=== PATIENT | female | born 1955 | race Caucasian/White ===

== ENCOUNTER 2020-07-31 10:54 | Outpatient (CLI) | payer OTHER, SELFPAY ==
--- NOTE | ~2020-07-31 | XR_ITS ---
EXAMINATION: XR knee LT 3V DATE: 07/31/2020 11:17 INDICATION: Left knee pain. TECHNIQUE: 3 views of left knee were obtained. COMPARISON: Left knee radiograph 09/28/2013 FINDINGS: Bone alignment is normal. No fracture. There is mild osteoarthritis of lateral and patellof emoral compartments characterized by tiny marginal osteophytes. No knee joint effusion. IMPRESSION: 1. Mild left knee osteoarthritis. Reviewed, dictated and finalized at location A.
== END 2020-07-31 10:55 | disposition home or self-care (01) ==
LOC: ANHIMG 11:02
PROVIDERS: PCP Internal Medicine; Visit Provider Internal Medicine
DX: M17.12 Unilateral primary osteoarthritis, left knee (principal)
CPT/HCPCS: 73562

== ENCOUNTER 2020-08-08 08:00 | Outpatient (CLI) | payer OTHER, SELFPAY | END 2020-08-08 08:01 | disposition home or self-care (01) | LOC: ANHCOVIDVC 08:00 | PROVIDERS: PCP Internal Medicine | DX: Z23 Encounter for immunization (principal) | CPT/HCPCS: 0001A; 91300 ==

== ENCOUNTER 2020-08-29 08:02 | Outpatient (CLI) | payer OTHER, SELFPAY | END 2020-08-29 08:03 | LOC: ANHCOVIDVC 08:02 | PROVIDERS: PCP Internal Medicine | DX: Z23 Encounter for immunization (principal) | CPT/HCPCS: 0002A; 91300 ==

== ENCOUNTER 2024-02-01 15:39 | Inpatient (IN) | payer MEDICARE, SELFPAY ==
[2024-02-01] VITALS (17 sets, daily range): BP systolic 134–221; BP diastolic 70–103; PULSE 68–83; RESP 12–26; TEMP 36.3; O2SAT 93–100; BMI 29.9
--- NOTE | ~2024-02-01 | CT_ITS ---
CLINICAL INDICATION: Gallstone pancreatitis. COMPARISON: 02/01/2024. TECHNIQUE: An enhanced CT of the abdomen and pelvis was performed utilizing multislice spiral McPhy ue reconstructed at 2.5 mm slice thickness. Coronal and sagittal reconstructions were performed. Th is CT examination was performed utilizing dose reduction techniques. This CT examination was performe d using one or more of the following dose reduction techniques: Automated exposure control, adjustmen t of the mA and/or kV according to patient's size, and the use of iterative reconstruction technique. FINDINGS/OBSERVATIONS: Visualized lower thorax:Interval development of small bilateral pleural effusions with adjacent compr essive atelectasis, right greater than left. The heart is enlarged, without pericardial effusion. Elevation of the right hemidiaphragm is redemonstrated. Liver: The liver is enlarged measuring 20 cm in longitudinal dimension. Gallbladder and biliary system: The gallbladder is distended with both fluid and two large stones. Pancreas: The pancreas is enlarged, and edematous, with loss of the normal fat planes as one would expect with acute pancreatitis. However, in contrast to the previous examination performed 2 days earlier, the entirety of the pancre as does not enhance with intravenous contrast. A short segment of the proximal body of the pancreas demonstrates decreased attenuation without enhancement, worrisome for necrotizing pancreatitis. This abnormality is visualized caudal and right lateral to the SMV/portal vein confluence. This is best se en on axial imaging, slices 77 through 88. Peripancreatic fluid is redemonstrated, increased from prior with free fluid extending into the pelvi s. Spleen: The spleen enhances homogeneously, and is otherwise unremarkable without splenic enlargement. Kidneys: Scattered subcentimeter foci within the bilateral kidneys for which cysts are suspected. Rem ainder of the bilateral kidneys enhance symmetrically. Adrenal glands: Unremarkable. Gastrointestinal tract: Multiple loops of inflamed small bowel within the proximal jejunum are presen t with borderline dilatation and hyperemia. Fecal stasis within the aerated colon. Appendix:The air-filled appendix is of normal caliber (axial series, image 157). Vasculature: The IVC is flattened and slit-like consistent with severe hypovolemia. Trace calcification within the abdominal aorta. Lymph nodes: Scattered nonpathologically enlarged lymph nodes within the retroperitoneum and the mese ntery. Pelvic structures:The uterus is anteverted and anteflexed. The bladder is decompressed without Sanchez catheter drainage. Further evaluation of the deep pelvis is limited secondary to streak artifact from the patient's righ t hip prosthetic. Body wall and musculoskeletal: Small fat-containing umbilical hernia. No significant degenerative disease within the lower thoracic or lumbosacral spines. No lytic or blastic lesions. IMPRESSION: Findings consistent with acute pancreatitis, with additional findings worrisome for necrotizing pancr eatitis, as detailed above. Severe hypovolemia by imaging criteria for which aggressive resuscitation is suggested. Cholelithiasis. Hepatomegaly. Interval development of bilateral pleural effusions with adjacent compressive atelectasis. These findings will be called to the ordering clinician. Once contact was made, an addendum will be p erformed. Reviewed, dictated and finalized at location A. IMPRESSION: Findings consistent with acute pancreatitis, with additional findings worrisome for necrotizing pancreatitis, as detailed above. Severe hypovolemia by imaging criteria for which aggressive resuscitation is lee ggested. Cholelithiasis. Hepatomegaly. Interval development of bilateral pleural effusions with adjacent compressive a telectasis. These findings will be called to the ordering clinician. Once contact was made, an addendum will be performed.
--- NOTE | ~2024-02-01 | XR_ITS ---
Exam: Abdomen 2V HISTORY: replaced ng tube after pt removed COMPARISON: 02/03/2024 TECHNIQUE: Supine images of the lower chest and upper abdomen FINDINGS: Nasogastric tube extends just into the stomach, for which advancement of approximately 5 to 6 cm may be performed for optimal radiographic placement. Interval worsening of the bilateral pleural effusions, when compared with earlier imaging. IMPRESSION: Interval replacement of the nasogastric tube with its tip projecting over the proximal stomach for wh ich advancement of approximately 5 to 6 cm may be performed for optimal radiographic placement. Worsening bilateral pleural effusions, as detailed above. Reviewed, dictated and finalized at location A. IMPRESSION: Interval replacement of the nasogastric tube with its tip projecting over the p roximal stomach for which advancement of approximately 5 to 6 cm may be perform ed for optimal radiographic placement. Worsening bilateral pleural effusions, as detailed above.
--- NOTE | ~2024-02-01 | CT_ITS ---
EXAMINATION: CT abdomen pelvis wo con DATE: 02/08/2024 10:22 INDICATION: Pancreatitis. TECHNIQUE: Computed tomography (CT) of the abdomen and pelvis was performed without intravenous contr ast. Automated exposure control and iterative reconstruction technique were employed. The dose-length product was 863.10 mGy-cm. COMPARISON: CT abdomen and pelvis 02/03/2024 FINDINGS: The visualized portions of the lung bases demonstrate atelectasis. There are small pleural effusions. The heart size is normal. There are coronary artery calcifications. There are calcificatio ns aortic valve. No pericardial effusion. There is diffuse hepatic steatosis. The spleen is normal. T here are gallstones in the gallbladder, which is distended. There are punctate calcifications in the pancreas, consistent with chronic pancreatitis. There is extensive fat stranding around the pancreas. The pancreas demonstrates heterogeneous attenuation. The adrenal glands and right kidney are normal. There is a parenchymal calcification in left kidney. There is calcified atherosclerosis of the aorta and many of the other arteries. There is a Sanchez catheter in expected position. The endometrial comp graham is thickened to 13 mm. There are dilated loops of small bowel. The appendix is normal. There is a small volume of ascites. There are no pathologically enlarged lymph nodes. There is a total right hi p arthroplasty. There is mild thoracic spondylosis and moderate lumbar spondylosis. IMPRESSION: 1. Stable acute necrotic pancreatitis. 2. Improved small volume of ascites. 3. Worsened small pleural effusions. 4. Cholelithiasis. Gallbladder distention may be secondary to fasting or acute cholecystitis. 5. Dilated small bowel, likely adynamic ileus. 6. Thickened endometrial complex. The differential diagnosis includes endometrial hyperplasia, polyp, and carcinoma. Consider pelvis ultrasound or biopsy. Reviewed, dictated and finalized at location A. IMPRESSION: 1. Stable acute necrotic pancreatitis. 2. Improved small volume of ascites. 3. Worsened small pleural effusions. 4. Cholelithiasis. Gallbladder distention may be secondary to fasting or acute cholecystitis. 5. Dilated small bowel, likely adynamic ileus. 6. Thickened endometrial complex. The differential diagnosis includes endometri al hyperplasia, polyp, and carcinoma. Consider pelvis ultrasound or biopsy.
--- NOTE | ~2024-02-01 | XR_ITS ---
XR chest 1V portable 02/05/2024 08:27 Indication: Hypoxia Procedure: AP portable chest Comparison: 02/04/2024 Findings: Cardiomegaly. PICC catheter tip in the SVC. Pulmonary vascular congestion. Small right pleu ral effusion. No pneumothorax. Retrocardiac opacification, most likely atelectasis. Impression: 1: Cardiomegaly with pulmonary vascular congestion. 2: Left basilar consolidation, most likely atelectasis. 3: Small right pleural effusion. Reviewed, dictated and finalized at location B. Impression: 1: Cardiomegaly with pulmonary vascular congestion. 2: Left basilar consolidation, most likely atelectasis. 3: Small right pleural effusion.
--- NOTE | ~2024-02-01 | XR_ITS ---
CHEST RADIOGRAPH CLINICAL HISTORY: Increased work of breathing . COMPARISON: 02/01/2024 TECHNIQUE: Single portable view of the chest. FINDINGS Nasogastric tube extends below the left hemidiaphragm, presumably within the stomach. Small bore catheter originates in the left upper extremity with its tip projecting over the superior vena cava, representing a PICC line. Indeterminate lucency suggesting air opacified bowel is identified projecting over the cardiomediasti nal silhouette, to the left of midline. On the previous day's CT examination there was no bowel interposition appreciated in this location, a nd as such this lucency is indeterminate. The remainder of the cardiomediastinal silhouette is otherwise unremarkable. Platelike atelectasis is now present within the left mid to lower lung field. Blunting of the bilateral costophrenic sulci are demonstrated suggesting small bilateral pleural effu sions, likely reactive from patient's intra-abdominal process. No evidence of pulmonary vascular congestion is appreciated. IMPRESSION: Small bilateral pleural effusions (likely reactive from patient's intra-abdominal process) with indet erminate lucency projecting over the left mid to lower lung field, as detailed above. These findings may be secondary to patient positioning (semierect). Platelike atelectasis within the left mid to lower lung field, an interval change. Interval placement of a left upper extremity PICC line, in good position and ready for immediate use. No focal infiltrate or evidence of pulmonary vascular congestion. Reviewed, dictated and finalized at location A. IMPRESSION: Small bilateral pleural effusions (likely reactive from patient's intra-abdomin al process) with indeterminate lucency projecting over the left mid to lower tata ng field, as detailed above. These findings may be secondary to patient positio brian (semierect). Platelike atelectasis within the left mid to lower lung field, an interval elizabeth ge. Interval placement of a left upper extremity PICC line, in good position and re agnes for immediate use. No focal infiltrate or evidence of pulmonary vascular congestion.
--- NOTE | ~2024-02-01 | XR_ITS ---
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 RESULT: Lines, tubes, and devices: None. Lungs and pleura: Subsegmental left lower lobe airspace opacities. Cardiomediastinal silhouette: Stable. Other: No acute osseous or upper abdominal finding. IMPRESSION: Subsegmental left lower lobe atelectasis/consolidation. Reviewed, dictated and finalized at location K.
--- NOTE | ~2024-02-01 | XR_ITS ---
Exam: Abdomen 2V HISTORY: NG placement COMPARISON: Reference is made to CT examination of the abdomen and pelvis performed 24 hours earlier. TECHNIQUE: Supine images of the lower chest and upper abdomen FINDINGS: Nasogastric tube identified projecting below the left hemidiaphragm, presumably within the stomach. Multiple loops of dilated small bowel within the upper abdomen, likely reactive from patient's known pancreatitis. IMPRESSION: NG tube in good position and ready for immediate use for decompression purposes Reviewed, dictated and finalized at location A.
--- NOTE | ~2024-02-01 | CT_ITS ---
CT of the Abdomen and Pelvis: Indication: Hematuria Technique: 2.5 mm axial scans were obtained through the abdomen and pelvis prior to and following in travenous administration of 130 cc of Omnipaque 350. Dose reduction technique was used on this scan b y utilizing automated exposure control and iterative reconstruction technique. The dose-length produc t (DLP) was 1088.40 mGy-cm. COMPARISON: 02/08/2024 Findings: Scans through the lung bases demonstrate small to moderate right pleural effusion and smal l left pleural effusion, with bibasilar atelectatic change. The liver, spleen, adrenals and kidneys are within normal limits. Calcified gallstones are present. T here is necrotic change of the pancreas, compatible with necrotizing pancreatitis, with extensive irr egular developing peripancreatic fluid collections, compatible with developing pseudocysts or walled off necrosis. There are atherosclerotic calcifications of the aorta. No lymphadenopathy. No bowel obstruction or bowel wall thickening. There is no evidence to suggest acute appendicitis. Images through the pelvis were performed. Urinary bladder unremarkable. Small amount of pelvic ascite s present. No adnexal mass evident. Impression: No definite etiology for hematuria identified. Present pancreatitis with developing extensive irregular peripancreatic fluid collections, compatible with developing pseudocysts or walled off necrosis. Small amount of pelvic ascites. Bilateral pleural effusions, as detailed above, with bibasilar atelectasis. Cholelithiasis. Reviewed, dictated and finalized at [facility]. Impression: No definite etiology for hematuria identified. Present pancreatitis with developing extensive irregular peripancreatic fluid c ollections, compatible with developing pseudocysts or walled off necrosis. Small amount of pelvic ascites. Bilateral pleural effusions, as detailed above, with bibasilar atelectasis. Cholelithiasis.
--- NOTE | ~2024-02-01 | XR_ITS ---
EXAMINATION: XR chest 1V portable DATE: 02/08/2024 10:25 INDICATION: Pneumonia. TECHNIQUE: A single frontal view of the chest was obtained. COMPARISON: Chest single view 02/06/2024 FINDINGS: The lung volumes are small. There are airspace opacities at the lung bases, likely atelecta sis. There is a small right pleural effusion. No pneumothorax. The heart size is normal. A left upper extremity peripherally inserted central venous catheter (PICC) is seen with tip in the superior vena cava. There is dilated small bowel. IMPRESSION: 1. Small lung volumes with airspace opacities at the lung bases, likely atelectasis. 2. Small right pleural effusion. 3. Dilated small bowel, likely adynamic ileus. Reviewed, dictated and finalized at location A. IMPRESSION: 1. Small lung volumes with airspace opacities at the lung bases, likely atelect asis. 2. Small right pleural effusion. 3. Dilated small bowel, likely adynamic ileus.
--- NOTE | ~2024-02-01 | US_ITS ---
Renal-Bladder ultrasound Clinical History: Hematuria Technique: Real-time sonographic imaging of the kidneys and urinary bladder was performed. Findings: The right kidney measures 12.1 cm in length and the left kidney measures 13.0 cm. There is no hydronephrosis or renal calculus identified. Renal cortical echogenicity is within normal limits. No renal mass lesion is identified. The urinary bladder is moderately distended at the time of this exam. No intraluminal echoes are iden tified. No abnormal wall thickening is seen. Impression: Unremarkable ultrasound of the kidneys and urinary bladder. Reviewed, dictated and finalized at location M. Impression: Unremarkable ultrasound of the kidneys and urinary bladder.
--- NOTE | ~2024-02-01 | CT_ITS ---
EXAMINATION: CTA chest abdomen pelvis DATE: 02/01/2024 17:48 INDICATION: chest pain, abd pain . TECHNIQUE: Computed tomography angiography of the chest, abdomen, and pelvis was performed with 100 m L Omnipaque-350 intravenous contrast in the arterial phase. Automated exposure control and iterative reconstruction technique were employed. The dose-length product was 1062.54 mGy-cm. COMPARISON: None FINDINGS: CHEST: Thoracic aorta: Borderline ectasia. Mild arch calcification. No dissection. Lung parenchyma and airways: Patchy areas of groundglass opacities and mild septal thickening. Low vo lumes. Patent airways. Thoracic inlet, axillae and chest wall: No thyroid or soft tissue mass. No axillary lymphadenopathy. Mediastinum: No mass or lymphadenopathy. Heart and pericardium: Normal heart size. No pericardial effusion. Coronary artery calcifications: Moderate. Pleura: No effusion or mass. Thoracic bones: No acute osseous finding in the chest. ABDOMEN/PELVIS: Liver: Enlarged. Filling defects in the main portal vein right left portal veins and superior mesente margarita vein, with surrounding fluid. Biliary/Gallbladder: Cholelithiasis. No bile duct dilation. Pancreas: Peripancreatic stranding and fluid Spleen: Normal. Adrenals:No mass. Kidneys: No suspicious mass, obstructing stone, or hydronephrosis. Bilateral renal cortical thinning. GI tract: No small or large bowel dilation. Normal appendix. Diverticulosis without diverticulitis. Mesentery/Peritoneum: Peripancreatic fluid extends along the mesenteric root and the bilateral latera l conal fascia and paracolic gutters. Retroperitoneum: No mass Atherosclerotic abdominal aortic and/or arterial calcifications. Pelvis: Obscured by streak artifact. Grossly normal urinary bladder and uterus. Normal bilateral ovar ies. Soft Tissues: Soft tissues and body wall unremarkable. Abdominopelvic bones: No acute osseous finding in the abdomen/pelvis. Partially visualized uncomplic ated appearing right hip arthroplasty hardware IMPRESSION: No aortic dissection or aneurysm. Moderate interstitial pulmonary edema. Hepatomegaly. Acute interstitial pancreatitis. Possible portal vein and superior mesenteric vein thrombosis, versus artifact from unopacified blood in this arterial phase study. Consider right upper quadrant with a focus on obtaining portal venous c olor Doppler flow and waveforms. Reviewed, dictated and finalized at location K. IMPRESSION: No aortic dissection or aneurysm. Moderate interstitial pulmonary edema. Hepatomegaly. Acute interstitial pancreatitis. Possible portal vein and superior mesenteric vein thrombosis, versus artifact f rom unopacified blood in this arterial phase study. Consider right upper quadra nt with a focus on obtaining portal venous color Doppler flow and waveforms.
--- NOTE | ~2024-02-01 | XR_ITS ---
EXAMINATION: XR chest 1V portable DATE: 02/06/2024 08:45 INDICATION: Hypoxia. TECHNIQUE: A single frontal view of the chest was obtained. COMPARISON: Chest single view 02/05/2024, CT abdomen and pelvis 02/03/2024 FINDINGS: The lung volumes are small. There are airspace opacities in the mid and lower lung zones. T here are small pleural effusions. No pneumothorax. Cardiomegaly is noted. A left upper extremity nikki pherally inserted central venous catheter (PICC) is seen with tip in the superior vena cava. There is dilated small bowel in the abdomen. IMPRESSION: 1. Stable small pleural effusions. 2. Stable airspace opacities in the mid and lower lung zones, consistent with atelectasis or less lik kerrie pneumonia. 3. Dilated small bowel, likely adynamic ileus. Reviewed, dictated and finalized at location A. IMPRESSION: 1. Stable small pleural effusions. 2. Stable airspace opacities in the mid and lower lung zones, consistent with a telectasis or less likely pneumonia. 3. Dilated small bowel, likely adynamic ileus.
--- NOTE | ~2024-02-01 | US_ITS ---
EXAMINATION: US abdomen limited DATE: 02/02/2024 09:46 INDICATION: Acute pancreatitis. TECHNIQUE: Multiple grayscale and Doppler ultrasound images of the abdomen were obtained. COMPARISON: CT abdomen and pelvis 02/01/2024 FINDINGS: The pancreas demonstrates heterogeneous echogenicity, consistent with pancreatitis. There i s diffuse hepatic steatosis. There is normal flow in main portal vein. The gallbladder is normal in s ize contains gallstones. Gallbladder wall thickening is seen. There is no sonographic Encarnacion's sign. The common duct is normal and measures 5 mm. There is trace perihepatic ascites. IMPRESSION: 1. Pancreatitis. 2. Cholelithiasis. Gallbladder wall thickening may be secondary to interstitial edema or acute cholec ystitis. 3. Diffuse hepatic steatosis. Reviewed, dictated and finalized at location A. IMPRESSION: 1. Pancreatitis. 2. Cholelithiasis. Gallbladder wall thickening may be secondary to interstitial edema or acute cholecystitis. 3. Diffuse hepatic steatosis.
--- NOTE | ~2024-02-01 | US_ITS ---
Pelvic ultrasound. Clinical History: Hematuria Technique: Realtime transabdominal and transvaginal scanning of the pelvis was performed. Color flow Doppler and Doppler spectral analysis were performed. Findings: The uterus is anteverted. The endometrial stripe has a thickness of 7 mm. No focal mass is identified. Neither ovary visualized. No adnexal mass seen. There is moderate free fluid in the cul de sac. Impression: Moderate free fluid, of uncertain etiology. Borderline thickening of endometrial stripe. Consider additional workup for endometrial hyperplasia v ersus endometrial neoplasm, as indicated. Reviewed, dictated and finalized at location M. Impression: Moderate free fluid, of uncertain etiology. Borderline thickening of endometrial stripe. Consider additional workup for end ometrial hyperplasia versus endometrial neoplasm, as indicated.
--- NOTE | ~2024-02-01 | US_ITS ---
EXAMINATION: US abdomen duplex [employer] DATE: 02/01/2024 19:23 INDICATION: right upper quadrant, possible portal vein thrombo . TECHNIQUE: Grayscale and Doppler ultrasound images of the right upper quadrant were obtained. COMPARISON: CT abdomen and pelvis, same date. FINDINGS: The left portal vein and left hepatic vein are patent but somewhat difficult to visualize s onographically, requiring color Doppler evaluation demonstrated patency. The right portal vein is pat ent with flow of 32 cm/s. The right hepatic vein is patent with normal waveform. The main portal vein is patent with flow of 16.7 cm/s and normal waveform. The middle hepatic vein is patent with normal waveform. The superior mesenteric vein is patent. IMPRESSION: Patent portal veins and superior mesenteric vein. Prior CT findings likely related to artifact from a rterial phase imaging. Reviewed, dictated and finalized at location K. IMPRESSION: Patent portal veins and superior mesenteric vein. Prior CT findings likely rela neida to artifact from arterial phase imaging.
--- NOTE | ~2024-02-01 | NM_ITS ---
EXAMINATION: NM hepatobiliary wo pharm DATE: 02/11/2024 15:27 INDICATION: Gallstone pancreatitis COMPARISON: None. TECHNIQUE: 4.6 mCi Tc-99m mebrofenin (Choletec) was administered intravenously. Scintigraphic images of the abdomen were obtained for one hour. Additional 3 hour delayed scintigrams were obtained in th e anterior and right lateral projections. FINDINGS: There is normal clearance of radiotracer from the blood pool. There is homogeneous tracer u ptake by the liver. Activity progresses to the common bile duct by 10 minutes with activity seen in the small bowel by 20 minutes. There is no evident gallbladder activity on the initial 1 hour of imag ing but with prominent activity filling the distended gallbladder on the 3 hour-weighted images yann curiel excluding acute cholecystitis. IMPRESSION: 1. No evident biliary obstruction with patent cystic duct essentially excluding acute cholecystitis. Reviewed, dictated and finalized at location A. IMPRESSION: 1. No evident biliary obstruction with patent cystic duct essentially excludin g acute cholecystitis.
--- NOTE | 2024-02-01 15:46 | ECG_ITS ---
Test Date: 2024-02-01 15:50:16 Measurements Intervals [place] Rate: 71 P: 57 CA: 164 QRS: 1 QRSD: 88 T: 59 QT: 444 QTc: 484 Interpretive Statements SINUS RHYTHM MODERATE VOLTAGE CRITERIA FOR LVH, CONSIDER NORMAL VARIANT [MEETS CRITERIA IN ONE OF: R(aVL), S(V1), R(V5), R(V5/V6)+S(V1)] INFERIOR MYOCARDIAL INFARCTION , PROBABLY OLD [40+ ms Q WAVE AND/OR ST/T ABNORMALITY IN II/aVF] No previous ECG available for comparison Electronically Signed On 02-01-2024 16:03:40 CDT by Jess Oseguera M.D.
--- NOTE | 2024-02-01 17:01 | ED.ABDPAIN ---
HPI - Abdominal Pain General Chief Complaint: Abdominal Pain Stated Complaint: abd pain Time Seen by Provider: 02/01/24 18:09 Focused HPI: 68-year-old female with history of hypertension presents with her at bedside for chest pain and abdominal pain that Started 2 hours prior to arrival. patient had fried fish in [place] fries from a fast food restaurant and 1 hour later began having pain. She points to her entire abdomen when describing the pain. She also states she is now having some pain that radiates up into her chest. She is diaphoretic and cold. She denies numbness, tingling or weakness to her legs, flank pain. She is reporting shortness of breath. Denies known fever. Reports a prior history of C-sections. She still has her gallbladder. GENERAL: Ill-appearing, diaphoretic, appears to be in pain HEAD: Normocephalic, atraumatic. CHEST: Clear to auscultation. ?No respiratory distress. ABD: diffuse tenderness to the abdomen on palpation, more notably in the right upper quadrant. No CVA tenderness. HEART: Regular rate and rhythm.? NEURO: ?Alert and oriented x3. Patient screened in triage and initial orders placed.? ?Additional care and disposition to be based upon?diagnostic testing and treatment. Related Data Home Medications Medication Instructions Recorded Confirmed cholecalciferol (vitamin D3) 50 50 mcg PO DAILY 04/16/22 02/01/24 mcg (2,000 unit) capsule carvedilol 12.5 mg tablet 12.5 mg PO BID 02/01/24 02/01/24 losartan 100 1 tablet PO DAILY 02/01/24 02/01/24 mg-hydrochlorothiazide 25 mg tablet Allergies Allergy/AdvReac Type Severity Reaction Status Date / Time No Known Allergies Allergy Verified 02/01/24 18:21 [facility] Past Medical History Medical History Abnormal finding of blood chemistry, unspecified Acute bilateral thoracic back pain Back pain Benign essential hypertension BMI 29.0-29.9,adult BMI 30.0-30.9,adult BMI 31.0-31.9,adult BPPV (benign paroxysmal positional vertigo) Bronchitis Carotid bruit Chest heaviness Dysphagia Encounter for Medicare annual wellness exam Encounter for preventive health examination Encounter for routine adult health examination without abnormal findings Encounter for screening mammogram for malignant neoplasm of breast History of strep sore throat Hx of colonic polyps Left knee pain Nonintractable headache On alf drug therapy Pre-diabetes Sinus infection Vitamin D deficiency Surgical History Surgical History 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 Family History Family History Father Hypertension Family history of diabetes mellitus in first degree relative Acute myocardial infarction Mother Hypertension Family history of heart disease in male family member before age 55 Sibling Family history of diabetes mellitus in first degree relative Other Diabetes mellitus Social History Social History Smoking status: Never smoker Second hand tobacco smoke exposure: No Alcohol intake: never Do You Feel Safe in your Home?: Yes Lack of Transportation: No Lack of Food: Never True Current Housing: I Have Housing Concerned About Future Housing: No Difficulty Paying Gas/Electric Bills: No Difficulty Paying for Meds: No Currently Unemployed: No Education: Associate Degree Difficulty w/ Childcare or Family Care: No Living arrangements: with family Gender identity (if verbalized by the patient): Female Spiritual care concerns: No Course Vital Signs Vital signs: Vital Signs Pulse Rate 72 02/01/24 15:40 Respiratory Rate 16 02/01/24 15:40 Blood Pressure 134/76 02/01/24 15:40 Pulse Oximetry 99 02/01/24 15:40 Temperature 97.4 F L 02/01/24 22:00 Pulse Rate 79 02/02/24 00:40 Respiratory Rate 18 02/01/24 22:00 Blood Pressure 174/70 H 02/01/24 22:00 Pulse Oximetry 93 02/01/24 22:00 Oxygen Delivery Room Air 02/01/24 22:12 MDM - Abdominal Pain Lab Data 02/01/24 17:08 02/01/24 17:08 Labs: Lab Results 02/01/24 02/01/24 02/01/24 Range/Units 17:07 17:08 19:21 WBC 27.1 H (4.5-10.0) K/mm3 RBC 5.76 H (4.2-5.4) M/mm3 Hgb 15.8 H (12.0-15.0) g/dL Hct 48.5 H (37.0-47.0) % MCV 84.2 (80-100) fl MCH 27.4 (26-34) pg MCHC 32.6 (32-36) g/dl RDW 12.5 (11.5-14.5) % Plt Count 317 (150-375) k/mm3 MPV 10.4 (7.4-10.4) fl Immature Gran % (Auto) 0.5 (0-0.5) % Neut % (Auto) 84.3 H (45.5-73.1) % Lymph % (Auto) 10.6 L (18.3-44.2) % [place] % (Auto) 3.8 (2.6-8.5) % Eos % (Auto) 0.5 (0-4.4) % Baso % (Auto) 0.3 (0.2-1.2) % Lymph # (Auto) 2.88 (0.9-3.2) K/mm3 [place] # (Auto) 1.0 H (0.1-0.6) K/mm3 Eos # (Auto) 0.1 (0-0.3) K/mm3 Baso # (Auto) 0.1 (0.0-0.1) K/mm3 Abs Immat Gran (auto) 0.14 H (0.00-0.031) K/mm3 Absolute Neuts (auto) 22.8 H (1.3-6.7) K/mm3 Absolute Nucleated RBC 0.000 (0.0-0.012) K/mm3 Nucleated RBC % 0.0 (0.0-0.2) % PT 14.0 (11.1-14.7) Seconds INR 1.1 APTT 23.6 (22.3-36.8) Seconds Sodium 141 (137-145) mmol/L Potassium 3.5 (3.4-5.0) mmol/L Chloride 97 L (98-107) mmol/L Carbon Dioxide 32 H (22-30) mmol/L Anion Gap 12 (4-12) mmol/L BUN 19 H (7-17) mg/dL Creatinine 0.90 (0.7-1.0) mg/dL Estim Creat Clear Calc 53 ml/min Estimated GFR > 60 (59 - ) Glucose 206 H (65-110) mg/dL Lactic Acid 3.3 H (0.7-2.0) mmol/L Calcium 9.3 (8.4-10.2) mg/dL Total Bilirubin 0.7 (0.2-1.3) mg/dL AST 68 H (14-36) U/L ALT 43 H (6-35) U/L Alkaline Phosphatase 101 (38-126) U/L Troponin I < 0.012 < 0.012 (0.000-0.034) ng/mL Total Protein 9.0 H (6.3-8.2) g/dL Albumin 4.8 (3.5-5.1) g/dL Triglycerides 368 H (<150) mg/dL Cholesterol 214 H (0-200) mg/dL LDL Cholesterol Direct 104 mg/dL HDL Direct 44 mg/dL Lipase > 20042 H (23-300) U/L Imaging Data Radiologist's impression: ITS Impressions Chest X-Ray 02/01/24 16:16 IMPRESSION: Subsegmental left lower lobe atelectasis/consolidation. Chest/Abdomen/Pelvis CTA 02/01/24 18:35 IMPRESSION: No aortic dissection or aneurysm. Moderate interstitial pulmonary edema. Hepatomegaly. Acute interstitial pancreatitis. Possible portal vein and superior mesenteric vein thrombosis, versus artifact from unopacified blood in this arterial phase study. Consider right upper quadrant with a focus on obtaining portal venous color Doppler flow and waveforms. Vascular Ultrasound 02/01/24 19:23 IMPRESSION: Patent portal veins and superior mesenteric vein. Prior CT findings likely related to artifact from arterial phase imaging. Discharge Plan Discharge Clinical Impression: Pancreatitis Patient Disposition: Still a Patient Condition: Stable
[2024-02-01 17:17] LABS: Basophils Absolute Auto 0.1 K/mm3 (0.0-0.1); Basophils Percent Auto 0.3 % (0.2-1.2); Eosinophils Absolute Auto 0.1 K/mm3 (0-0.3); Eosinophils Percent Auto 0.5 % (0-4.4); Hematocrit 48.5 % (37.0-47.0); Hemoglobin 15.8 g/dL (12.0-15.0); Immature Granulocyte Absolute 0.14 K/mm3 (0.00-0.031); Immature Granulocyte Percent A 0.5 % (0-0.5); Lymphocytes Absolute Auto 2.88 K/mm3 (0.9-3.2); Lymphocytes Percent Auto 10.6 % (18.3-44.2); Mean Corpuscular HGB Conc 32.6 g/dl (32-36); Mean Corpuscular Hemoglobin 27.4 pg (26-34); Mean Corpuscular Volume 84.2 fl (80-100); Mean Platelet Volume 10.4 fl (7.4-10.4); Monocytes Percent Auto 3.8 % (2.6-8.5); Neutrophils Absolute Auto 22.8 K/mm3 (1.3-6.7); Neutrophils Percent Auto 84.3 % (45.5-73.1); Platelet Count Result 317 k/mm3 (150-375); Red Blood Count 5.76 M/mm3 (4.2-5.4); Red Cell Distribution Width 12.5 % (11.5-14.5); White Blood Count 27.1 K/mm3 (4.5-10.0)
[2024-02-01 17:27] LABS: Lactic Acid Reflex 3.3 mmol/L (0.7-2.0)
[2024-02-01 17:28] LABS: Alanine Aminotransferase 43 U/L (6-35); Albumin Level 4.8 g/dL (3.5-5.1); Alkaline Phosphatase 101 U/L (38-126); Anion Gap 12 mmol/L (4-12); Aspartate Amino Transferase 68 U/L (14-36); Bilirubin,Total 0.7 mg/dL (0.2-1.3); Blood Urea Nitrogen 19 mg/dL (7-17); Calcium 9.3 mg/dL (8.4-10.2); Carbon Dioxide 32 mmol/L (22-30); Chloride 97 mmol/L (98-107); Estimated CRCL calculation 53 ml/min; Estimated Glomerular Filt Rate > 60; Glucose 206 mg/dL (65-110); Potassium 3.5 mmol/L (3.4-5.0); Sodium 141 mmol/L (137-145)
[2024-02-01 17:39] LABS: Troponin I < 0.012 ng/mL (0.000-0.034)
[2024-02-01 17:44] LABS: INR 1.1
[2024-02-01 17:45] LABS: Partial Thromboplastin Time 23.6 Seconds (22.3-36.8)
[2024-02-01 18:10] LABS: Lipase > 40000 U/L (23-300)
[2024-02-01] MEDS: ONDANSETRON INJ 4 MG/2 ML VIAL IV PUSH (18:28)
[2024-02-01] MEDS: SODIUM CHLORIDE 0.9% IV 1,000 ML 999 ML IV CONT ×2 (18:29→18:32)
[2024-02-01] MEDS: HYDROmorphone HCL INJ (*CRX) 1 MG/ML SYR 0.5 MG IV PUSH (18:30)
[2024-02-01] MEDS: cefTRIAXone 2 GM/NS 100 ML 2 GM/100 ML BAG IVPB (18:33)
[2024-02-01 18:36] LABS: Cholesterol 214 mg/dL (0-200); HDL Direct 44 mg/dL; Triglycerides 368 mg/dL (<150)
[2024-02-01 18:47] LABS: LDL Cholesterol Direct 104 mg/dL
--- NOTE | 2024-02-01 19:10 | PC.NURSE ---
Report received from SHANON Stephens. Assumed care of patient at this time.
--- NOTE | 2024-02-01 19:13 | ECG_ITS ---
Test Date: 2024-02-01 19:19:04 Measurements Intervals [place] Rate: 68 P: 52 IA: 168 QRS: -8 QRSD: 89 T: 65 QT: 453 QTc: 482 Interpretive Statements SINUS RHYTHM VOLTAGE CRITERIA FOR LVH [MEETS CRITERIA IN ONE OF: R(aVL), S(V1), R(V5), R(V5/V6)+S(V1)] NONSPECIFIC T-WAVE ABNORMALITY OLD INFERIOR [place] Compared to ECG 02/01/2024 15:50:16 T-wave abnormality now present Electronically Signed On 02-01-2024 21:13:36 CDT by Jess Oseguera M.D.
--- NOTE | 2024-02-01 19:46 | P.HP_ITS ---
H&P: HPI History of Present Illness Date/Time: 02/01/24 19:46 Chief Complaint: abdominal pain Narrative: This is a 68-year-old female with past medical history significant for hypertension, dyslipidemia, DJD. Patient presents to the emergency room due to abdominal pain nausea vomiting according to patient she was on a trip of through the weekend and had not been eating dry it was feeling off today in the morning she had onset of abdominal pain localized to the epigastric area. Has not been able to eat or keep anything down presents to the emergency room preliminary workup was significant for a lipase of 40,000. Patient has been admitted for further evaluation management and treatment. 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 RESULT: Lines, tubes, and devices: None. Lungs and pleura: Subsegmental left lower lobe airspace opacities. Cardiomediastinal silhouette: Stable. Other: No acute osseous or upper abdominal finding. IMPRESSION: Subsegmental left lower lobe atelectasis/consolidation. EXAMINATION: CTA chest abdomen pelvis DATE: 02/01/2024 17:48 INDICATION: chest pain, abd pain . TECHNIQUE: Computed tomography angiography of the chest, abdomen, and pelvis was performed with 100 mL Omnipaque-350 intravenous contrast in the arterial phase. Automated exposure control and iterative reconstruction technique were employed. The dose-length product was 1062.54 mGy-cm. COMPARISON: None FINDINGS: CHEST: Thoracic aorta: Borderline ectasia. Mild arch calcification. No dissection. Lung parenchyma and airways: Patchy areas of groundglass opacities and mild septal thickening. Low volumes. Patent airways. Thoracic inlet, axillae and chest wall: No thyroid or soft tissue mass. No axillary lymphadenopathy. Mediastinum: No mass or lymphadenopathy. Heart and pericardium: Normal heart size. No pericardial effusion. Coronary artery calcifications: Moderate. Pleura: No effusion or mass. Thoracic bones: No acute osseous finding in the chest. ABDOMEN/PELVIS: Liver: Enlarged. Filling defects in the main portal vein right left portal veins and superior mesenteric vein, with surrounding fluid. Biliary/Gallbladder: Cholelithiasis. No bile duct dilation. Pancreas: Peripancreatic stranding and fluid Spleen: Normal. Adrenals:No mass. Kidneys: No suspicious mass, obstructing stone, or hydronephrosis. Bilateral renal cortical thinning. GI tract: No small or large bowel dilation. Normal appendix. Diverticulosis without diverticulitis. Mesentery/Peritoneum: Peripancreatic fluid extends along the mesenteric root and the bilateral lateral conal fascia and paracolic gutters. Retroperitoneum: No mass Atherosclerotic abdominal aortic and/or arterial ca lcifications. Pelvis: Obscured by streak artifact. Grossly normal urinary bladder and uterus. Normal bilateral ovaries. Soft Tissues: Soft tissues and body wall unremarkable. Abdominopelvic bones: No acute osseous finding in the abdomen/pelvis. Partially visualized uncomplicated appearing right hip arthroplasty hardware IMPRESSION: No aortic dissection or aneurysm. Moderate interstitial pulmonary edema. Hepatomegaly. Acute interstitial pancreatitis. Possible portal vein and superior mesenteric vein thrombosis, versus artifact from unopacified blood in this arterial phase study. Consider right upper quadrant with a focus on obtaining portal venous color Doppler flow and waveforms. Review of Systems Review of Systems: abdominal pain localized to the epigastric area, nausea, vomiting PMFSH Past Medical History Medical History Abnormal finding of blood chemistry, unspecified Acute bilateral thoracic back pain Back pain Benign essential hypertension BMI 29.0-29.9,adult BMI 30.0-30.9,adult BMI 31.0-31.9,adult BPPV (benign paroxysmal positional vertigo) Bronchitis Carotid bruit Chest heaviness Dysphagia Encounter for Medicare annual wellness exam Encounter for preventive health examination Encounter for routine adult health examination without abnormal findings Encounter for screening mammogram for malignant neoplasm of breast History of strep sore throat Hx of colonic polyps Left knee pain Nonintractable headache 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 Pre-diabetes Sinus infection Vitamin D deficiency Surgical History Surgical History 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 Family History Family History Father Hypertension Family history of diabetes mellitus in first degree relative Acute myocardial infarction Mother Hypertension Family history of heart disease in male family member before age 55 Sibling Family history of diabetes mellitus in first degree relative Other Diabetes mellitus Social History Social History Smoking status: Never smoker Second hand tobacco smoke exposure: No Alcohol intake: never Do You Feel Safe in your Home?: Yes Lack of Transportation: No Lack of Food: Never True Current Housing: I Have Housing Concerned About Future Housing: No Difficulty Paying Gas/Electric Bills: No Difficulty Paying for Meds: No Currently Unemployed: No Education: Associate Degree Difficulty w/ Childcare or Family Care: No Living arrangements: with family Gender identity (if verbalized by the patient): Female Spiritual care concerns: No Meds Home Medications and Allergies Home Medications Medication Instructions Recorded Confirmed Type naproxen 500 mg tablet (Naprosyn) 500 mg PO BID PRN pain #60 tabs 07/12/20 02/01/24 Rx cholecalciferol (vitamin D3) 50 50 mcg PO DAILY 04/16/22 02/01/24 History mcg (2,000 unit) capsule rosuvastatin 40 mg tablet 40 mg PO DAILY #90 tabs 10/07/22 02/01/24 Rx cyclobenzaprine 10 mg tablet 10 mg PO TID PRN muscle spasm #30 02/03/23 02/01/24 Rx tabs fluticasone propionate 50 2 spray intranasal DAILY PRN 02/03/23 02/01/24 Rx mcg/actuation nasal allergy symptoms #16 grams spray,suspension carvedilol 12.5 mg tablet 12.5 mg PO BID 02/01/24 02/01/24 History losartan 100 1 tablet PO DAILY 02/01/24 02/01/24 History mg-hydrochlorothiazide 25 mg tablet Allergies Allergy/AdvReac Type Severity Reaction Status Date / Time No Known Allergies Allergy Verified 02/01/24 18:21 Vital Signs Vital Signs - 24 hr 02/01/24 15:40 02/01/24 18:07 Temperature 97.4 F L Pulse Rate 72 79 Respiratory Rate 16 16 Blood Pressure 134/76 154/103 H Pulse Oximetry 99 100 Exam Narrative: patient is laying in bed Const: General: comfortable, no acute distress, well developed, alert, awake and average body habitus Nutritional Appearance: average body habitus Orientation/consciousness: patient oriented x3 Other: well-appearing HENMT: Head: normal to inspection, normocephalic and atraumatic Ears: hearing grossly normal bilaterally Face/Nose/Sinus: normal facial exam Face and sinus: normal facial exam Eyes: General: appearance normal, both eyes and all related structures Pupils: Equal, round and reactive pupils present EOM: EOMs intact bilaterally Neck: Neck: full ROM, no lymphadenopathy and no JVD Thyroid: thyroid normal Lymphatic: no lymphadenopathy noted Resp: Effort & Inspection: normal respiratory effort and able to speak in complete sentences Auscultation: clear to auscultation bilaterally Cardio: Jugular venous distension: no JVD Rate: regular rate Rhythm: regular rhythm Heart sounds: S1 normal heart sound present and S2 normal heart sound present GI: Inspection: normal to inspection GI Palp: Yes Soft to palpation, No Guarding due to palpation present (GI), No Rigid due to palpation, Yes No hepatosplenomegaly present and No Rebound tenderness present : General: Yes deferred Skin: Rashes: no rashes Wounds: no wounds Neuro: General: patient oriented x3 and CN's II-XI intact bilaterally Cranial nerves: Yes CN's II-XII intact bilaterally and Yes Equal, round and reactive pupils present Cognition (Neuro): normal cognition Speech: normal speech Gait exam (Neuro): Normal gait present Motor exam (neuro): 5/5 motor strength present throughout Extrem: General: normal to inspection, full ROM, no joint enlargement and no pedal edema H&P: Results Labs Labs: Short CBC 02/01/24 Range/Units 17:08 WBC 27.1 H (4.5-10.0) K/mm3 Hgb 15.8 H (12.0-15.0) g/dL Hct 48.5 H (37.0-47.0) % Plt Count 317 (150-375) k/mm3 BMP 02/01/24 17:08 Sodium 141 Potassium 3.5 Chloride 97 L Carbon Dioxide 32 H BUN 19 H Creatinine 0.90 Glucose 206 H Calcium 9.3 Cardiac Enzymes 02/01/24 Range/Units 17:08 Troponin I < 0.012 (0.000-0.034) ng/mL Liver Function 02/01/24 Range/Units 17:08 Total Bilirubin 0.7 (0.2-1.3) mg/dL AST 68 H (14-36) U/L ALT 43 H (6-35) U/L Alkaline Phosphatase 101 (38-126) U/L Albumin 4.8 (3.5-5.1) g/dL Assessment and Plan Assessment and plan (1) Acute pancreatitis: Code(s): K85.90 - Acute pancreatitis without necrosis or infection, unspecified Status: Acute Assessment and Plan: admit to regular medical floor NPO except for ice chips D5 LR at 100 cc an hour right upper quadrant ultrasound in a.m. CT a of chest abdomen and pelvis reviewed supportive care (2) Benign essential hypertension: Code(s): I10 - Essential (primary) hypertension Status: Acute Assessment and Plan: holding hydrochlorothiazide resume losartan (3) Mixed hyperlipidemia: Code(s): E78.2 - Mixed hyperlipidemia Status: Acute Assessment and Plan: continue statin Hospitalist [facility] Advance Care Plan I have confirmed that the patient's Advanced Care Plan is present, code status is documented, or surrogate decision maker is listed in patient medical record.: Yes Medication Reconciliation I have utilized all available resources to obtain, update and review the patients current medications (includes all prescriptions, OTC, herbals, cannabis, and nutritional supplements).: Yes
[2024-02-01 19:47] LABS: Troponin I < 0.012 ng/mL (0.000-0.034)
[2024-02-01] MEDS: HYDROmorphone HCL INJ (*CRX) 1 MG/ML SYR IV PUSH (20:14)
[2024-02-01 20:15] LABS: Reflex Lactic Acid Yes or No Add Lactic
[2024-02-01 22:00] LABS: Lactic Acid 2.2 mmol/L (0.7-2.0)
[2024-02-01 22:12] LABS: Troponin I < 0.012 ng/mL (0.000-0.034)
--- NOTE | 2024-02-01 22:25 | ADMGEN ---
This patient, Viridiana Vega, was admitted to 2 Medical Room 250-01 @ 2049. Patient/family oriented to hospital policies and general routines including ID bracelet, bed and alarms, visiting hours, pain management, procedures, bathroom and other care routines, personal items, smoking policy, room service/diet, and visiting hours. Information on how to activate the Rapid Response Team has been discussed. Patient/Family are encouraged to report perceived risks to care and to ask questions if they do not understand what they are told or what they should do.
[2024-02-01] MEDS: SODIUM CHLORIDE 0.9% IV 1,000 ML 125 ML IV CONT (23:41)
[2024-02-02] VITALS (10 sets, daily range): BP systolic 94–170; BP diastolic 54–71; PULSE 68–88; RESP 14–18; TEMP 36.3–36.8; O2SAT 91–99
[2024-02-02] MEDS: HYDROmorphone HCL INJ (*CRX) 1 MG/ML SYR 0.5 MG IV PUSH ×2 (00:29→10:01)
[2024-02-02] MEDS: ONDANSETRON INJ 4 MG/2 ML VIAL IV PUSH ×3 (00:38→13:58)
[2024-02-02] MEDS: carvediloL 12.5 MG TABLET PO ×3 (00:40→21:25)
[2024-02-02] MEDS: DEXTROSE 5%/LACTATED RINGERS 1,000 ML 100 ML IV CONT ×2 (00:46→14:57)
[2024-02-02 05:59] LABS: Basophils Percent Auto 0.1 % (0.2-1.2); Hematocrit 48.5 % (37.0-47.0); Hemoglobin 15.5 g/dL (12.0-15.0); Immature Granulocyte Absolute 0.12 K/mm3 (0.00-0.031); Immature Granulocyte Percent A 0.6 % (0-0.5); Lymphocytes Absolute Auto 1.09 K/mm3 (0.9-3.2); Lymphocytes Percent Auto 5.4 % (18.3-44.2); Mean Corpuscular Hemoglobin 27.1 pg (26-34); Mean Corpuscular Volume 84.8 fl (80-100); Mean Platelet Volume 10.7 fl (7.4-10.4); Monocytes Absolute Auto 0.9 K/mm3 (0.1-0.6); Monocytes Percent Auto 4.3 % (2.6-8.5); Neutrophils Absolute Auto 18.1 K/mm3 (1.3-6.7); Neutrophils Percent Auto 89.6 % (45.5-73.1); Platelet Count Result 255 k/mm3 (150-375); Red Blood Count 5.72 M/mm3 (4.2-5.4); Red Cell Distribution Width 12.7 % (11.5-14.5); White Blood Count 20.2 K/mm3 (4.5-10.0)
[2024-02-02 06:14] LABS: Alanine Aminotransferase 33 U/L (6-35); Alkaline Phosphatase 76 U/L (38-126); Anion Gap 9 mmol/L (4-12); Aspartate Amino Transferase 47 U/L (14-36); Bilirubin,Total 0.6 mg/dL (0.2-1.3); Blood Urea Nitrogen 21 mg/dL (7-17); Calcium 8.3 mg/dL (8.4-10.2); Carbon Dioxide 31 mmol/L (22-30); Chloride 102 mmol/L (98-107); Estimated CRCL calculation 60 ml/min; Estimated Glomerular Filt Rate > 60; Glucose 238 mg/dL (65-110); Potassium 4.9 mmol/L (3.4-5.0); Sodium 142 mmol/L (137-145)
[2024-02-02 06:56] LABS: Lipase 6037 U/L (23-300)
[2024-02-02] MEDS: ROSUVASTATIN 20 MG TABLET 40 MG PO (08:15)
[2024-02-02] MEDS: LOSARTAN POTASSIUM 100 MG TABLET PO (08:15)
--- NOTE | 2024-02-02 11:41 | P.PNIM_ITS ---
Progress Note: A&P Assessment and Plan (1) Acute pancreatitis: Code(s): K85.90 - Acute pancreatitis without necrosis or infection, unspecified Status: Acute Plan 68-year-old female with history of hypertension presents with her at bedside for chest pain and abdominal pain. CT abdomen showed acute interstitial pancreatitis, possible portal vein and superior mesenteric vein thrombosis versus artifact from unopacified blood in the arterial phase study. Underwent right upper quadrant ultrasound which showed pancreatitis, cholelithiasis, gallbladder wall thickening questionable secondary to interstitial edema or ac [place] cholecystitis, diffuse hepatic steatosis. 1. Acute pancreatitis: Concern for cholecystitis related as gallbladder is taken along with cholelithiasis Continue with IV fluids NPO Pain control Obtain blood culture Add ceftriaxone, Flagyl Obtain General surgery and GI consult Monitor leukocytosis 2. Hyperglycemia: History of hemoglobin A1c being 6.1 Obtain hemoglobin A1c with next set of labs Will add sliding scale insulin q.4 hours Patient is also getting D5, will monitor blood glucose closely 3. History of hypertension: Blood pressure can be elevated secondary to poor peak pain control Continue with losartan for now Will add another agent if blood pressure remains uncontrolled 4. Due to prophylaxis: Heparin subQ 5. Code status: Full 5. Disposition: Pending improvement Time Spent With Patient Time with patient: 15 - 25 minutes Subjective Date/time seen: 02/02/24 11:41 Interval history: Continues to have abdominal pain Review of Systems Review of Systems: All systems reviewed & are unremarkable except as noted in HPI and below Exam Const: General: comfortable HENMT: Mouth: Yes moist mucous membranes Eyes: Sclera: sclerae normal Neck: Neck: supple Resp: Auscultation: clear to auscultation bilaterally Cardio: Rate: regular rate Rhythm: regular rhythm GI: GI Palp: Yes Soft to palpation and Yes Tenderness to palpation present (GI) Auscultation: normal bowel sounds Skin: General skin exam: normal color Neuro: Speech: normal speech Extrem: General: normal to inspection Psych: Mental Status: mental status grossly normal Objective Data Vital Signs Vital Signs: Vital Signs - 24 hr 02/01/24 15:40 02/01/24 18:07 02/01/24 18:17 Temperature 97.4 F L Pulse Rate 72 79 83 Respiratory Rate 16 16 17 Blood Pressure 134/76 154/103 H Pulse Oximetry 99 100 99 Oxygen Delivery 02/01/24 18:32 02/01/24 18:45 02/01/24 18:46 Temperature Pulse Rate 80 72 74 Respiratory Rate 26 H 20 20 Blood Pressure 149/78 H Pulse Oximetry 97 93 95 Oxygen Delivery 02/01/24 19:13 02/01/24 19:28 02/01/24 19:30 Temperature Pulse Rate 68 74 72 Respiratory Rate 18 13 18 Blood Pressure Pulse Oximetry 96 98 95 Oxygen Delivery 02/01/24 19:31 02/01/24 19:40 02/01/24 19:45 Temperature Pulse Rate 71 68 73 Respiratory Rate 14 21 H 16 Blood Pressure 197/82 H 207/88 H Pulse Oximetry 98 97 98 Oxygen Delivery 02/01/24 19:47 02/01/24 20:15 02/01/24 20:16 Temperature Pulse Rate 70 70 71 Respiratory Rate 15 21 H 12 Blood Pressure 221/83 H 209/75 H Pulse Oximetry 97 98 97 Oxygen Delivery 02/01/24 20:32 02/01/24 22:00 02/01/24 22:12 Temperature 97.4 F L Pulse Rate 78 75 Respiratory Rate 20 18 Blood Pressure 139/78 174/70 H Pulse Oximetry 93 Oxygen Delivery Room Air 02/02/24 00:40 02/02/24 06:00 02/02/24 08:13 Temperature 97.7 F 97.4 F L Pulse Rate 79 68 73 Respiratory Rate 18 16 Blood Pressure 170/66 H 152/71 H Pulse Oximetry 99 95 Oxygen Delivery 02/02/24 08:15 02/02/24 08:15 Temperature Pulse Rate 73 Respiratory Rate Blood Pressure Pulse Oximetry Oxygen Delivery Room Air Intake/Output Intake/Output: Intake & Output 01/30/24 01/31/24 02/01/24 02/02/24 23:59 23:59 23:59 23:59 Intake Total 1100 Balance 1100 Meds/Results Medications: Active Medications Generic Name Dose Route Start Last Admin Trade Name Freq PRN Reason Stop Dose Admin Carvedilol 12.5 mg 02/02/24 00:30 02/02/24 08:15 Carvedilol 12.5 Mg Tablet PO 12.5 mg Q12HR CARLITOS Administration Cyclobenzaprine HCl 10 mg 02/02/24 00:09 Cyclobenzaprine Hcl 10 Mg Tablet PO TID PRN muscle spasm Dextrose 12.5 gm 02/02/24 10:59 Dextrose 50% 25 Gm/50 Ml Syringe IV PUSH PRN PRN Hypoglycemia Protocol Fluticasone Propionate 2 spray 02/02/24 00:09 Fluticasone Propionate 0.05% Na Spr 16 Gm Btl (*Bkc) NASAL DAILY PRN allergy symptoms Glucagon 1 mg 02/02/24 10:59 Glucagon For Inj 1 Mg Vial IM PRN PRN Hypoglycemia Protocol Glucose 15 gm 02/02/24 10:59 Glucose Oral Gel 15 Gm Of Glucse In 37.5 Gm Tube PO PRN PRN Hypoglycemia Protocol Hydromorphone HCl 0.5 mg 02/01/24 19:52 02/02/24 10:01 Hydromorphone Hcl Inj (*Crx) 1 Mg/Ml Syr IV PUSH 0.5 mg Q4H PRN Administration Pain Rated 7-10 Dextrose/Lactated Ringer's 1,000 mls @ 100 mls/hr 02/02/24 00:30 02/02/24 00:46 Dextrose 5%/Lactated Ringers IV CONT 100 mls/hr .Q10H CARLITOS Administration Dextrose 1,000 mls @ 100 mls/hr 02/02/24 10:59 Dextrose 5% 1,000 Ml IVPB PRN PRN Hypoglycemia Protocol Insulin Aspart 2 - 5 units 02/02/24 12:00 Insulin Aspart (*Bkc) 100 Units/Ml SUB-Q 6XD CARLITOS Protocol Losartan Potassium 100 mg 02/02/24 09:00 02/02/24 08:15 Losartan Potassium 100 Mg Tablet PO 100 mg DAILY CARLITOS Administration Ondansetron HCl 4 mg 02/01/24 19:52 02/02/24 08:24 Ondansetron Inj 4 Mg/2 Ml Vial IV PUSH 4 mg Q4H PRN Administration Nausea Rosuvastatin Calcium 40 mg 02/02/24 09:00 02/02/24 08:15 Rosuvastatin 20 Mg Tablet PO 40 mg DAILY CARLITOS Administration Radiology Results: ITS Impressions Chest X-Ray 02/01/24 16:16 IMPRESSION: Subsegmental left lower lobe atelectasis/consolidation. Chest/Abdomen/Pelvis CTA 02/01/24 18:35 IMPRESSION: No aortic dissection or aneurysm. Moderate interstitial pulmonary edema. Hepatomegaly. Acute interstitial pancreatitis. Possible portal vein and superior mesenteric vein thrombosis, versus artifact from unopacified blood in this arterial phase study. Consider right upper quadrant with a focus on obtaining portal venous color Doppler flow and waveforms. Vascular Ultrasound 02/01/24 19:23 IMPRESSION: Patent portal veins and superior mesenteric vein. Prior CT findings likely related to artifact from arterial phase imaging. Abdomen Ultrasound 02/02/24 09:49 IMPRESSION: 1. Pancreatitis. 2. Cholelithiasis. Gallbladder wall thickening may be secondary to interstitial edema or acute cholecystitis. 3. Diffuse hepatic steatosis. Labs Labs: Laboratory Results - last 24 hr 02/01/24 02/01/24 02/01/24 17:07 17:08 19:21 WBC 27.1 H RBC 5.76 H Hgb 15.8 H Hct 48.5 H MCV 84.2 MCH 27.4 MCHC 32.6 RDW 12.5 Plt Count 317 MPV 10.4 Immature Gran % (Auto) 0.5 Neut % (Auto) 84.3 H Lymph % (Auto) 10.6 L [place] % (Auto) 3.8 Eos % (Auto) 0.5 Baso % (Auto) 0.3 Lymph # (Auto) 2.88 [place] # (Auto) 1.0 H Eos # (Auto) 0.1 Baso # (Auto) 0.1 Abs Immat Gran (auto) 0.14 H Absolute Neuts (auto) 22.8 H Absolute Nucleated RBC 0.000 Nucleated RBC % 0.0 PT 14.0 INR 1.1 APTT 23.6 Sodium 141 Potassium 3.5 Chloride 97 L Carbon Dioxide 32 H Anion Gap 12 BUN 19 H Creatinine 0.90 Estim Creat Clear Calc 53 Estimated GFR > 60 Glucose 206 H Lactic Acid 3.3 H Calcium 9.3 Total Bilirubin 0.7 AST 68 H ALT 43 H Alkaline Phosphatase 101 Troponin I < 0.012 < 0.012 Total Protein 9.0 H Albumin 4.8 Triglycerides 368 H Cholesterol 214 H LDL Cholesterol Direct 104 HDL Direct 44 Lipase > 51660 H 02/01/24 02/02/24 21:45 05:44 WBC 20.2 H RBC 5.72 H Hgb 15.5 H Hct 48.5 H MCV 84.8 MCH 27.1 MCHC 32.0 RDW 12.7 Plt Count 255 MPV 10.7 H Immature Gran % (Auto) 0.6 H Neut % (Auto) 89.6 H Lymph % (Auto) 5.4 L [place] % (Auto) 4.3 Eos % (Auto) 0.0 Baso % (Auto) 0.1 L Lymph # (Auto) 1.09 [place] # (Auto) 0.9 H Eos # (Auto) 0.0 Baso # (Auto) 0.0 Abs Immat Gran (auto) 0.12 H Absolute Neuts (auto) 18.1 H Absolute Nucleated RBC 0.000 Nucleated RBC % 0.0 PT INR APTT Sodium 142 Potassium 4.9 Chloride 102 Carbon Dioxide 31 H Anion Gap 9 BUN 21 H Creatinine 0.80 Estim Creat Clear Calc 60 Estimated GFR > 60 Glucose 238 H Lactic Acid 2.2 H Calcium 8.3 L Total Bilirubin 0.6 AST 47 H ALT 33 Alkaline Phosphatase 76 Troponin I < 0.012 Total Protein 8.0 Albumin 4.0 Triglycerides Cholesterol LDL Cholesterol Direct HDL Direct Lipase 6037 H Quality VTE Prophylaxis VTE prophylaxis: pharmacologic ordered
[2024-02-02 11:49] LABS: Glucose Point of Care 167 mg/dl (65-105)
[2024-02-02 11:51] LABS: Add Urine Microscopic? YES; Appearance Urine Turbid (Clear); Bacteria Urine None Seen /hpf; Bilirubin Urine Negative (Negative); Blood Urine Negative (Negative); Color Urine Dark Yellow (Yellow); Glucose Urine UA Negative (Negative); Ketones Urine Trace mg/dL (Negative); Leukocyte Esterase Ur Trace LEU/UL (Negative); Need Manual Microscopic Reviewed; Nitrate Urine Negative (Negative); Protein Urine 1+ mg/dL (Negative); RBC Urine 0-2 /hpf (0-2); Specific Grav Ur > 1.045 (1.001-1.035); Squamous Epithelial Cell Urine Few /hpf (Few); Urobilinogen Urine 0.2 mg/dL (<2.0); WBC Urine 51-100 /hpf (0-3); pH Urine 5.5 (5.0-9.0)
[2024-02-02] MEDS: CYCLOBENZAPRINE HCL 10 MG TABLET PO (12:34)
[2024-02-02] MEDS: metroNIDAZOLE 500 MG/ISO 100ML 500 MG/100 ML BAG 100 MG IVPB ×2 (13:40→21:25)
[2024-02-02] MEDS: HEPARIN SODIUM 5,000 UNITS/ML VIAL 5000 UNITS SUB-Q ×2 (13:43→21:25)
[2024-02-02 14:49] LABS: Estimated CRCL calculation 45 ml/min; Estimated Glomerular Filt Rate 50
--- NOTE | 2024-02-02 14:59 | WPDGICN ---
Assessment and Plan Assessment and plan (1) Gallstone pancreatitis: Code(s): K85.10 - Biliary acute pancreatitis without necrosis or infection Status: Acute Assessment and Plan: most likely related to cholelithiasis noted hemoconcentration and leukocytosis on presentation, continue with iv fluids to prevent more pancreatic inflammation npo status and pain control surgery to evaluate patient normal bile duct size and bilirubin (2) Elevated liver enzymes: Code(s): R74.8 - Abnormal levels of other serum enzymes Status: Acute Assessment and Plan: monitor from pancreatitis (3) Nausea and vomiting in adult: Code(s): R11.2 - Nausea with vomiting, unspecified Status: Acute (4) Leukocytosis: Code(s): D72.829 - Elevated white blood cell count, unspecified Status: Acute Assessment and Plan: probably reactive from pancreatitis started empirically on abx (5) Cholelithiasis: Code(s): K80.20 - Calculus of gallbladder without cholecystitis without obstruction Status: Acute GI Consult Note Consult date/time: 02/02/24 14:59 Reason for consult: pancreatitis HPI: Viridiana Vega is a 68 year old female with past medical history significant for hypertension, dyslipidemia here for new onset of epigastric pain. She came here after severe upper abdominal pain with nausea and vomiting, this started after having scottish fries (denies similar episode). Finally decided to come here because needed pain medications, bloow work showed lipase of 40,000, hgb 15.8 (baseline 13), wbc 20k, ast 68, normal bili, lactic 2.2, creat 1.1. CT scan Moderate interstitial pulmonary edema. Hepatomegaly. Acute interstitial pancreatitis. Doppler ultrasound rule out thrombosis. She denies history of alcohol use. TG [id number] Review of Systems Constitutional: Constitutional: Denies chills Eyes: Eyes: Denies blurry vision ENT: Reports Normal hearing present Cardiovascular: Cardiovascular: Denies chest pain Respiratory: Respiratory: Denies cough Gastrointestinal: Gastrointestinal: Reports abdominal pain, Reports nausea and Reports vomiting Musculoskeletal: Musculoskeletal: Denies neck pain Integumentary/Breasts: Skin/Breast: Denies rash Neurologic: Denies confusion Psychiatric: Psychiatric: Denies behavioral changes [facility] Past Medical History Medical History (Updated 02/02/24 @ 15:03 by Alberto Degroot MD) Abnormal finding of blood chemistry, unspecified Acute bilateral thoracic back pain Back pain Benign essential hypertension BMI 29.0-29.9,adult BMI 30.0-30.9,adult BMI 31.0-31.9,adult BPPV (benign paroxysmal positional vertigo) Bronchitis Carotid bruit Chest heaviness Cholelithiasis Dysphagia Elevated liver enzymes Encounter for Medicare annual wellness exam Encounter for preventive health examination Encounter for routine adult health examination without abnormal findings Encounter for screening mammogram for malignant neoplasm of breast Gallstone pancreatitis History of strep sore throat Hx of colonic polyps Left knee pain Leukocytosis Nausea and vomiting in adult Nonintractable headache On oil heaterman drug therapy Pre-diabetes Sinus infection Vitamin D deficiency Surgical History Surgical History 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 Family History Family History Father Hypertension Family history of diabetes mellitus in first degree relative Acute myocardial infarction Mother Hypertension Family history of heart disease in male family member before age 55 Sibling Family history of diabetes mellitus in first degree relative Other Diabetes mellitus Social History Social History Smoking status: Never smoker Second hand tobacco smoke exposure: No Alcohol intake: never Do You Feel Safe in your Home?: Yes Lack of Transportation: No Lack of Food: Never True Current Housing: I Have Housing Concerned About Future Housing: No Difficulty Paying Gas/Electric Bills: No Difficulty Paying for Meds: No Currently Unemployed: No Education: Associate Degree Difficulty w/ Childcare or Family Care: No Living arrangements: with family Gender identity (if verbalized by the patient): Female Spiritual care concerns: No Meds Home Medications and Allergies Home Medications Medication Instructions Recorded Confirmed Type naproxen 500 mg tablet (Naprosyn) 500 mg PO BID PRN pain #60 tabs 07/12/20 02/01/24 Rx cholecalciferol (vitamin D3) 50 50 mcg PO DAILY 04/16/22 02/01/24 History mcg (2,000 unit) capsule rosuvastatin 40 mg tablet 40 mg PO DAILY #90 tabs 10/07/22 02/01/24 Rx cyclobenzaprine 10 mg tablet 10 mg PO TID PRN muscle spasm #30 02/03/23 02/01/24 Rx tabs fluticasone propionate 50 2 spray intranasal DAILY PRN 02/03/23 02/01/24 Rx mcg/actuation nasal allergy symptoms #16 grams spray,suspension carvedilol 12.5 mg tablet 12.5 mg PO BID 02/01/24 02/01/24 History losartan 100 1 tablet PO DAILY 02/01/24 02/01/24 History mg-hydrochlorothiazide 25 mg tablet Allergies Allergy/AdvReac Type Severity Reaction Status Date / Time No Known Allergies Allergy Verified 02/01/24 18:21 Vital Signs Vital Signs - 24 hr 02/01/24 15:40 02/01/24 18:07 02/01/24 18:17 Temperature 97.4 F L Pulse Rate 72 79 83 Respiratory Rate 16 16 17 Blood Pressure 134/76 154/103 H Pulse Oximetry 99 100 99 Oxygen Delivery 02/01/24 18:32 02/01/24 18:45 02/01/24 18:46 Temperature Pulse Rate 80 72 74 Respiratory Rate 26 H 20 20 Blood Pressure 149/78 H Pulse Oximetry 97 93 95 Oxygen Delivery 02/01/24 19:13 02/01/24 19:28 02/01/24 19:30 Temperature Pulse Rate 68 74 72 Respiratory Rate 18 13 18 Blood Pressure Pulse Oximetry 96 98 95 Oxygen Delivery 02/01/24 19:31 02/01/24 19:40 02/01/24 19:45 Temperature Pulse Rate 71 68 73 Respiratory Rate 14 21 H 16 Blood Pressure 197/82 H 207/88 H Pulse Oximetry 98 97 98 Oxygen Delivery 02/01/24 19:47 02/01/24 20:15 02/01/24 20:16 Temperature Pulse Rate 70 70 71 Respiratory Rate 15 21 H 12 Blood Pressure 221/83 H 209/75 H Pulse Oximetry 97 98 97 Oxygen Delivery 02/01/24 20:32 02/01/24 22:00 02/01/24 22:12 Temperature 97.4 F L Pulse Rate 78 75 Respiratory Rate 20 18 Blood Pressure 139/78 174/70 H Pulse Oximetry 93 Oxygen Delivery Room Air 02/02/24 00:40 02/02/24 06:00 02/02/24 08:13 Temperature 97.7 F 97.4 F L Pulse Rate 79 68 73 Respiratory Rate 18 16 Blood Pressure 170/66 H 152/71 H Pulse Oximetry 99 95 Oxygen Delivery 02/02/24 08:15 02/02/24 08:15 Temperature Pulse Rate 73 Respiratory Rate Blood Pressure Pulse Oximetry Oxygen Delivery Room Air Exam Const: Other: slightly uncomfortable because of pain HENMT: Face/Nose/Sinus: Normal nares present Eyes: Sclera: sclerae normal Neck: Neck: supple Resp: Effort & Inspection: normal respiratory effort Cardio: Rhythm: regular rhythm GI: GI Palp: Yes Soft to palpation and Yes Tenderness to palpation present (GI) (ttp in epigastric, no rebound) Skin: General skin exam: normal color Neuro: Speech: normal speech Motor exam (neuro): 5/5 motor strength present throughout Extrem: General: normal to inspection Psych: Mental Status: mental status grossly normal Results Labs 02/02/24 05:44 02/02/24 05:44 Labs: Short CBC 02/01/24 02/02/24 Range/Units 17:08 05:44 WBC 27.1 H 20.2 H (4.5-10.0) K/mm3 Hgb 15.8 H 15.5 H (12.0-15.0) g/dL Hct 48.5 H 48.5 H (37.0-47.0) % Plt Count 317 255 (150-375) k/mm3 BMP 02/01/24 02/01/24 02/02/24 17:08 17:39 05:44 Sodium 141 142 Potassium 3.5 4.9 Chloride 97 L 102 Carbon Dioxide 32 H 31 H BUN 19 H 21 H Creatinine 0.90 1.10 0.80 Glucose 206 H 238 H Calcium 9.3 8.3 L Cardiac Enzymes 02/01/24 02/01/24 02/01/24 Range/Units 17:08 19:21 21:45 Troponin I < 0.012 < 0.012 < 0.012 (0.000-0.034) ng/mL Liver Function 02/01/24 02/02/24 Range/Units 17:08 05:44 Total Bilirubin 0.7 0.6 (0.2-1.3) mg/dL AST 68 H 47 H (14-36) U/L ALT 43 H 33 (6-35) U/L Alkaline Phosphatase 101 76 (38-126) U/L Albumin 4.8 4.0 (3.5-5.1) g/dL Urine 10/06/24 Range/Units 11:26 Urine Color Dark yellow (Yellow) Urine Appearance Turbid H (Clear) Urine pH 5.5 (5.0-9.0) Ur Specific [place] > 1.045 H (1.001-1.035) Urine Protein 1+ H (Negative) mg/dL Urine Glucose (UA) Negative (Negative) mg/dL
[2024-02-02] MEDS: LACTATED RINGERS 1,000 ML 999 ML IV CONT (16:49)
[2024-02-02 17:18] LABS: Glucose Point of Care 136 mg/dl (65-105)
[2024-02-02 23:42] LABS: Glucose Point of Care 132 mg/dl (65-105)
[2024-02-03] VITALS (9 sets, daily range): BP systolic 114–162; BP diastolic 59–76; PULSE 80–90; RESP 16–24; TEMP 36.1–36.7; O2SAT 90–94
[2024-02-03] MEDS: DEXTROSE 5%/LACTATED RINGERS 1,000 ML 100 ML IV CONT (03:39)
[2024-02-03 04:01] LABS: Glucose Point of Care 129 mg/dl (65-105)
[2024-02-03] MEDS: HEPARIN SODIUM 5,000 UNITS/ML VIAL 5000 UNITS SUB-Q ×3 (05:04→22:32)
[2024-02-03] MEDS: metroNIDAZOLE 500 MG/ISO 100ML 500 MG/100 ML BAG 100 MG IVPB (05:04)
[2024-02-03 05:21] LABS: Glucose Point of Care 131 mg/dl (65-105)
[2024-02-03 05:56] LABS: Basophils Absolute Auto 0.1 K/mm3 (0.0-0.1); Basophils Percent Auto 0.2 % (0.2-1.2); Hematocrit 42.4 % (37.0-47.0); Hemoglobin 13.7 g/dL (12.0-15.0); Immature Granulocyte Absolute 0.22 K/mm3 (0.00-0.031); Immature Granulocyte Percent A 0.8 % (0-0.5); Lymphocytes Absolute Auto 1.57 K/mm3 (0.9-3.2); Lymphocytes Percent Auto 5.6 % (18.3-44.2); Mean Corpuscular HGB Conc 32.3 g/dl (32-36); Mean Corpuscular Hemoglobin 27.4 pg (26-34); Mean Corpuscular Volume 84.8 fl (80-100); Mean Platelet Volume 10.8 fl (7.4-10.4); Monocytes Absolute Auto 1.6 K/mm3 (0.1-0.6); Monocytes Percent Auto 5.8 % (2.6-8.5); Neutrophils Absolute Auto 24.4 K/mm3 (1.3-6.7); Neutrophils Percent Auto 87.6 % (45.5-73.1); Platelet Count Result 190 k/mm3 (150-375); Red Cell Distribution Width 12.9 % (11.5-14.5); White Blood Count 27.9 K/mm3 (4.5-10.0)
[2024-02-03 06:04] LABS: Alanine Aminotransferase 23 U/L (6-35); Albumin Level 3.3 g/dL (3.5-5.1); Alkaline Phosphatase 67 U/L (38-126); Anion Gap 5 mmol/L (4-12); Aspartate Amino Transferase 36 U/L (14-36); Bilirubin,Total 1.1 mg/dL (0.2-1.3); Blood Urea Nitrogen 28 mg/dL (7-17); Calcium 7.4 mg/dL (8.4-10.2); Carbon Dioxide 31 mmol/L (22-30); Chloride 103 mmol/L (98-107); Estimated CRCL calculation 49 ml/min; Estimated Glomerular Filt Rate 55; Glucose 128 mg/dL (65-110); Magnesium 1.7 mg/dL (1.6-2.3); Potassium 4.2 mmol/L (3.4-5.0); Sodium 139 mmol/L (137-145)
[2024-02-03 08:11] LABS: Glucose Point of Care 114 mg/dl (65-105)
[2024-02-03] MEDS: carvediloL 12.5 MG TABLET PO (08:21)
[2024-02-03] MEDS: ROSUVASTATIN 20 MG TABLET 40 MG PO (08:21)
[2024-02-03] MEDS: LOSARTAN POTASSIUM 100 MG TABLET PO (08:21)
[2024-02-03 09:14] LABS: Lipase 3615 U/L (23-300)
[2024-02-03 09:46] LABS: Lactic Acid Reflex 1.5 mmol/L (0.7-2.0)
--- NOTE | 2024-02-03 10:48 | PM.IMPN ---
Progress Note: A&P Assessment and Plan (1) Acute hypoxemic respiratory failure: Code(s): J96.01 - Acute respiratory failure with hypoxia Status: Acute Assessment and Plan: Patient with labored respirations and hypoxia with bilateral pleural effusions and worsened respiratory status after IV fluid resuscitation for pancreatitis and imaging findings of severe volume depletion indicated by collapsed inferior vena cava ABG compensated with minor alterations in both PCO2 (33.8) and HCO3 (20.8) ABG with hypoxemia on room air Initiate oxygen by nasal cannula and transfer to ICU for close respiratory monitoring (2) Acute necrotizing pancreatitis: Code(s): K85.91 - Acute pancreatitis with uninfected necrosis, unspecified Status: Acute Assessment and Plan: Escalation of antibiotic therapy to high dose IV Zosyn, DC Rocephin and Flagyl General surgery evaluated patient and states we will treat with IV antibiotics and supportive care, do not need emergent transfer to another facility. (3) Sepsis: Code(s): A41.9 - Sepsis, unspecified organism Status: Acute Assessment and Plan: Highly elevated white blood cell count, heart rate of 90, respiratory rate elevated with subsequent hypoxia and mental status changes Intra-abdominal source necrotizing pancreatitis, IV Zosyn high-dose (4) Cholelithiasis: Code(s): K80.20 - Calculus of gallbladder without cholecystitis without obstruction Status: Acute Assessment and Plan: 2 large gallstones dependent in the gallbladder, no bile duct dilation Gastroenterology saw patient requested general surgery consultation General surgery saw patient unable to perform cholecystectomy at this time due to severe pancreatitis Consideration was made for gallbladder drain placement but IR not available at this time, surgery following (5) Ileus: Code(s): K56.7 - Ileus, unspecified Status: Acute Assessment and Plan: Small-bowel loops dilated and inflamed likely reactive to severe pancreatitis No flatus or bowel movements since admission, nausea noted no current vomiting Patient evaluated by General surgery who ordered NG-tube to low intermittent suction (6) Pleural effusion associated with pancreatitis: Code(s): K85.90 - Acute pancreatitis without necrosis or infection, unspecified; J91.8 - Pleural effusion in other conditions classified elsewhere Status: Acute Assessment and Plan: CT imaging showed bilateral pleural effusions with compressive atelectasis likely sequela of IV hydration for severe pancreatitis. Respiratory status worsened after additional IV fluids given in response to collapsed vena cava on imaging (7) Pre-diabetes: Code(s): R73.03 - Prediabetes Status: Acute Assessment and Plan: Hemoglobin A1c 6.0 Patient not currently on medication for diabetes at home ACHS fingerstick glucose with supplemental insulin q.6 hours while NPO Plan Transfer to ICU for closer respiratory monitoring NG tube to low wall suction Stat labs drawn, lipase is improving. Lactic acid is improving. Home medications placed on hold upon transfer to ICU including rosuvastatin carvedilol losartan and cyclobenzaprine Time Spent With Patient Time with patient: Greater than 35 minutes (Total time 120 minutes inclusive of 60 minutes critical care time) Subjective Date/time seen: 02/03/24 10:48 Interval history: This morning on chart review noted white blood cell count had gone back up to 27.9 and lipase noted to be decreasing. Reviewed prior imaging but only took notice right upper quadrant ultrasound did realize that CT scan had already been captured so I ordered CT abdomen pelvis with IV contrast. I evaluated patient at bedside found her to have epigastric tenderness with guarding as well as bilateral lower quadrant abdominal tenderness to palpation. Patient noted to be drowsy and falling asleep between answering questions. No prior history pancreatitis, does not smoke does not drink alcohol. Patient takes medication for the hypertension and hyperlipidemia but otherwise notes that she is baseline fairly healthy. Patient reports not passing gas or stool. Reports intermittent nausea. Denies fever or chills. After patient underwent CT scan abdomen and pelvis I received a call from Radiology with critical results showing concern for necrotizing pancreatitis as well as worsened fluid distension gallbladder and radiologist reports that patient appears to be severely intravascularly dry with a flattened inferior vena cava. For this reason IV fluids 2 L bolus was ordered. Additional IV site placed by this provider. PICC line ordered. Surgery had not yet evaluated patient so I attempted to reach by telephone. Surgery was in the OR so the office contacted the nurse practitioner with the surgery service who came to evaluate patient. By this time it was after 11:00 a.m. which was past time that Interventional Radiology was present today. Initial plan was to attempt transfer to another facility for Gallbladder drain placement. Patient was declined by [facility] but by this time Dr. Barajas was able to evaluate and stated that patient did not need transfer for now but did want NG tube placed as CT also shows concern for small bowel ileus/reactive to pancreatic edema. Dr. Barajas also noted that patient's respiratory status had worsened and she had labored breathing. At the same time patient was getting routine vitals taken and she was noted to be hypoxic. CT had indicated small bilateral pleural effusions so it is likely that she is third spacing IV fluids we have given for pancreatitis. ABG obtained showing normal pH, mild respiratory alkalosis which is likely compensatory for mild metabolic acidosis. Patient placed on supplemental oxygen and NG to suction. Discussed case with Surface Water Technician to consider transfer to IMU for closer monitoring of respiratory status but since patient had been worsening throughout the day Surface Water Technician recommended talking to Credit Clerk about brining to ICU for monitoring overnight in case of worsened respiratory status requiring further intervention. Dr. Lopez agreed to ICU transfer. Report given to ICU Charge Nurse regarding this cascade of patient care escalation today. Due to a high probability of clinically significant, life threatening deterioration, the patient required my highest level of preparedness to intervene emergently and I personally spent this critical care time directly and personally managing the patient. This critical care time included obtaining a history; examining the patient; pulse oximetry; ordering and review of studies; arranging urgent treatment with development of a management plan; evaluation of patient's response to treatment; frequent reassessment; and discussions with other providers. It was exclusive of separately billable procedures and treating other patients and teaching time. Please see Assessment and Plan section and the rest of the note for further information on patient assessment and treatment. Critical Care time: 60 minutes Review of Systems Review of Systems: abdominal pain localized to the epigastric area, nausea, vomiting All systems reviewed & are unremarkable except as noted in HPI and below Exam Narrative: GENERAL: Moderately ill-appearing, drowsy and falling asleep between questions HEAD: Normocephalic, atraumatic. ENT:? Mucous membranes moist. CHEST: Clear to auscultation.? No respiratory distress. (later progressed to moderate respiratory distress/labored breathing and diminished lungs) HEART: Regular rate and rhythm. ? Normal peripheral pulses. ABDOMEN: Epigastric significant tenderness with mild guarding, bilateral lower quadrant minor tenderness to palpation EXTREMITIES: Normal range of motion. No peripheral edema. SKIN: Warm dry normal color NEURO: Alert and oriented x3 but drowsy and falling asleep in between questions, moves all extremities well, no focal neural deficit, suspect encephalopathy due to intra-abdominal infection PSYCH: Normal mood and affect Objective Data Vital Signs Vital Signs: Vital Signs - 24 hr 10/07/24 14:00 02/02/24 16:40 02/02/24 16:40 Temperature 36.3 C L Pulse Rate 76 74 85 Respiratory Rate 14 Blood Pressure 115/57 L 113/54 L 94/59 L Pulse Oximetry 96 91 93 Oxygen Delivery Fraction of Inspired Oxygen 02/02/24 18:02 02/02/24 21:17 02/02/24 21:25 Temperature 36.8 C Pulse Rate 80 84 88 Respiratory Rate 16 18 Blood Pressure 149/62 H 139/67 Pulse Oximetry 92 92 Oxygen Delivery Fraction of Inspired Oxygen 02/02/24 20:00 02/03/24 05:08 02/03/24 08:04 Temperature 36.7 C Pulse Rate 84 Respiratory Rate 20 Blood Pressure 162/74 H Pulse Oximetry 92 90 92 Oxygen Delivery Room Air Room Air Fraction of Inspired Oxygen 21 02/03/24 08:20 02/03/24 08:21 02/03/24 08:21 Temperature 36.1 C L Pulse Rate 90 90 Respiratory Rate 16 Blood Pressure 155/74 H Pulse Oximetry 92 Oxygen Delivery Room Air Fraction of Inspired Oxygen Intake/Output Intake/Output: Intake & Output 01/31/24 02/01/24 02/02/24 02/03/24 23:59 23:59 23:59 23:59 Intake Total 1100 1200 1100 Output Total 200 250 Balance 1100 1000 850 Meds/Results Medications: Active Medications Generic Name Dose Route Start Last Admin Trade Name Freq PRN Reason Stop Dose Admin Carvedilol 12.5 mg 02/02/24 00:30 02/03/24 08:21 Carvedilol 12.5 Mg Tablet PO 12.5 mg Q12HR CARLITOS Administration Cyclobenzaprine HCl 10 mg 02/02/24 00:09 02/02/24 12:34 Cyclobenzaprine Hcl 10 Mg Tablet PO 10 mg TID PRN Administration muscle spasm Dextrose 12.5 gm 02/02/24 10:59 Dextrose 50% 25 Gm/50 Ml Syringe IV PUSH PRN PRN Hypoglycemia Protocol Fluticasone Propionate 2 spray 02/02/24 00:09 Fluticasone Propionate 0.05% Na Spr 16 Gm Btl (*Bkc) NASAL DAILY PRN allergy symptoms Glucagon 1 mg 02/02/24 10:59 Glucagon For Inj 1 Mg Vial IM PRN PRN Hypoglycemia Protocol Glucose 15 gm 02/02/24 10:59 Glucose Oral Gel 15 Gm Of Glucse In 37.5 Gm Tube PO PRN PRN Hypoglycemia Protocol Heparin Sodium (Porcine) 5,000 units 02/02/24 14:00 02/03/24 05:04 Heparin Sodium 5,000 Units/Ml Vial SUB-Q 5,000 units Q8HR CARLITOS Administration Hydralazine HCl 10 mg 02/02/24 11:51 Hydralazine Hcl 20 Mg/Ml Vial IV PUSH Q8H PRN Blood Pressure - High Hydromorphone HCl 0.5 mg 02/02/24 11:56 Hydromorphone Hcl Inj (*Crx) 1 Mg/Ml Syr IV PUSH Q3H PRN Pain Rated 7-10 Dextrose/Lactated Ringer's 1,000 mls @ 100 mls/hr 02/02/24 00:30 02/03/24 03:39 Dextrose 5%/Lactated Ringers IV CONT 100 mls/hr .Q10H CARLITOS Administration Dextrose 1,000 mls @ 100 mls/hr 02/02/24 10:59 Dextrose 5% 1,000 Ml IVPB PRN PRN Hypoglycemia Protocol Lactated Ringer's 1,000 mls @ 999 mls/hr 02/03/24 10:35 Lr - Lactated Ringers Iv IV CONT 02/03/24 11:35 .Q1H1M STA Sodium Chloride 1,000 mls @ 999 mls/hr 02/03/24 10:35 Normal Saline Iv IV CONT 02/03/24 11:35 .Q1H1M ONE Piperacillin Sod/Tazobactam Sod 4.5 gm in 100 mls @ 200 mls/hr 02/03/24 11:00 Zosyn 4.5 Gm/Ns 100 Ml IVPB Q6H CARLITOS Insulin Aspart 2 - 5 units 02/03/24 00:00 02/03/24 05:10 Insulin Aspart (*Bkc) 100 Units/Ml SUB-Q Not Given Q6HR [facility] Protocol Losartan Potassium 100 mg 02/02/24 09:00 02/03/24 08:21 Losartan Potassium 100 Mg Tablet PO 100 mg DAILY CARLITOS Administration Ondansetron HCl 4 mg 02/01/24 19:52 02/02/24 13:58 Ondansetron Inj 4 Mg/2 Ml Vial IV PUSH 4 mg Q4H PRN Administration Nausea Rosuvastatin Calcium 40 mg 02/02/24 09:00 02/03/24 08:21 Rosuvastatin 20 Mg Tablet PO 40 mg DAILY CARLITOS Administration Radiology Results: ITS Impressions Chest X-Ray 02/01/24 16:16 IMPRESSION: Subsegmental left lower lobe atelectasis/consolidation. Chest/Abdomen/Pelvis CTA 02/01/24 18:35 IMPRESSION: No aortic dissection or aneurysm. Moderate interstitial pulmonary edema. Hepatomegaly. Acute interstitial pancreatitis. Possible portal vein and superior mesenteric vein thrombosis, versus artifact from unopacified blood in this arterial phase study. Consider right upper quadrant with a focus on obtaining portal venous color Doppler flow and waveforms. Vascular Ultrasound 02/01/24 19:23 IMPRESSION: Patent portal veins and superior mesenteric vein. Prior CT findings likely related to artifact from arterial phase imaging. Abdomen Ultrasound 02/02/24 09:49 IMPRESSION: 1. Pancreatitis. 2. Cholelithiasis. Gallbladder wall thickening may be secondary to interstitial edema or acute cholecystitis. 3. Diffuse hepatic steatosis. Abdomen/Pelvis CT 02/03/24 09:35 IMPRESSION: Findings consistent with acute pancreatitis, with additional findings worrisome for necrotizing pancreatitis, as detailed above. Severe hypovolemia by imaging criteria for which aggressive resuscitation is suggested. Cholelithiasis. Hepatomegaly. Interval development of bilateral pleural effusions with adjacent compressive atelectasis. These findings will be called to the ordering clinician. Once contact was made, an addendum will be performed. ADDENDUM: 02/03/24 1017 These findings were discussed with Rios Jones NP at 10:15 AM on 02/03/2024 Labs Labs: Laboratory Results - last 24 hr 02/01/24 02/01/24 02/02/24 11:26 17:39 11:40 WBC RBC Hgb Hct MCV MCH MCHC RDW Plt Count MPV Immature Gran % (Auto) Neut % (Auto) Lymph % (Auto) [place] % (Auto) Eos % (Auto) Baso % (Auto) Lymph # (Auto) [place] # (Auto) Eos # (Auto) Baso # (Auto) Abs Immat Gran (auto) Absolute Neuts (auto) Absolute Nucleated RBC Nucleated RBC % Sodium Potassium Chloride Carbon Dioxide Anion Gap BUN Creatinine 1.10 Estim Creat Clear Calc 45 Estimated GFR 50 L Glucose POC Capillary Glucose 167 H Hemoglobin A1c Lactic Acid Calcium Magnesium Total Bilirubin AST ALT Alkaline Phosphatase Total Protein Albumin Lipase Urine Color Dark yellow Urine Appearance Turbid H Urine pH 5.5 Ur Specific [place] > 1.045 H Urine Protein 1+ H Urine Glucose (UA) Negative Urine Ketones Trace H Ur Blood (Man) Negative Urine Nitrate Negative Urine Bilirubin Negative Urine Urobilinogen 0.2 Add Ur Microanalysis Reviewed Leukocyte Esterase Rfl Trace H Urine RBC 0-2 Urine WBC 51-100 H Ur Squamous Epith Cells Few Urine Bacteria None seen Urine Casts 3-5 02/02/24 02/02/24 02/02/24 17:15 21:15 23:39 WBC RBC Hgb Hct MCV MCH MCHC RDW Plt Count MPV Immature Gran % (Auto) Neut % (Auto) Lymph % (Auto) [place] % (Auto) Eos % (Auto) Baso % (Auto) Lymph # (Auto) [place] # (Auto) Eos # (Auto) Baso # (Auto) Abs Immat Gran (auto) Absolute Neuts (auto) Absolute Nucleated RBC Nucleated RBC % Sodium Potassium Chloride Carbon Dioxide Anion Gap BUN Creatinine Estim Creat Clear Calc Estimated GFR Glucose POC Capillary Glucose 136 H 129 H 132 H Hemoglobin A1c Lactic Acid Calcium Magnesium Total Bilirubin AST ALT Alkaline Phosphatase Total Protein Albumin Lipase Urine Color Urine Appearance Urine pH Ur Specific [place] Urine Protein Urine Glucose (UA) Urine Ketones Ur Blood (Man) Urine Nitrate Urine Bilirubin Urine Urobilinogen Add Ur Microanalysis Leukocyte Esterase Rfl Urine RBC Urine WBC Ur Squamous Epith Cells Urine Bacteria Urine Casts 02/03/24 02/03/24 02/03/24 05:05 05:37 05:40 WBC 27.9 H RBC 5.00 Hgb 13.7 Hct 42.4 MCV 84.8 MCH 27.4 MCHC 32.3 RDW 12.9 Plt Count 190 MPV 10.8 H Immature Gran % (Auto) 0.8 H Neut % (Auto) 87.6 H Lymph % (Auto) 5.6 L [place] % (Auto) 5.8 Eos % (Auto) 0.0 Baso % (Auto) 0.2 Lymph # (Auto) 1.57 [place] # (Auto) 1.6 H Eos # (Auto) 0.0 Baso # (Auto) 0.1 Abs Immat Gran (auto) 0.22 H Absolute Neuts (auto) 24.4 H Absolute Nucleated RBC 0.000 Nucleated RBC % 0.0 Sodium 139 Potassium 4.2 Chloride 103 Carbon Dioxide 31 H Anion Gap 5 BUN 28 H Creatinine 1.00 Estim Creat Clear Calc 49 Estimated GFR 55 L Glucose 128 H POC Capillary Glucose 131 H Hemoglobin A1c 6.0 H Lactic Acid Calcium 7.4 L Magnesium 1.7 Total Bilirubin 1.1 AST 36 ALT 23 Alkaline Phosphatase 67 Total Protein 6.0 L Albumin 3.3 L Lipase 3615 H Urine Color Urine Appearance Urine pH Ur Specific [place] Urine Protein Urine Glucose (UA) Urine Ketones Ur Blood (Man) Urine Nitrate Urine Bilirubin Urine Urobilinogen Add Ur Microanalysis Leukocyte Esterase Rfl Urine RBC Urine WBC Ur Squamous Epith Cells Urine Bacteria Urine Casts 02/03/24 02/03/24 07:49 09:32 WBC RBC Hgb Hct MCV MCH MCHC RDW Plt Count MPV Immature Gran % (Auto) Neut % (Auto) Lymph % (Auto) [place] % (Auto) Eos % (Auto) Baso % (Auto) Lymph # (Auto) [place] # (Auto) Eos # (Auto) Baso # (Auto) Abs Immat Gran (auto) Absolute Neuts (auto) Absolute Nucleated RBC Nucleated RBC % Sodium Potassium Chloride Carbon Dioxide Anion Gap BUN Creatinine Estim Creat Clear Calc Estimated GFR Glucose POC Capillary Glucose 114 H Hemoglobin A1c Lactic Acid 1.5 Calcium Magnesium Total Bilirubin AST ALT Alkaline Phosphatase Total Protein Albumin Lipase Urine Color Urine Appearance Urine pH Ur Specific [place] Urine Protein Urine Glucose (UA) Urine Ketones Ur Blood (Man) Urine Nitrate Urine Bilirubin Urine Urobilinogen Add Ur Microanalysis Leukocyte Esterase Rfl Urine RBC Urine WBC Ur Squamous Epith Cells Urine Bacteria Urine Casts Imaging Radiologist's impression: ADDENDUMThese findings were discussed with Rios Jones NP at 10:15 AM on 02/03/2024 Addendum Dictated By: Britni Hays M.D. Addendum Signed By: <Electronically signed by Britni Hays M.D. in [place]> 02/03/24 1016 Addendum Cosigned By: DD/ /19/1014 TD/TT: / CLINICAL INDICATION: Gallstone pancreatitis. COMPARISON: 02/01/2024. TECHNIQUE: An enhanced CT of the abdomen and pelvis was performed utilizing multislice spiral technique reconstructed at 2.5 mm slice thickness. Coronal and sagittal reconstructions were performed. This CT examination was performed utilizing dose reduction techniques. This CT examination was performed using one or more of the following dose reduction techniques: Automated exposure control, adjustment of the mA and/or kV according to patient's size, and the use of iterative reconstruction technique. FINDINGS/OBSERVATIONS: Visualized lower thorax:Interval development of small bilateral pleural effusions with adjacent compressive atelectasis, right greater than left. The heart is enlarged, without pericardial effusion. Elevation of the right hemidiaphragm is redemonstrated. Liver: The liver is enlarged measuring 20 cm in longitudinal dimension. Gallbladder and biliary system: The gallbladder is distended with both fluid and two large stones. Pancreas: The pancreas is enlarged, and edematous, with loss of the normal fat planes as one would expect with acute pancreatitis. However, in contrast to the previous examination performed 2 days earlier, the entirety of the pancreas does not enhance with intravenous contrast. A short segment of the proximal body of the pancreas demonstrates decreased attenuation without enhancement, worrisome for necrotizing pancreatitis. This abnormality is visualized caudal and right lateral to the SMV/portal vein confluence. This is best seen on axial imaging, slices 77 through 88. Peripancreatic fluid is redemonstrated, increased from prior with free fluid extending into the pelvis. Spleen: The spleen enhances homogeneously, and is otherwise unremarkable without splenic enlargement. Kidneys: Scattered subcentimeter foci within the bilateral kidneys for which cysts are suspected. Remainder of the bilateral kidneys enhance symmetrically. Adrenal glands: Unremarkable. Gastrointestinal tract: Multiple loops of inflamed small bowel within the proximal jejunum are present with borderline dilatation and hyperemia. Fecal stasis within the aerated colon. Appendix:The air-filled appendix is of normal caliber (axial series, image 157). Vasculature: The IVC is flattened and slit-like consistent with severe hypovolemia. Trace calcification within the abdominal aorta. Lymph nodes: Scattered nonpathologically enlarged lymph nodes within the retroperitoneum and the mesentery. Pelvic structures:The uterus is anteverted and anteflexed. The bladder is decompressed without Sanchez catheter drainage. Further evaluation of the deep pelvis is limited secondary to streak artifact from the patient's right hip prosthetic. Body wall and musculoskeletal: Small fat-containing umbilical hernia. No significant degenerative disease within the lower thoracic or lumbosacral spines. No lytic or blastic lesions. IMPRESSION: Findings consistent with acute pancreatitis, with additional findings worrisome for necrotizing pancreatitis, as detailed above. Severe hypovolemia by imaging criteria for which aggressive resuscitation is suggested. Cholelithiasis. Hepatomegaly. Interval development of bilateral pleural effusions with adjacent compressive atelectasis. These findings will be called to the ordering clinician. Once contact was made, an addendum will be performed. Reviewed, dictated and finalized at location A. Exam: Abdomen 2V HISTORY: NG placement COMPARISON: Reference is made to CT examination of the abdomen and pelvis performed 24 hours earlier. TECHNIQUE: Supine images of the lower chest and upper abdomen FINDINGS: Nasogastric tube identified projecting below the left hemidiaphragm, presumably within the stomach. Multiple loops of dilated small bowel within the upper abdomen, likely reactive from patient's known pancreatitis. IMPRESSION: NG tube in good position and ready for immediate use for decompression purposes Reviewed, dictated and finalized at location A. ABG ABG results: PH 7.407, pCO2 33.8, PO2 49.8, HC03 20.8, ABG O2 saturation 85.9%, base excess -3.1 on room air Interpretation: Compensated metabolic acidosis and/or respiratory alkalosis Pulse Oximetry SpO2 results: 85% on room air Attestation: I personally reviewed and interpreted this pulse oximetry as follows: Interpretation: Patient now requires supplemental oxygen Quality VTE Prophylaxis VTE prophylaxis: pharmacologic ordered Hospitalist MIPS Advance Care Plan I have confirmed that the patient's Advanced Care Plan is present, code status is documented, or surrogate decision maker is listed in patient medical record.: Yes Medication Reconciliation I have utilized all available resources to obtain, update and review the patients current medications (includes all prescriptions, OTC, herbals, cannabis, and nutritional supplements).: Yes
[2024-02-03] MEDS: LACTATED RINGERS 1,000 ML 999 ML IV CONT (11:04)
[2024-02-03] MEDS: SODIUM CHLORIDE 0.9% IV 1,000 ML 999 ML IV CONT (11:05)
[2024-02-03] MEDS: LIDOCAINE HCL 1% PF INJ 5 ML VIAL INFILTRATE (11:30)
[2024-02-03] MEDS: PIPERACILLIN/TAZ 4.5G/NS 100ML 4.5 GM/100 ML BAG IVPB ×3 (11:54→22:33)
[2024-02-03] MEDS: SODIUM CHLORIDE 0.9% IV 1,000 ML 150 ML IV CONT (12:25)
[2024-02-03] MEDS: HYDROmorphone HCL INJ (*CRX) 1 MG/ML SYR 0.5 MG IV PUSH (12:39)
[2024-02-03 12:47] LABS: Glucose Point of Care 111 mg/dl (65-105)
--- NOTE | 2024-02-03 13:26 | PM.CNGS ---
Assessment and Plan Assessment and plan (1) Acute pancreatitis: Qualifiers: Pancreatitis type: biliary Code(s): K85.90 - Acute pancreatitis without necrosis or infection, unspecified Status: Acute Assessment and Plan: Patient presented two days ago with acute pancreatitis, likely biliary. Denies any alcohol use. Lipids only mildly elevated. Cholelithiasis noted on imaging. WBC count back up to 27,000 today and she had a repeat CT scan of the abdomen and pelvis that showed worsening acute pancreatitis, possible necrotizing pancreatitis. Lipase has come down significantly over the past two days. Her abdominal pain is improving. She does appear volume depleted and is receiving IV fluid resuscitation today. We would agree to continue medical management for the pancreatitis with bowel rest, IV fluids, and close monitoring. There are no signs of infected necrosis or any organized fluid collection that is concerning for abscess. No indication for any surgical intervention at this time. We will continue to follow along as she will eventually need an interval cholecystectomy once her pancreatitis resolves. (2) Cholelithiasis: Code(s): K80.20 - Calculus of gallbladder without cholecystitis without obstruction Status: Acute Assessment and Plan: The patient was started on IV Zosyn today with concerns of possible acute cholecystitis. RUQ US on admission showed cholelithiasis with gallbladder wall thickening. Repeat CT scan today showed two large gallstones in the dependent aspect of the gallbladder with gallbladder distention but no other findings to suggest acute cholecystitis. Overall her abdominal pain is improving and she is not complaining of RUQ abdominal pain. It seems like most of her abdominal pain is related to her acute pancreatitis and less likely acute cholecystitis. She will eventually need an interval laparoscopic cholecystectomy, but this would be reserved for when her pancreatitis resolves. We will continue to follow along for any changes. If she develops right upper quadrant pain or signs of sepsis, we could consider percutaneous cholecystostomy tube placement while she is being treated for the pancreatitis if necessary. No indication for urgent surgical intervention at this time. (3) Elevated liver enzymes: Code(s): R74.8 - Abnormal levels of other serum enzymes Status: Acute Assessment and Plan: AST and ALT mildly elevated on admission. LFTs normal today. Plan I have discussed the patient's case and plan of care with Dr. Barajas. Thank you for allowing us to see the patient in consultation and we will continue to follow along with you. History of Present Illness Consult details Consult date: 02/03/24 Reason for consult: other (Perirectal abscess) Requesting physician: Riya Simeon MD Narrative: This is a 68-year-old woman who we have been asked to see in surgical consultation for possible cholecystitis. She presented to the ED two days ago with upper abdominal pain, nausea, and vomiting x 12 hours. She cannot recall what she was doing prior to the onset of her pain, but she was working outside earlier that day. She developed upper abdominal pain that was constant. She developed nausea and vomiting. She was riding in a car to head back home and felt like her pain was getting worse and she felt short of breath. Her then decided to bring her into the ED. Labs showed white blood cell count 67319, lipase > 40,000, BUN 19, creatinine 0.9, total bilirubin and alk-phos normal, AST 68, ALT 43, troponin negative x3, and lactic acid 3.3. CTA chest abdomen and pelvis showed no aortic dissection or aneurysm, moderate interstitial pulmonary edema, hepatomegaly, acute interstitial pancreatitis, and possible portal vein and superior mesenteric vein thrombosis versus artifact from unopacified blood in the arterial phase. She was admitted and GI was consulted. She had an abdominal duplex ultrasound that showed patent portal veins and superior mesenteric vein with no thrombosis. Right upper quadrant abdominal ultrasound showed pancreatitis, cholelithiasis with gallbladder wall thickening that may be secondary to interstitial edema or cholecystitis, and diffuse hepatic steatosis. Our service was consulted for possible acute cholecystitis. Her lipase has been trending down to 3000 today. White blood cell count went down yesterday and back up today to 27,000. She had a repeat CT scan of the abdomen and pelvis today that showed acute pancreatitis with additional findings worrisome for necrotizing pancreatitis, cholelithiasis with a distended gallbladder, hepatomegaly, interval development of small bilateral pleural effusions with adjacent compressive atelectasis, and severe hypovolemia by imaging criteria for which aggressive resuscitation is suggested. She is now seen on the medical floor. LFTs today are normal. She reports her abdominal pain has spread across her entire abdomen now, but overall has improved. She continues to have nausea. No vomiting since yesterday. Denies flatus and her last BM was 3 days ago. Denies previous episodes of pancreatitis. Denies any alcohol use. Triglycerides mildly elevated at 368. Review of Systems Review of Systems: All systems reviewed & are unremarkable except as noted in HPI and below PMFSH Past Medical History Medical History (Updated 02/03/24 @ 14:14 by ITALO Pedroza) Abnormal finding of blood chemistry, unspecified Acute bilateral thoracic back pain Back pain Benign essential hypertension BMI 29.0-29.9,adult BMI 30.0-30.9,adult BMI 31.0-31.9,adult BPPV (benign paroxysmal positional vertigo) Bronchitis Carotid bruit Chest heaviness Cholelithiasis Dysphagia Elevated liver enzymes Encounter for Medicare annual wellness exam Encounter for preventive health examination Encounter for routine adult health examination without abnormal findings Encounter for screening mammogram for malignant neoplasm of breast Gallstone pancreatitis History of strep sore throat Hx of colonic polyps Left knee pain Leukocytosis Nausea and vomiting in adult Nonintractable headache 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 Pre-diabetes Sinus infection Vitamin D deficiency Surgical History Surgical History History of section History of total right hip replacement History of tubal ligation Hx of parathyroidectomy Family History Family History Father Hypertension Family history of diabetes mellitus in first degree relative Acute myocardial infarction Mother Hypertension Family history of heart disease in male family member before age 55 Sibling Family history of diabetes mellitus in first degree relative Other Diabetes mellitus Social History Social History Smoking status: Never smoker Second hand tobacco smoke exposure: No Alcohol intake: never Do You Feel Safe in your Home?: Yes Lack of Transportation: No Lack of Food: Never True Current Housing: I Have Housing Concerned About Future Housing: No Difficulty Paying Gas/Electric Bills: No Difficulty Paying for Meds: No Currently Unemployed: No Education: Associate Degree Difficulty w/ Childcare or Family Care: No Living arrangements: with family Gender identity (if verbalized by the patient): Female Spiritual care concerns: No Meds Home Medications and Allergies Home Medications Medication Instructions Recorded Confirmed Type naproxen 500 mg tablet (Naprosyn) 500 mg PO BID PRN pain #60 tabs 07/12/20 02/01/24 Rx cholecalciferol (vitamin D3) 50 50 mcg PO DAILY 04/16/22 02/01/24 History mcg (2,000 unit) capsule rosuvastatin 40 mg tablet 40 mg PO DAILY #90 tabs 10/07/22 02/01/24 Rx cyclobenzaprine 10 mg tablet 10 mg PO TID PRN muscle spasm #30 02/03/23 02/01/24 Rx tabs fluticasone propionate 50 2 spray intranasal DAILY PRN 02/03/23 02/01/24 Rx mcg/actuation nasal allergy symptoms #16 grams spray,suspension carvedilol 12.5 mg tablet 12.5 mg PO BID 02/01/24 02/01/24 History losartan 100 1 tablet PO DAILY 02/01/24 02/01/24 History mg-hydrochlorothiazide 25 mg tablet Allergies Allergy/AdvReac Type Severity Reaction Status Date / Time No Known Allergies Allergy Verified 02/01/24 18:21 Vital Signs Vital Signs - 24 hr 02/02/24 14:00 02/02/24 16:40 02/02/24 16:40 Temperature 97.3 F L Pulse Rate 76 74 85 Respiratory Rate 14 Blood Pressure 115/57 L 113/54 L 94/59 L Pulse Oximetry 96 91 93 Oxygen Delivery Fraction of Inspired Oxygen 02/02/24 18:02 02/02/24 21:17 02/02/24 21:25 Temperature 98.2 F Pulse Rate 80 84 88 Respiratory Rate 16 18 Blood Pressure 149/62 H 139/67 Pulse Oximetry 92 92 Oxygen Delivery Fraction of Inspired Oxygen 02/02/24 20:00 02/03/24 05:08 02/03/24 08:04 Temperature 98.1 F Pulse Rate 84 Respiratory Rate 20 Blood Pressure 162/74 H Pulse Oximetry 92 90 92 Oxygen Delivery Room Air Room Air Fraction of Inspired Oxygen 21 02/03/24 08:20 02/03/24 08:21 02/03/24 08:21 Temperature 96.9 F L Pulse Rate 90 90 Respiratory Rate 16 Blood Pressure 155/74 H Pulse Oximetry 92 Oxygen Delivery Room Air Fraction of Inspired Oxygen Exam Const: General: comfortable and ill appearing Nutritional Appearance: average body habitus Orientation/consciousness: patient oriented x3 HENMT: Head: normocephalic and atraumatic Ears: hearing grossly normal bilaterally Mouth: Yes moist mucous membranes Eyes: General: appearance normal, both eyes and all related structures Pupils: Equal, round and reactive pupils present Neck: Neck: normal visual inspection and full ROM Resp: Effort & Inspection: no respiratory distress Auscultation: clear to auscultation bilaterally Cardio: Rate: regular rate Rhythm: regular rhythm Heart sounds: S1 normal heart sound present and S2 normal heart sound present Peripheral pulses: Peripheral pulses 2+ throughout GI: Inspection: distended and no visible herniation GI Palp: Yes Soft to palpation (other than some firmness/inflammation in the epigastric area), Yes Tenderness to palpation present (GI) (diffusely tender), No Guarding due to palpation present (GI) and No Rebound tenderness present Auscultation: Hypoactive bowel sounds present Skin: General skin exam: normal color Neuro: General: moves all extremities and no focal motor deficits Speech: normal speech Motor exam (neuro): 5/5 motor strength present throughout Extrem: General: normal to inspection and no edema Psych: Mental Status: mental status grossly normal Attitude: cooperative Insight: Good insight present (Psych) Judgement: Good judgement present (Psych) Results Labs 02/03/24 05:40 02/03/24 05:40 Labs: Abnormal lab results 02/01/24 02/02/24 02/02/24 Range/Units 17:39 17:15 21:15 WBC (4.5-10.0) K/mm3 MPV (7.4-10.4) fl Immature Gran % (Auto) (0-0.5) % Neut % (Auto) (45.5-73.1) % Lymph % (Auto) (18.3-44.2) % [place] # (Auto) (0.1-0.6) K/mm3 Abs Immat Gran (auto) (0.00-0.031) K/mm3 Absolute Neuts (auto) (1.3-6.7) K/mm3 Carbon Dioxide (22-30) mmol/L BUN (7-17) mg/dL Estimated GFR 50 L (59 - ) Glucose (65-110) mg/dL POC Capillary Glucose 136 H 129 H (65-105) mg/dl Hemoglobin A1c (<5.7) % Calcium (8.4-10.2) mg/dL Total Protein (6.3-8.2) g/dL Albumin (3.5-5.1) g/dL Lipase (23-300) U/L 02/02/24 02/03/24 02/03/24 Range/Units 23:39 05:05 05:37 WBC (4.5-10.0) K/mm3 MPV (7.4-10.4) fl Immature Gran % (Auto) (0-0.5) % Neut % (Auto) (45.5-73.1) % Lymph % (Auto) (18.3-44.2) % [place] # (Auto) (0.1-0.6) K/mm3 Abs Immat Gran (auto) (0.00-0.031) K/mm3 Absolute Neuts (auto) (1.3-6.7) K/mm3 Carbon Dioxide (22-30) mmol/L BUN (7-17) mg/dL Estimated GFR (59 - ) Glucose (65-110) mg/dL POC Capillary Glucose 132 H 131 H (65-105) mg/dl Hemoglobin A1c (<5.7) % Calcium (8.4-10.2) mg/dL Total Protein (6.3-8.2) g/dL Albumin (3.5-5.1) g/dL Lipase 3615 H (23-300) U/L 02/03/24 02/03/24 02/03/24 Range/Units 05:40 07:49 12:44 WBC 27.9 H (4.5-10.0) K/mm3 MPV 10.8 H (7.4-10.4) fl Immature Gran % (Auto) 0.8 H (0-0.5) % Neut % (Auto) 87.6 H (45.5-73.1) % Lymph % (Auto) 5.6 L (18.3-44.2) % [place] # (Auto) 1.6 H (0.1-0.6) K/mm3 Abs Immat Gran (auto) 0.22 H (0.00-0.031) K/mm3 Absolute Neuts (auto) 24.4 H (1.3-6.7) K/mm3 Carbon Dioxide 31 H (22-30) mmol/L BUN 28 H (7-17) mg/dL Estimated GFR 55 L (59 - ) Glucose 128 H (65-110) mg/dL POC Capillary Glucose 114 H 111 H (65-105) mg/dl Hemoglobin A1c 6.0 H (<5.7) % Calcium 7.4 L (8.4-10.2) mg/dL Total Protein 6.0 L (6.3-8.2) g/dL Albumin 3.3 L (3.5-5.1) g/dL Lipase (23-300) U/L Diabetes panel 02/01/24 02/03/24 Range/Units 17:39 05:40 Sodium 139 (137-145) mmol/L Potassium 4.2 (3.4-5.0) mmol/L Chloride 103 (98-107) mmol/L Carbon Dioxide 31 H (22-30) mmol/L BUN 28 H (7-17) mg/dL Creatinine 1.10 1.00 (0.7-1.2) mg/dL Glucose 128 H (65-110) mg/dL Hemoglobin A1c 6.0 H (<5.7) % Calcium 7.4 L (8.4-10.2) mg/dL AST 36 (14-36) U/L ALT 23 (6-35) U/L Alkaline Phosphatase 67 (38-126) U/L Total Protein 6.0 L (6.3-8.2) g/dL Albumin 3.3 L (3.5-5.1) g/dL Calcium panel 02/03/24 Range/Units 05:40 Calcium 7.4 L (8.4-10.2) mg/dL Albumin 3.3 L (3.5-5.1) g/dL Pituitary panel 02/01/24 02/03/24 Range/Units 17:39 05:40 Sodium 139 (137-145) mmol/L Potassium 4.2 (3.4-5.0) mmol/L Chloride 103 (98-107) mmol/L Carbon Dioxide 31 H (22-30) mmol/L BUN 28 H (7-17) mg/dL Creatinine 1.10 1.00 (0.7-1.2) mg/dL Glucose 128 H (65-110) mg/dL Calcium 7.4 L (8.4-10.2) mg/dL Adrenal panel 02/01/24 02/03/24 Range/Units 17:39 05:40 Sodium 139 (137-145) mmol/L Potassium 4.2 (3.4-5.0) mmol/L Chloride 103 (98-107) mmol/L Carbon Dioxide 31 H (22-30) mmol/L BUN 28 H (7-17) mg/dL Creatinine 1.10 1.00 (0.7-1.2) mg/dL Glucose 128 H (65-110) mg/dL Calcium 7.4 L (8.4-10.2) mg/dL Total Bilirubin 1.1 (0.2-1.3) mg/dL AST 36 (14-36) U/L ALT 23 (6-35) U/L Alkaline Phosphatase 67 (38-126) U/L Total Protein 6.0 L (6.3-8.2) g/dL Albumin 3.3 L (3.5-5.1) g/dL All other labs normal. Imaging Additional studies: ITS Impressions Chest X-Ray 02/01/24 16:16 IMPRESSION: Subsegmental left lower lobe atelectasis/consolidation. Chest/Abdomen/Pelvis CTA 02/01/24 18:35 IMPRESSION: No aortic dissection or aneurysm. Moderate interstitial pulmonary edema. Hepatomegaly. Acute interstitial pancreatitis. Possible portal vein and superior mesenteric vein thrombosis, versus artifact from unopacified blood in this arterial phase study. Consider right upper quadrant with a focus on obtaining portal venous color Doppler flow and waveforms. Vascular Ultrasound 02/01/24 19:23 IMPRESSION: Patent portal veins and superior mesenteric vein. Prior CT findings likely related to artifact from arterial phase imaging. Abdomen Ultrasound 02/02/24 09:49 IMPRESSION: 1. Pancreatitis. 2. Cholelithiasis. Gallbladder wall thickening may be secondary to interstitial edema or acute cholecystitis. 3. Diffuse hepatic steatosis. Abdomen/Pelvis CT 02/03/24 09:35 IMPRESSION: Findings consistent with acute pancreatitis, with additional findings worrisome for necrotizing pancreatitis, as detailed above. Severe hypovolemia by imaging criteria for which aggressive resuscitation is suggested. Cholelithiasis. Hepatomegaly. Interval development of bilateral pleural effusions with adjacent compressive atelectasis. These findings will be called to the ordering clinician. Once contact was made, an addendum will be performed. ADDENDUM: 02/03/24 1017 These findings were discussed with Rios Jones NP at 10:15 AM on 02/03/2024
[2024-02-03] MEDS: CENTRAL LINE FLUSH 10 ML IV PUSH ×2 (14:02→22:32)
--- NOTE | 2024-02-03 14:54 | WPDGIPROGNO ---
Progress Note: A&P Assessment and Plan (1) Gallstone pancreatitis: Code(s): K85.10 - Biliary acute pancreatitis without necrosis or infection Status: Acute Assessment and Plan: repeat CT scan showed signs of necrotizing pancreatitis on admission with hemoconcentration, leukocytosis- continue with fluid resuscitation, pain management pain has improved, still npo normal bile duct size and bilirubin, no need of ercp (2) Nausea and vomiting in adult: Code(s): R11.2 - Nausea with vomiting, unspecified Status: Acute Assessment and Plan: antiemetics (3) Leukocytosis: Code(s): D72.829 - Elevated white blood cell count, unspecified Status: Acute Assessment and Plan: probably reactive from severe pancreatitis monitor (4) Elevated liver enzymes: Code(s): R74.8 - Abnormal levels of other serum enzymes Status: Acute (5) SIRS (systemic inflammatory response syndrome): Code(s): R65.10 - Systemic inflammatory response syndrome (SIRS) of non-infectious origin without acute organ dysfunction Status: Acute Assessment and Plan: related to pancreatitis (6) Cholelithiasis: Code(s): K80.20 - Calculus of gallbladder without cholecystitis without obstruction Status: Acute Assessment and Plan: surgery on board interval cholecystectomy once pancreatitis resolves Subjective Date/time seen: 02/03/24 14:54 Interval history: still with pain but more comfortable today, still npo Review of Systems Review of Systems: All systems reviewed & are unremarkable except as noted in HPI and below Exam Const: General: comfortable and ill appearing Nutritional Appearance: average body habitus Orientation/consciousness: patient oriented x3 HENMT: Head: normocephalic and atraumatic Ears: hearing grossly normal bilaterally Eyes: General: appearance normal, both eyes and all related structures Neck: Neck: normal visual inspection Resp: Effort & Inspection: no respiratory distress Auscultation: clear to auscultation bilaterally Cardio: Rate: regular rate Rhythm: regular rhythm GI: Inspection: distended and no visible herniation GI Palp: Yes Soft to palpation (other than some firmness/inflammation in the epigastric area), Yes Tenderness to palpation present (GI) (diffusely tender) and No Guarding due to palpation present (GI) Auscultation: Hypoactive bowel sounds present Skin: General skin exam: normal color Neuro: General: moves all extremities and no focal motor deficits Speech: normal speech Motor exam (neuro): 5/5 motor strength present throughout Extrem: General: normal to inspection and no edema Psych: Mental Status: mental status grossly normal Attitude: cooperative Judgement: Good judgement present (Psych) Objective Data Vital Signs Vital Signs: Vital Signs - 24 hr 02/02/24 16:40 02/02/24 16:40 02/02/24 18:02 Temperature Pulse Rate 74 85 80 Respiratory Rate 16 Blood Pressure 113/54 L 94/59 L 149/62 H Pulse Oximetry 91 93 92 Oxygen Delivery Fraction of Inspired Oxygen 02/02/24 21:17 02/02/24 21:25 02/02/24 20:00 Temperature 98.2 F Pulse Rate 84 88 Respiratory Rate 18 Blood Pressure 139/67 Pulse Oximetry 92 92 Oxygen Delivery Room Air Fraction of Inspired Oxygen 02/03/24 05:08 02/03/24 08:04 02/03/24 08:20 Temperature 98.1 F 96.9 F L Pulse Rate 84 90 Respiratory Rate 20 16 Blood Pressure 162/74 H 155/74 H Pulse Oximetry 90 92 92 Oxygen Delivery Room Air Fraction of Inspired Oxygen 21 02/03/24 08:21 02/03/24 08:21 02/03/24 14:00 Temperature 98.0 F Pulse Rate 90 81 Respiratory Rate 18 Blood Pressure 114/62 Pulse Oximetry 92 Oxygen Delivery Room Air Fraction of Inspired Oxygen Intake/Output Intake/Output: Intake & Output 01/31/24 02/01/24 02/02/24 02/03/24 23:59 23:59 23:59 23:59 Intake Total 1100 1200 4200 Output Total 200 350 Balance 1100 1000 3850 Meds/Results Medications: Active Medications Generic Name Dose Route Start Last Admin Trade Name Freq PRN Reason Stop Dose Admin Carvedilol 12.5 mg 02/02/24 00:30 02/03/24 08:21 Carvedilol 12.5 Mg Tablet PO 12.5 mg Q12HR CARLITOS Administration Cyclobenzaprine HCl 10 mg 02/02/24 00:09 02/02/24 12:34 Cyclobenzaprine Hcl 10 Mg Tablet PO 10 mg TID PRN Administration muscle spasm Dextrose 12.5 gm 02/02/24 10:59 Dextrose 50% 25 Gm/50 Ml Syringe IV PUSH PRN PRN Hypoglycemia Protocol Fluticasone Propionate 2 spray 02/02/24 00:09 Fluticasone Propionate 0.05% Na Spr 16 Gm Btl (*Bkc) NASAL DAILY PRN allergy symptoms Glucagon 1 mg 02/02/24 10:59 Glucagon For Inj 1 Mg Vial IM PRN PRN Hypoglycemia Protocol Glucose 15 gm 02/02/24 10:59 Glucose Oral Gel 15 Gm Of Glucse In 37.5 Gm Tube PO PRN PRN Hypoglycemia Protocol Heparin Sodium (Porcine) 5,000 units 02/02/24 14:00 02/03/24 14:00 Heparin Sodium 5,000 Units/Ml Vial SUB-Q 5,000 units Q8HR CARLITOS Administration Hydralazine HCl 10 mg 02/02/24 11:51 Hydralazine Hcl 20 Mg/Ml Vial IV PUSH Q8H PRN Blood Pressure - High Hydromorphone HCl 0.5 mg 02/03/24 13:53 Hydromorphone Hcl Inj (*Crx) 1 Mg/Ml Syr IV PUSH Q2H PRN Pain Rated 7-10 Piperacillin Sod/Tazobactam Sod 4.5 gm in 100 mls @ 200 mls/hr 02/03/24 11:00 02/03/24 12:24 Zosyn 4.5 Gm/Ns 100 Ml IVPB Infused Q6H CARLITOS Infusion Sodium Chloride 1,000 mls @ 150 mls/hr 02/03/24 12:20 02/03/24 12:25 Normal Saline Iv IV CONT 150 mls/hr .Q6H40M CARLITOS Administration Ibuprofen 800 mg in 200 mls @ 400 mls/hr 02/03/24 13:53 Caldolor 800 Mg/200 Ml IVPB Q6H PRN Pain Rated 4-6 Insulin Aspart 2 - 5 units 02/03/24 00:00 02/03/24 12:54 Insulin Aspart (*Bkc) 100 Units/Ml SUB-Q Not Given Q6HR CARLITOS Protocol Losartan Potassium 100 mg 02/02/24 09:00 02/03/24 08:21 Losartan Potassium 100 Mg Tablet PO 100 mg DAILY CARLITOS Administration Ondansetron HCl 4 mg 02/01/24 19:52 02/02/24 13:58 Ondansetron Inj 4 Mg/2 Ml Vial IV PUSH 4 mg Q4H PRN Administration Nausea Rosuvastatin Calcium 40 mg 02/02/24 09:00 02/03/24 08:21 Rosuvastatin 20 Mg Tablet PO 40 mg DAILY CARLITOS Administration Sodium Chloride 10 ml 02/03/24 14:00 02/03/24 14:02 Central Line Flush IV PUSH 10 ml Q8HR CARLITOS Administration Sodium Chloride 10 ml 02/03/24 12:07 Central Line Flush IV PUSH PRN PRN with TPN bag changes Sodium Chloride 20 ml 02/03/24 12:07 Central Line Flush IV PUSH PRN PRN after blood draws Radiology Results: ITS Impressions Chest X-Ray 02/01/24 16:16 IMPRESSION: Subsegmental left lower lobe atelectasis/consolidation. Chest/Abdomen/Pelvis CTA 02/01/24 18:35 IMPRESSION: No aortic dissection or aneurysm. Moderate interstitial pulmonary edema. Hepatomegaly. Acute interstitial pancreatitis. Possible portal vein and superior mesenteric vein thrombosis, versus artifact from unopacified blood in this arterial phase study. Consider right upper quadrant with a focus on obtaining portal venous color Doppler flow and waveforms. Vascular Ultrasound 02/01/24 19:23 IMPRESSION: Patent portal veins and superior mesenteric vein. Prior CT findings likely related to artifact from arterial phase imaging. Abdomen Ultrasound 02/02/24 09:49 IMPRESSION: 1. Pancreatitis. 2. Cholelithiasis. Gallbladder wall thickening may be secondary to interstitial edema or acute cholecystitis. 3. Diffuse hepatic steatosis. Abdomen/Pelvis CT 02/03/24 09:35 IMPRESSION: Findings consistent with acute pancreatitis, with additional findings worrisome for necrotizing pancreatitis, as detailed above. Severe hypovolemia by imaging criteria for which aggressive resuscitation is suggested. Cholelithiasis. Hepatomegaly. Interval development of bilateral pleural effusions with adjacent compressive atelectasis. These findings will be called to the ordering clinician. Once contact was made, an addendum will be performed. ADDENDUM: 02/03/24 1017 These findings were discussed with Rios Jones NP at 10:15 AM on 02/03/2024 Labs Labs: Laboratory Results - last 24 hr 02/02/24 02/02/24 02/02/24 17:15 21:15 23:39 WBC RBC Hgb Hct MCV MCH MCHC RDW Plt Count MPV Immature Gran % (Auto) Neut % (Auto) Lymph % (Auto) [place] % (Auto) Eos % (Auto) Baso % (Auto) Lymph # (Auto) [place] # (Auto) Eos # (Auto) Baso # (Auto) Abs Immat Gran (auto) Absolute Neuts (auto) Absolute Nucleated RBC Nucleated RBC % Sodium Potassium Chloride Carbon Dioxide Anion Gap BUN Creatinine Estim Creat Clear Calc Estimated GFR Glucose POC Capillary Glucose 136 H 129 H 132 H Hemoglobin A1c Lactic Acid Calcium Magnesium Total Bilirubin AST ALT Alkaline Phosphatase Total Protein Albumin Lipase 02/03/24 02/03/24 02/03/24 05:05 05:37 05:40 WBC 27.9 H RBC 5.00 Hgb 13.7 Hct 42.4 MCV 84.8 MCH 27.4 MCHC 32.3 RDW 12.9 Plt Count 190 MPV 10.8 H Immature Gran % (Auto) 0.8 H Neut % (Auto) 87.6 H Lymph % (Auto) 5.6 L [place] % (Auto) 5.8 Eos % (Auto) 0.0 Baso % (Auto) 0.2 Lymph # (Auto) 1.57 [place] # (Auto) 1.6 H Eos # (Auto) 0.0 Baso # (Auto) 0.1 Abs Immat Gran (auto) 0.22 H Absolute Neuts (auto) 24.4 H Absolute Nucleated RBC 0.000 Nucleated RBC % 0.0 Sodium 139 Potassium 4.2 Chloride 103 Carbon Dioxide 31 H Anion Gap 5 BUN 28 H Creatinine 1.00 Estim Creat Clear Calc 49 Estimated GFR 55 L Glucose 128 H POC Capillary Glucose 131 H Hemoglobin A1c 6.0 H Lactic Acid Calcium 7.4 L Magnesium 1.7 Total Bilirubin 1.1 AST 36 ALT 23 Alkaline Phosphatase 67 Total Protein 6.0 L Albumin 3.3 L Lipase 3615 H 02/03/24 02/03/24 02/03/24 07:49 09:32 12:44 WBC RBC Hgb Hct MCV MCH MCHC RDW Plt Count MPV Immature Gran % (Auto) Neut % (Auto) Lymph % (Auto) [place] % (Auto) Eos % (Auto) Baso % (Auto) Lymph # (Auto) [place] # (Auto) Eos # (Auto) Baso # (Auto) Abs Immat Gran (auto) Absolute Neuts (auto) Absolute Nucleated RBC Nucleated RBC % Sodium Potassium Chloride Carbon Dioxide Anion Gap BUN Creatinine Estim Creat Clear Calc Estimated GFR Glucose POC Capillary Glucose 114 H 111 H Hemoglobin A1c Lactic Acid 1.5 Calcium Magnesium Total Bilirubin AST ALT Alkaline Phosphatase Total Protein Albumin Lipase
[2024-02-03 16:55] LABS: Glucose Point of Care 100 mg/dl (65-105)
[2024-02-03 17:13] LABS: Alveolar/Arterial O2 Gradient 59.5 mmHg; Base Excess ABG -3.1 mEq/l (+/-2.0); Fractional Inspired Oxygen 21 %; HCO3 ABG 20.8 mEq/l (22.0-26.0); Oxygen Content ABG 15.3 %vol (16.0-22.0); PCO2 ABG 33.8 mmHg (35.0-45.0); PO2 FiO2 Ratio Arterial Blood 2.37 %; pH ABG 7.407 (7.350-7.450)
--- NOTE | 2024-02-03 17:13 | PC.NURSE ---
Patient found at 88% oxygen saturation on room air. Provider notified and came to bedside. Orders placed.
[2024-02-03 17:14] LABS: Oxygen Saturation ABG 85.9 % (95.0-100.0); PO2 ABG 49.8 mmHg (80.0-100.0)
[2024-02-03 17:15] LABS: Device ROOM AIR; Modified Allen's Test Pass; Oxyhemoglobin 83.9 % THb (90.0-100.0); Site Drawn RIGHT RADIAL
[2024-02-03 18:17] LABS: Glucose Point of Care 107 mg/dl (65-105)
[2024-02-03] MEDS: LACTATED RINGERS 1,000 ML 100 ML IV CONT (18:29)
[2024-02-03 18:49] LABS: Basophils Percent Auto 0.2 % (0.2-1.2); Hematocrit 37.8 % (37.0-47.0); Hemoglobin 12.1 g/dL (12.0-15.0); Immature Granulocyte Absolute 0.26 K/mm3 (0.00-0.031); Lymphocytes Absolute Auto 1.24 K/mm3 (0.9-3.2); Lymphocytes Percent Auto 4.7 % (18.3-44.2); Mean Corpuscular Volume 84.4 fl (80-100); Mean Platelet Volume 10.7 fl (7.4-10.4); Monocytes Absolute Auto 1.5 K/mm3 (0.1-0.6); Monocytes Percent Auto 5.5 % (2.6-8.5); Neutrophils Absolute Auto 23.5 K/mm3 (1.3-6.7); Neutrophils Percent Auto 88.6 % (45.5-73.1); Platelet Count Result 175 k/mm3 (150-375); Red Blood Count 4.48 M/mm3 (4.2-5.4); Red Cell Distribution Width 13.1 % (11.5-14.5); White Blood Count 26.5 K/mm3 (4.5-10.0)
--- NOTE | 2024-02-03 18:52 | PC.NURSE ---
This patient, Viridiana Vega, was received from [address] [place] [address] on 02/03/24 at 1800. Patient/family oriented to unit policies and routines
[2024-02-03 19:00] LABS: Ammonia < 9 umol/L (9-30); Lactic Acid Reflex 1.3 mmol/L (0.7-2.0)
[2024-02-03 19:02] LABS: Alanine Aminotransferase 21 U/L (6-35); Alkaline Phosphatase 65 U/L (38-126); Anion Gap 6 mmol/L (4-12); Aspartate Amino Transferase 36 U/L (14-36); Bilirubin,Total 1.4 mg/dL (0.2-1.3); Blood Urea Nitrogen 25 mg/dL (7-17); Calcium 6.4 mg/dL (8.4-10.2); Carbon Dioxide 28 mmol/L (22-30); Chloride 105 mmol/L (98-107); Estimated CRCL calculation 54 ml/min; Estimated Glomerular Filt Rate > 60; Glucose 125 mg/dL (65-110); Lipase 1792 U/L (23-300); Potassium 3.5 mmol/L (3.4-5.0); Sodium 139 mmol/L (137-145)
[2024-02-03 20:01] LABS: MRSA (PCR) NOT DETECTED (NOT DETECTE)
[2024-02-04] VITALS (16 sets, daily range): BP systolic 134–183; BP diastolic 74–130; PULSE 77–102; RESP 23–32; TEMP 36.3–36.9; O2SAT 88–98
[2024-02-04 00:01] LABS: Glucose Point of Care 124 mg/dl (65-105)
[2024-02-04] MEDS: LACTATED RINGERS 1,000 ML 100 ML IV CONT (02:51)
[2024-02-04 04:53] LABS: Basophils Absolute Auto 0.1 K/mm3 (0.0-0.1); Basophils Percent Auto 0.2 % (0.2-1.2); Hematocrit 36.1 % (37.0-47.0); Hemoglobin 11.9 g/dL (12.0-15.0); Immature Granulocyte Absolute 0.21 K/mm3 (0.00-0.031); Immature Granulocyte Percent A 0.9 % (0-0.5); Lymphocytes Absolute Auto 1.19 K/mm3 (0.9-3.2); Lymphocytes Percent Auto 5.2 % (18.3-44.2); Mean Corpuscular Hemoglobin 27.7 pg (26-34); Mean Platelet Volume 10.9 fl (7.4-10.4); Monocytes Absolute Auto 1.2 K/mm3 (0.1-0.6); Monocytes Percent Auto 5.3 % (2.6-8.5); Neutrophils Absolute Auto 20.3 K/mm3 (1.3-6.7); Neutrophils Percent Auto 88.4 % (45.5-73.1); Platelet Count Result 164 k/mm3 (150-375); Red Cell Distribution Width 13.1 % (11.5-14.5)
[2024-02-04 05:18] LABS: Alanine Aminotransferase 20 U/L (6-35); Albumin Level 3.1 g/dL (3.5-5.1); Alkaline Phosphatase 70 U/L (38-126); Anion Gap 8 mmol/L (4-12); Aspartate Amino Transferase 39 U/L (14-36); Bilirubin,Total 1.2 mg/dL (0.2-1.3); Blood Urea Nitrogen 25 mg/dL (7-17); Calcium 6.4 mg/dL (8.4-10.2); Carbon Dioxide 23 mmol/L (22-30); Chloride 108 mmol/L (98-107); Estimated CRCL calculation 56 ml/min; Estimated Glomerular Filt Rate > 60; Glucose 126 mg/dL (65-110); Lipase 1206 U/L (23-300); Potassium 3.3 mmol/L (3.4-5.0); Sodium 139 mmol/L (137-145)
[2024-02-04] MEDS: CENTRAL LINE FLUSH 10 ML IV PUSH ×3 (05:23→20:40)
[2024-02-04] MEDS: PIPERACILLIN/TAZ 4.5G/NS 100ML 4.5 GM/100 ML BAG IVPB ×3 (05:23→16:34)
[2024-02-04] MEDS: HEPARIN SODIUM 5,000 UNITS/ML VIAL 5000 UNITS SUB-Q ×3 (05:23→23:35)
[2024-02-04 05:24] LABS: Alveolar/Arterial O2 Gradient 148.5 mmHg; Base Excess ABG 4.1 mEq/l (+/-2.0); Fractional Inspired Oxygen 36 %; HCO3 ABG 27.9 mEq/l (22.0-26.0); Oxygen Content ABG 16.5 %vol (16.0-22.0); Oxygen Saturation ABG 93.5 % (95.0-100.0); Oxyhemoglobin 92.5 % THb (90.0-100.0); PCO2 ABG 38.9 mmHg (35.0-45.0); PO2 ABG 63.1 mmHg (80.0-100.0); PO2 FiO2 Ratio Arterial Blood 1.75 %; Total Hemoglobin 12.7 g/dL (12.0-18.0); pH ABG 7.474 (7.350-7.450)
[2024-02-04 06:21] LABS: Glucose Point of Care 135 mg/dl (65-105)
[2024-02-04 06:26] LABS: Modified Allen's Test Pass; Site Drawn RIGHT RADIAL
[2024-02-04 06:27] LABS: Device NASAL CANNULA
[2024-02-04] MEDS: IBUPROFEN IV 800 MG/200 ML 800 MG/200 ML BAG 400 MG IVPB (06:42)
--- NOTE | 2024-02-04 08:43 | P.CONIN_ITS ---
Assessment and Plan Assessment and plan (1) Acute necrotizing pancreatitis: Code(s): K85.91 - Acute pancreatitis with uninfected necrosis, unspecified Status: Acute Assessment and Plan: Acute necrotizing pancreatitis likely secondary to gallstones No currently obstructing gallstone as per imaging.. LFTs unremarkable. Lipase is improving NPO, NG tube in place GI and general surgery following Imaging as above Pain control (2) Sepsis: Code(s): A41.9 - Sepsis, unspecified organism Status: Acute Assessment and Plan: Patient met criteria for sepsis. Blood cultures have been sent and are pending. Patient is on Zosyn which will be continued (3) Ileus: Code(s): K56.7 - Ileus, unspecified Status: Acute Assessment and Plan: Patient probable ileus likely severe pancreatitis poor NG tube was placed. Symptomatically patient is feeling better. Continue ice chips for now Further management per General surgery. (4) Pleural effusion associated with pancreatitis: Code(s): K85.90 - Acute pancreatitis without necrosis or infection, unspecified; J91.8 - Pleural effusion in other conditions classified elsewhere Status: Acute Assessment and Plan: Likely secondary third-spacing. Continue IV fluids (5) Hypoxia: Code(s): R09.02 - Hypoxemia Status: Acute Assessment and Plan: Secondary to atelectasis pleural effusions Incentive spirometry Up in chair Continue oxygen (6) Cholelithiasis: Code(s): K80.20 - Calculus of gallbladder without cholecystitis without obstruction Status: Acute Assessment and Plan: See above (7) Dehydration: Code(s): E86.0 - Dehydration Status: Acute Assessment and Plan: Secondary to sepsis and third-spacing Continue IV fluids (8) Electrolyte abnormality: Code(s): E87.8 - Other disorders of electrolyte and fluid balance, not elsewhere classified Status: Acute Assessment and Plan: Replace low potassium and calcium Plan DVT prophylaxis -heparin Stress ulcer prophylaxis -Protonix Nutrition - npo Code Status - Full Code Incentive spirometry, up in chair Total Critical Care Time - 32 minutes Due to a high probability of clinically significant, life threatening det erioration, the patient required my highest level of preparedness to intervene emergently and I personally spent this critical care time directly and personally managing the patient. This critical care time included obtaining a history; examining the patient; pulse oximetry; ordering and review of studies; arranging urgent treatment with development of a management plan; evaluation of patient's response to treatment; frequent reassessment; and discussions with other providers. It was exclusive of separately billable procedures and treating other patients and teaching time. 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 She was found to be having elevated lipase and was diagnosed with pancreatitis. Patient was admitted in the step-down unit and started on IV fluids and made NPO. GI and General surgery consulted. Patient was transferred to ICU yesterday with concern for deterioration. Workup of the hospitalization showed following. CT abdomen pelvis IMPRESSION: Findings consistent with acute pancreatitis, with additional findings worrisome for necrotizing pancreatitis, as detailed above. Severe hypovolemia by imaging criteria for which aggressive resuscitation is suggested. Cholelithiasis. Hepatomegaly. Interval development of bilateral pleural effusions with adjacent compressive atelectasis. Right upper quadrant ultrasound IMPRESSION: 1. Pancreatitis. 2. Cholelithiasis. Gallbladder wall thickening may be secondary to interstitial edema or acute cholecystitis. 3. Diffuse hepatic steatosis. Right upper quadrant duplex IMPRESSION: Patent portal veins and superior mesenteric vein. Prior CT findings likely related to artifact from arterial phase imaging. Patient at this time states she feels better than yesterday. She denies any nausea or vomiting. She has NG tube in place to suction. She denies any abdominal pain. But she feels bloated. She states she did pass some gas this morning. No bowel movements. She denies any fever chest pain. She complains of dry mouth but does not feel short of breath. She is tired of laying in bed. She complains of chronic back pain which is worse when laying in bed. All other systems were reviewed and were negative. Review of Systems Review of Systems: All systems reviewed & are unremarkable except as noted in HPI and below (HPI) [facility] Past Medical History Medical History Abnormal finding of blood chemistry, unspecified Acute bilateral thoracic back pain Back pain Benign essential hypertension BMI 29.0-29.9,adult BMI 30.0-30.9,adult BMI 31.0-31.9,adult BPPV (benign paroxysmal positional vertigo) Bronchitis Carotid bruit Chest heaviness Cholelithiasis Dysphagia Elevated liver enzymes Encounter for Medicare annual wellness exam Encounter for preventive health examination Encounter for routine adult health examination without abnormal findings Encounter for screening mammogram for malignant neoplasm of breast Gallstone pancreatitis History of strep sore throat Hx of colonic polyps Left knee pain Leukocytosis Nausea and vomiting in adult Nonintractable headache 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 Pre-diabetes Sinus infection SIRS (systemic inflammatory response syndrome) Vitamin D deficiency Surgical History Surgical History History of section History of total right hip replacement History of tubal ligation Hx of parathyroidectomy Family History Family History Father Hypertension Family history of diabetes mellitus in first degree relative Acute myocardial infarction Mother Hypertension Family history of heart disease in male family member before age 55 Sibling Family history of diabetes mellitus in first degree relative Other Diabetes mellitus Social History Social History Smoking status: Never smoker Second hand tobacco smoke exposure: No Alcohol intake: never Do You Feel Safe in your Home?: Yes Lack of Transportation: No Lack of Food: Never True Current Housing: I Have Housing Concerned About Future Housing: No Difficulty Paying Gas/Electric Bills: No Difficulty Paying for Meds: No Currently Unemployed: No Education: Associate Degree Difficulty w/ Childcare or Family Care: No Living arrangements: with family Gender identity (if verbalized by the patient): Female Spiritual care concerns: No Meds Home Medications and Allergies Home Medications Medication Instructions Recorded Confirmed Type naproxen 500 mg tablet (Naprosyn) 500 mg PO BID PRN pain #60 tabs 07/12/20 02/01/24 Rx cholecalciferol (vitamin D3) 50 50 mcg PO DAILY 04/16/22 02/01/24 History mcg (2,000 unit) capsule rosuvastatin 40 mg tablet 40 mg PO DAILY #90 tabs 10/07/22 02/01/24 Rx cyclobenzaprine 10 mg tablet 10 mg PO TID PRN muscle spasm #30 02/03/23 02/01/24 Rx tabs fluticasone propionate 50 2 spray intranasal DAILY PRN 02/03/23 02/01/24 Rx mcg/actuation nasal allergy symptoms #16 grams spray,suspension carvedilol 12.5 mg tablet 12.5 mg PO BID 02/01/24 02/01/24 History losartan 100 1 tablet PO DAILY 02/01/24 02/01/24 History mg-hydrochlorothiazide 25 mg tablet Allergies Allergy/AdvReac Type Severity Reaction Status Date / Time No Known Allergies Allergy Verified 02/01/24 18:21 Vital Signs Vital Signs - 24 hr 02/03/24 14:00 02/03/24 16:42 02/03/24 17:00 Temperature 36.7 C 36.6 C Pulse Rate 81 84 86 Respiratory Rate 18 17 Blood Pressure 114/62 114/59 L Pulse Oximetry 92 91 Oxygen Delivery Oxygen Flow Rate 02/03/24 20:00 02/03/24 20:00 02/03/24 20:00 Temperature 36.6 C Pulse Rate 84 84 84 Respiratory Rate 23 H 23 H Blood Pressure 136/76 Pulse Oximetry 94 94 Oxygen Delivery Nasal Cannula Oxygen Flow Rate 4 02/03/24 22:00 02/03/24 22:00 02/04/24 00:00 Temperature 36.9 C Pulse Rate 80 80 84 Respiratory Rate 24 H 30 H Blood Pressure 137/68 134/74 Pulse Oximetry 91 88 L Oxygen Delivery Oxygen Flow Rate 02/04/24 00:00 02/04/24 00:00 02/04/24 02:00 Temperature Pulse Rate 84 84 89 Respiratory Rate 30 H Blood Pressure Pulse Oximetry 92 Oxygen Delivery Nasal Cannula Oxygen Flow Rate 4 02/04/24 02:00 02/04/24 03:26 02/04/24 04:00 Temperature 36.3 C L Pulse Rate 89 89 Respiratory Rate 25 H Blood Pressure 147/78 H Pulse Oximetry 92 Oxygen Delivery Oxygen Flow Rate 02/04/24 04:00 02/04/24 06:00 02/04/24 06:00 Temperature Pulse Rate 89 89 89 Respiratory Rate 26 H 31 H Blood Pressure 178/85 H Pulse Oximetry 92 91 Oxygen Delivery Nasal Cannula Oxygen Flow Rate 4 Exam Narrative: General: Pt is alert awake and in NAD Lungs/Chest: Trachea central Clear BS B/L, No crackles or wheezing. Breath so unds are decreased at bases. Mild tachypnea. But no respiratory distress or use of accessory muscles. Cardiac: RRR. Normal S1 S2. No murmurs Circulation: Pedal pulses are intact and symmetrical. Abdomen: Decreased but present bowel sounds.. Soft. Mildly distended. Tender to palpation epigastric area. Extremities: No clubbing, cyanosis or edema. Warm : Sanchez in place Neurologic: Follows commands. Moves all 4 extremities PERRL AO x3 Skin: No Rash Results Labs 02/04/24 04:40 02/04/24 04:40 Labs: Impressions Abdomen/Pelvis CT 02/03/24 09:35 IMPRESSION: Findings consistent with acute pancreatitis, with additional findings worrisome for necrotizing pancreatitis, as detailed above. Severe hypovolemia by imaging criteria for which aggressive resuscitation is suggested. Cholelithiasis. Hepatomegaly. Interval development of bilateral pleural effusions with adjacent compressive atelectasis. These findings will be called to the ordering clinician. Once contact was made, an addendum will be performed. ADDENDUM: 02/03/24 1017 These findings were discussed with Rios Jones NP at 10:15 AM on 02/03/2024 Abdomen X-Ray 02/03/24 17:24 IMPRESSION: NG tube in good position and ready for immediate use for decompression purposes Short CBC 02/03/24 02/04/24 Range/Units 18:30 04:40 WBC 26.5 H 23.0 H (4.5-10.0) K/mm3 Hgb 12.1 11.9 L (12.0-15.0) g/dL Hct 37.8 36.1 L (37.0-47.0) % Plt Count 175 164 (150-375) k/mm3 BMP 02/03/24 02/04/24 18:30 04:40 Sodium 139 139 Potassium 3.5 3.3 L Chloride 105 108 H Carbon Dioxide 28 23 BUN 25 H 25 H Creatinine 0.90 0.90 Glucose 125 H 126 H Calcium 6.4 L 6.4 L Liver Function 02/03/24 02/04/24 Range/Units 18:30 04:40 Total Bilirubin 1.4 H 1.2 (0.2-1.3) mg/dL AST 36 39 H (14-36) U/L ALT 21 20 (6-35) U/L Alkaline Phosphatase 65 70 (38-126) U/L Albumin 3.0 L 3.1 L (3.5-5.1) g/dL Quality VTE Prophylaxis VTE prophylaxis: mechanical ordered and pharmacologic ordered Hospitalist MIPS Advance Care Plan I have confirmed that the patient's Advanced Care Plan is present, code status is documented, or surrogate decision maker is listed in patient medical record.: Yes Medication Reconciliation I have utilized all available resources to obtain, update and review the patients current medications (includes all prescriptions, OTC, herbals, cannabis, and nutritional supplements).: Yes
[2024-02-04] MEDS: POTASSIUM CHLORIDE INJ 40 MEQ in SODIUM CHLORIDE 0.9% IV 500 ML 130 MEQ IVPB (08:49)
[2024-02-04] MEDS: CALCIUM GLUC 2,000 MG/NS 100ML 2,000 MG/100 ML BAG 100 MG IVPB (08:49)
[2024-02-04] MEDS: KCL 20 MEQ/0.45% NS 1,000 ML 100 ML IV CONT (08:49)
[2024-02-04] MEDS: PANTOPRAZOLE SODIUM IV 40 MG VIAL IV PUSH (10:54)
[2024-02-04] MEDS: LABETALOL HCL INJ 100 MG/20 ML VIAL 20 MG IV PUSH (10:54)
[2024-02-04] MEDS: BISACODYL 10 MG SUPPOSITORY RECTAL (10:55)
--- NOTE | 2024-02-04 11:35 | P.PNGS_ITS ---
Progress Note: A&P Assessment and Plan (1) Acute pancreatitis: Qualifiers: Pancreatitis type: biliary Code(s): K85.90 - Acute pancreatitis without necrosis or infection, unspecified Status: Acute Assessment and Plan: * Pancreatitis seems to be improving. Abdominal pain and exam improved. Lipase trending down to 1200 today. * Continue IV fluids and medical management (2) Ileus: Code(s): K56.7 - Ileus, unspecified Status: Acute Assessment and Plan: * Developed an ileus likely secondary to the acute pancreatitis * Continue NG tube decompression, bowel rest, and IV fluids * Will give a Dulcolax suppository today * Encouraged her to get up to the chair and increase activity today (3) Cholelithiasis: Code(s): K80.20 - Calculus of gallbladder without cholecystitis without obstruction Status: Acute Assessment and Plan: * No RUQ pain or tenderness on exam today. WBC trending down. Will eventually need an interval cholecystectomy once her pancreatitis resolves, which we have discussed. (4) Elevated liver enzymes: Code(s): R74.8 - Abnormal levels of other serum enzymes Status: Acute Assessment and Plan: * Normalized (5) Sepsis: Code(s): A41.9 - Sepsis, unspecified organism Status: Acute Assessment and Plan: * Secondary to necrotizing gallstone pancreatitis. Blood cultures pending. White blood cell count trending down. Clinically appears to be improving. (6) Pleural effusion associated with pancreatitis: Code(s): K85.90 - Acute pancreatitis without necrosis or infection, unspecified; J91.8 - Pleural effusion in other conditions classified elsewhere Status: Acute Assessment and Plan: * Patient became tachypneic and hypoxic yesterday afternoon. CT scan yesterday showed bilateral small pleural effusions likely related to the pancreatitis. IS ordered and encouraged her to increase activity and get up to the chair. Plan I have discussed the patient's case and plan of care with Dr. Barajas. Subjective Subjective Date/Time Seen: 02/04/24 11:35 Patient reports: no new complaints, feels better, pain is less, voiding w/o difficulty, flatus (last night after NG placed), no bowel movement and afebrile Interval history: Patient moved to ICU yesterday evening due to her respiratory status. She has been tachypneic and is now on 4 liters of O2 via nasal cannula. She had an NG tube placed, which had over a liter of output since placement last night. She is feeling better and reporst some flatus last night. Still no BM. She denies any abdominal pain at this time and reports her bloating has improved. Exam Const: General: no acute distress and ill appearing Orientation/consciousness: patient oriented x3 Resp: Effort & Inspection: labored (slightly labored compared to my exam yesterday), no respiratory distress and tachypneic Auscultation: diminished lung sounds bilateral in the lower lung paiz Cardio: Rate: regular rate Rhythm: regular rhythm GI: Inspection: distended GI Palp: Yes Soft to palpation, Yes Tenderness to palpation present (GI) (mild tenderness across the lower abd, much less tender in the upper abd now), No Guarding due to palpation present (GI) and No Rebound tenderness present Auscultation: normal bowel sounds Extrem: General: no calf tenderness and no edema Objective Data Vital Signs Vital Signs: Vital Signs - 24 hr 02/03/24 14:00 02/03/24 16:42 02/03/24 17:00 Temperature 98.0 F 97.8 F Pulse Rate 81 84 86 Respiratory Rate 18 17 Blood Pressure 114/62 114/59 L Pulse Oximetry 92 91 Oxygen Delivery Oxygen Flow Rate Fraction of Inspired Oxygen 02/03/24 20:00 02/03/24 20:00 02/03/24 20:00 Temperature 97.9 F Pulse Rate 84 84 84 Respiratory Rate 23 H 23 H Blood Pressure 136/76 Pulse Oximetry 94 94 Oxygen Delivery Nasal Cannula Oxygen Flow Rate 4 Fraction of Inspired Oxygen 02/03/24 22:00 02/03/24 22:00 02/04/24 00:00 Temperature 98.5 F Pulse Rate 80 80 84 Respiratory Rate 24 H 30 H Blood Pressure 137/68 134/74 Pulse Oximetry 91 88 L Oxygen Delivery Oxygen Flow Rate Fraction of Inspired Oxygen 02/04/24 00:00 02/04/24 00:00 02/04/24 02:00 Temperature Pulse Rate 84 84 89 Respiratory Rate 30 H Blood Pressure Pulse Oximetry 92 Oxygen Delivery Nasal Cannula Oxygen Flow Rate 4 Fraction of Inspired Oxygen 02/04/24 02:00 02/04/24 03:26 02/04/24 04:00 Temperature 97.4 F L Pulse Rate 89 89 Respiratory Rate 25 H Blood Pressure 147/78 H Pulse Oximetry 92 Oxygen Delivery Oxygen Flow Rate Fraction of Inspired Oxygen 02/04/24 04:00 02/04/24 06:00 02/04/24 06:00 Temperature Pulse Rate 89 89 89 Respiratory Rate 26 H 31 H Blood Pressure 178/85 H Pulse Oximetry 92 91 Oxygen Delivery Nasal Cannula Oxygen Flow Rate 4 Fraction of Inspired Oxygen 02/04/24 08:00 02/04/24 08:00 02/04/24 08:00 Temperature 97.7 F Pulse Rate 80 83 Respiratory Rate 29 H Blood Pressure 177/75 H Pulse Oximetry 94 95 Oxygen Delivery Nasal Cannula Oxygen Flow Rate 4 Fraction of Inspired Oxygen 36 02/04/24 10:00 02/04/24 10:54 Temperature Pulse Rate 81 84 Respiratory Rate 28 H Blood Pressure 183/77 H Pulse Oximetry 96 Oxygen Delivery Oxygen Flow Rate Fraction of Inspired Oxygen Intake/Output Intake/Output: Intake & Output 02/01/24 02/02/24 02/03/24 02/04/24 23:59 23:59 23:59 23:59 Intake Total 1100 2250 6400 1136.7 Output Total 491 159 6103 Balance 1100 2050 5450 -363.3 Meds/Results Medications: Active Medications Generic Name Dose Route Start Last Admin Trade Name Freq PRN Reason Stop Dose Admin Dextrose 12.5 gm 02/02/24 10:59 Dextrose 50% 25 Gm/50 Ml Syringe IV PUSH PRN PRN Hypoglycemia Protocol Fluticasone Propionate 2 spray 02/02/24 00:09 Fluticasone Propionate 0.05% Na Spr 16 Gm Btl (*Bkc) NASAL DAILY PRN allergy symptoms Glucagon 1 mg 02/02/24 10:59 Glucagon For Inj 1 Mg Vial IM PRN PRN Hypoglycemia Protocol Glucose 15 gm 02/02/24 10:59 Glucose Oral Gel 15 Gm Of Glucse In 37.5 Gm Tube PO PRN PRN Hypoglycemia Protocol Heparin Sodium (Porcine) 5,000 units 02/02/24 14:00 02/04/24 05:23 Heparin Sodium 5,000 Units/Ml Vial SUB-Q 5,000 units Q8HR CARLITOS Administration Hydralazine HCl 20 mg 02/04/24 09:30 Hydralazine Hcl 20 Mg/Ml Vial IV PUSH Q4H PRN SBP more than 160 - 2nd choice Hydromorphone HCl 0.5 mg 02/03/24 13:53 Hydromorphone Hcl Inj (*Crx) 1 Mg/Ml Syr IV PUSH Q2H PRN Pain Rated 7-10 Piperacillin Sod/Tazobactam Sod 4.5 gm in 100 mls @ 200 mls/hr 02/03/24 11:00 02/04/24 10:55 Zosyn 4.5 Gm/Ns 100 Ml IVPB 200 mls/hr Q6H CARLITOS Administration Potassium Chloride 40 meq/ 520 mls @ 130 mls/hr 02/04/24 08:02 02/04/24 08:49 Sodium Chloride IVPB 02/04/24 12:01 130 mls/hr ONCE ONE Administration Potassium Chloride/Sodium Chloride 1,000 mls @ 100 mls/hr 02/04/24 08:20 02/04/24 08:49 Kcl 20 Meq/0.45% Ns IV CONT 100 mls/hr .Q10H CARLITOS Administration Insulin Aspart 2 - 5 units 02/03/24 00:00 02/04/24 06:27 Insulin Aspart (*Bkc) 100 Units/Ml SUB-Q Not Given Q6HR [facility] Protocol Labetalol HCl 20 mg 02/04/24 09:30 02/04/24 10:54 Labetalol Hcl Inj 100 Mg/20 Ml Vial IV PUSH 20 mg Q4H PRN Administration SBP > 160 and HR> 60 -1st choice Ondansetron HCl 4 mg 02/01/24 19:52 02/02/24 13:58 Ondansetron Inj 4 Mg/2 Ml Vial IV PUSH 4 mg Q4H PRN Administration Nausea Pantoprazole Sodium 40 mg 02/04/24 09:00 02/04/24 10:54 Pantoprazole Sodium Iv 40 Mg Vial IV PUSH 40 mg QAM CARLITOS Administration Sodium Chloride 10 ml 02/03/24 14:00 02/04/24 05:23 Central Line Flush IV PUSH 10 ml Q8HR CARLITOS Administration Sodium Chloride 10 ml 02/03/24 12:07 Central Line Flush IV PUSH PRN PRN with TPN bag changes Sodium Chloride 20 ml 02/03/24 12:07 Central Line Flush IV PUSH PRN PRN after blood draws Radiology Results: ITS Impressions Chest X-Ray 02/01/24 16:16 IMPRESSION: Subsegmental left lower lobe atelectasis/consolidation. Chest/Abdomen/Pelvis CTA 02/01/24 18:35 IMPRESSION: No aortic dissection or aneurysm. Moderate interstitial pulmonary edema. Hepatomegaly. Acute interstitial pancreatitis. Possible portal vein and superior mesenteric vein thrombosis, versus artifact fr om unopacified blood in this arterial phase study. Consider right upper quadrant with a focus on obtaining portal venous color Doppler flow and waveforms. Vascular Ultrasound 02/01/24 19:23 IMPRESSION: Patent portal veins and superior mesenteric vein. Prior CT findings likely related to artifact from arterial phase imaging. Abdomen Ultrasound 02/02/24 09:49 IMPRESSION: 1. Pancreatitis. 2. Cholelithiasis. Gallbladder wall thickening may be secondary to interstitial edema or acute cholecystitis. 3. Diffuse hepatic steatosis. Abdomen/Pelvis CT 02/03/24 09:35 IMPRESSION: Findings consistent with acute pancreatitis, with additional findings worrisome for necrotizing pancreatitis, as detailed above. Severe hypovolemia by imaging criteria for which aggressive resuscitation is suggested. Cholelithiasis. Hepatomegaly. Interval development of bilateral pleural effusions with adjacent compressive atelectasis. These findings will be called to the ordering clinician. Once contact was made, an addendum will be performed. ADDENDUM: 02/03/24 1017 These findings were discussed with Rios Jones NP at 10:15 AM on 02/03/2024 Abdomen X-Ray 02/03/24 17:24 IMPRESSION: NG tube in good position and ready for immediate use for decompression purposes Labs Labs: Laboratory Results - last 24 hr 02/03/24 02/03/24 02/03/24 12:44 16:49 17:09 WBC RBC Hgb Hct MCV MCH MCHC RDW Plt Count MPV Immature Gran % (Auto) Neut % (Auto) Lymph % (Auto) [place] % (Auto) Eos % (Auto) Baso % (Auto) Lymph # (Auto) [place] # (Auto) Eos # (Auto) Baso # (Auto) Abs Immat Gran (auto) Absolute Neuts (auto) Absolute Nucleated RBC Nucleated RBC % Puncture Site Right radial ABG pH 7.407 ABG pCO2 33.8 L ABG pO2 49.8 L* ABG PO2/FiO2 Ratio 2.37 ABG HCO3 20.8 L ABG O2 Saturation 85.9 L* ABG O2 Content 15.3 L ABG Base Excess -3.1 A-a Gradient 59.5 Oxyhemoglobin 83.9 L* Total Hemoglobin 13.0 O2 Delivery Device Room air O2 Liters/Min Not Reportable FiO2 21 Sodium Potassium Chloride Carbon Dioxide Anion Gap BUN Creatinine Estim Creat Clear Calc Estimated GFR Glucose POC Capillary Glucose 111 H 100 Lactic Acid Calcium Total Bilirubin AST ALT Alkaline Phosphatase Ammonia Total Protein Albumin Lipase Nasal MRSA (PCR) 02/03/24 02/03/24 02/03/24 18:15 18:30 18:39 WBC 26.5 H RBC 4.48 Hgb 12.1 Hct 37.8 MCV 84.4 MCH 27.0 MCHC 32.0 RDW 13.1 Plt Count 175 MPV 10.7 H Immature Gran % (Auto) 1.0 H Neut % (Auto) 88.6 H Lymph % (Auto) 4.7 L [place] % (Auto) 5.5 Eos % (Auto) 0.0 Baso % (Auto) 0.2 Lymph # (Auto) 1.24 [place] # (Auto) 1.5 H Eos # (Auto) 0.0 Baso # (Auto) 0.0 Abs Immat Gran (auto) 0.26 H Absolute Neuts (auto) 23.5 H Absolute Nucleated RBC 0.000 Nucleated RBC % 0.0 Puncture Site ABG pH ABG pCO2 ABG pO2 ABG PO2/FiO2 Ratio ABG HCO3 ABG O2 Saturation ABG O2 Content ABG Base Excess A-a Gradient Oxyhemoglobin Total Hemoglobin O2 Delivery Device O2 Liters/Min FiO2 Sodium 139 Potassium 3.5 Chloride 105 Carbon Dioxide 28 Anion Gap 6 BUN 25 H Creatinine 0.90 Estim Creat Clear Calc 54 Estimated GFR > 60 Glucose 125 H POC Capillary Glucose 107 H Lactic Acid 1.3 Calcium 6.4 L Total Bilirubin 1.4 H AST 36 ALT 21 Alkaline Phosphatase 65 Ammonia < 9 L Total Protein 6.0 L Albumin 3.0 L Lipase 1792 H Nasal MRSA (PCR) Not detected 02/03/24 02/04/24 02/04/24 23:43 04:40 05:12 WBC 23.0 H RBC 4.30 Hgb 11.9 L Hct 36.1 L MCV 84.0 MCH 27.7 MCHC 33.0 RDW 13.1 Plt Count 164 MPV 10.9 H Immature Gran % (Auto) 0.9 H Neut % (Auto) 88.4 H Lymph % (Auto) 5.2 L [place] % (Auto) 5.3 Eos % (Auto) 0.0 Baso % (Auto) 0.2 Lymph # (Auto) 1.19 [place] # (Auto) 1.2 H Eos # (Auto) 0.0 Baso # (Auto) 0.1 Abs Immat Gran (auto) 0.21 H Absolute Neuts (auto) 20.3 H Absolute Nucleated RBC 0.000 Nucleated RBC % 0.0 Puncture Site Right radial ABG pH 7.474 H ABG pCO2 38.9 ABG pO2 63.1 L ABG PO2/FiO2 Ratio 1.75 ABG HCO3 27.9 H ABG O2 Saturation 93.5 L ABG O2 Content 16.5 ABG Base Excess 4.1 A-a Gradient 148.5 Oxyhemoglobin 92.5 Total Hemoglobin 12.7 O2 Delivery Device Nasal cannula O2 Liters/Min 4.0 FiO2 36 Sodium 139 Potassium 3.3 L Chloride 108 H Carbon Dioxide 23 Anion Gap 8 BUN 25 H Creatinine 0.90 Estim Creat Clear Calc 56 Estimated GFR > 60 Glucose 126 H POC Capillary Glucose 124 H Lactic Acid Calcium 6.4 L Total Bilirubin 1.2 AST 39 H ALT 20 Alkaline Phosphatase 70 Ammonia Total Protein 6.0 L Albumin 3.1 L Lipase 1206 H Nasal MRSA (PCR) 02/04/24 06:11 WBC RBC Hgb Hct MCV MCH MCHC RDW Plt Count MPV Immature Gran % (Auto) Neut % (Auto) Lymph % (Auto) [place] % (Auto) Eos % (Auto) Baso % (Auto) Lymph # (Auto) [place] # (Auto) Eos # (Auto) Baso # (Auto) Abs Immat Gran (auto) Absolute Neuts (auto) Absolute Nucleated RBC Nucleated RBC % Puncture Site ABG pH ABG pCO2 ABG pO2 ABG PO2/FiO2 Ratio ABG HCO3 ABG O2 Saturation ABG O2 Content ABG Base Excess A-a Gradient Oxyhemoglobin Total Hemoglobin O2 Delivery Device O2 Liters/Min FiO2 Sodium Potassium Chloride Carbon Dioxide Anion Gap BUN Creatinine Estim Creat Clear Calc Estimated GFR Glucose POC Capillary Glucose 135 H Lactic Acid Calcium Total Bilirubin AST ALT Alkaline Phosphatase Ammonia Total Protein Albumin Lipase Nasal MRSA (PCR)
[2024-02-04 11:49] LABS: Glucose Point of Care 105 mg/dl (65-105)
--- NOTE | 2024-02-04 16:04 | P.PNGI_ITS ---
Progress Note: A&P Assessment and Plan (1) Gallstone pancreatitis: Code(s): K85.10 - Biliary acute pancreatitis without necrosis or infection Status: Acute Assessment and Plan: repeat CT scan showed signs of necrotizing pancreatitis on admission with hemoconcentration, leukocytosis- continue with fluid resuscitation, pain management she is in icu, also developed ileus and better after NGT, she had BM today after suppository normal bile duct size and bilirubin, no need of ercp (2) Nausea and vomiting in adult: Code(s): R11.2 - Nausea with vomiting, unspecified Status: Acute Assessment and Plan: antiemetics, ngt in place, npo (3) Leukocytosis: Code(s): D72.829 - Elevated white blood cell count, unspecified Status: Acute Assessment and Plan: probably reactive from severe pancreatitis monitor (4) Elevated liver enzymes: Code(s): R74.8 - Abnormal levels of other serum enzymes Status: Acute (5) Cholelithiasis: Code(s): K80.20 - Calculus of gallbladder without cholecystitis without obstruction Status: Acute Assessment and Plan: surgery on board interval cholecystectomy once pancreatitis resolves (6) Ileus: Code(s): K56.7 - Ileus, unspecified Status: Acute (7) Acute hypoxemic respiratory failure: Code(s): J96.01 - Acute respiratory failure with hypoxia Status: Acute (8) Acute necrotizing pancreatitis: Code(s): K85.91 - Acute pancreatitis with uninfected necrosis, unspecified Status: Acute (9) Sepsis: Code(s): A41.9 - Sepsis, unspecified organism Status: Acute Assessment and Plan: from severe pancreatitis on abx Subjective Date/time seen: 02/04/24 16:04 Interval history: she moved to icu last night because more tachypneic, also nausea- ngt in place. Today had BM and feeling better. Review of Systems Review of Systems: All systems reviewed & are unremarkable except as noted in HPI and below Exam Const: General: no acute distress and ill appearing Orientation/consciousness: patient oriented x3 HENMT: Other: ngt in place Eyes: General: appearance normal, both eyes and all related structures Neck: Neck: supple Resp: Effort & Inspection: no respiratory distress and tachypneic Auscultation: diminished lung sounds bilateral in the lower lung paiz Cardio: Rate: regular rate Rhythm: regular rhythm GI: Inspection: distended GI Palp: Yes Soft to palpation, Yes Tenderness to palpation present (GI) (mild tenderness across the lower abd, much less tender in the upper abd now), No Guarding due to palpation present (GI) and No Rebound tenderness present Auscultation: normal bowel sounds Skin: General skin exam: normal color Neuro: Speech: normal speech Motor exam (neuro): 5/5 motor strength present throughout Extrem: General: no calf tenderness and no edema Psych: Mental Status: mental status grossly normal Objective Data Vital Signs Vital Signs: Vital Signs - 24 hr 02/03/24 16:42 02/03/24 17:00 02/03/24 20:00 Temperature 97.8 F Pulse Rate 84 86 84 Respiratory Rate 17 Blood Pressure 114/59 L Pulse Oximetry 91 Oxygen Delivery Oxygen Flow Rate Fraction of Inspired Oxygen 02/03/24 20:00 02/03/24 20:00 02/03/24 22:00 Temperature 97.9 F Pulse Rate 84 84 80 Respiratory Rate 23 H 23 H Blood Pressure 136/76 Pulse Oximetry 94 94 Oxygen Delivery Nasal Cannula Oxygen Flow Rate 4 Fraction of Inspired Oxygen 02/03/24 22:00 02/04/24 00:00 02/04/24 00:00 Temperature 98.5 F Pulse Rate 80 84 84 Respiratory Rate 24 H 30 H Blood Pressure 137/68 134/74 Pulse Oximetry 91 88 L Oxygen Delivery Oxygen Flow Rate Fraction of Inspired Oxygen 02/04/24 00:00 02/04/24 02:00 02/04/24 02:00 Temperature Pulse Rate 84 89 89 Respiratory Rate 30 H 25 H Blood Pressure 147/78 H Pulse Oximetry 92 92 Oxygen Delivery Nasal Cannula Oxygen Flow Rate 4 Fraction of Inspired Oxygen 02/04/24 03:26 02/04/24 04:00 02/04/24 04:00 Temperature 97.4 F L Pulse Rate 89 89 Respiratory Rate 26 H Blood Pressure Pulse Oximetry 92 Oxygen Delivery Nasal Cannula Oxygen Flow Rate 4 Fraction of Inspired Oxygen 02/04/24 06:00 02/04/24 06:00 02/04/24 08:00 Temperature 97.7 F Pulse Rate 89 89 80 Respiratory Rate 31 H 29 H Blood Pressure 178/85 H 177/75 H Pulse Oximetry 91 94 Oxygen Delivery Oxygen Flow Rate Fraction of Inspired Oxygen 02/04/24 08:00 02/04/24 08:00 02/04/24 10:00 Temperature Pulse Rate 83 81 Respiratory Rate 28 H Blood Pressure 183/77 H Pulse Oximetry 95 96 Oxygen Delivery Nasal Cannula Oxygen Flow Rate 4 Fraction of Inspired Oxygen 36 02/04/24 10:54 02/04/24 12:00 02/04/24 14:00 Temperature 97.6 F Pulse Rate 84 80 97 Respiratory Rate 23 H 28 H Blood Pressure 179/81 H 180/84 H Pulse Oximetry 97 98 Oxygen Delivery Oxygen Flow Rate Fraction of Inspired Oxygen Intake/Output Intake/Output: Intake & Output 02/01/24 02/02/24 02/03/24 02/04/24 23:59 23:59 23:59 23:59 Intake Total 1100 2250 6400 1236.7 Output Total 835 912 6933 Balance 1100 2050 5450 -263.3 Meds/Results Medications: Active Medications Generic Name Dose Route Start Last Admin Trade Name Freq PRN Reason Stop Dose Admin Dextrose 12.5 gm 02/02/24 10:59 Dextrose 50% 25 Gm/50 Ml Syringe IV PUSH PRN PRN Hypoglycemia Protocol Fluticasone Propionate 2 spray 02/02/24 00:09 Fluticasone Propionate 0.05% Na Spr 16 Gm Btl (*Bkc) NASAL DAILY PRN allergy symptoms Glucagon 1 mg 02/02/24 10:59 Glucagon For Inj 1 Mg Vial IM PRN PRN Hypoglycemia Protocol Glucose 15 gm 02/02/24 10:59 Glucose Oral Gel 15 Gm Of Glucse In 37.5 Gm Tube PO PRN PRN Hypoglycemia Protocol Heparin Sodium (Porcine) 5,000 units 02/02/24 14:00 02/04/24 14:04 Heparin Sodium 5,000 Units/Ml Vial SUB-Q 5,000 units Q8HR CARLITOS Administration Hydralazine HCl 20 mg 02/04/24 09:30 Hydralazine Hcl 20 Mg/Ml Vial IV PUSH Q4H PRN SBP more than 160 - 2nd choice Hydromorphone HCl 0.5 mg 02/03/24 13:53 Hydromorphone Hcl Inj (*Crx) 1 Mg/Ml Syr IV PUSH Q2H PRN Pain Rated 7-10 Piperacillin Sod/Tazobactam Sod 4.5 gm in 100 mls @ 200 mls/hr 02/03/24 11:00 02/04/24 11:25 Zosyn 4.5 Gm/Ns 100 Ml IVPB Infused Q6H CARLITOS Infusion Potassium Chloride/Sodium Chloride 1,000 mls @ 100 mls/hr 02/04/24 08:20 02/04/24 08:49 Kcl 20 Meq/0.45% Ns IV CONT 100 mls/hr .Q10H CARLITOS Administration Insulin Aspart 2 - 5 units 02/03/24 00:00 02/04/24 11:47 Insulin Aspart (*Bkc) 100 Units/Ml SUB-Q Not Given Q6HR [facility] Protocol Labetalol HCl 20 mg 02/04/24 09:30 02/04/24 10:54 Labetalol Hcl Inj 100 Mg/20 Ml Vial IV PUSH 20 mg Q4H PRN Administration SBP > 160 and HR> 60 -1st choice Ondansetron HCl 4 mg 02/01/24 19:52 02/02/24 13:58 Ondansetron Inj 4 Mg/2 Ml Vial IV PUSH 4 mg Q4H PRN Administration Nausea Pantoprazole Sodium 40 mg 02/04/24 09:00 02/04/24 10:54 Pantoprazole Sodium Iv 40 Mg Vial IV PUSH 40 mg QAM CARLITOS Administration Sodium Chloride 10 ml 02/03/24 14:00 02/04/24 14:05 Central Line Flush IV PUSH 10 ml Q8HR CARLITOS Administration Sodium Chloride 10 ml 02/03/24 12:07 Central Line Flush IV PUSH PRN PRN with TPN bag changes Sodium Chloride 20 ml 02/03/24 12:07 Central Line Flush IV PUSH PRN PRN after blood draws Radiology Results: ITS Impressions Chest X-Ray 02/01/24 16:16 IMPRESSION: Subsegmental left lower lobe atelectasis/consolidation. Chest/Abdomen/Pelvis CTA 02/01/24 18:35 IMPRESSION: No aortic dissection or aneurysm. Moderate interstitial pulmonary edema. Hepatomegaly. Acute interstitial pancreatitis. Possible portal vein and superior mesenteric vein thrombosis, versus artifact from unopacified blood in this arterial phase study. Consider right upper quadrant with a focus on obtaining portal venous color Doppler flow and wav eforms. Vascular Ultrasound 02/01/24 19:23 IMPRESSION: Patent portal veins and superior mesenteric vein. Prior CT findings likely rel ated to artifact from arterial phase imaging. Abdomen Ultrasound 02/02/24 09:49 IMPRESSION: 1. Pancreatitis. 2. Cholelithiasis. Gallbladder wall thickening may be secondary to interstitial edema or acute cholecystitis. 3. Diffuse hepatic steatosis. Abdomen/Pelvis CT 02/03/24 09:35 IMPRESSION: Findings consistent with acute pancreatitis, with additional findings worrisome for necrotizing pancreatitis, as detailed above. Severe hypovolemia by imaging criteria for which aggressive resuscitation is suggested. Cholelithiasis. Hepatomegaly. Interval development of bilateral pleural effusions with adjacent compressive atelectasis. These findings will be called to the ordering clinician. Once contact was made, an addendum will be performed. ADDENDUM: 02/03/24 1017 These findings were discussed with Rios Jones NP at 10:15 AM on 02/03/2024 Abdomen X-Ray 02/03/24 17:24 IMPRESSION: NG tube in good position and ready for immediate use for decompression purposes Labs Labs: Laboratory Results - last 24 hr 02/03/24 02/03/24 02/03/24 16:49 17:09 18:15 WBC RBC Hgb Hct MCV MCH MCHC RDW Plt Count MPV Immature Gran % (Auto) Neut % (Auto) Lymph % (Auto) [place] % (Auto) Eos % (Auto) Baso % (Auto) Lymph # (Auto) [place] # (Auto) Eos # (Auto) Baso # (Auto) Abs Immat Gran (auto) Absolute Neuts (auto) Absolute Nucleated RBC Nucleated RBC % Puncture Site Right radial ABG pH 7.407 ABG pCO2 33.8 L ABG pO2 49.8 L* ABG PO2/FiO2 Ratio 2.37 ABG HCO3 20.8 L ABG O2 Saturation 85.9 L* ABG O2 Content 15.3 L ABG Base Excess -3.1 A-a Gradient 59.5 Oxyhemoglobin 83.9 L* Total Hemoglobin 13.0 O2 Delivery Device Room air O2 Liters/Min Not Reportable FiO2 21 Sodium Potassium Chloride Carbon Dioxide Anion Gap BUN Creatinine Estim Creat Clear Calc Estimated GFR Glucose POC Capillary Glucose 100 107 H Lactic Acid Calcium Total Bilirubin AST ALT Alkaline Phosphatase Ammonia Total Protein Albumin Lipase Nasal MRSA (PCR) 02/03/24 02/03/24 02/03/24 18:30 18:39 23:43 WBC 26.5 H RBC 4.48 Hgb 12.1 Hct 37.8 MCV 84.4 MCH 27.0 MCHC 32.0 RDW 13.1 Plt Count 175 MPV 10.7 H Immature Gran % (Auto) 1.0 H Neut % (Auto) 88.6 H Lymph % (Auto) 4.7 L [place] % (Auto) 5.5 Eos % (Auto) 0.0 Baso % (Auto) 0.2 Lymph # (Auto) 1.24 [place] # (Auto) 1.5 H Eos # (Auto) 0.0 Baso # (Auto) 0.0 Abs Immat Gran (auto) 0.26 H Absolute Neuts (auto) 23.5 H Absolute Nucleated RBC 0.000 Nucleated RBC % 0.0 Puncture Site ABG pH ABG pCO2 ABG pO2 ABG PO2/FiO2 Ratio ABG HCO3 ABG O2 Saturation ABG O2 Content ABG Base Excess A-a Gradient Oxyhemoglobin Total Hemoglobin O2 Delivery Device O2 Liters/Min FiO2 Sodium 139 Potassium 3.5 Chloride 105 Carbon Dioxide 28 Anion Gap 6 BUN 25 H Creatinine 0.90 Estim Creat Clear Calc 54 Estimated GFR > 60 Glucose 125 H POC Capillary Glucose 124 H Lactic Acid 1.3 Calcium 6.4 L Total Bilirubin 1.4 H AST 36 ALT 21 Alkaline Phosphatase 65 Ammonia < 9 L Total Protein 6.0 L Albumin 3.0 L Lipase 1792 H Nasal MRSA (PCR) Not detected 02/04/24 02/04/24 02/04/24 04:40 05:12 06:11 WBC 23.0 H RBC 4.30 Hgb 11.9 L Hct 36.1 L MCV 84.0 MCH 27.7 MCHC 33.0 RDW 13.1 Plt Count 164 MPV 10.9 H Immature Gran % (Auto) 0.9 H Neut % (Auto) 88.4 H Lymph % (Auto) 5.2 L [place] % (Auto) 5.3 Eos % (Auto) 0.0 Baso % (Auto) 0.2 Lymph # (Auto) 1.19 [place] # (Auto) 1.2 H Eos # (Auto) 0.0 Baso # (Auto) 0.1 Abs Immat Gran (auto) 0.21 H Absolute Neuts (auto) 20.3 H Absolute Nucleated RBC 0.000 Nucleated RBC % 0.0 Puncture Site Right radial ABG pH 7.474 H ABG pCO2 38.9 ABG pO2 63.1 L ABG PO2/FiO2 Ratio 1.75 ABG HCO3 27.9 H ABG O2 Saturation 93.5 L ABG O2 Content 16.5 ABG Base Excess 4.1 A-a Gradient 148.5 Oxyhemoglobin 92.5 Total Hemoglobin 12.7 O2 Delivery Device Nasal cannula O2 Liters/Min 4.0 FiO2 36 Sodium 139 Potassium 3.3 L Chloride 108 H Carbon Dioxide 23 Anion Gap 8 BUN 25 H Creatinine 0.90 Estim Creat Clear Calc 56 Estimated GFR > 60 Glucose 126 H POC Capillary Glucose 135 H Lactic Acid Calcium 6.4 L Total Bilirubin 1.2 AST 39 H ALT 20 Alkaline Phosphatase 70 Ammonia Total Protein 6.0 L Albumin 3.1 L Lipase 1206 H Nasal MRSA (PCR) 02/04/24 11:46 WBC RBC Hgb Hct MCV MCH MCHC RDW Plt Count MPV Immature Gran % (Auto) Neut % (Auto) Lymph % (Auto) [place] % (Auto) Eos % (Auto) Baso % (Auto) Lymph # (Auto) [place] # (Auto) Eos # (Auto) Baso # (Auto) Abs Immat Gran (auto) Absolute Neuts (auto) Absolute Nucleated RBC Nucleated RBC % Puncture Site ABG pH ABG pCO2 ABG pO2 ABG PO2/FiO2 Ratio ABG HCO3 ABG O2 Saturation ABG O2 Content ABG Base Excess A-a Gradient Oxyhemoglobin Total Hemoglobin O2 Delivery Device O2 Liters/Min FiO2 Sodium Potassium Chloride Carbon Dioxide Anion Gap BUN Creatinine Estim Creat Clear Calc Estimated GFR Glucose POC Capillary Glucose 105 Lactic Acid Calcium Total Bilirubin AST ALT Alkaline Phosphatase Ammonia Total Protein Albumin Lipase Nasal MRSA (PCR)
[2024-02-04] MEDS: hydrALAZINE HCL 20 MG/ML VIAL IV PUSH (16:34)
[2024-02-04 18:36] LABS: Glucose Point of Care 88 mg/dl (65-105)
[2024-02-04] MEDS: LORazepam INJ (*CRX) 2 MG/ML VIAL 1 MG IV PUSH (20:52)
[2024-02-04] MEDS: diphenhydrAMINE HCl INJ 50 MG/ML VIAL IV PUSH (22:50)
[2024-02-05] VITALS (34 sets, daily range): BP systolic 117–181; BP diastolic 65–90; PULSE 67–107; RESP 20–37; TEMP 36.4–38.3; O2SAT 90–100
[2024-02-05] MEDS: dexmedeTOMIDine 400 MCG/100 ML 400 MCG/100 ML BAG IV CONT ×2 (00:55→11:11)
[2024-02-05] MEDS: PIPERACILLIN/TAZ 4.5G/NS 100ML 4.5 GM/100 ML BAG IVPB ×5 (01:09→22:58)
[2024-02-05] MEDS: ONDANSETRON INJ 4 MG/2 ML VIAL IV PUSH (01:15)
[2024-02-05] MEDS: HALOPERIDOL LACTATE 5 MG/ML VIAL IM (02:17)
[2024-02-05] MEDS: HEPARIN SODIUM 5,000 UNITS/ML VIAL 5000 UNITS SUB-Q ×3 (06:20→22:58)
[2024-02-05] MEDS: CENTRAL LINE FLUSH 10 ML IV PUSH ×3 (06:21→20:18)
[2024-02-05 06:31] LABS: Hematocrit 31.7 % (37.0-47.0); Hemoglobin 10.6 g/dL (12.0-15.0); Mean Corpuscular HGB Conc 33.4 g/dl (32-36); Mean Corpuscular Volume 83.6 fl (80-100); Mean Platelet Volume 11.1 fl (7.4-10.4); Platelet Count Result 159 k/mm3 (150-375); Red Blood Count 3.79 M/mm3 (4.2-5.4); Red Cell Distribution Width 13.2 % (11.5-14.5); White Blood Count 15.9 K/mm3 (4.5-10.0)
[2024-02-05 06:42] LABS: Anion Gap 2 mmol/L (4-12); Blood Urea Nitrogen 22 mg/dL (7-17); Calcium 6.6 mg/dL (8.4-10.2); Carbon Dioxide 31 mmol/L (22-30); Chloride 109 mmol/L (98-107); Estimated CRCL calculation 70 ml/min; Estimated Glomerular Filt Rate > 60; Glucose 105 mg/dL (65-110); Phosphorus 2.1 mg/dL (2.5-4.5); Potassium 3.2 mmol/L (3.4-5.0); Sodium 142 mmol/L (137-145)
[2024-02-05 06:54] LABS: Glucose Point of Care 103 mg/dl (65-105)
[2024-02-05 09:03] LABS: Lipase 317 U/L (23-300)
[2024-02-05] MEDS: CALCIUM GLUC 2,000 MG/NS 100ML 2,000 MG/100 ML BAG 100 MG IVPB (09:23)
[2024-02-05] MEDS: POTASSIUM PHOS,M-BASIC-D-BASIC 20 MMOL in SODIUM CHLORIDE 0.9% IV 250 ML 64.17 MMOL IVPB (09:24)
[2024-02-05] MEDS: PANTOPRAZOLE SODIUM IV 40 MG VIAL IV PUSH (09:24)
--- NOTE | 2024-02-05 09:26 | WPDINTPN ---
Progress Note: A&P Assessment and Plan (1) Acute necrotizing pancreatitis: Code(s): K85.91 - Acute pancreatitis with uninfected necrosis, unspecified Status: Acute Assessment and Plan: Acute necrotizing pancreatitis likely secondary to gallstones No currently obstructing gallstone as per imaging.. LFTs unremarkable. Lipase is improving Patient pulled out NG tube. Will start clear liquid diet today GI and general surgery following Imaging as above Pain control (2) Sepsis: Code(s): A41.9 - Sepsis, unspecified organism Status: Acute Assessment and Plan: Patient met criteria for sepsis. Blood cultures have been sent and are pending. Patient is on Zosyn which will be continued (3) Ileus: Code(s): K56.7 - Ileus, unspecified Status: Acute Assessment and Plan: Patient probable ileus likely severe pancreatitis poor NG tube was placed. Symptomatically patient is feeling better. Patient put upper NG tube last night try clear liquid diet today (4) Pleural effusion associated with pancreatitis: Code(s): K85.90 - Acute pancreatitis without necrosis or infection, unspecified; J91.8 - Pleural effusion in other conditions classified elsewhere Status: Acute Assessment and Plan: Likely secondary third-spacing. Lasix ordered (5) Hypoxia: Code(s): R09.02 - Hypoxemia Status: Acute Assessment and Plan: Secondary to atelectasis and pleural effusions. Possible pleural effusion Off IV fluids. Will give dose of Lasix today Continue Incentive spirometry Will try to get patient Up in chair Continue oxygen. May need an nippv (6) Cholelithiasis: Code(s): K80.20 - Calculus of gallbladder without cholecystitis without obstruction Status: Acute Assessment and Plan: See above (7) Dehydration: Code(s): E86.0 - Dehydration Status: Acute Assessment and Plan: Secondary to sepsis and third-spacing Improved with IV fluids. Now off (8) Electrolyte abnormality: Code(s): E87.8 - Other disorders of electrolyte and fluid balance, not elsewhere classified Status: Acute Assessment and Plan: Replace low potassium, phosphate and calcium (9) Delirium: Code(s): R41.0 - Disorientation, unspecified Status: Acute Assessment and Plan: Continue Precedex infusion, avoid benzodiazepine and will order some Seroquel at night Supportive treatment Plan DVT prophylaxis -heparin Stress ulcer prophylaxis -Protonix Nutrition -start clear liquid diet Code Status - Full Code Incentive spirometry, up in chair Total Critical Care Time - 30 minutes Due to a high probability of clinically significant, life threatening deterioration, the patient required my highest level of preparedness to intervene emergently and I personally spent this critical care time directly and personally managing the patient. This critical care time included obtaining a history; examining the patient; pulse oximetry; ordering and review of studies; arranging urgent treatment with development of a management plan; evaluation of patient's response to treatment; frequent reassessment; and discussions with other providers. It was exclusive of separately billable procedures and treating other patients and teaching time. Please see Assessment and Plan section and the rest of the note for further information on patient assessment and treatment Subjective Date/time seen: 02/05/24 Overnight events reviewed. Afebrile Overnight patient was confused and agitated. She received a dose of Ativan yesterday evening which led to worsening and patient pulled out her NG multiple times. She was physically restrained which made her agitation worse. She was started on Precedex infusion. IV fluids were discontinued due to concern of volume overload. Patient had bowel movements. This morning during my evaluation patient appears calm although confused. She is on Precedex at 0.3. She states she is mouth is dry and she would like to eat food as she is hungry. She denies any pain but does feel slightly short breath. No nausea vomiting or abdominal pain. No fever or cough. All other systems were reviewed and were negative Other Vitals acceptable Review of Systems Review of Systems: All systems reviewed & are unremarkable except as noted in HPI and below (HPI) Exam Narrative: General: Pt is alert awake and in NAD Lungs/Chest: Trachea central Clear BS B/L, No crackles or wheezing. Breath sounds are decreased at bases. Mild tachypnea. But no respiratory distress or use of accessory muscles. Cardiac: RRR. Normal S1 S2. No murmurs Circulation: Pedal pulses are intact and symmetrical. Abdomen: Present bowel sounds.. Soft. Mildly distended. Tender to palpation epigastric area. Extremities: No clubbing, cyanosis or edema. Warm : Sanchez in place Neurologic: Follows commands. Moves all 4 extremities PERRL confused AO x2 only Skin: No Rash Objective Data Vital Signs Vital Signs: Vital Signs - 24 hr 02/04/24 10:00 02/04/24 10:54 02/04/24 12:00 Temperature 36.4 C Pulse Rate 81 84 80 Respiratory Rate 28 H 23 H Blood Pressure 183/77 H 179/81 H Pulse Oximetry 96 97 Oxygen Delivery Oxygen Flow Rate Fraction of Inspired Oxygen 02/04/24 14:00 02/04/24 17:27 02/04/24 16:00 Temperature 36.5 C 36.4 C Pulse Rate 97 98 86 Respiratory Rate 28 H 27 H 24 H Blood Pressure 180/84 H 156/93 H 177/130 H Pulse Oximetry 98 92 94 Oxygen Delivery Nasal Cannula Oxygen Flow Rate 5 Fraction of Inspired Oxygen 02/04/24 18:00 02/04/24 12:00 02/04/24 16:00 Temperature 36.5 C Pulse Rate 102 H Respiratory Rate 32 H Blood Pressure 162/118 H Pulse Oximetry 92 94 91 Oxygen Delivery Nasal Cannula Nasal Cannula Oxygen Flow Rate 3 5 Fraction of Inspired Oxygen 02/04/24 10:00 02/04/24 12:00 02/04/24 14:00 Temperature Pulse Rate 81 81 77 Respiratory Rate Blood Pressure Pulse Oximetry Oxygen Delivery Oxygen Flow Rate Fraction of Inspired Oxygen 02/04/24 16:00 02/04/24 18:00 02/04/24 20:00 Temperature Pulse Rate 86 102 H 102 H Respiratory Rate 32 H Blood Pressure Pulse Oximetry 92 Oxygen Delivery Nasal Cannula Oxygen Flow Rate 4 Fraction of Inspired Oxygen 36 02/04/24 20:00 02/04/24 20:00 02/05/24 00:55 Temperature 36.4 C Pulse Rate 93 107 H Respiratory Rate 26 H 33 H Blood Pressure 157/88 H Pulse Oximetry 95 92 Oxygen Delivery Nasal Cannula Oxygen Flow Rate 4 Fraction of Inspired Oxygen 36 02/04/24 22:00 02/05/24 00:00 02/05/24 02:00 Temperature 36.6 C Pulse Rate 86 104 H 94 Respiratory Rate 26 H 30 H 29 H Blood Pressure 173/92 H 181/78 H 140/79 Pulse Oximetry 89 L 90 92 Oxygen Delivery Oxygen Flow Rate Fraction of Inspired Oxygen 02/05/24 00:00 02/05/24 04:00 02/05/24 04:00 Temperature 36.6 C Pulse Rate 76 76 84 Respiratory Rate 25 H 25 H 20 Blood Pressure 119/66 Pulse Oximetry 90 90 92 Oxygen Delivery Nasal Cannula Nasal Cannula Oxygen Flow Rate 3 4 Fraction of Inspired Oxygen 36 36 02/05/24 01:48 02/05/24 02:45 02/05/24 04:27 Temperature Pulse Rate 82 77 78 Respiratory Rate 25 H 22 H 22 H Blood Pressure Pulse Oximetry Oxygen Delivery Oxygen Flow Rate Fraction of Inspired Oxygen 02/05/24 03:48 02/05/24 03:15 02/05/24 05:32 Temperature Pulse Rate 75 76 76 Respiratory Rate 22 H 25 H 25 H Blood Pressure 122/65 Pulse Oximetry 90 Oxygen Delivery Oxygen Flow Rate Fraction of Inspired Oxygen 02/05/24 06:39 02/04/24 20:00 02/04/24 22:00 Temperature Pulse Rate 84 93 100 Respiratory Rate 26 H Blood Pressure Pulse Oximetry Oxygen Delivery Oxygen Flow Rate Fraction of Inspired Oxygen 02/05/24 00:00 02/05/24 02:00 02/05/24 04:00 Temperature Pulse Rate 104 H 78 73 Respiratory Rate Blood Pressure Pulse Oximetry Oxygen Delivery Oxygen Flow Rate Fraction of Inspired Oxygen 02/05/24 06:00 02/05/24 06:00 Temperature 36.4 C Pulse Rate 78 78 Respiratory Rate 23 H Blood Pressure 133/82 Pulse Oximetry 93 Oxygen Delivery Oxygen Flow Rate Fraction of Inspired Oxygen Intake/Output Intake/Output: Intake & Output 02/02/24 02/03/24 02/04/24 02/05/24 23:59 23:59 23:59 23:59 Intake Total 2250 6400 2686.7 144.5 Output Total 757 449 1553 700 Balance 2050 5450 386.7 -555.5 Meds/Results Medications: Active Medications Generic Name Dose Route Start Last Admin Trade Name Freq PRN Reason Stop Dose Admin Dextrose 12.5 gm 02/02/24 10:59 Dextrose 50% 25 Gm/50 Ml Syringe IV PUSH PRN PRN Hypoglycemia Protocol Diphenhydramine HCl 50 mg 02/04/24 20:16 02/04/24 22:50 Diphenhydramine Hcl Inj 50 Mg/Ml Vial IV PUSH 50 mg ONCE PRN Administration Insomnia Fluticasone Propionate 2 spray 02/02/24 00:09 Fluticasone Propionate 0.05% Na Spr 16 Gm Btl (*Bkc) NASAL DAILY PRN allergy symptoms Furosemide 40 mg 02/05/24 12:00 Furosemide Inj 40 Mg/4 Ml Vial IV PUSH 02/05/24 12:01 ONCE ONE Glucagon 1 mg 02/02/24 10:59 Glucagon For Inj 1 Mg Vial IM PRN PRN Hypoglycemia Protocol Glucose 15 gm 02/02/24 10:59 Glucose Oral Gel 15 Gm Of Glucse In 37.5 Gm Tube PO PRN PRN Hypoglycemia Protocol Heparin Sodium (Porcine) 5,000 units 02/02/24 14:00 02/05/24 06:20 Heparin Sodium 5,000 Units/Ml Vial SUB-Q 5,000 units Q8HR CARLITOS Administration Hydralazine HCl 20 mg 02/04/24 09:30 02/04/24 16:34 Hydralazine Hcl 20 Mg/Ml Vial IV PUSH 20 mg Q4H PRN Administration SBP more than 160 - 2nd choice Hydromorphone HCl 0.5 mg 02/03/24 13:53 Hydromorphone Hcl Inj (*Crx) 1 Mg/Ml Syr IV PUSH Q2H PRN Pain Rated 7-10 Piperacillin Sod/Tazobactam Sod 4.5 gm in 100 mls @ 200 mls/hr 02/03/24 11:00 02/05/24 06:21 Zosyn 4.5 Gm/Ns 100 Ml IVPB 200 mls/hr Q6H CARLITOS Administration Dexmedetomidine HCl 400 mcg in 100 mls @ 6.278 mls/hr 02/05/24 00:45 02/05/24 06:39 Precedex 400 Mcg/100 Ml IV CONT 0.3 mcg/kg/hr .[id number] CARLITOS 6.28 mls/hr Titration Protocol 0.3 MCG/KG/HR Calcium Gluconate 2,000 mg in 100 mls @ 100 mls/hr 02/05/24 09:00 Calcium Gluc 2,000 Mg/Ns 100ml IVPB 02/05/24 09:59 ONCE ONE Potassium Phosphate 20 mmol/ 256.6667 mls @ 64.167 mls/hr 02/05/24 08:20 Sodium Chloride IVPB 02/05/24 12:19 ONCE ONE Potassium Chloride 100 mls @ 25 mls/hr 02/05/24 13:00 Kcl 40 Meq/Water 100 Ml IVPB 02/05/24 16:59 ONCE ONE Insulin Aspart 2 - 5 units 02/03/24 00:00 02/05/24 06:21 Insulin Aspart (*Bkc) 100 Units/Ml SUB-Q Not Given Q6HR CAR[facility]ITOS Protocol Labetalol HCl 20 mg 02/04/24 09:30 02/04/24 10:54 Labetalol Hcl Inj 100 Mg/20 Ml Vial IV PUSH 20 mg Q4H PRN Administration SBP > 160 and HR> 60 -1st choice Lorazepam 1 mg 02/04/24 20:16 02/04/24 20:52 Lorazepam Inj (*Crx) 2 Mg/Ml Vial IV PUSH 1 mg ONCE PRN Administration Insomnia Multi-Ingred Cream/Lotion/Oil/Oint 1 applic 02/05/24 09:00 Mineral Oil/White Petrolatum Ointment EACH EYE Q12HR CAR[facility] Ondansetron HCl 4 mg 02/01/24 19:52 02/05/24 01:15 Ondansetron Inj 4 Mg/2 Ml Vial IV PUSH 4 mg Q4H PRN Administration Nausea Pantoprazole Sodium 40 mg 02/04/24 09:00 02/04/24 10:54 Pantoprazole Sodium Iv 40 Mg Vial IV PUSH 40 mg QAM CARLITOS Administration Sodium Chloride 10 ml 02/03/24 14:00 02/05/24 06:21 Central Line Flush IV PUSH 10 ml Q8HR CARLITOS Administration Sodium Chloride 10 ml 02/03/24 12:07 Central Line Flush IV PUSH PRN PRN with TPN bag changes Sodium Chloride 20 ml 02/03/24 12:07 Central Line Flush IV PUSH PRN PRN after blood draws Radiology Results: ITS Impressions Chest/Abdomen/Pelvis CTA 02/01/24 18:35 IMPRESSION: No aortic dissection or aneurysm. Moderate interstitial pulmonary edema. Hepatomegaly. Acute interstitial pancreatitis. Possible portal vein and superior mesenteric vein thrombosis, versus artifact from unopacified blood in this arterial phase study. Consider right upper quadrant with a focus on obtaining portal venous color Doppler flow and waveforms. Vascular Ultrasound 02/01/24 19:23 IMPRESSION: Patent portal veins and superior mesenteric vein. Prior CT findings likely related to artifact from arterial phase imaging. Abdomen Ultrasound 02/02/24 09:49 IMPRESSION: 1. Pancreatitis. 2. Cholelithiasis. Gallbladder wall thickening may be secondary to interstitial edema or acute cholecystitis. 3. Diffuse hepatic steatosis. Abdomen/Pelvis CT 02/03/24 09:35 IMPRESSION: Findings consistent with acute pancreatitis, with additional findings worrisome for necrotizing pancreatitis, as detailed above. Severe hypovolemia by imaging criteria for which aggressive resuscitation is suggested. Cholelithiasis. Hepatomegaly. Interval development of bilateral pleural effusions with adjacent compressive atelectasis. These findings will be called to the ordering clinician. Once contact was made, an addendum will be performed. ADDENDUM: 02/03/24 1017 These findings were discussed with Rios Jones NP at 10:15 AM on 02/03/2024 Abdomen X-Ray 02/04/24 21:25 IMPRESSION: Interval replacement of the nasogastric tube with its tip projecting over the proximal stomach for which advancement of approximately 5 to 6 cm may be performed for optimal radiographic placement. Worsening bilateral pleural effusions, as detailed above. Chest X-Ray 02/05/24 09:02 Impression: 1: Cardiomegaly with pulmonary vascular congestion. 2: Left basilar consolidation, most likely atelectasis. 3: Small right pleural effusion. Labs Labs: Laboratory Results - last 24 hr 02/04/24 02/04/24 02/05/24 11:46 18:34 06:11 WBC RBC Hgb Hct MCV MCH MCHC RDW Plt Count MPV Sodium Potassium Chloride Carbon Dioxide Anion Gap BUN Creatinine Estim Creat Clear Calc Estimated GFR Glucose POC Capillary Glucose 105 88 103 Calcium Phosphorus Magnesium Lipase 02/05/24 06:23 WBC 15.9 H RBC 3.79 L Hgb 10.6 L Hct 31.7 L MCV 83.6 MCH 28.0 MCHC 33.4 RDW 13.2 Plt Count 159 MPV 11.1 H Sodium 142 Potassium 3.2 L Chloride 109 H Carbon Dioxide 31 H Anion Gap 2 L BUN 22 H Creatinine 0.70 Estim Creat Clear Calc 70 Estimated GFR > 60 Glucose 105 POC Capillary Glucose Calcium 6.6 L Phosphorus 2.1 L Magnesium 2.0 Lipase 317 H Quality VTE Prophylaxis VTE prophylaxis: mechanical ordered and pharmacologic ordered
[2024-02-05] MEDS: FUROSEMIDE INJ 40 MG/4 ML VIAL IV PUSH (11:07)
[2024-02-05 11:11] LABS: Glucose Point of Care 72 mg/dl (65-105)
--- NOTE | 2024-02-05 12:14 | P.PNGS_ITS ---
Progress Note: A&P Assessment and Plan (1) Acute necrotizing pancreatitis: Code(s): K85.91 - Acute pancreatitis with uninfected necrosis, unspecified Status: Acute Assessment and Plan: * Pain resolving. Start clear liquids today. Continue supportive care. (2) Gallstone pancreatitis: Code(s): K85.10 - Biliary acute pancreatitis without necrosis or infection Status: Acute (3) Acute hypoxemic respiratory failure: Code(s): J96.01 - Acute respiratory failure with hypoxia Status: Acute (4) Delirium: Code(s): R41.0 - Disorientation, unspecified Status: Acute Subjective Subjective Date/Time Seen: 02/05/24 12:14 Interval history: Patient had some delirium last night. Pulled out NG tube. Bowels moving. Pain improved. Still having labored breathing. Exam GI: Inspection: non-distended GI Palp: Yes Soft to palpation, No Tenderness to palpation present (GI) and No Guarding due to palpation present (GI) Auscultation: normal bowel sounds Objective Data Vital Signs Vital Signs: Vital Signs - 24 hr 02/04/24 14:00 02/04/24 17:27 02/04/24 16:00 Temperature 97.7 F 97.6 F Pulse Rate 97 98 86 Respiratory Rate 28 H 27 H 24 H Blood Pressure 180/84 H 156/93 H 177/130 H Pulse Oximetry 98 92 94 Oxygen Delivery Nasal Cannula Oxygen Flow Rate 5 Fraction of Inspired Oxygen 02/04/24 18:00 02/04/24 16:00 02/04/24 14:00 Temperature 97.7 F Pulse Rate 102 H 77 Respiratory Rate 32 H Blood Pressure 162/118 H Pulse Oximetry 92 91 Oxygen Delivery Nasal Cannula Oxygen Flow Rate 5 Fraction of Inspired Oxygen 02/04/24 16:00 02/04/24 18:00 02/04/24 20:00 Temperature Pulse Rate 86 102 H 102 H Respiratory Rate 32 H Blood Pressure Pulse Oximetry 92 Oxygen Delivery Nasal Cannula Oxygen Flow Rate 4 Fraction of Inspired Oxygen 36 02/04/24 20:00 02/04/24 20:00 02/05/24 00:55 Temperature 97.6 F Pulse Rate 93 107 H Respiratory Rate 26 H 33 H Blood Pressure 157/88 H Pulse Oximetry 95 92 Oxygen Delivery Nasal Cannula Oxygen Flow Rate 4 Fraction of Inspired Oxygen 36 02/04/24 22:00 02/05/24 00:00 02/05/24 02:00 Temperature 97.8 F Pulse Rate 86 104 H 94 Respiratory Rate 26 H 30 H 29 H Blood Pressure 173/92 H 181/78 H 140/79 Pulse Oximetry 89 L 90 92 Oxygen Delivery Oxygen Flow Rate Fraction of Inspired Oxygen 02/05/24 00:00 02/05/24 04:00 02/05/24 04:00 Temperature 98 F Pulse Rate 76 76 84 Respiratory Rate 25 H 25 H 20 Blood Pressure 119/66 Pulse Oximetry 90 90 92 Oxygen Delivery Nasal Cannula Nasal Cannula Oxygen Flow Rate 3 4 Fraction of Inspired Oxygen 36 36 02/05/24 01:48 02/05/24 02:45 02/05/24 04:27 Temperature Pulse Rate 82 77 78 Respiratory Rate 25 H 22 H 22 H Blood Pressure Pulse Oximetry Oxygen Delivery Oxygen Flow Rate Fraction of Inspired Oxygen 02/05/24 03:48 02/05/24 03:15 02/05/24 05:32 Temperature Pulse Rate 75 76 76 Respiratory Rate 22 H 25 H 25 H Blood Pressure 122/65 Pulse Oximetry 90 Oxygen Delivery Oxygen Flow Rate Fraction of Inspired Oxygen 02/05/24 06:39 02/04/24 20:00 02/04/24 22:00 Temperature Pulse Rate 84 93 100 Respiratory Rate 26 H Blood Pressure Pulse Oximetry Oxygen Delivery Oxygen Flow Rate Fraction of Inspired Oxygen 02/05/24 00:00 02/05/24 02:00 02/05/24 04:00 Temperature Pulse Rate 104 H 78 73 Respiratory Rate Blood Pressure Pulse Oximetry Oxygen Delivery Oxygen Flow Rate Fraction of Inspired Oxygen 02/05/24 06:00 02/05/24 06:00 02/05/24 08:00 Temperature 97.6 F Pulse Rate 78 78 81 Respiratory Rate 23 H 25 H Blood Pressure 133/82 Pulse Oximetry 93 Oxygen Delivery Oxygen Flow Rate Fraction of Inspired Oxygen 02/05/24 10:00 02/05/24 10:22 02/05/24 11:11 Temperature Pulse Rate 67 78 84 Respiratory Rate 23 H 21 H 21 H Blood Pressure Pulse Oximetry Oxygen Delivery Oxygen Flow Rate Fraction of Inspired Oxygen 02/05/24 11:11 Temperature Pulse Rate 84 Respiratory Rate 21 H Blood Pressure Pulse Oximetry Oxygen Delivery Oxygen Flow Rate Fraction of Inspired Oxygen Intake/Output Intake/Output: Intake & Output 02/02/24 02/03/24 02/04/24 02/05/24 23:59 23:59 23:59 23:59 Intake Total 2250 6400 2686.7 371.3 Output Total 862 947 9446 700 Balance 2050 5450 386.7 -328.7 Meds/Results Medications: Active Medications Generic Name Dose Route Start Last Admin Trade Name Freq PRN Reason Stop Dose Admin Dextrose 12.5 gm 02/02/24 10:59 Dextrose 50% 25 Gm/50 Ml Syringe IV PUSH PRN PRN Hypoglycemia Protocol Fluticasone Propionate 2 spray 02/02/24 00:09 Fluticasone Propionate 0.05% Na Spr 16 Gm Btl (*Bkc) NASAL DAILY PRN allergy symptoms Glucagon 1 mg 02/02/24 10:59 Glucagon For Inj 1 Mg Vial IM PRN PRN Hypoglycemia Protocol Glucose 15 gm 02/02/24 10:59 Glucose Oral Gel 15 Gm Of Glucse In 37.5 Gm Tube PO PRN PRN Hypoglycemia Protocol Heparin Sodium (Porcine) 5,000 units 02/02/24 14:00 02/05/24 06:20 Heparin Sodium 5,000 Units/Ml Vial SUB-Q 5,000 units Q8HR CARLITOS Administration Hydralazine HCl 20 mg 02/04/24 09:30 02/04/24 16:34 Hydralazine Hcl 20 Mg/Ml Vial IV PUSH 20 mg Q4H PRN Administration SBP more than 160 - 2nd choice Hydromorphone HCl 0.5 mg 02/03/24 13:53 Hydromorphone Hcl Inj (*Crx) 1 Mg/Ml Syr IV PUSH Q2H PRN Pain Rated 7-10 Piperacillin Sod/Tazobactam Sod 4.5 gm in 100 mls @ 200 mls/hr 02/03/24 11:00 02/05/24 11:07 Zosyn 4.5 Gm/Ns 100 Ml IVPB Infused Q6H CARLITOS Infusion Dexmedetomidine HCl 400 mcg in 100 mls @ 4.185 mls/hr 02/05/24 00:45 02/05/24 11:11 Precedex 400 Mcg/100 Ml IV CONT 0.2 mcg/kg/hr .[id number] CARLITOS 4.19 mls/hr Administration Protocol 0.2 MCG/KG/HR Potassium Phosphate 20 mmol/ 256.6667 mls @ 64.167 mls/hr 02/05/24 08:20 10/10/24 09:24 Sodium Chloride IVPB 02/05/24 12:19 64.17 mls/hr ONCE ONE Administration Potassium Chloride 100 mls @ 25 mls/hr 02/05/24 13:00 Kcl 40 Meq/Water 100 Ml IVPB 02/05/24 16:59 ONCE ONE Insulin Aspart 2 - 5 units 02/03/24 00:00 02/05/24 11:44 Insulin Aspart (*Bkc) 100 Units/Ml SUB-Q Not Given Q6HR [facility] Protocol Labetalol HCl 20 mg 02/04/24 09:30 02/04/24 10:54 Labetalol Hcl Inj 100 Mg/20 Ml Vial IV PUSH 20 mg Q4H PRN Administration SBP > 160 and HR> 60 -1st choice Multi-Ingred Cream/Lotion/Oil/Oint 1 applic 02/05/24 09:00 02/05/24 09:24 Mineral Oil/White Petrolatum Ointment EACH EYE Not Given Q12HR [facility] Ondansetron HCl 4 mg 02/01/24 19:52 02/05/24 01:15 Ondansetron Inj 4 Mg/2 Ml Vial IV PUSH 4 mg Q4H PRN Administration Nausea Pantoprazole Sodium 40 mg 02/04/24 09:00 02/05/24 09:24 Pantoprazole Sodium Iv 40 Mg Vial IV PUSH 40 mg QAM CARLITOS Administration Quetiapine Fumarate 25 mg 02/05/24 21:00 Quetiapine Fumarate 25 Mg Tablet PO HS CARLITOS Sodium Chloride 10 ml 02/03/24 14:00 02/05/24 06:21 Central Line Flush IV PUSH 10 ml Q8HR CARLITOS Administration Sodium Chloride 10 ml 02/03/24 12:07 Central Line Flush IV PUSH PRN PRN with TPN bag changes Sodium Chloride 20 ml 02/03/24 12:07 Central Line Flush IV PUSH PRN PRN after blood draws Radiology Results: ITS Impressions Chest/Abdomen/Pelvis CTA 02/01/24 18:35 IMPRESSION: No aortic dissection or aneurysm. Moderate interstitial pulmonary edema. Hepatomegaly. Acute interstitial pancreatitis. Possible portal vein and superior mesenteric vein thrombosis, versus artifact from unopacified blood in this arterial phase study. Consider right upper quadrant with a focus on obtaining portal venous color Doppler flow and waveforms. Vascular Ultrasound 02/01/24 19:23 IMPRESSION: Patent portal veins and superior mesenteric vein. Prior CT findings likely related to artifact from arterial phase imaging. Abdomen Ultrasound 02/02/24 09:49 IMPRESSION: 1. Pancreatitis. 2. Cholelithiasis. Gallbladder wall thickening may be secondary to interstitial edema or acute cholecystitis. 3. Diffuse hepatic steatosis. Abdomen/Pelvis CT 02/03/24 09:35 IMPRESSION: Findings consistent with acute pancreatitis, with additional findings worrisome for necrotizing pancreatitis, as detailed above. Severe hypovolemia by imaging criteria for which aggressive resuscitation is suggested. Cholelithiasis. Hepatomegaly. Interval development of bilateral pleural effusions with adjacent compressive atelectasis. These findings will be called to the ordering clinician. Once contact was made, an addendum will be performed. ADDENDUM: 02/03/24 1017 These findings were discussed with Rios Jones NP at 10:15 AM on 02/03/2024 Abdomen X-Ray 02/04/24 21:25 IMPRESSION: Interval replacement of the nasogastric tube with its tip projecting over the proximal stomach for which advancement of approximately 5 to 6 cm may be performed for optimal radiographic placement. Worsening bilateral pleural effusions, as detailed above. Chest X-Ray 02/05/24 09:02 Impression: 1: Cardiomegaly with pulmonary vascular congestion. 2: Left basilar consolidation, most likely atelectasis. 3: Small right pleural effusion. Labs Labs: Laboratory Results - last 24 hr 02/04/24 02/05/24 02/05/24 18:34 06:11 06:23 WBC 15.9 H RBC 3.79 L Hgb 10.6 L Hct 31.7 L MCV 83.6 MCH 28.0 MCHC 33.4 RDW 13.2 Plt Count 159 MPV 11.1 H Sodium 142 Potassium 3.2 L Chloride 109 H Carbon Dioxide 31 H Anion Gap 2 L BUN 22 H Creatinine 0.70 Estim Creat Clear Calc 70 Estimated GFR > 60 Glucose 105 POC Capillary Glucose 88 103 Calcium 6.6 L Phosphorus 2.1 L Magnesium 2.0 Lipase 317 H 02/05/24 11:08 WBC RBC Hgb Hct MCV MCH MCHC RDW Plt Count MPV Sodium Potassium Chloride Carbon Dioxide Anion Gap BUN Creatinine Estim Creat Clear Calc Estimated GFR Glucose POC Capillary Glucose 72 Calcium Phosphorus Magnesium Lipase
[2024-02-05] MEDS: POTASSIUM CHLORIDE 20 MEQ PACKET (FOR LIQUID) 40 MEQ PO (14:09)
--- NOTE | 2024-02-05 14:55 | WPDGIPROGNO ---
Progress Note: A&P Assessment and Plan (1) Gallstone pancreatitis: Code(s): K85.10 - Biliary acute pancreatitis without necrosis or infection Status: Acute Assessment and Plan: necrotizing pancreatitis, noted more pulmonary edema and given diuretics ileus improved and will try CL diet normal bile duct size and bilirubin, no need of ercp (2) Nausea and vomiting in adult: Code(s): R11.2 - Nausea with vomiting, unspecified Status: Acute Assessment and Plan: antiemetics, ngt in place, npo (3) Leukocytosis: Code(s): D72.829 - Elevated white blood cell count, unspecified Status: Acute Assessment and Plan: probably reactive from severe pancreatitis monitor (4) Elevated liver enzymes: Code(s): R74.8 - Abnormal levels of other serum enzymes Status: Acute Assessment and Plan: normalization (5) Cholelithiasis: Code(s): K80.20 - Calculus of gallbladder without cholecystitis without obstruction Status: Acute Assessment and Plan: surgery on board interval cholecystectomy once pancreatitis resolves (6) Ileus: Code(s): K56.7 - Ileus, unspecified Status: Acute Assessment and Plan: clinically better (7) Acute hypoxemic respiratory failure: Code(s): J96.01 - Acute respiratory failure with hypoxia Status: Acute (8) Acute necrotizing pancreatitis: Code(s): K85.91 - Acute pancreatitis with uninfected necrosis, unspecified Status: Acute (9) Sepsis: Code(s): A41.9 - Sepsis, unspecified organism Status: Acute Assessment and Plan: from severe pancreatitis on abx Subjective Date/time seen: 02/05/24 14:55 Interval history: she pulled out ngt more shortness of breath and given diuretics Review of Systems Review of Systems: All systems reviewed & are unremarkable except as noted in HPI and below Exam Const: General: no acute distress and ill appearing Orientation/consciousness: patient oriented x3 HENMT: Face/Nose/Sinus: Normal nares present Eyes: General: appearance normal, both eyes and all related structures Neck: Neck: supple Resp: Effort & Inspection: tachypneic Auscultation: rhonchi and diminished lung sounds bilateral in the lower lung paiz Cardio: Rate: regular rate Rhythm: regular rhythm GI: Inspection: distended GI Palp: Yes Soft to palpation, Yes Tenderness to palpation present (GI) (much less tender in the upper abd now), No Guarding due to palpation present (GI) and No Rebound tenderness present Auscultation: normal bowel sounds Skin: General skin exam: normal color Neuro: Speech: normal speech Motor exam (neuro): 5/5 motor strength present throughout Extrem: General: no calf tenderness and no edema Psych: Mental Status: mental status grossly normal Objective Data Vital Signs Vital Signs: Vital Signs - 24 hr 02/04/24 17:27 02/04/24 16:00 02/04/24 18:00 Temperature 97.7 F 97.6 F 97.7 F Pulse Rate 98 86 102 H Respiratory Rate 27 H 24 H 32 H Blood Pressure 156/93 H 177/130 H 162/118 H Pulse Oximetry 92 94 92 Oxygen Delivery Nasal Cannula Oxygen Flow Rate 5 Fraction of Inspired Oxygen 02/04/24 16:00 02/04/24 16:00 02/04/24 18:00 Temperature Pulse Rate 86 102 H Respiratory Rate Blood Pressure Pulse Oximetry 91 Oxygen Delivery Nasal Cannula Oxygen Flow Rate 5 Fraction of Inspired Oxygen 02/04/24 20:00 02/04/24 20:00 02/04/24 20:00 Temperature 97.6 F Pulse Rate 102 H 93 Respiratory Rate 32 H 26 H Blood Pressure 157/88 H Pulse Oximetry 92 95 92 Oxygen Delivery Nasal Cannula Nasal Cannula Oxygen Flow Rate 4 4 Fraction of Inspired Oxygen 36 36 02/05/24 00:55 02/04/24 22:00 02/05/24 00:00 Temperature 97.8 F Pulse Rate 107 H 86 104 H Respiratory Rate 33 H 26 H 30 H Blood Pressure 173/92 H 181/78 H Pulse Oximetry 89 L 90 Oxygen Delivery Oxygen Flow Rate Fraction of Inspired Oxygen 02/05/24 02:00 02/05/24 00:00 02/05/24 04:00 Temperature Pulse Rate 94 76 76 Respiratory Rate 29 H 25 H 25 H Blood Pressure 140/79 Pulse Oximetry 92 90 90 Oxygen Delivery Nasal Cannula Nasal Cannula Oxygen Flow Rate 3 4 Fraction of Inspired Oxygen 36 36 02/05/24 04:00 02/05/24 01:48 02/05/24 02:45 Temperature 98 F Pulse Rate 84 82 77 Respiratory Rate 20 25 H 22 H Blood Pressure 119/66 Pulse Oximetry 92 Oxygen Delivery Oxygen Flow Rate Fraction of Inspired Oxygen 02/05/24 04:27 02/05/24 03:48 02/05/24 03:15 Temperature Pulse Rate 78 75 76 Respiratory Rate 22 H 22 H 25 H Blood Pressure 122/65 Pulse Oximetry 90 Oxygen Delivery Oxygen Flow Rate Fraction of Inspired Oxygen 02/05/24 05:32 02/05/24 06:39 02/04/24 20:00 Temperature Pulse Rate 76 84 93 Respiratory Rate 25 H 26 H Blood Pressure Pulse Oximetry Oxygen Delivery Oxygen Flow Rate Fraction of Inspired Oxygen 02/04/24 22:00 02/05/24 00:00 02/05/24 02:00 Temperature Pulse Rate 100 104 H 78 Respiratory Rate Blood Pressure Pulse Oximetry Oxygen Delivery Oxygen Flow Rate Fraction of Inspired Oxygen 02/05/24 04:00 02/05/24 06:00 02/05/24 06:00 Temperature 97.6 F Pulse Rate 73 78 78 Respiratory Rate 23 H Blood Pressure 133/82 Pulse Oximetry 93 Oxygen Delivery Oxygen Flow Rate Fraction of Inspired Oxygen 02/05/24 08:00 02/05/24 10:00 02/05/24 10:22 Temperature Pulse Rate 81 67 78 Respiratory Rate 25 H 23 H 21 H Blood Pressure Pulse Oximetry Oxygen Delivery Oxygen Flow Rate Fraction of Inspired Oxygen 02/05/24 11:11 02/05/24 11:11 02/05/24 12:00 Temperature Pulse Rate 84 84 86 Respiratory Rate 21 H 21 H 29 H Blood Pressure Pulse Oximetry Oxygen Delivery Oxygen Flow Rate Fraction of Inspired Oxygen 02/05/24 13:20 02/05/24 14:00 02/05/24 14:24 Temperature Pulse Rate 100 87 Respiratory Rate 30 H 27 H Blood Pressure Pulse Oximetry 100 Oxygen Delivery Nasal Cannula Oxygen Flow Rate 5 Fraction of Inspired Oxygen Intake/Output Intake/Output: Intake & Output 02/02/24 02/03/24 02/04/24 02/05/24 23:59 23:59 23:59 23:59 Intake Total 2250 6400 2686.7 384.5 Output Total 909 413 8689 700 Balance 2050 5450 386.7 -315.5 Meds/Results Medications: Active Medications Generic Name Dose Route Start Last Admin Trade Name Freq PRN Reason Stop Dose Admin Dextrose 12.5 gm 02/02/24 10:59 Dextrose 50% 25 Gm/50 Ml Syringe IV PUSH PRN PRN Hypoglycemia Protocol Fluticasone Propionate 2 spray 02/02/24 00:09 Fluticasone Propionate 0.05% Na Spr 16 Gm Btl (*Bkc) NASAL DAILY PRN allergy symptoms Glucagon 1 mg 02/02/24 10:59 Glucagon For Inj 1 Mg Vial IM PRN PRN Hypoglycemia Protocol Glucose 15 gm 02/02/24 10:59 Glucose Oral Gel 15 Gm Of Glucse In 37.5 Gm Tube PO PRN PRN Hypoglycemia Protocol Heparin Sodium (Porcine) 5,000 units 02/02/24 14:00 02/05/24 14:09 Heparin Sodium 5,000 Units/Ml Vial SUB-Q 5,000 units Q8HR CAR[facility]OS Administration Hydralazine HCl 20 mg 02/04/24 09:30 02/04/24 16:34 Hydralazine Hcl 20 Mg/Ml Vial IV PUSH 20 mg Q4H PRN Administration SBP more than 160 - 2nd choice Hydromorphone HCl 0.5 mg 02/03/24 13:53 Hydromorphone Hcl Inj (*Crx) 1 Mg/Ml Syr IV PUSH Q2H PRN Pain Rated 7-10 Piperacillin Sod/Tazobactam Sod 4.5 gm in 100 mls @ 200 mls/hr 02/03/24 11:00 02/05/24 11:07 Zosyn 4.5 Gm/Ns 100 Ml IVPB Infused Q6H [facility] Infusion Dexmedetomidine HCl 400 mcg in 100 mls @ 6.278 mls/hr 02/05/24 00:45 02/05/24 14:00 Precedex 400 Mcg/100 Ml IV CONT 0.3 mcg/kg/hr .[id number] CARLITOS 6.28 mls/hr Titration Protocol 0.3 MCG/KG/HR Potassium Chloride 100 mls @ 25 mls/hr 02/05/24 13:00 02/05/24 14:03 Kcl 40 Meq/Water 100 Ml IVPB 02/05/24 16:59 Not Given ONCE ONE Insulin Aspart 2 - 5 units 02/03/24 00:00 02/05/24 11:44 Insulin Aspart (*Bkc) 100 Units/Ml SUB-Q Not Given Q6HR [facility] Protocol Labetalol HCl 20 mg 02/04/24 09:30 02/04/24 10:54 Labetalol Hcl Inj 100 Mg/20 Ml Vial IV PUSH 20 mg Q4H PRN Administration SBP > 160 and HR> 60 -1st choice Multi-Ingred Cream/Lotion/Oil/Oint 1 applic 02/05/24 09:00 02/05/24 09:24 Mineral Oil/White Petrolatum Ointment EACH EYE Not Given Q12HR [facility] Ondansetron HCl 4 mg 02/01/24 19:52 02/05/24 01:15 Ondansetron Inj 4 Mg/2 Ml Vial IV PUSH 4 mg Q4H PRN Administration Nausea Pantoprazole Sodium 40 mg 02/04/24 09:00 02/05/24 09:24 Pantoprazole Sodium Iv 40 Mg Vial IV PUSH 40 mg QAM CARLITOS Administration Quetiapine Fumarate 25 mg 02/05/24 21:00 Quetiapine Fumarate 25 Mg Tablet PO HS CARLITOS Sodium Chloride 10 ml 02/03/24 14:00 02/05/24 14:09 Central Line Flush IV PUSH 10 ml Q8HR CARLITOS Administration Sodium Chloride 10 ml 02/03/24 12:07 Central Line Flush IV PUSH PRN PRN with TPN bag changes Sodium Chloride 20 ml 02/03/24 12:07 Central Line Flush IV PUSH PRN PRN after blood draws Radiology Results: ITS Impressions Chest/Abdomen/Pelvis CTA 02/01/24 18:35 IMPRESSION: No aortic dissection or aneurysm. Moderate interstitial pulmonary edema. Hepatomegaly. Acute interstitial pancreatitis. Possible portal vein and superior mesenteric vein thrombosis, versus artifact from unopacified blood in this arterial phase study. Consider right upper quadrant with a focus on obtaining portal venous color Doppler flow and waveforms. Vascular Ultrasound 02/01/24 19:23 IMPRESSION: Patent portal veins and superior mesenteric vein. Prior CT findings likely related to artifact from arterial phase imaging. Abdomen Ultrasound 02/02/24 09:49 IMPRESSION: 1. Pancreatitis. 2. Cholelithiasis. Gallbladder wall thickening may be secondary to interstitial edema or acute cholecystitis. 3. Diffuse hepatic steatosis. Abdomen/Pelvis CT 02/03/24 09:35 IMPRESSION: Findings consistent with acute pancreatitis, with additional findings worrisome for necrotizing pancreatitis, as detailed above. Severe hypovolemia by imaging criteria for which aggressive resuscitation is suggested. Cholelithiasis. Hepatomegaly. Interval development of bilateral pleural effusions with adjacent compressive atelectasis. These findings will be called to the ordering clinician. Once contact was made, an addendum will be performed. ADDENDUM: 02/03/24 1017 These findings were discussed with Rios Jones NP at 10:15 AM on 02/03/2024 Abdomen X-Ray 02/04/24 21:25 IMPRESSION: Interval replacement of the nasogastric tube with its tip projecting over the proximal stomach for which advancement of approximately 5 to 6 cm may be performed for optimal radiographic placement. Worsening bilateral pleural effusions, as detailed above. Chest X-Ray 02/05/24 09:02 Impression: 1: Cardiomegaly with pulmonary vascular congestion. 2: Left basilar consolidation, most likely atelectasis. 3: Small right pleural effusion. Labs Labs: Laboratory Results - last 24 hr 02/04/24 02/05/24 02/05/24 18:34 06:11 06:23 WBC 15.9 H RBC 3.79 L Hgb 10.6 L Hct 31.7 L MCV 83.6 MCH 28.0 MCHC 33.4 RDW 13.2 Plt Count 159 MPV 11.1 H Sodium 142 Potassium 3.2 L Chloride 109 H Carbon Dioxide 31 H Anion Gap 2 L BUN 22 H Creatinine 0.70 Estim Creat Clear Calc 70 Estimated GFR > 60 Glucose 105 POC Capillary Glucose 88 103 Calcium 6.6 L Phosphorus 2.1 L Magnesium 2.0 Lipase 317 H 02/05/24 11:08 WBC RBC Hgb Hct MCV MCH MCHC RDW Plt Count MPV Sodium Potassium Chloride Carbon Dioxide Anion Gap BUN Creatinine Estim Creat Clear Calc Estimated GFR Glucose POC Capillary Glucose 72 Calcium Phosphorus Magnesium Lipase
[2024-02-05] MEDS: ACETAMINOPHEN 325 MG TABLET 650 MG PO (16:31)
[2024-02-05 16:48] LABS: Glucose Point of Care 107 mg/dl (65-105)
[2024-02-05] MEDS: IPRATROPIUM 0.5 MG/ALBUTEROL SULFATE 2.5 MG AMPUL.NEB 3 ML INHALATION ×2 (17:51→22:39)
[2024-02-05] MEDS: QUEtiapine FUMARATE 25 MG TABLET PO (20:18)
[2024-02-05] MEDS: dexmedeTOMIDine 400 MCG/100 ML 400 MCG/100 ML BAG 10.46 MCG IV CONT (22:58)
[2024-02-06] VITALS (36 sets, daily range): BP systolic 128–167; BP diastolic 71–112; PULSE 67–98; RESP 20–36; TEMP 37.2–38.6; O2SAT 80–98; BMI 32.1
[2024-02-06 01:23] LABS: Glucose Point of Care 110 mg/dl (65-105)
[2024-02-06] MEDS: IPRATROPIUM 0.5 MG/ALBUTEROL SULFATE 2.5 MG AMPUL.NEB 3 ML INHALATION ×4 (04:08→21:42)
[2024-02-06] MEDS: PIPERACILLIN/TAZ 4.5G/NS 100ML 4.5 GM/100 ML BAG IVPB ×4 (06:48→22:53)
[2024-02-06] MEDS: CENTRAL LINE FLUSH 10 ML IV PUSH ×3 (06:49→20:57)
[2024-02-06] MEDS: HEPARIN SODIUM 5,000 UNITS/ML VIAL 5000 UNITS SUB-Q ×3 (06:49→20:57)
[2024-02-06] MEDS: dexmedeTOMIDine 400 MCG/100 ML 400 MCG/100 ML BAG 10.46 MCG IV CONT (06:51)
[2024-02-06 06:57] LABS: Hematocrit 34.9 % (37.0-47.0); Hemoglobin 11.4 g/dL (12.0-15.0); Mean Corpuscular HGB Conc 32.7 g/dl (32-36); Mean Corpuscular Hemoglobin 27.7 pg (26-34); Mean Corpuscular Volume 84.9 fl (80-100); Mean Platelet Volume 10.8 fl (7.4-10.4); Platelet Count Result 189 k/mm3 (150-375); Red Blood Count 4.11 M/mm3 (4.2-5.4); Red Cell Distribution Width 13.3 % (11.5-14.5); White Blood Count 17.2 K/mm3 (4.5-10.0)
[2024-02-06 07:07] LABS: Alanine Aminotransferase 25 U/L (6-35); Albumin Level 3.2 g/dL (3.5-5.1); Alkaline Phosphatase 110 U/L (38-126); Anion Gap 5 mmol/L (4-12); Aspartate Amino Transferase 42 U/L (14-36); Blood Urea Nitrogen 22 mg/dL (7-17); Calcium 7.5 mg/dL (8.4-10.2); Carbon Dioxide 32 mmol/L (22-30); Chloride 103 mmol/L (98-107); Estimated CRCL calculation 56 ml/min; Estimated Glomerular Filt Rate > 60; Glucose 107 mg/dL (65-110); Lipase 116 U/L (23-300); Potassium 3.4 mmol/L (3.4-5.0); Sodium 140 mmol/L (137-145)
--- NOTE | 2024-02-06 08:31 | PM.PNGS ---
Progress Note: A&P Assessment and Plan (1) Acute necrotizing pancreatitis: Code(s): K85.91 - Acute pancreatitis with uninfected necrosis, unspecified Status: Acute Assessment and Plan: Advance diet as tolerated if respiratory status improves. Continue supportive care. Fever possibly related to current pulmonary status, abdominal exam benign--could consider repeat imaging if fevers persist. (2) Gallstone pancreatitis: Code(s): K85.10 - Biliary acute pancreatitis without necrosis or infection Status: Acute (3) Acute hypoxemic respiratory failure: Code(s): J96.01 - Acute respiratory failure with hypoxia Status: Acute (4) Delirium: Code(s): R41.0 - Disorientation, unspecified Status: Acute Subjective Subjective Date/Time Seen: 02/06/24 08:31 Interval history: Still mostly complaining of respiratory issues. No abdominal pain. Tolerating clear liquids. Rectal tube in place. Febrile overnight. Exam GI: Inspection: non-distended GI Palp: Yes Soft to palpation, No Tenderness to palpation present (GI) and No Guarding due to palpation present (GI) Auscultation: normal bowel sounds Objective Data Vital Signs Vital Signs: Vital Signs - 24 hr 02/05/24 10:00 02/05/24 10:22 02/05/24 11:11 Temperature Pulse Rate 67 78 84 Respiratory Rate 23 H 21 H 21 H Blood Pressure Pulse Oximetry Oxygen Delivery Oxygen Flow Rate Fraction of Inspired Oxygen 02/05/24 11:11 02/05/24 12:00 02/05/24 13:20 Temperature Pulse Rate 84 86 100 Respiratory Rate 21 H 29 H 30 H Blood Pressure Pulse Oximetry Oxygen Delivery Oxygen Flow Rate Fraction of Inspired Oxygen 02/05/24 14:00 02/05/24 14:24 02/05/24 16:00 Temperature Pulse Rate 87 95 Respiratory Rate 27 H 34 H Blood Pressure Pulse Oximetry 100 Oxygen Delivery Nasal Cannula Oxygen Flow Rate 5 Fraction of Inspired Oxygen 02/05/24 16:29 02/05/24 16:31 02/05/24 17:34 Temperature 101 F H Pulse Rate 104 H 90 Respiratory Rate 37 H 26 H Blood Pressure Pulse Oximetry Oxygen Delivery Oxygen Flow Rate Fraction of Inspired Oxygen 02/05/24 17:35 02/05/24 17:51 02/05/24 18:00 Temperature 100.8 F H Pulse Rate 86 84 Respiratory Rate 30 H 28 H Blood Pressure Pulse Oximetry Oxygen Delivery Oxygen Flow Rate Fraction of Inspired Oxygen 02/05/24 10:00 02/05/24 10:00 02/05/24 18:00 Temperature 99.2 F Pulse Rate 67 67 84 Respiratory Rate 23 H 30 H Blood Pressure 117/76 Pulse Oximetry 95 Oxygen Delivery Oxygen Flow Rate Fraction of Inspired Oxygen 02/05/24 12:00 02/05/24 12:00 02/05/24 14:00 Temperature 99.7 F H Pulse Rate 93 88 89 Respiratory Rate 30 H Blood Pressure 165/81 H Pulse Oximetry 95 Oxygen Delivery Oxygen Flow Rate Fraction of Inspired Oxygen 02/05/24 14:00 02/05/24 16:00 02/05/24 16:00 Temperature 100.5 F H 101 F H Pulse Rate 89 93 93 Respiratory Rate 26 H 27 H Blood Pressure 120/66 172/84 H Pulse Oximetry 97 93 Oxygen Delivery Oxygen Flow Rate Fraction of Inspired Oxygen 02/05/24 18:00 02/05/24 18:00 02/05/24 20:42 Temperature 100.7 F H Pulse Rate 84 84 Respiratory Rate 30 H Blood Pressure 137/90 Pulse Oximetry 97 92 Oxygen Delivery Oxygen Flow Rate 5 Fraction of Inspired Oxygen 02/05/24 20:00 02/05/24 20:00 02/05/24 20:00 Temperature 99.9 F H Pulse Rate 84 76 76 Respiratory Rate 30 H 33 H Blood Pressure 152/78 H Pulse Oximetry 92 92 Oxygen Delivery Nasal Cannula Oxygen Flow Rate 5 Fraction of Inspired Oxygen 36 02/05/24 22:00 02/05/24 22:00 02/05/24 20:00 Temperature Pulse Rate 90 85 76 Respiratory Rate 26 H 33 H Blood Pressure 152/86 H Pulse Oximetry 92 Oxygen Delivery Oxygen Flow Rate Fraction of Inspired Oxygen 02/05/24 22:00 02/05/24 22:40 02/05/24 22:54 Temperature Pulse Rate 91 76 80 Respiratory Rate 26 H 24 H 24 H Blood Pressure Pulse Oximetry Oxygen Delivery Oxygen Flow Rate Fraction of Inspired Oxygen 02/05/24 22:58 02/05/24 22:58 02/06/24 00:00 Temperature Pulse Rate 91 91 91 Respiratory Rate 25 H 25 H 25 H Blood Pressure Pulse Oximetry 92 Oxygen Delivery Nasal Cannula Oxygen Flow Rate 5 Fraction of Inspired Oxygen 36 02/05/24 23:20 02/06/24 00:21 02/06/24 02:00 Temperature Pulse Rate 74 72 67 Respiratory Rate 25 H 26 H 24 H Blood Pressure Pulse Oximetry Oxygen Delivery Oxygen Flow Rate Fraction of Inspired Oxygen 02/06/24 04:08 02/06/24 04:20 02/06/24 04:00 Temperature Pulse Rate 73 71 71 Respiratory Rate 25 H 23 H 23 H Blood Pressure Pulse Oximetry 92 Oxygen Delivery Nasal Cannula Oxygen Flow Rate 5 Fraction of Inspired Oxygen 36 02/06/24 00:00 02/06/24 02:00 02/06/24 04:00 Temperature Pulse Rate 78 67 81 Respiratory Rate Blood Pressure Pulse Oximetry Oxygen Delivery Oxygen Flow Rate Fraction of Inspired Oxygen 02/06/24 00:00 02/06/24 02:00 02/06/24 04:00 Temperature 98.9 F 99 F 99.4 F Pulse Rate 78 69 81 Respiratory Rate 25 H 27 H 26 H Blood Pressure 132/73 153/112 H 167/89 H Pulse Oximetry 93 93 94 Oxygen Delivery Oxygen Flow Rate Fraction of Inspired Oxygen 02/06/24 06:00 02/06/24 06:00 02/06/24 04:00 Temperature 100 F H Pulse Rate 73 75 81 Respiratory Rate 26 H 26 H Blood Pressure 147/86 H Pulse Oximetry 95 Oxygen Delivery Oxygen Flow Rate Fraction of Inspired Oxygen 02/06/24 06:23 02/06/24 06:51 Temperature Pulse Rate 88 88 Respiratory Rate 26 H 26 H Blood Pressure Pulse Oximetry Oxygen Delivery Oxygen Flow Rate Fraction of Inspired Oxygen Intake/Output Intake/Output: Intake & Output 02/03/24 02/04/24 02/05/24 02/06/24 23:59 23:59 23:59 23:59 Intake Total 6400 2686.7 1544.4 96.2 Output Total 950 2300 2100 500 Balance 5450 386.7 -555.6 -403.8 Meds/Results Medications: Active Medications Generic Name Dose Route Start Last Admin Trade Name Freq PRN Reason Stop Dose Admin Acetaminophen 650 mg 02/05/24 16:12 02/05/24 16:31 Acetaminophen 325 Mg Tablet PO 650 mg Q4H PRN Administration Headache Albuterol/Ipratropium 3 ml 02/05/24 17:43 02/06/24 04:08 Ipratropium 0.5 Mg/Albuterol Sulfate 2.5 Mg Ampul.Neb 3 Ml INHALATION 3 ml Q4HRT PRN Administration Shortness Of Breath Or Wheezing Dextrose 12.5 gm 02/02/24 10:59 Dextrose 50% 25 Gm/50 Ml Syringe IV PUSH PRN PRN Hypoglycemia Protocol Fluticasone Propionate 2 spray 02/02/24 00:09 Fluticasone Propionate 0.05% Na Spr 16 Gm Btl (*Bkc) NASAL DAILY PRN allergy symptoms Furosemide 40 mg 02/06/24 15:00 Furosemide Inj 40 Mg/4 Ml Vial IV PUSH 02/06/24 15:01 ONCE ONE Glucagon 1 mg 02/02/24 10:59 Glucagon For Inj 1 Mg Vial IM PRN PRN Hypoglycemia Protocol Glucose 15 gm 02/02/24 10:59 Glucose Oral Gel 15 Gm Of Glucse In 37.5 Gm Tube PO PRN PRN Hypoglycemia Protocol Heparin Sodium (Porcine) 5,000 units 02/02/24 14:00 02/06/24 06:49 Heparin Sodium 5,000 Units/Ml Vial SUB-Q 5,000 units Q8HR [facility]OS Administration Hydralazine HCl 20 mg 02/04/24 09:30 02/04/24 16:34 Hydralazine Hcl 20 Mg/Ml Vial IV PUSH 20 mg Q4H PRN Administration SBP more than 160 - 2nd choice Hydromorphone HCl 0.5 mg 02/03/24 13:53 Hydromorphone Hcl Inj (*Crx) 1 Mg/Ml Syr IV PUSH Q2H PRN Pain Rated 7-10 Piperacillin Sod/Tazobactam Sod 4.5 gm in 100 mls @ 200 mls/hr 02/03/24 11:00 02/06/24 06:48 Zosyn 4.5 Gm/Ns 100 Ml IVPB 200 mls/hr Q6H [facility] Administration Dexmedetomidine HCl 400 mcg in 100 mls @ 10.463 mls/hr 02/05/24 00:45 02/06/24 06:51 Precedex 400 Mcg/100 Ml IV CONT 0.5 mcg/kg/hr .Q9H34M CARLITOS 10.46 mls/hr Administration Protocol 0.5 MCG/KG/HR Potassium Chloride 100 mls @ 25 mls/hr 02/06/24 08:23 Kcl 40 Meq/Water 100 Ml IVPB 02/06/24 12:22 ONCE ONE Insulin Aspart 2 - 5 units 02/03/24 00:00 02/06/24 06:49 Insulin Aspart (*Bkc) 100 Units/Ml SUB-Q Not Given Q6HR [facility] Protocol Labetalol HCl 20 mg 02/04/24 09:30 02/04/24 10:54 Labetalol Hcl Inj 100 Mg/20 Ml Vial IV PUSH 20 mg Q4H PRN Administration SBP > 160 and HR> 60 -1st choice Multi-Ingred Cream/Lotion/Oil/Oint 1 applic 02/05/24 09:00 02/05/24 20:18 Mineral Oil/White Petrolatum Ointment EACH EYE Not Given Q12HR [facility] Ondansetron HCl 4 mg 02/01/24 19:52 02/05/24 01:15 Ondansetron Inj 4 Mg/2 Ml Vial IV PUSH 4 mg Q4H PRN Administration Nausea Pantoprazole Sodium 40 mg 02/04/24 09:00 02/05/24 09:24 Pantoprazole Sodium Iv 40 Mg Vial IV PUSH 40 mg QAM CARLITOS Administration Quetiapine Fumarate 25 mg 02/05/24 21:00 02/05/24 20:18 Quetiapine Fumarate 25 Mg Tablet PO 25 mg HS CARLITOS Administration Sodium Chloride 10 ml 02/03/24 14:00 02/06/24 06:49 Central Line Flush IV PUSH 10 ml Q8HR [facility]OS Administration Sodium Chloride 10 ml 02/03/24 12:07 Central Line Flush IV PUSH PRN PRN with TPN bag changes Sodium Chloride 20 ml 02/03/24 12:07 Central Line Flush IV PUSH PRN PRN after blood draws Radiology Results: ITS Impressions Chest/Abdomen/Pelvis CTA 02/01/24 18:35 IMPRESSION: No aortic dissection or aneurysm. Moderate interstitial pulmonary edema. Hepatomegaly. Acute interstitial pancreatitis. Possible portal vein and superior mesenteric vein thrombosis, versus artifact from unopacified blood in this arterial phase study. Consider right upper quadrant with a focus on obtaining portal venous color Doppler flow and waveforms. Vascular Ultrasound 02/01/24 19:23 IMPRESSION: Patent portal veins and superior mesenteric vein. Prior CT findings likely related to artifact from arterial phase imaging. Abdomen Ultrasound 02/02/24 09:49 IMPRESSION: 1. Pancreatitis. 2. Cholelithiasis. Gallbladder wall thickening may be secondary to interstitial edema or acute cholecystitis. 3. Diffuse hepatic steatosis. Abdomen/Pelvis CT 02/03/24 09:35 IMPRESSION: Findings consistent with acute pancreatitis, with additional findings worrisome for necrotizing pancreatitis, as detailed above. Severe hypovolemia by imaging criteria for which aggressive resuscitation is suggested. Cholelithiasis. Hepatomegaly. Interval development of bilateral pleural effusions with adjacent compressive atelectasis. These findings will be called to the ordering clinician. Once contact was made, an addendum will be performed. ADDENDUM: 02/03/24 1017 These findings were discussed with Rios Jones NP at 10:15 AM on 02/03/2024 Abdomen X-Ray 02/04/24 21:25 IMPRESSION: Interval replacement of the nasogastric tube with its tip projecting over the proximal stomach for which advancement of approximately 5 to 6 cm may be performed for optimal radiographic placement. Worsening bilateral pleural effusions, as detailed above. Chest X-Ray 02/05/24 09:02 Impression: 1: Cardiomegaly with pulmonary vascular congestion. 2: Left basilar consolidation, most likely atelectasis. 3: Small right pleural effusion. Labs Labs: Laboratory Results - last 24 hr 02/05/24 02/05/24 02/05/24 06:23 11:08 16:34 WBC RBC Hgb Hct MCV MCH MCHC RDW Plt Count MPV Sodium Potassium Chloride Carbon Dioxide Anion Gap BUN Creatinine Estim Creat Clear Calc Estimated GFR Glucose POC Capillary Glucose 72 107 H Calcium Phosphorus Magnesium Total Bilirubin AST ALT Alkaline Phosphatase Total Protein Albumin Lipase 317 H 02/06/24 02/06/24 01:18 06:42 WBC 17.2 H RBC 4.11 L Hgb 11.4 L Hct 34.9 L MCV 84.9 MCH 27.7 MCHC 32.7 RDW 13.3 Plt Count 189 MPV 10.8 H Sodium 140 Potassium 3.4 Chloride 103 Carbon Dioxide 32 H Anion Gap 5 BUN 22 H Creatinine 0.90 Estim Creat Clear Calc 56 Estimated GFR > 60 Glucose 107 POC Capillary Glucose 110 H Calcium 7.5 L Phosphorus 3.0 Magnesium 2.0 Total Bilirubin 1.0 AST 42 H ALT 25 Alkaline Phosphatase 110 Total Protein 6.0 L Albumin 3.2 L Lipase 116
[2024-02-06] MEDS: PANTOPRAZOLE SODIUM IV 40 MG VIAL IV PUSH (08:39)
[2024-02-06] MEDS: FUROSEMIDE INJ 100 MG/10 ML VIAL 80 MG IV PUSH (08:39)
[2024-02-06] MEDS: KCL 40 MEQ/WATER 100 ML 100 ML 25 ML IVPB ×2 (08:39→14:20)
[2024-02-06] MEDS: MINERAL OIL/WHITE PETROLATUM OINTMENT 1 APPLIC EACH EYE ×2 (08:41→20:10)
--- NOTE | 2024-02-06 09:20 | P.PNINT_ITS ---
Progress Note: A&P Assessment and Plan (1) Hypoxia: Code(s): R09.02 - Hypoxemia Status: Acute Assessment and Plan: Secondary to atelectasis and pleural effusions. Possible pleural effusion Off IV fluids. Will give dose of Lasix today Continue Incentive spirometry Will try to get patient Up in chair Continue oxygen. May need an nippv (2) Acute necrotizing pancreatitis: Code(s): K85.91 - Acute pancreatitis with uninfected necrosis, unspecified Status: Acute Assessment and Plan: Acute necrotizing pancreatitis likely secondary to gallstones No currently obstructing gallstone as per imaging.. LFTs unremarkable. Lipase is improving Patient tolerating clear liquid diet at this time GI and general surgery following Imaging as above Pain control (3) Sepsis: Code(s): A41.9 - Sepsis, unspecified organism Status: Acute Assessment and Plan: Patient met criteria for sepsis. Blood cultures have been sent and are pending. Patient is on Zosyn which will be continued (4) Ileus: Code(s): K56.7 - Ileus, unspecified Status: Acute Assessment and Plan: Patient probable ileus likely severe pancreatitis poor NG tube was placed. Symptomatically patient is feeling better and now has diarrhea. Ileus appears to to be improving. X-ray still shows dilated bowel loops. Tolerating clear diet which will be continued (5) Pleural effusion associated with pancreatitis: Code(s): K85.90 - Acute pancreatitis without necrosis or infection, unspecified; J91.8 - Pleural effusion in other conditions classified elsewhere Status: Acute Assessment and Plan: Likely secondary third-spacing. Lasix ordered (6) Cholelithiasis: Code(s): K80.20 - Calculus of gallbladder without cholecystitis without obstruction Status: Acute Assessment and Plan: See above (7) Dehydration: Code(s): E86.0 - Dehydration Status: Acute Assessment and Plan: Secondary to sepsis and third-spacing Improved with IV fluids. Now off (8) Electrolyte abnormality: Code(s): E87.8 - Other disorders of electrolyte and fluid balance, not elsewhere classified Status: Acute Assessment and Plan: Replace low potassium (9) Delirium: Code(s): R41.0 - Disorientation, unspecified Status: Acute Assessment and Plan: Continue Precedex infusion, avoid benzodiazepine Continue low-dose Seroquel at night Supportive treatment (10) Acute hypoxemic respiratory failure: Code(s): J96.01 - Acute respiratory failure with hypoxia Status: Acute Assessment and Plan: Acute respiratory failure likely combination of pleural effusion, pulmonary edema, atelectasis ileus leading to rapid shallow breathing, Chest x-ray done this morning shows 1. Stable small pleural effusions. 2. Stable airspace opacities in the mid and lower lung zones, consistent with atelectasis or less likely pneumonia. Patient had CPAP ordered overnight but she did not wear it. I spoke to patient this morning and explained the reasoning behind it and the benefits of it. Patient states she is willing to give additional the shot. I placed patient on CPAP 8 which has helped her breathing and respiratory rate has decreased. Will continue CPAP at this time as tolerated Lasix IV now and repeat later in the day Bronchodilators Incentive spirometry Plan DVT prophylaxis -heparin Stress ulcer prophylaxis -Protonix Nutrition -continue clear liquid diet Code Status - Full Code Incentive spirometry, Total Critical Care Time - 30 minutes Due to a high probability of clinically significant, life threatening deterioration, the patient required my highest level of preparedness to intervene emergently and I personally spent this critical care time directly and personally managing the patient. This critical care time included obtaining a history; examining the patient; pulse oximetry; ordering and review of studies; arranging urgent treatment with development of a management plan; evaluation of patient's response to treatment; frequent reassessment; and discussions with other providers. It was exclusive of separately billable procedures and treating other patients and teaching time. Please see Assessment and Plan section and the rest of the note for further information on patient assessment and treatment Subjective Date/time seen: 02/06/24 Overnight events reviewed. Low-grade fever overnight CPAP was ordered for the night but patient did not tolerate and did not wear it and was on 4-5 L of oxygen He states he feels short of breath this morning. Shortness of breath is intermittent. She has cough but it is dry. She denies any fever or chest pain. Denies any abdominal pain nausea vomiting. She has had diarrhea since yesterday. All other systems negative On low-dose Precedex Other Vitals acceptable Review of Systems Review of Systems: All systems reviewed & are unremarkable except as noted in HPI and below (HPI) Exam Narrative: General: Pt is alert awake and in NAD Lungs/Chest: Trachea central Clear BS B/L, occasional wheezing anteriorly, Breath sounds are decreased at bases. Mild tachypnea. But no respiratory distress or use of accessory muscles. Cardiac: RRR. Normal S1 S2. No murmurs Circulation: Pedal pulses are intact and symmetrical. Abdomen: Present bowel sounds.. Soft. Mildly distended. Tender to palpation epigastric area. Extremities: No clubbing, cyanosis or edema. Warm : Sanchez in place Neurologic: Follows commands. Moves all 4 extremities PERRL confused AO x2 only Skin: No Rash Objective Data Vital Signs Vital Signs: Vital Signs - 24 hr 02/05/24 10:00 02/05/24 10:22 02/05/24 11:11 Temperature Pulse Rate 67 78 84 Respiratory Rate 23 H 21 H 21 H Blood Pressure Pulse Oximetry Oxygen Delivery Oxygen Flow Rate Fraction of Inspired Oxygen 02/05/24 11:11 02/05/24 12:00 02/05/24 13:20 Temperature Pulse Rate 84 86 100 Respiratory Rate 21 H 29 H 30 H Blood Pressure Pulse Oximetry Oxygen Delivery Oxygen Flow Rate Fraction of Inspired Oxygen 02/05/24 14:00 02/05/24 14:24 02/05/24 16:00 Temperature Pulse Rate 87 95 Respiratory Rate 27 H 34 H Blood Pressure Pulse Oximetry 100 Oxygen Delivery Nasal Cannula Oxygen Flow Rate 5 Fraction of Inspired Oxygen 02/05/24 16:29 02/05/24 16:31 02/05/24 17:34 Temperature 38.3 C H Pulse Rate 104 H 90 Respiratory Rate 37 H 26 H Blood Pressure Pulse Oximetry Oxygen Delivery Oxygen Flow Rate Fraction of Inspired Oxygen 02/05/24 17:35 02/05/24 17:51 02/05/24 18:00 Temperature 38.2 C H Pulse Rate 86 84 Respiratory Rate 30 H 28 H Blood Pressure Pulse Oximetry Oxygen Delivery Oxygen Flow Rate Fraction of Inspired Oxygen 02/05/24 10:00 02/05/24 10:00 02/05/24 18:00 Temperature 37.3 C Pulse Rate 67 67 84 Respiratory Rate 23 H 30 H Blood Pressure 117/76 Pulse Oximetry 95 Oxygen Delivery Oxygen Flow Rate Fraction of Inspired Oxygen 02/05/24 12:00 02/05/24 12:00 02/05/24 14:00 Temperature 37.6 C H Pulse Rate 93 88 89 Respiratory Rate 30 H Blood Pressure 165/81 H Pulse Oximetry 95 Oxygen Delivery Oxygen Flow Rate Fraction of Inspired Oxygen 02/05/24 14:00 02/05/24 16:00 02/05/24 16:00 Temperature 38.1 C H 38.3 C H Pulse Rate 89 93 93 Respiratory Rate 26 H 27 H Blood Pressure 120/66 172/84 H Pulse Oximetry 97 93 Oxygen Delivery Oxygen Flow Rate Fraction of Inspired Oxygen 02/05/24 18:00 02/05/24 18:00 02/05/24 20:42 Temperature 38.2 C H Pulse Rate 84 84 Respiratory Rate 30 H Blood Pressure 137/90 Pulse Oximetry 97 92 Oxygen Delivery Oxygen Flow Rate 5 Fraction of Inspired Oxygen 02/05/24 20:00 02/05/24 20:00 02/05/24 20:00 Temperature 37.7 C H Pulse Rate 84 76 76 Respiratory Rate 30 H 33 H Blood Pressure 152/78 H Pulse Oximetry 92 92 Oxygen Delivery Nasal Cannula Oxygen Flow Rate 5 Fraction of Inspired Oxygen 36 02/05/24 22:00 02/05/24 22:00 02/05/24 20:00 Temperature Pulse Rate 90 85 76 Respiratory Rate 26 H 33 H Blood Pressure 152/86 H Pulse Oximetry 92 Oxygen Delivery Oxygen Flow Rate Fraction of Inspired Oxygen 02/05/24 22:00 02/05/24 22:40 02/05/24 22:54 Temperature Pulse Rate 91 76 80 Respiratory Rate 26 H 24 H 24 H Blood Pressure Pulse Oximetry Oxygen Delivery Oxygen Flow Rate Fraction of Inspired Oxygen 02/05/24 22:58 02/05/24 22:58 02/06/24 00:00 Temperature Pulse Rate 91 91 91 Respiratory Rate 25 H 25 H 25 H Blood Pressure Pulse Oximetry 92 Oxygen Delivery Nasal Cannula Oxygen Flow Rate 5 Fraction of Inspired Oxygen 36 02/05/24 23:20 02/06/24 00:21 02/06/24 02:00 Temperature Pulse Rate 74 72 67 Respiratory Rate 25 H 26 H 24 H Blood Pressure Pulse Oximetry Oxygen Delivery Oxygen Flow Rate Fraction of Inspired Oxygen 02/06/24 04:08 02/06/24 04:20 02/06/24 04:00 Temperature Pulse Rate 73 71 71 Respiratory Rate 25 H 23 H 23 H Blood Pressure Pulse Oximetry 92 Oxygen Delivery Nasal Cannula Oxygen Flow Rate 5 Fraction of Inspired Oxygen 36 02/06/24 00:00 02/06/24 02:00 02/06/24 04:00 Temperature Pulse Rate 78 67 81 Respiratory Rate Blood Pressure Pulse Oximetry Oxygen Delivery Oxygen Flow Rate Fraction of Inspired Oxygen 02/06/24 00:00 02/06/24 02:00 02/06/24 04:00 Temperature 37.2 C 37.2 C 37.4 C Pulse Rate 78 69 81 Respiratory Rate 25 H 27 H 26 H Blood Pressure 132/73 153/112 H 167/89 H Pulse Oximetry 93 93 94 Oxygen Delivery Oxygen Flow Rate Fraction of Inspired Oxygen 02/06/24 06:00 02/06/24 06:00 02/06/24 04:00 Temperature 37.7 C H Pulse Rate 73 75 81 Respiratory Rate 26 H 26 H Blood Pressure 147/86 H Pulse Oximetry 95 Oxygen Delivery Oxygen Flow Rate Fraction of Inspired Oxygen 02/06/24 06:23 02/06/24 06:51 02/06/24 08:48 Temperature Pulse Rate 88 88 98 Respiratory Rate 26 H 26 H 22 H Blood Pressure Pulse Oximetry Oxygen Delivery Oxygen Flow Rate Fraction of Inspired Oxygen 02/06/24 08:49 02/06/24 08:56 02/06/24 07:00 Temperature Pulse Rate 98 96 74 Respiratory Rate 36 H 36 H 27 H Blood Pressure Pulse Oximetry 96 Oxygen Delivery CPAP Oxygen Flow Rate Fraction of Inspired Oxygen 02/06/24 08:00 02/06/24 08:30 02/06/24 08:00 Temperature Pulse Rate 88 88 88 Respiratory Rate 22 H 30 H Blood Pressure Pulse Oximetry Oxygen Delivery Oxygen Flow Rate Fraction of Inspired Oxygen 02/06/24 08:00 Temperature 38.1 C H Pulse Rate 88 Respiratory Rate 22 H Blood Pressure 167/93 H Pulse Oximetry 92 Oxygen Delivery Oxygen Flow Rate Fraction of Inspired Oxygen Intake/Output Intake/Output: Intake & Output 02/03/24 02/04/24 02/05/24 02/06/24 23:59 23:59 23:59 23:59 Intake Total 6400 2686.7 1544.4 109.3 Output Total 950 2300 2100 500 Balance 5450 386.7 -555.6 -390.7 Meds/Results Medications: Active Medications Generic Name Dose Route Start Last Admin Trade Name Freq PRN Reason Stop Dose Admin Acetaminophen 650 mg 02/05/24 16:12 02/05/24 16:31 Acetaminophen 325 Mg Tablet PO 650 mg Q4H PRN Administration Headache Albuterol/Ipratropium 3 ml 02/05/24 17:43 02/06/24 08:46 Ipratropium 0.5 Mg/Albuterol Sulfate 2.5 Mg Ampul.Neb 3 Ml INHALATION 3 ml Q4HRT PRN Administration Shortness Of Breath Or Wheezing Dextrose 12.5 gm 02/02/24 10:59 Dextrose 50% 25 Gm/50 Ml Syringe IV PUSH PRN PRN Hypoglycemia Protocol Fluticasone Propionate 2 spray 02/02/24 00:09 Fluticasone Propionate 0.05% Na Spr 16 Gm Btl (*Bkc) NASAL DAILY PRN allergy symptoms Furosemide 40 mg 02/06/24 15:00 Furosemide Inj 40 Mg/4 Ml Vial IV PUSH 02/06/24 15:01 ONCE ONE Glucagon 1 mg 02/02/24 10:59 Glucagon For Inj 1 Mg Vial IM PRN PRN Hypoglycemia Protocol Glucose 15 gm 02/02/24 10:59 Glucose Oral Gel 15 Gm Of Glucse In 37.5 Gm Tube PO PRN PRN Hypoglycemia Protocol Heparin Sodium (Porcine) 5,000 units 02/02/24 14:00 02/06/24 06:49 Heparin Sodium 5,000 Units/Ml Vial SUB-Q 5,000 units Q8HR CARLITOS Administration Hydralazine HCl 20 mg 02/04/24 09:30 02/04/24 16:34 Hydralazine Hcl 20 Mg/Ml Vial IV PUSH 20 mg Q4H PRN Administration SBP more than 160 - 2nd choice Hydromorphone HCl 0.5 mg 02/03/24 13:53 Hydromorphone Hcl Inj (*Crx) 1 Mg/Ml Syr IV PUSH Q2H PRN Pain Rated 7-10 Piperacillin Sod/Tazobactam Sod 4.5 gm in 100 mls @ 200 mls/hr 02/03/24 11:00 02/06/24 06:48 Zosyn 4.5 Gm/Ns 100 Ml IVPB 200 mls/hr Q6H CARLITOS Administration Dexmedetomidine HCl 400 mcg in 100 mls @ 6.278 mls/hr 02/05/24 00:45 02/06/24 09:05 Precedex 400 Mcg/100 Ml IV CONT Not Given .[id number] CARLITOS Protocol 0.3 MCG/KG/HR Potassium Chloride 100 mls @ 25 mls/hr 02/06/24 08:23 02/06/24 08:39 Kcl 40 Meq/Water 100 Ml IVPB 02/06/24 12:22 25 mls/hr ONCE ONE Administration Insulin Aspart 2 - 5 units 02/03/24 00:00 02/06/24 06:49 Insulin Aspart (*Bkc) 100 Units/Ml SUB-Q Not Given Q6HR [facility] Protocol Labetalol HCl 20 mg 02/04/24 09:30 02/04/24 10:54 Labetalol Hcl Inj 100 Mg/20 Ml Vial IV PUSH 20 mg Q4H PRN Administration SBP > 160 and HR> 60 -1st choice Multi-Ingred Cream/Lotion/Oil/Oint 1 applic 02/05/24 09:00 02/06/24 08:41 Mineral Oil/White Petrolatum Ointment EACH EYE 1 applic Q12HR CARLITOS Administration Ondansetron HCl 4 mg 02/01/24 19:52 02/05/24 01:15 Ondansetron Inj 4 Mg/2 Ml Vial IV PUSH 4 mg Q4H PRN Administration Nausea Pantoprazole Sodium 40 mg 02/04/24 09:00 02/06/24 08:39 Pantoprazole Sodium Iv 40 Mg Vial IV PUSH 40 mg QAM CARLITOS Administration Quetiapine Fumarate 25 mg 02/05/24 21:00 02/05/24 20:18 Quetiapine Fumarate 25 Mg Tablet PO 25 mg HS CARLITOS Administration Sodium Chloride 10 ml 02/03/24 14:00 02/06/24 06:49 Central Line Flush IV PUSH 10 ml Q8HR CARLITOS Administration Sodium Chloride 10 ml 02/03/24 12:07 Central Line Flush IV PUSH PRN PRN with TPN bag changes Sodium Chloride 20 ml 02/03/24 12:07 Central Line Flush IV PUSH PRN PRN after blood draws Radiology Results: ITS Impressions Chest/Abdomen/Pelvis CTA 02/01/24 18:35 IMPRESSION: No aortic dissection or aneurysm. Moderate interstitial pulmonary edema. Hepatomegaly. Acute interstitial pancreatitis. Possible portal vein and superior mesenteric vein thrombosis, versus artifact from unopacified blood in this arterial phase study. Consider right upper quadrant with a focus on obtaining portal venous color Doppler flow and waveforms. Vascular Ultrasound 02/01/24 19:23 IMPRESSION: Patent portal veins and superior mesenteric vein. Prior CT findings likely related to artifact from arterial phase imaging. Abdomen Ultrasound 02/02/24 09:49 IMPRESSION: 1. Pancreatitis. 2. Cholelithiasis. Gallbladder wall thickening may be secondary to interstitial edema or acute cholecystitis. 3. Diffuse hepatic steatosis. Abdomen/Pelvis CT 02/03/24 09:35 IMPRESSION: Findings consistent with acute pancreatitis, with additional findings worrisome for necrotizing pancreatitis, as detailed above. Severe hypovolemia by imaging criteria for which aggressive resuscitation is sug gested. Cholelithiasis. Hepatomegaly. Interval development of bilateral pleural effusions with adjacent compressive atelectasis. These findings will be called to the ordering clinician. Once contact was made, an addendum will be performed. ADDENDUM: 02/03/24 1017 These findings were discussed with Rios Jones NP at 10:15 AM on 02/03/2024 Abdomen X-Ray 02/04/24 21:25 IMPRESSION: Interval replacement of the nasogastric tube with its tip projecting over the proximal stomach for which advancement of approximately 5 to 6 cm may be performed for optimal radiographic placement. Worsening bilateral pleural effusions, as detailed above. Chest X-Ray 02/06/24 08:52 IMPRESSION: 1. Stable small pleural effusions. 2. Stable airspace opacities in the mid and lower lung zones, consistent with atelectasis or less likely pneumonia. 3. Dilated small bowel, likely adynamic ileus. Labs Labs: Laboratory Results - last 24 hr 02/05/24 02/05/24 02/06/24 11:08 16:34 01:18 WBC RBC Hgb Hct MCV MCH MCHC RDW Plt Count MPV Sodium Potassium Chloride Carbon Dioxide Anion Gap BUN Creatinine Estim Creat Clear Calc Estimated GFR Glucose POC Capillary Glucose 72 107 H 110 H Calcium Phosphorus Magnesium Total Bilirubin AST ALT Alkaline Phosphatase Total Protein Albumin Lipase 02/06/24 06:42 WBC 17.2 H RBC 4.11 L Hgb 11.4 L Hct 34.9 L MCV 84.9 MCH 27.7 MCHC 32.7 RDW 13.3 Plt Count 189 MPV 10.8 H Sodium 140 Potassium 3.4 Chloride 103 Carbon Dioxide 32 H Anion Gap 5 BUN 22 H Creatinine 0.90 Estim Creat Clear Calc 56 Estimated GFR > 60 Glucose 107 POC Capillary Glucose Calcium 7.5 L Phosphorus 3.0 Magnesium 2.0 Total Bilirubin 1.0 AST 42 H ALT 25 Alkaline Phosphatase 110 Total Protein 6.0 L Albumin 3.2 L Lipase 116 Quality VTE Prophylaxis VTE prophylaxis: mechanical ordered and pharmacologic ordered
[2024-02-06 11:05] LABS: Glucose Point of Care 93 mg/dl (65-105)
[2024-02-06] MEDS: ACETAMINOPHEN 325 MG TABLET 650 MG PO (11:38)
[2024-02-06 13:49] LABS: Magnesium 1.9 mg/dL (1.6-2.3)
[2024-02-06 14:01] LABS: Anion Gap 7 mmol/L (4-12); Blood Urea Nitrogen 22 mg/dL (7-17); Calcium 7.5 mg/dL (8.4-10.2); Carbon Dioxide 31 mmol/L (22-30); Chloride 103 mmol/L (98-107); Estimated CRCL calculation 56 ml/min; Estimated Glomerular Filt Rate > 60; Glucose 132 mg/dL (65-110); Potassium 3.2 mmol/L (3.4-5.0); Sodium 141 mmol/L (137-145)
[2024-02-06] MEDS: POTASSIUM CHLORIDE 20 MEQ ER TABLET 40 MEQ PO (14:20)
[2024-02-06] MEDS: HYDROmorphone HCL INJ (*CRX) 1 MG/ML SYR 0.5 MG IV PUSH (14:21)
--- NOTE | 2024-02-06 15:34 | PM.IMPN ---
Progress Note: A&P Assessment and Plan (1) Hypoxia: Code(s): R09.02 - Hypoxemia Status: Acute Assessment and Plan: Secondary to atelectasis and pleural effusions. Possible pleural effusion Off IV fluids. Will give dose of Lasix today Continue Incentive spirometry Will try to get patient Up in chair Continue oxygen. May need an nippv (2) Acute necrotizing pancreatitis: Code(s): K85.91 - Acute pancreatitis with uninfected necrosis, unspecified Status: Acute Assessment and Plan: Acute necrotizing pancreatitis likely secondary to gallstones No currently obstructing gallstone as per imaging.. LFTs unremarkable. Lipase is improving Patient tolerating clear liquid diet at this time GI and general surgery following Imaging as above Pain control (3) Sepsis: Code(s): A41.9 - Sepsis, unspecified organism Status: Acute Assessment and Plan: Patient met criteria for sepsis. Blood cultures have been sent and are pending. Patient is on Zosyn which will be continued (4) Ileus: Code(s): K56.7 - Ileus, unspecified Status: Acute Assessment and Plan: Patient probable ileus likely severe pancreatitis poor NG tube was placed. Symptomatically patient is feeling better and now has diarrhea. Ileus appears to to be improving. X-ray still shows dilated bowel loops. Tolerating clear diet which will be continued (5) Pleural effusion associated with pancreatitis: Code(s): K85.90 - Acute pancreatitis without necrosis or infection, unspecified; J91.8 - Pleural effusion in other conditions classified elsewhere Status: Acute Assessment and Plan: Likely secondary third-spacing. Lasix ordered (6) Cholelithiasis: Code(s): K80.20 - Calculus of gallbladder without cholecystitis without obstruction Status: Acute Assessment and Plan: See above (7) Dehydration: Code(s): E86.0 - Dehydration Status: Acute Assessment and Plan: Secondary to sepsis and third-spacing Improved with IV fluids. Now off (8) Electrolyte abnormality: Code(s): E87.8 - Other disorders of electrolyte and fluid balance, not elsewhere classified Status: Acute Assessment and Plan: Replace low potassium (9) Delirium: Code(s): R41.0 - Disorientation, unspecified Status: Acute Assessment and Plan: Continue Precedex infusion, avoid benzodiazepine Continue low-dose Seroquel at night Supportive treatment (10) Acute hypoxemic respiratory failure: Code(s): J96.01 - Acute respiratory failure with hypoxia Status: Acute Assessment and Plan: Acute respiratory failure likely combination of pleural effusion, pulmonary edema, atelectasis ileus leading to rapid shallow breathing, Chest x-ray done this morning shows 1. Stable small pleural effusions. 2. Stable airspace opacities in the mid and lower lung zones, consistent with atelectasis or less likely pneumonia. Patient had CPAP ordered overnight but she did not wear it. I spoke to patient this morning and explained the reasoning behind it and the benefits of it. Patient states she is willing to give additional the shot. I placed patient on CPAP 8 which has helped her breathing and respiratory rate has decreased. Will continue CPAP at this time as tolerated Lasix IV now and repeat later in the day Bronchodilators Incentive spirometry Subjective Date/time seen: 02/06/24 15:34 Interval history: Patient is evaluated at bedside along with her who provided the history. Patient doesn't have any major medical history other than last Friday she started having abdominal pain diagnosed with acute pancreatitis. Denies alcohol. Review of Systems Review of Systems: abdominal pain localized to the epigastric area, nausea, vomiting All systems reviewed & are unremarkable except as noted in HPI and below (HPI) Exam Narrative: General: Pt is alert awake and in NAD Lungs/Chest: Trachea central Clear BS B/L, occasional wheezing anteriorly, Breath sounds are decreased at bases. Mild tachypnea. But no respiratory distress or use of accessory muscles. Cardiac: RRR. Normal S1 S2. No murmurs Circulation: Pedal pulses are intact and symmetrical. Abdomen: Present bowel sounds.. Soft. Mildly distended. Tender to palpation epigastric area. Extremities: No clubbing, cyanosis or edema. Warm : Sanchez in place Neurologic: Follows commands. Moves all 4 extremities PERRL confused AO x2 only Skin: No Rash Const: General: comfortable, no acute distress, well developed, alert, awake and average body habitus Nutritional Appearance: average body habitus Orientation/consciousness: patient oriented x3 Other: well-appearing HENMT: Head: normal to inspection, normocephalic and atraumatic Ears: hearing grossly normal bilaterally Face/Nose/Sinus: normal facial exam Face and sinus: normal facial exam Mouth: Yes moist mucous membranes Eyes: General: appearance normal, both eyes and all related structures Sclera: sclerae normal Pupils: Equal, round and reactive pupils present EOM: EOMs intact bilaterally Neck: Neck: full ROM, no lymphadenopathy, supple and no JVD Thyroid: thyroid normal Lymphatic: no lymphadenopathy noted Resp: Effort & Inspection: normal respiratory effort and able to speak in complete sentences Auscultation: clear to auscultation bilaterally Cardio: Jugular venous distension: no JVD Rate: regular rate Rhythm: regular rhythm Heart sounds: S1 normal heart sound present and S2 normal heart sound present GI: Inspection: normal to inspection Auscultation: normal bowel sounds : General: Yes deferred Skin: General skin exam: normal color Rashes: no rashes Wounds: no wounds Neuro: General: patient oriented x3 and CN's II-XI intact bilaterally Cranial nerves: Yes CN's II-XII intact bilaterally and Yes Equal, round and reactive pupils present Cognition (Neuro): normal cognition Speech: normal speech Gait exam (Neuro): Normal gait present Motor exam (neuro): 5/5 motor strength present throughout Extrem: General: normal to inspection, full ROM, no joint enlargement and no pedal edema Psych: Mental Status: mental status grossly normal Objective Data Vital Signs Vital Signs: Vital Signs - 24 hr 02/05/24 16:00 02/05/24 16:29 02/05/24 16:31 Temperature 101 F H Pulse Rate 95 104 H Respiratory Rate 34 H 37 H Blood Pressure Pulse Oximetry Oxygen Delivery Oxygen Flow Rate Fraction of Inspired Oxygen 02/05/24 17:34 02/05/24 17:35 02/05/24 17:51 Temperature 100.8 F H Pulse Rate 90 86 Respiratory Rate 26 H 30 H Blood Pressure Pulse Oximetry Oxygen Delivery Oxygen Flow Rate Fraction of Inspired Oxygen 02/05/24 18:00 02/05/24 18:00 02/05/24 16:00 Temperature Pulse Rate 84 84 93 Respiratory Rate 28 H 30 H Blood Pressure Pulse Oximetry Oxygen Delivery Oxygen Flow Rate Fraction of Inspired Oxygen 02/05/24 16:00 02/05/24 18:00 02/05/24 18:00 Temperature 101 F H 100.7 F H Pulse Rate 93 84 84 Respiratory Rate 27 H 30 H Blood Pressure 172/84 H 137/90 Pulse Oximetry 93 97 Oxygen Delivery Oxygen Flow Rate Fraction of Inspired Oxygen 02/05/24 20:42 02/05/24 20:00 02/05/24 20:00 Temperature Pulse Rate 84 76 Respiratory Rate 30 H Blood Pressure Pulse Oximetry 92 92 Oxygen Delivery Nasal Cannula Oxygen Flow Rate 5 5 Fraction of Inspired Oxygen 36 02/05/24 20:00 02/05/24 22:00 02/05/24 22:00 Temperature 99.9 F H Pulse Rate 76 90 85 Respiratory Rate 33 H 26 H Blood Pressure 152/78 H 152/86 H Pulse Oximetry 92 92 Oxygen Delivery Oxygen Flow Rate Fraction of Inspired Oxygen 02/05/24 20:00 02/05/24 22:00 02/05/24 22:40 Temperature Pulse Rate 76 91 76 Respiratory Rate 33 H 26 H 24 H Blood Pressure Pulse Oximetry Oxygen Delivery Oxygen Flow Rate Fraction of Inspired Oxygen 02/05/24 22:54 02/05/24 22:58 02/05/24 22:58 Temperature Pulse Rate 80 91 91 Respiratory Rate 24 H 25 H 25 H Blood Pressure Pulse Oximetry Oxygen Delivery Oxygen Flow Rate Fraction of Inspired Oxygen 02/06/24 00:00 02/05/24 23:20 02/06/24 00:21 Temperature Pulse Rate 91 74 72 Respiratory Rate 25 H 25 H 26 H Blood Pressure Pulse Oximetry 92 Oxygen Delivery Nasal Cannula Oxygen Flow Rate 5 Fraction of Inspired Oxygen 36 02/06/24 02:00 02/06/24 04:08 02/06/24 04:20 Temperature Pulse Rate 67 73 71 Respiratory Rate 24 H 25 H 23 H Blood Pressure Pulse Oximetry Oxygen Delivery Oxygen Flow Rate Fraction of Inspired Oxygen 02/06/24 04:00 02/06/24 00:00 02/06/24 02:00 Temperature Pulse Rate 71 78 67 Respiratory Rate 23 H Blood Pressure Pulse Oximetry 92 Oxygen Delivery Nasal Cannula Oxygen Flow Rate 5 Fraction of Inspired Oxygen 36 02/06/24 04:00 02/06/24 00:00 02/06/24 02:00 Temperature 98.9 F 99 F Pulse Rate 81 78 69 Respiratory Rate 25 H 27 H Blood Pressure 132/73 153/112 H Pulse Oximetry 93 93 Oxygen Delivery Oxygen Flow Rate Fraction of Inspired Oxygen 02/06/24 04:00 02/06/24 06:00 02/06/24 06:00 Temperature 99.4 F 100 F H Pulse Rate 81 73 75 Respiratory Rate 26 H 26 H Blood Pressure 167/89 H 147/86 H Pulse Oximetry 94 95 Oxygen Delivery Oxygen Flow Rate Fraction of Inspired Oxygen 02/06/24 04:00 02/06/24 06:23 02/06/24 06:51 Temperature Pulse Rate 81 88 88 Respiratory Rate 26 H 26 H 26 H Blood Pressure Pulse Oximetry Oxygen Delivery Oxygen Flow Rate Fraction of Inspired Oxygen 02/06/24 08:48 02/06/24 08:49 02/06/24 08:56 Temperature Pulse Rate 98 98 96 Respiratory Rate 22 H 36 H 36 H Blood Pressure Pulse Oximetry 96 Oxygen Delivery CPAP Oxygen Flow Rate Fraction of Inspired Oxygen 02/06/24 07:00 02/06/24 08:00 02/06/24 08:30 Temperature Pulse Rate 74 88 88 Respiratory Rate 27 H 22 H 30 H Blood Pressure Pulse Oximetry Oxygen Delivery Oxygen Flow Rate Fraction of Inspired Oxygen 02/06/24 08:00 02/06/24 08:00 02/06/24 08:00 Temperature 100.5 F H Pulse Rate 88 88 88 Respiratory Rate 22 H 22 H Blood Pressure 167/93 H Pulse Oximetry 92 92 Oxygen Delivery Nasal Cannula Oxygen Flow Rate 5 Fraction of Inspired Oxygen 02/06/24 10:00 02/06/24 10:00 02/06/24 11:17 Temperature 101.2 F H Pulse Rate 89 89 89 Respiratory Rate 29 H 26 H Blood Pressure 131/72 Pulse Oximetry 98 95 Oxygen Delivery CPAP Oxygen Flow Rate Fraction of Inspired Oxygen 02/06/24 11:38 02/06/24 12:00 02/06/24 12:00 Temperature 101.3 F H 101.4 F H Pulse Rate 98 98 Respiratory Rate 26 H Blood Pressure 136/76 Pulse Oximetry 94 Oxygen Delivery Oxygen Flow Rate Fraction of Inspired Oxygen 02/06/24 12:00 02/06/24 12:24 02/06/24 14:00 Temperature 101.4 F H Pulse Rate 98 97 Respiratory Rate 26 H Blood Pressure Pulse Oximetry 94 Oxygen Delivery CPAP Oxygen Flow Rate Fraction of Inspired Oxygen 02/06/24 14:00 02/06/24 14:30 02/06/24 15:18 Temperature 101.1 F H Pulse Rate 97 94 96 Respiratory Rate 28 H 22 H 20 Blood Pressure 147/73 H Pulse Oximetry 94 94 Oxygen Delivery CPAP Oxygen Flow Rate Fraction of Inspired Oxygen 02/06/24 15:19 Temperature Pulse Rate 96 Respiratory Rate 20 Blood Pressure Pulse Oximetry Oxygen Delivery Oxygen Flow Rate Fraction of Inspired Oxygen Intake/Output Intake/Output: Intake & Output 10/0802/04/24 02/05/24 02/06/24 23:59 23:59 23:59 23:59 Intake Total 6400 2686.7 1544.4 709.3 Output Total 950 2300 2100 500 Balance 5450 386.7 -555.6 209.3 Meds/Results Medications: Active Medications Generic Name Dose Route Start Last Admin Trade Name Freq PRN Reason Stop Dose Admin Acetaminophen 650 mg 02/05/24 16:12 02/06/24 11:38 Acetaminophen 325 Mg Tablet PO 650 mg Q4H PRN Administration Headache Acetazolamide Sodium 250 mg 02/06/24 17:00 Acetazolamide Sodium For Inj 500 Mg Vial IV PUSH 02/06/24 17:01 ONCE ONE Albuterol/Ipratropium 3 ml 02/05/24 17:43 02/06/24 14:30 Ipratropium 0.5 Mg/Albuterol Sulfate 2.5 Mg Ampul.Neb 3 Ml INHALATION 3 ml Q4HRT PRN Administration Shortness Of Breath Or Wheezing Dextrose 12.5 gm 02/02/24 10:59 Dextrose 50% 25 Gm/50 Ml Syringe IV PUSH PRN PRN Hypoglycemia Protocol Fluticasone Propionate 2 spray 02/02/24 00:09 Fluticasone Propionate 0.05% Na Spr 16 Gm Btl (*Bkc) NASAL DAILY PRN allergy symptoms Glucagon 1 mg 02/02/24 10:59 Glucagon For Inj 1 Mg Vial IM PRN PRN Hypoglycemia Protocol Glucose 15 gm 02/02/24 10:59 Glucose Oral Gel 15 Gm Of Glucse In 37.5 Gm Tube PO PRN PRN Hypoglycemia Protocol Heparin Sodium (Porcine) 5,000 units 02/02/24 14:00 02/06/24 13:32 Heparin Sodium 5,000 Units/Ml Vial SUB-Q 5,000 units Q8HR CARLITOS Administration Hydralazine HCl 20 mg 02/04/24 09:30 02/04/24 16:34 Hydralazine Hcl 20 Mg/Ml Vial IV PUSH 20 mg Q4H PRN Administration SBP more than 160 - 2nd choice Hydromorphone HCl 0.5 mg 02/03/24 13:53 02/06/24 14:21 Hydromorphone Hcl Inj (*Crx) 1 Mg/Ml Syr IV PUSH 0.5 mg Q2H PRN Administration Pain Rated 7-10 Piperacillin Sod/Tazobactam Sod 4.5 gm in 100 mls @ 200 mls/hr 02/03/24 11:00 02/06/24 10:48 Zosyn 4.5 Gm/Ns 100 Ml IVPB 200 mls/hr Q6H CARLITOS Administration Dexmedetomidine HCl 400 mcg in 100 mls @ 6.278 mls/hr 02/05/24 00:45 02/06/24 09:05 Precedex 400 Mcg/100 Ml IV CONT Not Given .[id number] CARLITOS Protocol 0.3 MCG/KG/HR Potassium Chloride 100 mls @ 25 mls/hr 02/06/24 14:07 02/06/24 14:20 Kcl 40 Meq/Water 100 Ml IVPB 02/06/24 18:06 25 mls/hr ONCE ONE Administration Insulin Aspart 2 - 5 units 02/03/24 00:00 02/06/24 11:00 Insulin Aspart (*Bkc) 100 Units/Ml SUB-Q Not Given Q6HR CARLITOS Protocol Labetalol HCl 20 mg 02/04/24 09:30 02/04/24 10:54 Labetalol Hcl Inj 100 Mg/20 Ml Vial IV PUSH 20 mg Q4H PRN Administration SBP > 160 and HR> 60 -1st choice Multi-Ingred Cream/Lotion/Oil/Oint 1 applic 02/05/24 09:00 02/06/24 08:41 Mineral Oil/White Petrolatum Ointment EACH EYE 1 applic Q12HR CARLITOS Administration Ondansetron HCl 4 mg 02/01/24 19:52 02/05/24 01:15 Ondansetron Inj 4 Mg/2 Ml Vial IV PUSH 4 mg Q4H PRN Administration Nausea Pantoprazole Sodium 40 mg 02/04/24 09:00 02/06/24 08:39 Pantoprazole Sodium Iv 40 Mg Vial IV PUSH 40 mg QAM CARLITOS Administration Quetiapine Fumarate 25 mg 02/05/24 21:00 02/05/24 20:18 Quetiapine Fumarate 25 Mg Tablet PO 25 mg HS CARLITOS Administration Sodium Chloride 10 ml 02/03/24 14:00 02/06/24 13:32 Central Line Flush IV PUSH 10 ml Q8HR CARLITOS Administration Sodium Chloride 10 ml 02/03/24 12:07 Central Line Flush IV PUSH PRN PRN with TPN bag changes Sodium Chloride 20 ml 02/03/24 12:07 Central Line Flush IV PUSH PRN PRN after blood draws Radiology Results: ITS Impressions Chest/Abdomen/Pelvis CTA 02/01/24 18:35 IMPRESSION: No aortic dissection or aneurysm. Moderate interstitial pulmonary edema. Hepatomegaly. Acute interstitial pancreatitis. Possible portal vein and superior mesenteric vein thrombosis, versus artifact from unopacified blood in this arterial phase study. Consider right upper quadrant with a focus on obtaining portal venous color Doppler flow and waveforms. Vascular Ultrasound 02/01/24 19:23 IMPRESSION: Patent portal veins and superior mesenteric vein. Prior CT findings likely related to artifact from arterial phase imaging. Abdomen Ultrasound 02/02/24 09:49 IMPRESSION: 1. Pancreatitis. 2. Cholelithiasis. Gallbladder wall thickening may be secondary to interstitial edema or acute cholecystitis. 3. Diffuse hepatic steatosis. Abdomen/Pelvis CT 02/03/24 09:35 IMPRESSION: Findings consistent with acute pancreatitis, with additional findings worrisome for necrotizing pancreatitis, as detailed above. Severe hypovolemia by imaging criteria for which aggressive resuscitation is suggested. Cholelithiasis. Hepatomegaly. Interval development of bilateral pleural effusions with adjacent compressive atelectasis. These findings will be called to the ordering clinician. Once contact was made, an addendum will be performed. ADDENDUM: 02/03/24 1017 These findings were discussed with Rios Jones NP at 10:15 AM on 02/03/2024 Abdomen X-Ray 02/04/24 21:25 IMPRESSION: Interval replacement of the nasogastric tube with its tip projecting over the proximal stomach for which advancement of approximately 5 to 6 cm may be performed for optimal radiographic placement. Worsening bilateral pleural effusions, as detailed above. Chest X-Ray 02/06/24 08:52 IMPRESSION: 1. Stable small pleural effusions. 2. Stable airspace opacities in the mid and lower lung zones, consistent with atelectasis or less likely pneumonia. 3. Dilated small bowel, likely adynamic ileus. Labs Labs: Laboratory Results - last 24 hr 02/05/24 02/06/24 02/06/24 16:34 01:18 06:42 WBC 17.2 H RBC 4.11 L Hgb 11.4 L Hct 34.9 L MCV 84.9 MCH 27.7 MCHC 32.7 RDW 13.3 Plt Count 189 MPV 10.8 H Sodium 140 Potassium 3.4 Chloride 103 Carbon Dioxide 32 H Anion Gap 5 BUN 22 H Creatinine 0.90 Estim Creat Clear Calc 56 Estimated GFR > 60 Glucose 107 POC Capillary Glucose 107 H 110 H Calcium 7.5 L Phosphorus 3.0 Magnesium 2.0 Total Bilirubin 1.0 AST 42 H ALT 25 Alkaline Phosphatase 110 Total Protein 6.0 L Albumin 3.2 L Lipase 116 Procalcitonin 1.0 02/06/24 02/06/24 02/06/24 11:00 13:31 13:31 WBC RBC Hgb Hct MCV MCH MCHC RDW Plt Count MPV Sodium Cancelled 141 Potassium Cancelled Chloride Carbon Dioxide Anion Gap BUN Creatinine Estim Creat Clear Calc Estimated GFR Glucose POC Capillary Glucose 93 Calcium Phosphorus Magnesium Total Bilirubin AST ALT Alkaline Phosphatase Total Protein Albumin Lipase Procalcitonin 02/06/24 02/06/24 02/06/24 13:31 13:31 13:31 WBC RBC Hgb Hct MCV MCH MCHC RDW Plt Count MPV Sodium Potassium 3.2 L Chloride Cancelled 103 Carbon Dioxide Cancelled 31 H Anion Gap Cancelled BUN Creatinine Estim Creat Clear Calc Estimated GFR Glucose POC Capillary Glucose Calcium Phosphorus Magnesium Total Bilirubin AST ALT Alkaline Phosphatase Total Protein Albumin Lipase Procalcitonin 02/06/24 02/06/24 02/06/24 13:31 13:31 13:31 WBC RBC Hgb Hct MCV MCH MCHC RDW Plt Count MPV Sodium Potassium Chloride Carbon Dioxide Anion Gap 7 BUN Cancelled 22 H Creatinine Cancelled 0.90 Estim Creat Clear Calc Cancelled Estimated GFR Glucose POC Capillary Glucose Calcium Phosphorus Magnesium Total Bilirubin AST ALT Alkaline Phosphatase Total Protein Albumin Lipase Procalcitonin 02/06/24 02/06/24 02/06/24 13:31 13:31 13:31 WBC RBC Hgb Hct MCV MCH MCHC RDW Plt Count MPV Sodium Potassium Chloride Carbon Dioxide Anion Gap BUN Creatinine Estim Creat Clear Calc 56 Estimated GFR Cancelled > 60 Glucose Cancelled 132 H POC Capillary Glucose Calcium Cancelled Phosphorus Magnesium Total Bilirubin AST ALT Alkaline Phosphatase Total Protein Albumin Lipase Procalcitonin 02/06/24 13:31 WBC RBC Hgb Hct MCV MCH MCHC RDW Plt Count MPV Sodium Potassium Chloride Carbon Dioxide Anion Gap BUN Creatinine Estim Creat Clear Calc Estimated GFR Glucose POC Capillary Glucose Calcium 7.5 L Phosphorus Magnesium 1.9 Total Bilirubin AST ALT Alkaline Phosphatase Total Protein Albumin Lipase Procalcitonin Quality VTE Prophylaxis VTE prophylaxis: mechanical ordered and pharmacologic ordered Hospitalist MIPS Advance Care Plan I have confirmed that the patient's Advanced Care Plan is present, code status is documented, or surrogate decision maker is listed in patient medical record.: Yes Medication Reconciliation I have utilized all available resources to obtain, update and review the patients current medications (includes all prescriptions, OTC, herbals, cannabis, and nutritional supplements).: Yes
--- NOTE | 2024-02-06 15:44 | P.PNGI_ITS ---
Progress Note: A&P Assessment and Plan (1) Gallstone pancreatitis: Code(s): K85.10 - Biliary acute pancreatitis without necrosis or infection Status: Acute Assessment and Plan: necrotizing pancreatitis, noted more pulmonary edema and given diuretics, also bipap on CL diet normal bile duct size and bilirubin, no need of ercp (2) Nausea and vomiting in adult: Code(s): R11.2 - Nausea with vomiting, unspecified Status: Acute Assessment and Plan: antiemetics (3) Leukocytosis: Code(s): D72.829 - Elevated white blood cell count, unspecified Status: Acute Assessment and Plan: probably reactive from severe pancreatitis monitor also fever, on abx (4) Sepsis: Code(s): A41.9 - Sepsis, unspecified organism Status: Acute Assessment and Plan: from severe pancreatitis on abx (5) Elevated liver enzymes: Code(s): R74.8 - Abnormal levels of other serum enzymes Status: Acute Assessment and Plan: normalization (6) Cholelithiasis: Code(s): K80.20 - Calculus of gallbladder without cholecystitis without obstruction Status: Acute Assessment and Plan: surgery on board interval cholecystectomy once pancreatitis resolves (7) Acute hypoxemic respiratory failure: Code(s): J96.01 - Acute respiratory failure with hypoxia Status: Acute (8) Acute necrotizing pancreatitis: Code(s): K85.91 - Acute pancreatitis with uninfected necrosis, unspecified Status: Acute Subjective Date/time seen: 02/06/24 15:44 Interval history: on bipap on liquid diet Review of Systems Review of Systems: All systems reviewed & are unremarkable except as noted in HPI and below Exam Const: General: no acute distress and ill appearing Orientation/consciousness: patient oriented x3 HENMT: Face/Nose/Sinus: Normal nares present Eyes: General: appearance normal, both eyes and all related structures Neck: Neck: supple Resp: Effort & Inspection: tachypneic Auscultation: rhonchi and diminished lung sounds bilateral in the lower lung paiz Other: using bipap Cardio: Rate: regular rate Rhythm: regular rhythm GI: Inspection: distended GI Palp: Yes Soft to palpation, Yes Tenderness to palpation present (GI) (much less tender in the upper abd now), No Guarding due to palpation present (GI) and No Rebound tenderness present Auscultation: normal bowel sounds Skin: General skin exam: normal color Neuro: Speech: normal speech Motor exam (neuro): 5/5 motor strength present throughout Extrem: General: no calf tenderness and no edema Psych: Mental Status: mental status grossly normal Objective Data Vital Signs Vital Signs: Vital Signs - 24 hr 02/05/24 16:00 02/05/24 16:29 02/05/24 16:31 Temperature 101 F H Pulse Rate 95 104 H Respiratory Rate 34 H 37 H Blood Pressure Pulse Oximetry Oxygen Delivery Oxygen Flow Rate Fraction of Inspired Oxygen 02/05/24 17:34 02/05/24 17:35 02/05/24 17:51 Temperature 100.8 F H Pulse Rate 90 86 Respiratory Rate 26 H 30 H Blood Pressure Pulse Oximetry Oxygen Delivery Oxygen Flow Rate Fraction of Inspired Oxygen 02/05/24 18:00 02/05/24 18:00 02/05/24 16:00 Temperature Pulse Rate 84 84 93 Respiratory Rate 28 H 30 H Blood Pressure Pulse Oximetry Oxygen Delivery Oxygen Flow Rate Fraction of Inspired Oxygen 02/05/24 16:00 02/05/24 18:00 02/05/24 18:00 Temperature 101 F H 100.7 F H Pulse Rate 93 84 84 Respiratory Rate 27 H 30 H Blood Pressure 172/84 H 137/90 Pulse Oximetry 93 97 Oxygen Delivery Oxygen Flow Rate Fraction of Inspired Oxygen 02/05/24 20:42 02/05/24 20:00 02/05/24 20:00 Temperature Pulse Rate 84 76 Respiratory Rate 30 H Blood Pressure Pulse Oximetry 92 92 Oxygen Delivery Nasal Cannula Oxygen Flow Rate 5 5 Fraction of Inspired Oxygen 36 02/05/24 20:00 02/05/24 22:00 02/05/24 22:00 Temperature 99.9 F H Pulse Rate 76 90 85 Respiratory Rate 33 H 26 H Blood Pressure 152/78 H 152/86 H Pulse Oximetry 92 92 Oxygen Delivery Oxygen Flow Rate Fraction of Inspired Oxygen 02/05/24 20:00 02/05/24 22:00 02/05/24 22:40 Temperature Pulse Rate 76 91 76 Respiratory Rate 33 H 26 H 24 H Blood Pressure Pulse Oximetry Oxygen Delivery Oxygen Flow Rate Fraction of Inspired Oxygen 02/05/24 22:54 02/05/24 22:58 02/05/24 22:58 Temperature Pulse Rate 80 91 91 Respiratory Rate 24 H 25 H 25 H Blood Pressure Pulse Oximetry Oxygen Delivery Oxygen Flow Rate Fraction of Inspired Oxygen 02/06/24 00:00 02/05/24 23:20 02/06/24 00:21 Temperature Pulse Rate 91 74 72 Respiratory Rate 25 H 25 H 26 H Blood Pressure Pulse Oximetry 92 Oxygen Delivery Nasal Cannula Oxygen Flow Rate 5 Fraction of Inspired Oxygen 36 02/06/24 02:00 02/06/24 04:08 02/06/24 04:20 Temperature Pulse Rate 67 73 71 Respiratory Rate 24 H 25 H 23 H Blood Pressure Pulse Oximetry Oxygen Delivery Oxygen Flow Rate Fraction of Inspired Oxygen 02/06/24 04:00 02/06/24 00:00 02/06/24 02:00 Temperature Pulse Rate 71 78 67 Respiratory Rate 23 H Blood Pressure Pulse Oximetry 92 Oxygen Delivery Nasal Cannula Oxygen Flow Rate 5 Fraction of Inspired Oxygen 36 02/06/24 04:00 02/06/24 00:00 02/06/24 02:00 Temperature 98.9 F 99 F Pulse Rate 81 78 69 Respiratory Rate 25 H 27 H Blood Pressure 132/73 153/112 H Pulse Oximetry 93 93 Oxygen Delivery Oxygen Flow Rate Fraction of Inspired Oxygen 02/06/24 04:00 02/06/24 06:00 02/06/24 06:00 Temperature 99.4 F 100 F H Pulse Rate 81 73 75 Respiratory Rate 26 H 26 H Blood Pressure 167/89 H 147/86 H Pulse Oximetry 94 95 Oxygen Delivery Oxygen Flow Rate Fraction of Inspired Oxygen 02/06/24 04:00 02/06/24 06:23 02/06/24 06:51 Temperature Pulse Rate 81 88 88 Respiratory Rate 26 H 26 H 26 H Blood Pressure Pulse Oximetry Oxygen Delivery Oxygen Flow Rate Fraction of Inspired Oxygen 02/06/24 08:48 02/06/24 08:49 02/06/24 08:56 Temperature Pulse Rate 98 98 96 Respiratory Rate 22 H 36 H 36 H Blood Pressure Pulse Oximetry 96 Oxygen Delivery CPAP Oxygen Flow Rate Fraction of Inspired Oxygen 02/06/24 07:00 02/06/24 08:00 02/06/24 08:30 Temperature Pulse Rate 74 88 88 Respiratory Rate 27 H 22 H 30 H Blood Pressure Pulse Oximetry Oxygen Delivery Oxygen Flow Rate Fraction of Inspired Oxygen 02/06/24 08:00 02/06/24 08:00 02/06/24 08:00 Temperature 100.5 F H Pulse Rate 88 88 88 Respiratory Rate 22 H 22 H Blood Pressure 167/93 H Pulse Oximetry 92 92 Oxygen Delivery Nasal Cannula Oxygen Flow Rate 5 Fraction of Inspired Oxygen 02/06/24 10:00 02/06/24 10:00 02/06/24 11:17 Temperature 101.2 F H Pulse Rate 89 89 89 Respiratory Rate 29 H 26 H Blood Pressure 131/72 Pulse Oximetry 98 95 Oxygen Delivery CPAP Oxygen Flow Rate Fraction of Inspired Oxygen 02/06/24 11:38 02/06/24 12:00 02/06/24 12:00 Temperature 101.3 F H 101.4 F H Pulse Rate 98 98 Respiratory Rate 26 H Blood Pressure 136/76 Pulse Oximetry 94 Oxygen Delivery Oxygen Flow Rate Fraction of Inspired Oxygen 02/06/24 12:00 02/06/24 12:24 02/06/24 14:00 Temperature 101.4 F H Pulse Rate 98 97 Respiratory Rate 26 H Blood Pressure Pulse Oximetry 94 Oxygen Delivery CPAP Oxygen Flow Rate Fraction of Inspired Oxygen 02/06/24 14:00 02/06/24 14:30 02/06/24 15:18 Temperature 101.1 F H Pulse Rate 97 94 96 Respiratory Rate 28 H 22 H 20 Blood Pressure 147/73 H Pulse Oximetry 94 94 Oxygen Delivery CPAP Oxygen Flow Rate Fraction of Inspired Oxygen 02/06/24 15:19 Temperature Pulse Rate 96 Respiratory Rate 20 Blood Pressure Pulse Oximetry Oxygen Delivery Oxygen Flow Rate Fraction of Inspired Oxygen Intake/Output Intake/Output: Intake & Output 02/03/24 02/04/24 02/05/24 02/06/24 23:59 23:59 23:59 23:59 Intake Total 6400 2686.7 1544.4 709.3 Output Total 950 2300 2100 500 Balance 5450 386.7 -555.6 209.3 Meds/Results Medications: Active Medications Generic Name Dose Route Start Last Admin Trade Name Freq PRN Reason Stop Dose Admin Acetaminophen 650 mg 02/05/24 16:12 02/06/24 11:38 Acetaminophen 325 Mg Tablet PO 650 mg Q4H PRN Administration Headache Acetazolamide Sodium 250 mg 02/06/24 17:00 Acetazolamide Sodium For Inj 500 Mg Vial IV PUSH 02/06/24 17:01 ONCE ONE Albuterol/Ipratropium 3 ml 02/05/24 17:43 02/06/24 14:30 Ipratropium 0.5 Mg/Albuterol Sulfate 2.5 Mg Ampul.Neb 3 Ml INHALATION 3 ml Q4HRT PRN Administration Shortness Of Breath Or Wheezing Dextrose 12.5 gm 02/02/24 10:59 Dextrose 50% 25 Gm/50 Ml Syringe IV PUSH PRN PRN Hypoglycemia Protocol Fluticasone Propionate 2 spray 02/02/24 00:09 Fluticasone Propionate 0.05% Na Spr 16 Gm Btl (*Bkc) NASAL DAILY PRN allergy symptoms Glucagon 1 mg 02/02/24 10:59 Glucagon For Inj 1 Mg Vial IM PRN PRN Hypoglycemia Protocol Glucose 15 gm 02/02/24 10:59 Glucose Oral Gel 15 Gm Of Glucse In 37.5 Gm Tube PO PRN PRN Hypoglycemia Protocol Heparin Sodium (Porcine) 5,000 units 02/02/24 14:00 02/06/24 13:32 Heparin Sodium 5,000 Units/Ml Vial SUB-Q 5,000 units Q8HR [facility] Administration Hydralazine HCl 20 mg 02/04/24 09:30 02/04/24 16:34 Hydralazine Hcl 20 Mg/Ml Vial IV PUSH 20 mg Q4H PRN Administration SBP more than 160 - 2nd choice Hydromorphone HCl 0.5 mg 02/03/24 13:53 02/06/24 14:21 Hydromorphone Hcl Inj (*Crx) 1 Mg/Ml Syr IV PUSH 0.5 mg Q2H PRN Administration Pain Rated 7-10 Piperacillin Sod/Tazobactam Sod 4.5 gm in 100 mls @ 200 mls/hr 02/03/24 11:00 02/06/24 10:48 Zosyn 4.5 Gm/Ns 100 Ml IVPB 200 mls/hr Q6H [facility] Administration Dexmedetomidine HCl 400 mcg in 100 mls @ 6.278 mls/hr 02/05/24 00:45 02/06/24 09:05 Precedex 400 Mcg/100 Ml IV CONT Not Given .[id number] [facility] Protocol 0.3 MCG/KG/HR Potassium Chloride 100 mls @ 25 mls/hr 02/06/24 14:07 02/06/24 14:20 Kcl 40 Meq/Water 100 Ml IVPB 02/06/24 18:06 25 mls/hr ONCE ONE Administration Insulin Aspart 2 - 5 units 02/03/24 00:00 02/06/24 11:00 Insulin Aspart (*Bkc) 100 Units/Ml SUB-Q Not Given Q6HR [facility] Protocol Labetalol HCl 20 mg 02/04/24 09:30 02/04/24 10:54 Labetalol Hcl Inj 100 Mg/20 Ml Vial IV PUSH 20 mg Q4H PRN Administration SBP > 160 and HR> 60 -1st choice Multi-Ingred Cream/Lotion/Oil/Oint 1 applic 02/05/24 09:00 02/06/24 08:41 Mineral Oil/White Petrolatum Ointment EACH EYE 1 applic Q12HR [facility] Administration Ondansetron HCl 4 mg 02/01/24 19:52 02/05/24 01:15 Ondansetron Inj 4 Mg/2 Ml Vial IV PUSH 4 mg Q4H PRN Administration Nausea Pantoprazole Sodium 40 mg 02/04/24 09:00 02/06/24 08:39 Pantoprazole Sodium Iv 40 Mg Vial IV PUSH 40 mg QAM [facility] Administration Quetiapine Fumarate 25 mg 02/05/24 21:00 02/05/24 20:18 Quetiapine Fumarate 25 Mg Tablet PO 25 mg HS [facility] Administration Sodium Chloride 10 ml 02/03/24 14:00 02/06/24 13:32 Central Line Flush IV PUSH 10 ml Q8HR [facility] Administration Sodium Chloride 10 ml 02/03/24 12:07 Central Line Flush IV PUSH PRN PRN with TPN bag changes Sodium Chloride 20 ml 02/03/24 12:07 Central Line Flush IV PUSH PRN PRN after blood draws Radiology Results: ITS Impressions Chest/Abdomen/Pelvis CTA 02/01/24 18:35 IMPRESSION: No aortic dissection or aneurysm. Moderate interstitial pulmonary edema. Hepatomegaly. Acute interstitial pancreatitis. Possible portal vein and superior mesenteric vein thrombosis, versus artifact from unopacified blood in this arterial phase study. Consider right upper quadrant with a focus on obtaining portal venous color Doppler flow and waveforms. Vascular Ultrasound 02/01/24 19:23 IMPRESSION: Patent portal veins and superior mesenteric vein. Prior CT findings likely related to artifact from arterial phase imaging. Abdomen Ultrasound 02/02/24 09:49 IMPRESSION: 1. Pancreatitis. 2. Cholelithiasis. Gallbladder wall thickening may be secondary to interstitial edema or acute cholecystitis. 3. Diffuse hepatic steatosis. Abdomen/Pelvis CT 02/03/24 09:35 IMPRESSION: Findings consistent with acute pancreatitis, with additional findings worrisome for necrotizing pancreatitis, as detailed above. Severe hypovolemia by imaging criteria for which aggressive resuscitation is suggested. Cholelithiasis. Hepatomegaly. Interval development of bilateral pleural effusions with adjacent compressive atelectasis. These findings will be called to the ordering clinician. Once contact was made, an addendum will be performed. ADDENDUM: 02/03/24 1017 These findings were discussed with Rios Jones NP at 10:15 AM on 02/03/2024 Abdomen X-Ray 02/04/24 21:25 IMPRESSION: Interval replacement of the nasogastric tube with its tip projecting over the proximal stomach for which advancement of approximately 5 to 6 cm may be per formed for optimal radiographic placement. Worsening bilateral pleural effusions, as detailed above. Chest X-Ray 02/06/24 08:52 IMPRESSION: 1. Stable small pleural effusions. 2. Stable airspace opacities in the mid and lower lung zones, consistent with atelectasis or less likely pneumonia. 3. Dilated small bowel, likely adynamic ileus. Labs Labs: Laboratory Results - last 24 hr 02/05/24 02/06/24 02/06/24 16:34 01:18 06:42 WBC 17.2 H RBC 4.11 L Hgb 11.4 L Hct 34.9 L MCV 84.9 MCH 27.7 MCHC 32.7 RDW 13.3 Plt Count 189 MPV 10.8 H Sodium 140 Potassium 3.4 Chloride 103 Carbon Dioxide 32 H Anion Gap 5 BUN 22 H Creatinine 0.90 Estim Creat Clear Calc 56 Estimated GFR > 60 Glucose 107 POC Capillary Glucose 107 H 110 H Calcium 7.5 L Phosphorus 3.0 Magnesium 2.0 Total Bilirubin 1.0 AST 42 H ALT 25 Alkaline Phosphatase 110 Total Protein 6.0 L Albumin 3.2 L Lipase 116 Procalcitonin 1.0 02/06/24 02/06/24 02/06/24 11:00 13:31 13:31 WBC RBC Hgb Hct MCV MCH MCHC RDW Plt Count MPV Sodium Cancelled 141 Potassium Cancelled Chloride Carbon Dioxide Anion Gap BUN Creatinine Estim Creat Clear Calc Estimated GFR Glucose POC Capillary Glucose 93 Calcium Phosphorus Magnesium Total Bilirubin AST ALT Alkaline Phosphatase Total Protein Albumin Lipase Procalcitonin 02/06/24 02/06/24 02/06/24 13:31 13:31 13:31 WBC RBC Hgb Hct MCV MCH MCHC RDW Plt Count MPV Sodium Potassium 3.2 L Chloride Cancelled 103 Carbon Dioxide Cancelled 31 H Anion Gap Cancelled BUN Creatinine Estim Creat Clear Calc Estimated GFR Glucose POC Capillary Glucose Calcium Phosphorus Magnesium Total Bilirubin AST ALT Alkaline Phosphatase Total Protein Albumin Lipase Procalcitonin 02/06/24 02/06/24 02/06/24 13:31 13:31 13:31 WBC RBC Hgb Hct MCV MCH MCHC RDW Plt Count MPV Sodium Potassium Chloride Carbon Dioxide Anion Gap 7 BUN Cancelled 22 H Creatinine Cancelled 0.90 Estim Creat Clear Calc Cancelled Estimated GFR Glucose POC Capillary Glucose Calcium Phosphorus Magnesium Total Bilirubin AST ALT Alkaline Phosphatase Total Protein Albumin Lipase Procalcitonin 02/06/24 02/06/24 02/06/24 13:31 13:31 13:31 WBC RBC Hgb Hct MCV MCH MCHC RDW Plt Count MPV Sodium Potassium Chloride Carbon Dioxide Anion Gap BUN Creatinine Estim Creat Clear Calc 56 Estimated GFR Cancelled > 60 Glucose Cancelled 132 H POC Capillary Glucose Calcium Cancelled Phosphorus Magnesium Total Bilirubin AST ALT Alkaline Phosphatase Total Protein Albumin Lipase Procalcitonin 02/06/24 13:31 WBC RBC Hgb Hct MCV MCH MCHC RDW Plt Count MPV Sodium Potassium Chloride Carbon Dioxide Anion Gap BUN Creatinine Estim Creat Clear Calc Estimated GFR Glucose POC Capillary Glucose Calcium 7.5 L Phosphorus Magnesium 1.9 Total Bilirubin AST ALT Alkaline Phosphatase Total Protein Albumin Lipase Procalcitonin
[2024-02-06] MEDS: acetaZOLAMIDE SODIUM FOR INJ 500 MG VIAL 250 MG IV PUSH (16:10)
[2024-02-06 16:55] LABS: Glucose Point of Care 179 mg/dl (65-105)
[2024-02-06] MEDS: QUEtiapine FUMARATE 25 MG TABLET PO (20:09)
[2024-02-06] MEDS: dexmedeTOMIDine 400 MCG/100 ML 400 MCG/100 ML BAG 8.37 MCG IV CONT (22:49)
[2024-02-06 23:31] LABS: Glucose Point of Care 145 mg/dl (65-105)
[2024-02-07] VITALS (20 sets, daily range): BP systolic 104–171; BP diastolic 9–113; PULSE 67–123; RESP 16–35; TEMP 36.6–37.7; O2SAT 90–99
[2024-02-07 04:31] LABS: Hematocrit 33.1 % (37.0-47.0); Hemoglobin 10.8 g/dL (12.0-15.0); Mean Corpuscular HGB Conc 32.6 g/dl (32-36); Mean Corpuscular Hemoglobin 27.6 pg (26-34); Mean Corpuscular Volume 84.7 fl (80-100); Mean Platelet Volume 10.5 fl (7.4-10.4); Platelet Count Result 169 k/mm3 (150-375); Red Blood Count 3.91 M/mm3 (4.2-5.4); Red Cell Distribution Width 13.2 % (11.5-14.5); White Blood Count 16.3 K/mm3 (4.5-10.0)
[2024-02-07 04:45] LABS: Alanine Aminotransferase 20 U/L (6-35); Albumin Level 2.9 g/dL (3.5-5.1); Alkaline Phosphatase 119 U/L (38-126); Anion Gap 3 mmol/L (4-12); Aspartate Amino Transferase 29 U/L (14-36); Blood Urea Nitrogen 22 mg/dL (7-17); Calcium 7.6 mg/dL (8.4-10.2); Carbon Dioxide 30 mmol/L (22-30); Chloride 102 mmol/L (98-107); Estimated CRCL calculation 51 ml/min; Estimated Glomerular Filt Rate 55; Glucose 125 mg/dL (65-110); Lipase 52 U/L (23-300); Phosphorus 2.9 mg/dL (2.5-4.5); Potassium 3.5 mmol/L (3.4-5.0); Sodium 135 mmol/L (137-145)
[2024-02-07] MEDS: PIPERACILLIN/TAZ 4.5G/NS 100ML 4.5 GM/100 ML BAG IVPB ×4 (05:31→23:25)
[2024-02-07] MEDS: HEPARIN SODIUM 5,000 UNITS/ML VIAL 5000 UNITS SUB-Q ×3 (06:39→21:04)
[2024-02-07 06:47] LABS: Glucose Point of Care 121 mg/dl (65-105)
[2024-02-07] MEDS: CENTRAL LINE FLUSH 10 ML IV PUSH ×3 (06:52→21:03)
--- NOTE | 2024-02-07 07:46 | PC.NURSE ---
Patient had 2 runs of SVT overnight at 2119 and 0644.
--- NOTE | 2024-02-07 08:35 | WPDGIPROGNO ---
Progress Note: A&P Time Spent With Patient Time: Patient with necrotizing acute pancreatitis and some evidence of respiratory failure, however she did improve with BiPAP and is currently on oxygen delivered by nasal cannula. Case discussed with ICU team, will try clear liquids today at lunch. She can probably be transferred to a regular floor this afternoon. Surgery continues to follow and will determine optimum time for laparoscopic cholecystectomy once pancreatitis improves and patient is more stable from respiratory standpoint and afebrile. Time with patient: 15 - 25 minutes Subjective Date/time seen: 02/07/24 08:35 Interval history: The patient feels better this morning, less respiratory distress, currently on oxygen delivered by nasal cannula. No abdominal pain, although still febrile. Exam Const: General: comfortable and no acute distress GI: Other: Bowel sounds present but decreased. No abdominal tenderness, no rebound. Objective Data Vital Signs Vital Signs: Vital Signs - 24 hr 02/06/24 08:48 02/06/24 08:49 02/06/24 08:56 Temperature Pulse Rate 98 98 96 Respiratory Rate 22 H 36 H 36 H Blood Pressure Pulse Oximetry 96 Oxygen Delivery CPAP Oxygen Flow Rate Fraction of Inspired Oxygen 02/06/24 10:00 02/06/24 10:00 02/06/24 11:17 Temperature 101.2 F H Pulse Rate 89 89 89 Respiratory Rate 29 H 26 H Blood Pressure 131/72 Pulse Oximetry 98 95 Oxygen Delivery CPAP Oxygen Flow Rate Fraction of Inspired Oxygen 02/06/24 11:38 02/06/24 12:00 02/06/24 12:00 Temperature 101.3 F H 101.4 F H Pulse Rate 98 98 Respiratory Rate 26 H Blood Pressure 136/76 Pulse Oximetry 94 Oxygen Delivery Oxygen Flow Rate Fraction of Inspired Oxygen 02/06/24 12:00 02/06/24 12:24 02/06/24 14:00 Temperature 101.4 F H Pulse Rate 98 97 Respiratory Rate 26 H Blood Pressure Pulse Oximetry 94 Oxygen Delivery CPAP Oxygen Flow Rate Fraction of Inspired Oxygen 02/06/24 14:00 02/06/24 14:30 02/06/24 15:18 Temperature 101.1 F H Pulse Rate 97 94 96 Respiratory Rate 28 H 22 H 20 Blood Pressure 147/73 H Pulse Oximetry 94 94 Oxygen Delivery CPAP Oxygen Flow Rate Fraction of Inspired Oxygen 02/06/24 15:19 02/06/24 16:00 02/06/24 16:00 Temperature Pulse Rate 96 92 92 Respiratory Rate 20 27 H Blood Pressure Pulse Oximetry 89 L Oxygen Delivery CPAP Oxygen Flow Rate Fraction of Inspired Oxygen 02/06/24 16:00 02/06/24 16:38 02/06/24 17:33 Temperature 100.3 F H 99.7 F H Pulse Rate 92 81 Respiratory Rate 27 H 22 H Blood Pressure 128/71 128/71 Pulse Oximetry 89 L 92 95 Oxygen Delivery Nasal Cannula Oxygen Flow Rate 2 Fraction of Inspired Oxygen 02/06/24 18:00 02/06/24 18:00 02/06/24 10:00 Temperature 99.5 F Pulse Rate 92 92 91 Respiratory Rate 23 H 28 H Blood Pressure 129/78 Pulse Oximetry 95 Oxygen Delivery Oxygen Flow Rate Fraction of Inspired Oxygen 02/06/24 12:00 02/06/24 14:00 02/06/24 16:00 Temperature Pulse Rate 98 97 92 Respiratory Rate 26 H 28 H 27 H Blood Pressure Pulse Oximetry Oxygen Delivery Oxygen Flow Rate Fraction of Inspired Oxygen 02/06/24 18:00 02/06/24 20:00 02/06/24 20:00 Temperature 99.5 F Pulse Rate 92 80 80 Respiratory Rate 23 H 29 H 29 H Blood Pressure 130/80 Pulse Oximetry 95 Oxygen Delivery Oxygen Flow Rate Fraction of Inspired Oxygen 02/06/24 20:47 02/06/24 20:00 02/06/24 20:00 Temperature Pulse Rate 78 95 Respiratory Rate 29 H Blood Pressure Pulse Oximetry 94 80 L Oxygen Delivery Nasal Cannula Nasal Cannula Oxygen Flow Rate 2 2 Fraction of Inspired Oxygen 02/06/24 21:43 02/06/24 22:00 02/06/24 22:00 Temperature Pulse Rate 94 93 93 Respiratory Rate 33 H 31 H Blood Pressure Pulse Oximetry 95 Oxygen Delivery CPAP Oxygen Flow Rate Fraction of Inspired Oxygen 02/06/24 22:00 02/06/24 21:42 02/06/24 21:49 Temperature 99.9 F H Pulse Rate 93 95 92 Respiratory Rate 31 H 33 H 30 H Blood Pressure 137/86 Pulse Oximetry 95 Oxygen Delivery Oxygen Flow Rate Fraction of Inspired Oxygen 02/06/24 22:49 02/06/24 22:49 02/07/24 00:00 Temperature Pulse Rate 87 87 77 Respiratory Rate 28 H 28 H Blood Pressure Pulse Oximetry Oxygen Delivery Oxygen Flow Rate Fraction of Inspired Oxygen 02/07/24 00:00 02/07/24 00:00 02/07/24 00:00 Temperature 99.5 F Pulse Rate 78 78 Respiratory Rate 23 H 23 H Blood Pressure 104/66 Pulse Oximetry 96 Oxygen Delivery CPAP Oxygen Flow Rate Fraction of Inspired Oxygen 36 02/06/24 23:22 02/07/24 02:00 02/07/24 02:00 Temperature 99.3 F Pulse Rate 96 71 71 Respiratory Rate 25 H 21 H Blood Pressure 111/65 Pulse Oximetry 96 Oxygen Delivery Oxygen Flow Rate Fraction of Inspired Oxygen 02/07/24 02:11 02/07/24 02:00 02/07/24 04:00 Temperature Pulse Rate 68 71 67 Respiratory Rate 22 H 21 H Blood Pressure Pulse Oximetry 96 Oxygen Delivery CPAP Oxygen Flow Rate Fraction of Inspired Oxygen 02/07/24 04:00 02/07/24 04:00 02/07/24 04:00 Temperature 99.5 F Pulse Rate 69 69 Respiratory Rate 22 H 22 H Blood Pressure 125/89 Pulse Oximetry 96 Oxygen Delivery CPAP Oxygen Flow Rate Fraction of Inspired Oxygen 36 02/07/24 05:39 02/07/24 06:00 02/07/24 06:40 Temperature Pulse Rate 70 75 72 Respiratory Rate 20 25 H 25 H Blood Pressure Pulse Oximetry 95 Oxygen Delivery CPAP Oxygen Flow Rate Fraction of Inspired Oxygen 02/07/24 06:00 02/07/24 06:00 02/07/24 07:38 Temperature 99.8 F H Pulse Rate 75 75 71 Respiratory Rate 25 H 21 H Blood Pressure 130/103 H Pulse Oximetry 90 Oxygen Delivery Oxygen Flow Rate Fraction of Inspired Oxygen 02/07/24 08:00 02/07/24 08:27 02/07/24 08:27 Temperature 99.9 F H Pulse Rate 74 Respiratory Rate 31 H Blood Pressure 157/78 H Pulse Oximetry 94 95 Oxygen Delivery Nasal Cannula Nasal Cannula Oxygen Flow Rate 2 Fraction of Inspired Oxygen Intake/Output Intake/Output: Intake & Output 02/04/24 02/05/24 02/06/24 02/07/24 23:59 23:59 23:59 23:59 Intake Total 2686.7 1544.4 2150.8 184.4 Output Total 2300 2100 2600 525 Balance 386.7 -555.6 -449.2 -340.6 Meds/Results Medications: Active Medications Generic Name Dose Route Start Last Admin Trade Name Freq PRN Reason Stop Dose Admin Acetaminophen 650 mg 10/10/24 16:12 02/06/24 11:38 Acetaminophen 325 Mg Tablet PO 650 mg Q4H PRN Administration Headache Albuterol/Ipratropium 3 ml 02/05/24 17:43 02/06/24 21:42 Ipratropium 0.5 Mg/Albuterol Sulfate 2.5 Mg Ampul.Neb 3 Ml INHALATION 3 ml Q4HRT PRN Administration Shortness Of Breath Or Wheezing Dextrose 12.5 gm 02/02/24 10:59 Dextrose 50% 25 Gm/50 Ml Syringe IV PUSH PRN PRN Hypoglycemia Protocol Fluticasone Propionate 2 spray 02/02/24 00:09 Fluticasone Propionate 0.05% Na Spr 16 Gm Btl (*Bkc) NASAL DAILY PRN allergy symptoms Glucagon 1 mg 02/02/24 10:59 Glucagon For Inj 1 Mg Vial IM PRN PRN Hypoglycemia Protocol Glucose 15 gm 02/02/24 10:59 Glucose Oral Gel 15 Gm Of Glucse In 37.5 Gm Tube PO PRN PRN Hypoglycemia Protocol Heparin Sodium (Porcine) 5,000 units 02/02/24 14:00 02/07/24 06:39 Heparin Sodium 5,000 Units/Ml Vial SUB-Q 5,000 units Q8HR CARLITOS Administration Hydralazine HCl 20 mg 02/04/24 09:30 02/04/24 16:34 Hydralazine Hcl 20 Mg/Ml Vial IV PUSH 20 mg Q4H PRN Administration SBP more than 160 - 2nd choice Hydromorphone HCl 0.5 mg 02/03/24 13:53 02/06/24 14:21 Hydromorphone Hcl Inj (*Crx) 1 Mg/Ml Syr IV PUSH 0.5 mg Q2H PRN Administration Pain Rated 7-10 Piperacillin Sod/Tazobactam Sod 4.5 gm in 100 mls @ 200 mls/hr 02/03/24 11:00 02/07/24 07:15 Zosyn 4.5 Gm/Ns 100 Ml IVPB Infused Q6H CARLITOS Infusion Dexmedetomidine HCl 400 mcg in 100 mls @ 6.278 mls/hr 02/05/24 00:45 02/07/24 07:38 Precedex 400 Mcg/100 Ml IV CONT 0.3 mcg/kg/hr .[id number] CARLITOS 6.28 mls/hr Titration Protocol 0.3 MCG/KG/HR Insulin Aspart 2 - 5 units 02/03/24 00:00 02/07/24 06:51 Insulin Aspart (*Bkc) 100 Units/Ml SUB-Q Not Given Q6HR CARLITOS Protocol Labetalol HCl 20 mg 02/04/24 09:30 02/04/24 10:54 Labetalol Hcl Inj 100 Mg/20 Ml Vial IV PUSH 20 mg Q4H PRN Administration SBP > 160 and HR> 60 -1st choice Multi-Ingred Cream/Lotion/Oil/Oint 1 applic 02/05/24 09:00 02/06/24 20:10 Mineral Oil/White Petrolatum Ointment EACH EYE 1 applic Q12HR CARLITOS Administration Ondansetron HCl 4 mg 02/01/24 19:52 02/05/24 01:15 Ondansetron Inj 4 Mg/2 Ml Vial IV PUSH 4 mg Q4H PRN Administration Nausea Pantoprazole Sodium 40 mg 02/04/24 09:00 02/06/24 08:39 Pantoprazole Sodium Iv 40 Mg Vial IV PUSH 40 mg QAM CARLITOS Administration Quetiapine Fumarate 25 mg 02/05/24 21:00 02/06/24 20:09 Quetiapine Fumarate 25 Mg Tablet PO 25 mg HS CARLITOS Administration Sodium Chloride 10 ml 02/03/24 14:00 02/07/24 06:52 Central Line Flush IV PUSH 10 ml Q8HR CARLITOS Administration Sodium Chloride 10 ml 02/03/24 12:07 Central Line Flush IV PUSH PRN PRN with TPN bag changes Sodium Chloride 20 ml 02/03/24 12:07 Central Line Flush IV PUSH PRN PRN after blood draws Radiology Results: ITS Impressions Chest/Abdomen/Pelvis CTA 02/01/24 18:35 IMPRESSION: No aortic dissection or aneurysm. Moderate interstitial pulmonary edema. Hepatomegaly. Acute interstitial pancreatitis. Possible portal vein and superior mesenteric vein thrombosis, versus artifact from unopacified blood in this arterial phase study. Consider right upper quadrant with a focus on obtaining portal venous color Doppler flow and waveforms. Vascular Ultrasound 02/01/24 19:23 IMPRESSION: Patent portal veins and superior mesenteric vein. Prior CT findings likely related to artifact from arterial phase imaging. Abdomen Ultrasound 02/02/24 09:49 IMPRESSION: 1. Pancreatitis. 2. Cholelithiasis. Gallbladder wall thickening may be secondary to interstitial edema or acute cholecystitis. 3. Diffuse hepatic steatosis. Abdomen/Pelvis CT 02/03/24 09:35 IMPRESSION: Findings consistent with acute pancreatitis, with additional findings worrisome for necrotizing pancreatitis, as detailed above. Severe hypovolemia by imaging criteria for which aggressive resuscitation is suggested. Cholelithiasis. Hepatomegaly. Interval development of bilateral pleural effusions with adjacent compressive atelectasis. These findings will be called to the ordering clinician. Once contact was made, an addendum will be performed. ADDENDUM: 02/03/24 1017 These findings were discussed with Rios Jones NP at 10:15 AM on 02/03/2024 Abdomen X-Ray 02/04/24 21:25 IMPRESSION: Interval replacement of the nasogastric tube with its tip projecting over the proximal stomach for which advancement of approximately 5 to 6 cm may be performed for optimal radiographic placement. Worsening bilateral pleural effusions, as detailed above. Chest X-Ray 02/06/24 08:52 IMPRESSION: 1. Stable small pleural effusions. 2. Stable airspace opacities in the mid and lower lung zones, consistent with atelectasis or less likely pneumonia. 3. Dilated small bowel, likely adynamic ileus. Labs Labs: Laboratory Results - last 24 hr 02/06/24 02/06/24 02/06/24 06:42 11:00 13:31 WBC RBC Hgb Hct MCV MCH MCHC RDW Plt Count MPV Sodium Cancelled Potassium Chloride Carbon Dioxide Anion Gap BUN Creatinine Estim Creat Clear Calc Estimated GFR Glucose POC Capillary Glucose 93 Calcium Phosphorus Magnesium Total Bilirubin AST ALT Alkaline Phosphatase Total Protein Albumin Lipase Procalcitonin 1.0 02/06/24 02/06/24 02/06/24 13:31 13:31 13:31 WBC RBC Hgb Hct MCV MCH MCHC RDW Plt Count MPV Sodium 141 Potassium Cancelled 3.2 L Chloride Cancelled 103 Carbon Dioxide Cancelled Anion Gap BUN Creatinine Estim Creat Clear Calc Estimated GFR Glucose POC Capillary Glucose Calcium Phosphorus Magnesium Total Bilirubin AST ALT Alkaline Phosphatase Total Protein Albumin Lipase Procalcitonin 02/06/24 02/06/24 02/06/24 13:31 13:31 13:31 WBC RBC Hgb Hct MCV MCH MCHC RDW Plt Count MPV Sodium Potassium Chloride Carbon Dioxide 31 H Anion Gap Cancelled 7 BUN Cancelled 22 H Creatinine Cancelled Estim Creat Clear Calc Estimated GFR Glucose POC Capillary Glucose Calcium Phosphorus Magnesium Total Bilirubin AST ALT Alkaline Phosphatase Total Protein Albumin Lipase Procalcitonin 02/06/24 02/06/24 02/06/24 13:31 13:31 13:31 WBC RBC Hgb Hct MCV MCH MCHC RDW Plt Count MPV Sodium Potassium Chloride Carbon Dioxide Anion Gap BUN Creatinine 0.90 Estim Creat Clear Calc Cancelled 56 Estimated GFR Cancelled > 60 Glucose Cancelled POC Capillary Glucose Calcium Phosphorus Magnesium Total Bilirubin AST ALT Alkaline Phosphatase Total Protein Albumin Lipase Procalcitonin 02/06/24 02/06/24 02/06/24 13:31 13:31 16:53 WBC RBC Hgb Hct MCV MCH MCHC RDW Plt Count MPV Sodium Potassium Chloride Carbon Dioxide Anion Gap BUN Creatinine Estim Creat Clear Calc Estimated GFR Glucose 132 H POC Capillary Glucose 179 H Calcium Cancelled 7.5 L Phosphorus Magnesium 1.9 Total Bilirubin AST ALT Alkaline Phosphatase Total Protein Albumin Lipase Procalcitonin 02/06/24 02/07/24 02/07/24 23:28 04:25 06:46 WBC 16.3 H RBC 3.91 L Hgb 10.8 L Hct 33.1 L MCV 84.7 MCH 27.6 MCHC 32.6 RDW 13.2 Plt Count 169 MPV 10.5 H Sodium 135 L Potassium 3.5 Chloride 102 Carbon Dioxide 30 Anion Gap 3 L BUN 22 H Creatinine 1.00 Estim Creat Clear Calc 51 Estimated GFR 55 L Glucose 125 H POC Capillary Glucose 145 H 121 H Calcium 7.6 L Phosphorus 2.9 Magnesium 2.0 Total Bilirubin 1.0 AST 29 ALT 20 Alkaline Phosphatase 119 Total Protein 6.0 L Albumin 2.9 L Lipase 52 Procalcitonin
--- NOTE | 2024-02-07 08:54 | WPDINTPN ---
Progress Note: A&P Assessment and Plan (1) Acute hypoxemic respiratory failure: Code(s): J96.01 - Acute respiratory failure with hypoxia Status: Acute Assessment and Plan: Acute respiratory failure likely combination of pleural effusion, pulmonary edema, atelectasis ileus leading to rapid shallow breathing, Chest x-ray done this morning shows 1. Stable small pleural effusions. 2. Stable airspace opacities in the mid and lower lung zones, consistent with atelectasis or less likely pneumonia. Patient had CPAP ordered overnight but she did not wear it. I spoke to patient this morning and explained the reasoning behind it and the benefits of it. Patient states she is willing to give additional the shot. I placed patient on CPAP 8 which has helped her breathing and respiratory rate has decreased. Will continue CPAP at this time as tolerated Lasix IV now and repeat later in the day Bronchodilators / clinically improved. Continue aggressive Incentive spirometry and up in chair CPAP p.r.n. Continue diuretics (2) Hypoxia: Code(s): R09.02 - Hypoxemia Status: Acute Assessment and Plan: See above (3) Acute necrotizing pancreatitis: Code(s): K85.91 - Acute pancreatitis with uninfected necrosis, unspecified Status: Acute Assessment and Plan: Acute necrotizing pancreatitis likely secondary to gallstones No currently obstructing gallstone as per imaging.. LFTs unremarkable. Lipase is improving Patient tolerating clear liquid diet at this time GI and general surgery following Imaging as above Pain control (4) Sepsis: Code(s): A41.9 - Sepsis, unspecified organism Status: Acute Assessment and Plan: Patient met criteria for sepsis. Blood cultures have been sent and are negative now Patient is on Zosyn which will be continued (5) Ileus: Code(s): K56.7 - Ileus, unspecified Status: Acute Assessment and Plan: Patient probable ileus likely severe pancreatitis poor NG tube was placed. Symptomatically patient is feeling better and now has diarrhea. X-ray still shows dilated bowel loops and she has decreased breath sounds but she is passing gas and tolerating clear liquid diet with no nausea vomiting Will do trial of bland diet today (6) Pleural effusion associated with pancreatitis: Code(s): K85.90 - Acute pancreatitis without necrosis or infection, unspecified; J91.8 - Pleural effusion in other conditions classified elsewhere Status: Acute Assessment and Plan: Likely secondary third-spacing. Continue diuretics (7) Cholelithiasis: Code(s): K80.20 - Calculus of gallbladder without cholecystitis without obstruction Status: Acute Assessment and Plan: See above (8) Electrolyte abnormality: Code(s): E87.8 - Other disorders of electrolyte and fluid balance, not elsewhere classified Status: Acute Assessment and Plan: Replace low potassium (9) Delirium: Code(s): R41.0 - Disorientation, unspecified Status: Acute Assessment and Plan: Will discontinue Precedex infusion, avoid benzodiazepine Continue low-dose Seroquel at night Supportive treatment Plan DVT prophylaxis -heparin Stress ulcer prophylaxis -Protonix Nutrition -trial of bland diet Code Status - Full Code Incentive spirometry Up in chair Total Critical Care Time - 30 minutes Due to a high probability of clinically significant, life threatening deterioration, the patient required my highest level of preparedness to intervene emergently and I personally spent this critical care time directly and personally managing the patient. This critical care time included obtaining a history; examining the patient; pulse oximetry; ordering and review of studies; arranging urgent treatment with development of a management plan; evaluation of patient's response to treatment; frequent reassessment; and discussions with other providers. It was exclusive of separately billable procedures and treating other patients and teaching time. Please see Assessment and Plan section and the rest of the note for further information on patient assessment and treatment Subjective Date/time seen: 02/07/24 Overnight events reviewed. Low-grade fever Wore CPAP overnight She states she feels better this morning and her breathing is better. She denies any abdominal pain nausea or vomiting. She still has some cough which is dry. She denies any fever. She tolerated liquid diet. She still feels her belly is low bloated than her baseline. She is passing gas but no bowel movement. On nasal cannula this morning. Other Vitals acceptable Review of Systems Review of Systems: All systems reviewed & are unremarkable except as noted in HPI and below (HPI) Exam Narrative: General: Pt is alert awake and in NAD Lungs/Chest: Trachea central Clear BS B/L, occasional wheezing anteriorly, Breath sounds are decreased at bases. Mild tachypnea. But no respiratory distress or use of accessory muscles. Cardiac: RRR. Normal S1 S2. No murmurs Circulation: Pedal pulses are intact and symmetrical. Abdomen: Decreased bowel sounds.. Soft. Mildly distended. No tenderness on palpation today. Extremities: No clubbing, cyanosis or edema. Warm : Sanchez in place Neurologic: Follows commands. Moves all 4 extremities PERRL confused AO x3 only Skin: No Rash Objective Data Vital Signs Vital Signs: Vital Signs - 24 hr 02/06/24 08:56 02/06/24 10:00 02/06/24 10:00 Temperature 38.4 C H Pulse Rate 96 89 89 Respiratory Rate 36 H 29 H Blood Pressure 131/72 Pulse Oximetry 98 Oxygen Delivery Oxygen Flow Rate Fraction of Inspired Oxygen 02/06/24 11:17 02/06/24 11:38 02/06/24 12:00 Temperature 38.5 C H Pulse Rate 89 98 Respiratory Rate 26 H Blood Pressure Pulse Oximetry 95 Oxygen Delivery CPAP Oxygen Flow Rate Fraction of Inspired Oxygen 02/06/24 12:00 02/06/24 12:00 02/06/24 12:24 Temperature 38.6 C H 38.6 C H Pulse Rate 98 98 Respiratory Rate 26 H 26 H Blood Pressure 136/76 Pulse Oximetry 94 94 Oxygen Delivery CPAP Oxygen Flow Rate Fraction of Inspired Oxygen 02/06/24 14:00 02/06/24 14:00 02/06/24 14:30 Temperature 38.4 C H Pulse Rate 97 97 94 Respiratory Rate 28 H 22 H Blood Pressure 147/73 H Pulse Oximetry 94 Oxygen Delivery Oxygen Flow Rate Fraction of Inspired Oxygen 02/06/24 15:18 02/06/24 15:19 02/06/24 16:00 Temperature Pulse Rate 96 96 92 Respiratory Rate 20 20 Blood Pressure Pulse Oximetry 94 Oxygen Delivery CPAP Oxygen Flow Rate Fraction of Inspired Oxygen 02/06/24 16:00 02/06/24 16:00 02/06/24 16:38 Temperature 37.9 C H 37.6 C H Pulse Rate 92 92 81 Respiratory Rate 27 H 27 H 22 H Blood Pressure 128/71 128/71 Pulse Oximetry 89 L 89 L 92 Oxygen Delivery CPAP Oxygen Flow Rate Fraction of Inspired Oxygen 02/06/24 17:33 02/06/24 18:00 02/06/24 18:00 Temperature 37.5 C Pulse Rate 92 92 Respiratory Rate 23 H Blood Pressure 129/78 Pulse Oximetry 95 95 Oxygen Delivery Nasal Cannula Oxygen Flow Rate 2 Fraction of Inspired Oxygen 02/06/24 10:00 02/06/24 12:00 02/06/24 14:00 Temperature Pulse Rate 91 98 97 Respiratory Rate 28 H 26 H 28 H Blood Pressure Pulse Oximetry Oxygen Delivery Oxygen Flow Rate Fraction of Inspired Oxygen 02/06/24 16:00 02/06/24 18:00 02/06/24 20:00 Temperature Pulse Rate 92 92 80 Respiratory Rate 27 H 23 H 29 H Blood Pressure Pulse Oximetry Oxygen Delivery Oxygen Flow Rate Fraction of Inspired Oxygen 02/06/24 20:00 02/06/24 20:47 02/06/24 20:00 Temperature 37.5 C Pulse Rate 80 78 Respiratory Rate 29 H Blood Pressure 130/80 Pulse Oximetry 95 94 Oxygen Delivery Nasal Cannula Oxygen Flow Rate 2 Fraction of Inspired Oxygen 02/06/24 20:00 02/06/24 21:43 02/06/24 22:00 Temperature Pulse Rate 95 94 93 Respiratory Rate 29 H 33 H 31 H Blood Pressure Pulse Oximetry 80 L 95 Oxygen Delivery Nasal Cannula CPAP Oxygen Flow Rate 2 Fraction of Inspired Oxygen 02/06/24 22:00 02/06/24 22:00 02/06/24 21:42 Temperature 37.7 C H Pulse Rate 93 93 95 Respiratory Rate 31 H 33 H Blood Pressure 137/86 Pulse Oximetry 95 Oxygen Delivery Oxygen Flow Rate Fraction of Inspired Oxygen 02/06/24 21:49 02/06/24 22:49 02/06/24 22:49 Temperature Pulse Rate 92 87 87 Respiratory Rate 30 H 28 H 28 H Blood Pressure Pulse Oximetry Oxygen Delivery Oxygen Flow Rate Fraction of Inspired Oxygen 02/07/24 00:00 02/07/24 00:00 02/07/24 00:00 Temperature 37.5 C Pulse Rate 77 78 Respiratory Rate 23 H Blood Pressure 104/66 Pulse Oximetry 96 Oxygen Delivery CPAP Oxygen Flow Rate Fraction of Inspired Oxygen 36 02/07/24 00:00 02/06/24 23:22 02/07/24 02:00 Temperature Pulse Rate 78 96 71 Respiratory Rate 23 H 25 H Blood Pressure Pulse Oximetry Oxygen Delivery Oxygen Flow Rate Fraction of Inspired Oxygen 02/07/24 02:00 02/07/24 02:11 02/07/24 02:00 Temperature 37.4 C Pulse Rate 71 68 71 Respiratory Rate 21 H 22 H 21 H Blood Pressure 111/65 Pulse Oximetry 96 96 Oxygen Delivery CPAP Oxygen Flow Rate Fraction of Inspired Oxygen 02/07/24 04:00 02/07/24 04:00 02/07/24 04:00 Temperature 37.5 C Pulse Rate 67 69 Respiratory Rate 22 H Blood Pressure 125/89 Pulse Oximetry 96 Oxygen Delivery CPAP Oxygen Flow Rate Fraction of Inspired Oxygen 36 02/07/24 04:00 02/07/24 05:39 02/07/24 06:00 Temperature Pulse Rate 69 70 75 Respiratory Rate 22 H 20 25 H Blood Pressure Pulse Oximetry 95 Oxygen Delivery CPAP Oxygen Flow Rate Fraction of Inspired Oxygen 02/07/24 06:40 02/07/24 06:00 02/07/24 06:00 Temperature 37.7 C H Pulse Rate 72 75 75 Respiratory Rate 25 H 25 H Blood Pressure 130/103 H Pulse Oximetry 90 Oxygen Delivery Oxygen Flow Rate Fraction of Inspired Oxygen 02/07/24 07:38 02/07/24 08:00 02/07/24 08:27 Temperature 37.7 C H Pulse Rate 71 74 Respiratory Rate 21 H 31 H Blood Pressure 157/78 H Pulse Oximetry 94 Oxygen Delivery Nasal Cannula Oxygen Flow Rate Fraction of Inspired Oxygen 02/07/24 08:27 Temperature Pulse Rate Respiratory Rate Blood Pressure Pulse Oximetry 95 Oxygen Delivery Nasal Cannula Oxygen Flow Rate 2 Fraction of Inspired Oxygen Intake/Output Intake/Output: Intake & Output 02/04/24 02/05/24 02/06/24 02/07/24 23:59 23:59 23:59 23:59 Intake Total 2686.7 1544.4 2150.8 184.4 Output Total 2300 2100 2600 525 Balance 386.7 -555.6 -449.2 -340.6 Meds/Results Medications: Active Medications Generic Name Dose Route Start Last Admin Trade Name Freq PRN Reason Stop Dose Admin Acetaminophen 650 mg 02/05/24 16:12 02/06/24 11:38 Acetaminophen 325 Mg Tablet PO 650 mg Q4H PRN Administration Headache Albuterol/Ipratropium 3 ml 02/05/24 17:43 02/06/24 21:42 Ipratropium 0.5 Mg/Albuterol Sulfate 2.5 Mg Ampul.Neb 3 Ml INHALATION 3 ml Q4HRT PRN Administration Shortness Of Breath Or Wheezing Dextrose 12.5 gm 02/02/24 10:59 Dextrose 50% 25 Gm/50 Ml Syringe IV PUSH PRN PRN Hypoglycemia Protocol Fluticasone Propionate 2 spray 02/02/24 00:09 Fluticasone Propionate 0.05% Na Spr 16 Gm Btl (*Bkc) NASAL DAILY PRN allergy symptoms Glucagon 1 mg 02/02/24 10:59 Glucagon For Inj 1 Mg Vial IM PRN PRN Hypoglycemia Protocol Glucose 15 gm 02/02/24 10:59 Glucose Oral Gel 15 Gm Of Glucse In 37.5 Gm Tube PO PRN PRN Hypoglycemia Protocol Heparin Sodium (Porcine) 5,000 units 02/02/24 14:00 02/07/24 06:39 Heparin Sodium 5,000 Units/Ml Vial SUB-Q 5,000 units Q8HR CARLITOS Administration Hydralazine HCl 20 mg 02/04/24 09:30 02/04/24 16:34 Hydralazine Hcl 20 Mg/Ml Vial IV PUSH 20 mg Q4H PRN Administration SBP more than 160 - 2nd choice Hydromorphone HCl 0.5 mg 02/03/24 13:53 02/06/24 14:21 Hydromorphone Hcl Inj (*Crx) 1 Mg/Ml Syr IV PUSH 0.5 mg Q2H PRN Administration Pain Rated 7-10 Piperacillin Sod/Tazobactam Sod 4.5 gm in 100 mls @ 200 mls/hr 02/03/24 11:00 02/07/24 07:15 Zosyn 4.5 Gm/Ns 100 Ml IVPB Infused Q6H CARLITOS Infusion Dexmedetomidine HCl 400 mcg in 100 mls @ 6.278 mls/hr 02/05/24 00:45 02/07/24 07:38 Precedex 400 Mcg/100 Ml IV CONT 0.3 mcg/kg/hr .[id number] CARLITOS 6.28 mls/hr Titration Protocol 0.3 MCG/KG/HR Insulin Aspart 2 - 5 units 02/03/24 00:00 02/07/24 06:51 Insulin Aspart (*Bkc) 100 Units/Ml SUB-Q Not Given Q6HR [facility]1983 Protocol Labetalol HCl 20 mg 02/04/24 09:30 02/04/24 10:54 Labetalol Hcl Inj 100 Mg/20 Ml Vial IV PUSH 20 mg Q4H PRN Administration SBP > 160 and HR> 60 -1st choice Multi-Ingred Cream/Lotion/Oil/Oint 1 applic 02/05/24 09:00 02/06/24 20:10 Mineral Oil/White Petrolatum Ointment EACH EYE 1 applic Q12HR CARLITOS Administration Ondansetron HCl 4 mg 02/01/24 19:52 02/05/24 01:15 Ondansetron Inj 4 Mg/2 Ml Vial IV PUSH 4 mg Q4H PRN Administration Nausea Pantoprazole Sodium 40 mg 02/04/24 09:00 02/06/24 08:39 Pantoprazole Sodium Iv 40 Mg Vial IV PUSH 40 mg QAM CARLITOS Administration Quetiapine Fumarate 25 mg 02/05/24 21:00 02/06/24 20:09 Quetiapine Fumarate 25 Mg Tablet PO 25 mg HS CARLITOS Administration Sodium Chloride 10 ml 02/03/24 14:00 02/07/24 06:52 Central Line Flush IV PUSH 10 ml Q8HR CARLITOS Administration Sodium Chloride 10 ml 02/03/24 12:07 Central Line Flush IV PUSH PRN PRN with TPN bag changes Sodium Chloride 20 ml 02/03/24 12:07 Central Line Flush IV PUSH PRN PRN after blood draws Radiology Results: ITS Impressions Chest/Abdomen/Pelvis CTA 02/01/24 18:35 IMPRESSION: No aortic dissection or aneurysm. Moderate interstitial pulmonary edema. Hepatomegaly. Acute interstitial pancreatitis. Possible portal vein and superior mesenteric vein thrombosis, versus artifact from unopacified blood in this arterial phase study. Consider right upper quadrant with a focus on obtaining portal venous color Doppler flow and waveforms. Vascular Ultrasound 02/01/24 19:23 IMPRESSION: Patent portal veins and superior mesenteric vein. Prior CT findings likely related to artifact from arterial phase imaging. Abdomen Ultrasound 02/02/24 09:49 IMPRESSION: 1. Pancreatitis. 2. Cholelithiasis. Gallbladder wall thickening may be secondary to interstitial edema or acute cholecystitis. 3. Diffuse hepatic steatosis. Abdomen/Pelvis CT 02/03/24 09:35 IMPRESSION: Findings consistent with acute pancreatitis, with additional findings worrisome for necrotizing pancreatitis, as detailed above. Severe hypovolemia by imaging criteria for which aggressive resuscitation is suggested. Cholelithiasis. Hepatomegaly. Interval development of bilateral pleural effusions with adjacent compressive atelectasis. These findings will be called to the ordering clinician. Once contact was made, an addendum will be performed. ADDENDUM: 02/03/24 1017 These findings were discussed with Rios Jones NP at 10:15 AM on 02/03/2024 Abdomen X-Ray 02/04/24 21:25 IMPRESSION: Interval replacement of the nasogastric tube with its tip projecting over the proximal stomach for which advancement of approximately 5 to 6 cm may be performed for optimal radiographic placement. Worsening bilateral pleural effusions, as detailed above. Chest X-Ray 02/06/24 08:52 IMPRESSION: 1. Stable small pleural effusions. 2. Stable airspace opacities in the mid and lower lung zones, consistent with atelectasis or less likely pneumonia. 3. Dilated small bowel, likely adynamic ileus. Labs Labs: Laboratory Results - last 24 hr 02/06/24 02/06/24 02/06/24 06:42 11:00 13:31 WBC RBC Hgb Hct MCV MCH MCHC RDW Plt Count MPV Sodium Cancelled Potassium Chloride Carbon Dioxide Anion Gap BUN Creatinine Estim Creat Clear Calc Estimated GFR Glucose POC Capillary Glucose 93 Calcium Phosphorus Magnesium Total Bilirubin AST ALT Alkaline Phosphatase Total Protein Albumin Lipase Procalcitonin 1.0 02/06/24 02/06/24 02/06/24 13:31 13:31 13:31 WBC RBC Hgb Hct MCV MCH MCHC RDW Plt Count MPV Sodium 141 Potassium Cancelled 3.2 L Chloride Cancelled 103 Carbon Dioxide Cancelled Anion Gap BUN Creatinine Estim Creat Clear Calc Estimated GFR Glucose POC Capillary Glucose Calcium Phosphorus Magnesium Total Bilirubin AST ALT Alkaline Phosphatase Total Protein Albumin Lipase Procalcitonin 02/06/24 02/06/24 02/06/24 13:31 13:31 13:31 WBC RBC Hgb Hct MCV MCH MCHC RDW Plt Count MPV Sodium Potassium Chloride Carbon Dioxide 31 H Anion Gap Cancelled 7 BUN Cancelled 22 H Creatinine Cancelled Estim Creat Clear Calc Estimated GFR Glucose POC Capillary Glucose Calcium Phosphorus Magnesium Total Bilirubin AST ALT Alkaline Phosphatase Total Protein Albumin Lipase Procalcitonin 02/06/24 02/06/24 02/06/24 13:31 13:31 13:31 WBC RBC Hgb Hct MCV MCH MCHC RDW Plt Count MPV Sodium Potassium Chloride Carbon Dioxide Anion Gap BUN Creatinine 0.90 Estim Creat Clear Calc Cancelled 56 Estimated GFR Cancelled > 60 Glucose Cancelled POC Capillary Glucose Calcium Phosphorus Magnesium Total Bilirubin AST ALT Alkaline Phosphatase Total Protein Albumin Lipase Procalcitonin 02/06/24 02/06/24 02/06/24 13:31 13:31 16:53 WBC RBC Hgb Hct MCV MCH MCHC RDW Plt Count MPV Sodium Potassium Chloride Carbon Dioxide Anion Gap BUN Creatinine Estim Creat Clear Calc Estimated GFR Glucose 132 H POC Capillary Glucose 179 H Calcium Cancelled 7.5 L Phosphorus Magnesium 1.9 Total Bilirubin AST ALT Alkaline Phosphatase Total Protein Albumin Lipase Procalcitonin 02/06/24 02/07/24 02/07/24 23:28 04:25 06:46 WBC 16.3 H RBC 3.91 L Hgb 10.8 L Hct 33.1 L MCV 84.7 MCH 27.6 MCHC 32.6 RDW 13.2 Plt Count 169 MPV 10.5 H Sodium 135 L Potassium 3.5 Chloride 102 Carbon Dioxide 30 Anion Gap 3 L BUN 22 H Creatinine 1.00 Estim Creat Clear Calc 51 Estimated GFR 55 L Glucose 125 H POC Capillary Glucose 145 H 121 H Calcium 7.6 L Phosphorus 2.9 Magnesium 2.0 Total Bilirubin 1.0 AST 29 ALT 20 Alkaline Phosphatase 119 Total Protein 6.0 L Albumin 2.9 L Lipase 52 Procalcitonin Quality VTE Prophylaxis VTE prophylaxis: mechanical ordered and pharmacologic ordered
[2024-02-07] MEDS: PANTOPRAZOLE SODIUM IV 40 MG VIAL IV PUSH (09:17)
[2024-02-07] MEDS: POTASSIUM CHLORIDE 20 MEQ ER TABLET 40 MEQ PO ×2 (09:17→15:28)
[2024-02-07] MEDS: ACETAMINOPHEN 325 MG TABLET 650 MG PO ×3 (11:21→21:03)
[2024-02-07] MEDS: FUROSEMIDE INJ 100 MG/10 ML VIAL 80 MG IV PUSH (11:25)
[2024-02-07 11:38] LABS: Glucose Point of Care 106 mg/dl (65-105)
--- NOTE | 2024-02-07 12:44 | P.PNGS_ITS ---
Progress Note: A&P Assessment and Plan (1) Gallstone pancreatitis: Code(s): K85.10 - Biliary acute pancreatitis without necrosis or infection Status: Acute Assessment and Plan: improving, exam largely benign, labs improving, cont abx and supportive care, cont low fiber diet, will need interval cholecystectomy likely as outpt once medically optimized, ok to tx to floor Subjective Subjective Date/Time Seen: 02/07/24 12:45 Interval history: feels better, c/o some back pain, sandy low fiber diet Review of Systems Review of Systems: All systems reviewed & are unremarkable except as noted in HPI and below Exam Const: General: cooperative, no acute distress and uncomfortable Resp: Auscultation: clear to auscultation bilaterally Cardio: Rate: regular rate Rhythm: regular rhythm GI: GI Palp: Yes abdominal tenderness, Yes Soft to palpation, Yes Tenderness to palpation present (GI), No Guarding due to palpation present (GI) and No Rigid due to palpation Objective Data Vital Signs Vital Signs: Vital Signs - 24 hr 02/06/24 14:00 02/06/24 14:00 02/06/24 14:30 Temperature 38.4 C H Pulse Rate 97 97 94 Respiratory Rate 28 H 22 H Blood Pressure 147/73 H Pulse Oximetry 94 Oxygen Delivery Oxygen Flow Rate Fraction of Inspired Oxygen 02/06/24 15:18 02/06/24 15:19 02/06/24 16:00 Temperature Pulse Rate 96 96 92 Respiratory Rate 20 20 Blood Pressure Pulse Oximetry 94 Oxygen Delivery CPAP Oxygen Flow Rate Fraction of Inspired Oxygen 02/06/24 16:00 02/06/24 16:00 02/06/24 16:38 Temperature 37.9 C H 37.6 C H Pulse Rate 92 92 81 Respiratory Rate 27 H 27 H 22 H Blood Pressure 128/71 128/71 Pulse Oximetry 89 L 89 L 92 Oxygen Delivery CPAP Oxygen Flow Rate Fraction of Inspired Oxygen 02/06/24 17:33 02/06/24 18:00 02/06/24 18:00 Temperature 37.5 C Pulse Rate 92 92 Respiratory Rate 23 H Blood Pressure 129/78 Pulse Oximetry 95 95 Oxygen Delivery Nasal Cannula Oxygen Flow Rate 2 Fraction of Inspired Oxygen 02/06/24 14:00 02/06/24 16:00 02/06/24 18:00 Temperature Pulse Rate 97 92 92 Respiratory Rate 28 H 27 H 23 H Blood Pressure Pulse Oximetry Oxygen Delivery Oxygen Flow Rate Fraction of Inspired Oxygen 02/06/24 20:00 02/06/24 20:00 02/06/24 20:47 Temperature 37.5 C Pulse Rate 80 80 Respiratory Rate 29 H 29 H Blood Pressure 130/80 Pulse Oximetry 95 94 Oxygen Delivery Nasal Cannula Oxygen Flow Rate 2 Fraction of Inspired Oxygen 02/06/24 20:00 02/06/24 20:00 02/06/24 21:43 Temperature Pulse Rate 78 95 94 Respiratory Rate 29 H 33 H Blood Pressure Pulse Oximetry 80 L 95 Oxygen Delivery Nasal Cannula CPAP Oxygen Flow Rate 2 Fraction of Inspired Oxygen 02/06/24 22:00 02/06/24 22:00 02/06/24 22:00 Temperature 37.7 C H Pulse Rate 93 93 93 Respiratory Rate 31 H 31 H Blood Pressure 137/86 Pulse Oximetry 95 Oxygen Delivery Oxygen Flow Rate Fraction of Inspired Oxygen 02/06/24 21:42 02/06/24 21:49 02/06/24 22:49 Temperature Pulse Rate 95 92 87 Respiratory Rate 33 H 30 H 28 H Blood Pressure Pulse Oximetry Oxygen Delivery Oxygen Flow Rate Fraction of Inspired Oxygen 02/06/24 22:49 02/07/24 00:00 02/07/24 00:00 Temperature Pulse Rate 87 77 Respiratory Rate 28 H Blood Pressure Pulse Oximetry Oxygen Delivery CPAP Oxygen Flow Rate Fraction of Inspired Oxygen 36 02/07/24 00:00 02/07/24 00:00 02/06/24 23:22 Temperature 37.5 C Pulse Rate 78 78 96 Respiratory Rate 23 H 23 H 25 H Blood Pressure 104/66 Pulse Oximetry 96 Oxygen Delivery Oxygen Flow Rate Fraction of Inspired Oxygen 02/07/24 02:00 02/07/24 02:00 02/07/24 02:11 Temperature 37.4 C Pulse Rate 71 71 68 Respiratory Rate 21 H 22 H Blood Pressure 111/65 Pulse Oximetry 96 96 Oxygen Delivery CPAP Oxygen Flow Rate Fraction of Inspired Oxygen 02/07/24 02:00 02/07/24 04:00 02/07/24 04:00 Temperature 37.5 C Pulse Rate 71 67 69 Respiratory Rate 21 H 22 H Blood Pressure 125/89 Pulse Oximetry 96 Oxygen Delivery Oxygen Flow Rate Fraction of Inspired Oxygen 02/07/24 04:00 02/07/24 04:00 02/07/24 05:39 Temperature Pulse Rate 69 70 Respiratory Rate 22 H 20 Blood Pressure Pulse Oximetry 95 Oxygen Delivery CPAP CPAP Oxygen Flow Rate Fraction of Inspired Oxygen 36 02/07/24 06:00 02/07/24 06:40 02/07/24 06:00 Temperature Pulse Rate 75 72 75 Respiratory Rate 25 H 25 H Blood Pressure Pulse Oximetry Oxygen Delivery Oxygen Flow Rate Fraction of Inspired Oxygen 02/07/24 06:00 02/07/24 07:38 02/07/24 08:00 Temperature 37.7 C H 37.7 C H Pulse Rate 75 71 74 Respiratory Rate 25 H 21 H 31 H Blood Pressure 130/103 H 157/78 H Pulse Oximetry 90 94 Oxygen Delivery Oxygen Flow Rate Fraction of Inspired Oxygen 02/07/24 08:27 02/07/24 08:27 02/07/24 08:00 Temperature Pulse Rate 75 Respiratory Rate 20 Blood Pressure Pulse Oximetry 95 Oxygen Delivery Nasal Cannula Nasal Cannula Oxygen Flow Rate 2 Fraction of Inspired Oxygen 02/07/24 10:00 02/07/24 12:00 Temperature 36.6 C 37.1 C Pulse Rate 108 H 110 H Respiratory Rate 35 H 35 H Blood Pressure 165/82 H 171/113 H Pulse Oximetry 94 95 Oxygen Delivery Oxygen Flow Rate Fraction of Inspired Oxygen Intake/Output Intake/Output: Intake & Output 02/04/24 02/05/24 02/06/24 02/07/24 23:59 23:59 23:59 23:59 Intake Total 2686.7 1544.4 2150.8 186.7 Output Total 2300 2100 2600 525 Balance 386.7 -555.6 -449.2 -338.3 Meds/Results Medications: Active Medications Generic Name Dose Route Start Last Admin Trade Name Freq PRN Reason Stop Dose Admin Acetaminophen 650 mg 02/05/24 16:12 02/07/24 11:21 Acetaminophen 325 Mg Tablet PO 650 mg Q4H PRN Administration Headache Albuterol/Ipratropium 3 ml 02/05/24 17:43 02/06/24 21:42 Ipratropium 0.5 Mg/Albuterol Sulfate 2.5 Mg Ampul.Neb 3 Ml INHALATION 3 ml Q4HRT PRN Administration Shortness Of Breath Or Wheezing Dextrose 12.5 gm 02/02/24 10:59 Dextrose 50% 25 Gm/50 Ml Syringe IV PUSH PRN PRN Hypoglycemia Protocol Fluticasone Propionate 2 spray 02/02/24 00:09 Fluticasone Propionate 0.05% Na Spr 16 Gm Btl (*Bkc) NASAL DAILY PRN allergy symptoms Glucagon 1 mg 02/02/24 10:59 Glucagon For Inj 1 Mg Vial IM PRN PRN Hypoglycemia Protocol Glucose 15 gm 02/02/24 10:59 Glucose Oral Gel 15 Gm Of Glucse In 37.5 Gm Tube PO PRN PRN Hypoglycemia Protocol Heparin Sodium (Porcine) 5,000 units 02/02/24 14:00 02/07/24 06:39 Heparin Sodium 5,000 Units/Ml Vial SUB-Q 5,000 units Q8HR [facility] Administration Hydralazine HCl 20 mg 02/04/24 09:30 02/04/24 16:34 Hydralazine Hcl 20 Mg/Ml Vial IV PUSH 20 mg Q4H PRN Administration SBP more than 160 - 2nd choice Hydromorphone HCl 0.5 mg 02/03/24 13:53 02/06/24 14:21 Hydromorphone Hcl Inj (*Crx) 1 Mg/Ml Syr IV PUSH 0.5 mg Q2H PRN Administration Pain Rated 7-10 Piperacillin Sod/Tazobactam Sod 4.5 gm in 100 mls @ 200 mls/hr 02/03/24 11:00 02/07/24 11:24 Zosyn 4.5 Gm/Ns 100 Ml IVPB 100 mls/hr Q6H [facility] Administration Dexmedetomidine HCl 400 mcg in 100 mls @ 0 mls/hr 02/05/24 00:45 02/07/24 08:00 Precedex 400 Mcg/100 Ml IV CONT 0 mcg/kg/hr .Q0M CARLITOS 0 mls/hr Titration Protocol 0 MCG/KG/HR Insulin Aspart 2 - 5 units 02/03/24 00:00 02/07/24 11:37 Insulin Aspart (*Bkc) 100 Units/Ml SUB-Q Not Given Q6HR [facility] Protocol Labetalol HCl 20 mg 02/04/24 09:30 02/04/24 10:54 Labetalol Hcl Inj 100 Mg/20 Ml Vial IV PUSH 20 mg Q4H PRN Administration SBP > 160 and HR> 60 -1st choice Multi-Ingred Cream/Lotion/Oil/Oint 1 applic 02/05/24 09:00 02/07/24 08:56 Mineral Oil/White Petrolatum Ointment EACH EYE Not Given Q12HR [facility] Ondansetron HCl 4 mg 02/01/24 19:52 02/05/24 01:15 Ondansetron Inj 4 Mg/2 Ml Vial IV PUSH 4 mg Q4H PRN Administration Nausea Pantoprazole Sodium 40 mg 02/04/24 09:00 02/07/24 09:17 Pantoprazole Sodium Iv 40 Mg Vial IV PUSH 40 mg QAM [facility] Administration Potassium Chloride 40 meq 02/07/24 09:00 02/07/24 09:17 Potassium Chloride 20 Meq Er Tablet PO 02/07/24 15:01 40 meq Q6H [facility] Administration Quetiapine Fumarate 25 mg 02/05/24 21:00 02/06/24 20:09 Quetiapine Fumarate 25 Mg Tablet PO 25 mg HS [facility] Administration Sodium Chloride 10 ml 02/03/24 14:00 02/07/24 06:52 Central Line Flush IV PUSH 10 ml Q8HR [facility] Administration Sodium Chloride 10 ml 02/03/24 12:07 Central Line Flush IV PUSH PRN PRN with TPN bag changes Sodium Chloride 20 ml 02/03/24 12:07 Central Line Flush IV PUSH PRN PRN after blood draws Radiology Results: ITS Impressions Chest/Abdomen/Pelvis CTA 02/01/24 18:35 IMPRESSION: No aortic dissection or aneurysm. Moderate interstitial pulmonary edema. Hepatomegaly. Acute interstitial pancreatitis. Possible portal vein and superior mesenteric vein thrombosis, versus artifact from unopacified blood in this arterial phase study. Consider right upper quadrant with a focus on obtaining portal venous color Doppler flow and waveforms. Vascular Ultrasound 02/01/24 19:23 IMPRESSION: Patent portal veins and superior mesenteric vein. Prior CT findings likely related to artifact from arterial phase imaging. Abdomen Ultrasound 02/02/24 09:49 IMPRESSION: 1. Pancreatitis. 2. Cholelithiasis. Gallbladder wall thickening may be secondary to interstitial edema or acute cholecystitis. 3. Diffuse hepatic steatosis. Abdomen/Pelvis CT 02/03/24 09:35 IMPRESSION: Findings consistent with acute pancreatitis, with additional findings worrisome for necrotizing pancreatitis, as detailed above. Severe hypovolemia by imaging criteria for which aggressive resuscitation is suggested. Cholelithiasis. Hepatomegaly. Interval development of bilateral pleural effusions with adjacent compressive atelectasis. These findings will be called to the ordering clinician. Once contact was made, an addendum will be performed. ADDENDUM: 02/03/24 1017 These findings were discussed with Rios Jones NP at 10:15 AM on 02/03/2024 Abdomen X-Ray 02/04/24 21:25 IMPRESSION: Interval replacement of the nasogastric tube with its tip projecting over the proximal stomach for which advancement of approximately 5 to 6 cm may be performed for optimal radiographic placement. Worsening bilateral pleural effusions, as detailed above. Chest X-Ray 02/06/24 08:52 IMPRESSION: 1. Stable small pleural effusions. 2. Stable airspace opacities in the mid and lower lung zones, consistent with atelectasis or less likely pneumonia. 3. Dilated small bowel, likely adynamic ileus. Labs Labs: Laboratory Results - last 24 hr 02/06/24 02/06/24 02/06/24 13:31 13:31 13:31 WBC RBC Hgb Hct MCV MCH MCHC RDW Plt Count MPV Sodium Cancelled 141 Potassium Cancelled 3.2 L Chloride Cancelled Carbon Dioxide Anion Gap BUN Creatinine Estim Creat Clear Calc Estimated GFR Glucose POC Capillary Glucose Calcium Phosphorus Magnesium Total Bilirubin AST ALT Alkaline Phosphatase Total Protein Albumin Lipase 02/06/24 02/06/24 02/06/24 13:31 13:31 13:31 WBC RBC Hgb Hct MCV MCH MCHC RDW Plt Count MPV Sodium Potassium Chloride 103 Carbon Dioxide Cancelled 31 H Anion Gap Cancelled 7 BUN Cancelled Creatinine Estim Creat Clear Calc Estimated GFR Glucose POC Capillary Glucose Calcium Phosphorus Magnesium Total Bilirubin AST ALT Alkaline Phosphatase Total Protein Albumin Lipase 02/06/24 02/06/24 02/06/24 13:31 13:31 13:31 WBC RBC Hgb Hct MCV MCH MCHC RDW Plt Count MPV Sodium Potassium Chloride Carbon Dioxide Anion Gap BUN 22 H Creatinine Cancelled 0.90 Estim Creat Clear Calc Cancelled 56 Estimated GFR Cancelled Glucose POC Capillary Glucose Calcium Phosphorus Magnesium Total Bilirubin AST ALT Alkaline Phosphatase Total Protein Albumin Lipase 02/06/24 02/06/24 02/06/24 13:31 13:31 13:31 WBC RBC Hgb Hct MCV MCH MCHC RDW Plt Count MPV Sodium Potassium Chloride Carbon Dioxide Anion Gap BUN Creatinine Estim Creat Clear Calc Estimated GFR > 60 Glucose Cancelled 132 H POC Capillary Glucose Calcium Cancelled 7.5 L Phosphorus Magnesium 1.9 Total Bilirubin AST ALT Alkaline Phosphatase Total Protein Albumin Lipase 02/06/24 02/06/24 02/07/24 16:53 23:28 04:25 WBC 16.3 H RBC 3.91 L Hgb 10.8 L Hct 33.1 L MCV 84.7 MCH 27.6 MCHC 32.6 RDW 13.2 Plt Count 169 MPV 10.5 H Sodium 135 L Potassium 3.5 Chloride 102 Carbon Dioxide 30 Anion Gap 3 L BUN 22 H Creatinine 1.00 Estim Creat Clear Calc 51 Estimated GFR 55 L Glucose 125 H POC Capillary Glucose 179 H 145 H Calcium 7.6 L Phosphorus 2.9 Magnesium 2.0 Total Bilirubin 1.0 AST 29 ALT 20 Alkaline Phosphatase 119 Total Protein 6.0 L Albumin 2.9 L Lipase 52 02/07/24 02/07/24 06:46 11:36 WBC RBC Hgb Hct MCV MCH MCHC RDW Plt Count MPV Sodium Potassium Chloride Carbon Dioxide Anion Gap BUN Creatinine Estim Creat Clear Calc Estimated GFR Glucose POC Capillary Glucose 121 H 106 H Calcium Phosphorus Magnesium Total Bilirubin AST ALT Alkaline Phosphatase Total Protein Albumin Lipase
--- NOTE | 2024-02-07 14:25 | PM.IMPN ---
Progress Note: A&P Assessment and Plan (1) Acute hypoxemic respiratory failure: Code(s): J96.01 - Acute respiratory failure with hypoxia Status: Acute Assessment and Plan: Acute respiratory failure likely combination of pleural effusion, pulmonary edema, atelectasis ileus leading to rapid shallow breathing, Chest x-ray done this morning shows 1. Stable small pleural effusions. 2. Stable airspace opacities in the mid and lower lung zones, consistent with atelectasis or less likely pneumonia. Patient had CPAP ordered overnight but she did not wear it. I spoke to patient this morning and explained the reasoning behind it and the benefits of it. Patient states she is willing to give additional the shot. I placed patient on CPAP 8 which has helped her breathing and respiratory rate has decreased. Will continue CPAP at this time as tolerated Lasix IV now and repeat later in the day Bronchodilators 02/06 clinically improved. Continue aggressive Incentive spirometry and up in chair CPAP p.r.n. Continue diuretics (2) Hypoxia: Code(s): R09.02 - Hypoxemia Status: Acute Assessment and Plan: See above (3) Acute necrotizing pancreatitis: Code(s): K85.91 - Acute pancreatitis with uninfected necrosis, unspecified Status: Acute Assessment and Plan: Acute necrotizing pancreatitis likely secondary to gallstones No currently obstructing gallstone as per imaging.. LFTs unremarkable. Lipase is improving Patient tolerating clear liquid diet at this time GI and general surgery following Imaging as above Pain control (4) Sepsis: Code(s): A41.9 - Sepsis, unspecified organism Status: Acute Assessment and Plan: Patient met criteria for sepsis. Blood cultures have been sent and are negative now Patient is on Zosyn which will be continued (5) Ileus: Code(s): K56.7 - Ileus, unspecified Status: Acute Assessment and Plan: Patient probable ileus likely severe pancreatitis poor NG tube was placed. Symptomatically patient is feeling better and now has diarrhea. X-ray still shows dilated bowel loops and she has decreased breath sounds but she is passing gas and not tolerating well clear liquid diet (6) Pleural effusion associated with pancreatitis: Code(s): K85.90 - Acute pancreatitis without necrosis or infection, unspecified; J91.8 - Pleural effusion in other conditions classified elsewhere Status: Acute Assessment and Plan: Likely secondary third-spacing. Continue diuretics (7) Cholelithiasis: Code(s): K80.20 - Calculus of gallbladder without cholecystitis without obstruction Status: Acute Assessment and Plan: See above (8) Electrolyte abnormality: Code(s): E87.8 - Other disorders of electrolyte and fluid balance, not elsewhere classified Status: Acute Assessment and Plan: Replace low potassium (9) Delirium: Code(s): R41.0 - Disorientation, unspecified Status: Acute Assessment and Plan: Will discontinue Precedex infusion, avoid benzodiazepine Continue low-dose Seroquel at night Supportive treatment Subjective Date/time seen: 02/07/24 14:25 Interval history: Respiratory stewart patient is stable. Patient still has tachycardia ,increased respiratory rate, and WBC 16.3 meeting SIRS criteria. Patient reports not able to tolerate diet. Planning for interval cholecystectomy by surgery team after acute necrotizing pancreatitis resolves. Review of Systems Review of Systems: abdominal pain localized to the epigastric area, nausea, vomiting All systems reviewed & are unremarkable except as noted in HPI and below (HPI) Exam Narrative: General: Pt is alert awake and in NAD Lungs/Chest: Trachea central Clear BS B/L, occasional wheezing anteriorly, Breath sounds are decreased at bases. Mild tachypnea. But no respiratory distress or use of accessory muscles. Cardiac: RRR. Normal S1 S2. No murmurs Circulation: Pedal pulses are intact and symmetrical. Abdomen: Decreased bowel sounds.. Soft. Mildly distended. No tenderness on palpation today. Extremities: No clubbing, cyanosis or edema. Warm : Sanchez in place Neurologic: Follows commands. Moves all 4 extremities PERRL confused AO x3 only Skin: No Rash Const: General: comfortable, no acute distress, well developed, alert, awake and average body habitus Nutritional Appearance: average body habitus Orientation/consciousness: patient oriented x3 Other: well-appearing HENMT: Head: normal to inspection, normocephalic and atraumatic Ears: hearing grossly normal bilaterally Face/Nose/Sinus: normal facial exam Face and sinus: normal facial exam Mouth: Yes moist mucous membranes Eyes: General: appearance normal, both eyes and all related structures Sclera: sclerae normal Pupils: Equal, round and reactive pupils present EOM: EOMs intact bilaterally Neck: Neck: full ROM, no lymphadenopathy, supple and no JVD Thyroid: thyroid normal Lymphatic: no lymphadenopathy noted Resp: Effort & Inspection: normal respiratory effort and able to speak in complete sentences Auscultation: clear to auscultation bilaterally Cardio: Jugular venous distension: no JVD Rate: regular rate Rhythm: regular rhythm Heart sounds: S1 normal heart sound present and S2 normal heart sound present GI: Inspection: normal to inspection Auscultation: normal bowel sounds : General: Yes deferred Skin: General skin exam: normal color Rashes: no rashes Wounds: no wounds Neuro: General: patient oriented x3 and CN's II-XI intact bilaterally Cranial nerves: Yes CN's II-XII intact bilaterally and Yes Equal, round and reactive pupils present Cognition (Neuro): normal cognition Speech: normal speech Gait exam (Neuro): Normal gait present Motor exam (neuro): 5/5 motor strength present throughout Extrem: General: normal to inspection, full ROM, no joint enlargement and no pedal edema Psych: Mental Status: mental status grossly normal Objective Data Vital Signs Vital Signs: Vital Signs - 24 hr 02/06/24 14:30 02/06/24 15:18 02/06/24 15:19 Temperature Pulse Rate 94 96 96 Respiratory Rate 22 H 20 20 Blood Pressure Pulse Oximetry 94 Oxygen Delivery CPAP Oxygen Flow Rate Fraction of Inspired Oxygen 02/06/24 16:00 02/06/24 16:00 02/06/24 16:00 Temperature 100.3 F H Pulse Rate 92 92 92 Respiratory Rate 27 H 27 H Blood Pressure 128/71 Pulse Oximetry 89 L 89 L Oxygen Delivery CPAP Oxygen Flow Rate Fraction of Inspired Oxygen 02/06/24 16:38 02/06/24 17:33 02/06/24 18:00 Temperature 99.7 F H Pulse Rate 81 92 Respiratory Rate 22 H Blood Pressure 128/71 Pulse Oximetry 92 95 Oxygen Delivery Nasal Cannula Oxygen Flow Rate 2 Fraction of Inspired Oxygen 02/06/24 18:00 02/06/24 16:00 02/06/24 18:00 Temperature 99.5 F Pulse Rate 92 92 92 Respiratory Rate 23 H 27 H 23 H Blood Pressure 129/78 Pulse Oximetry 95 Oxygen Delivery Oxygen Flow Rate Fraction of Inspired Oxygen 02/06/24 20:00 02/06/24 20:00 02/06/24 20:47 Temperature 99.5 F Pulse Rate 80 80 Respiratory Rate 29 H 29 H Blood Pressure 130/80 Pulse Oximetry 95 94 Oxygen Delivery Nasal Cannula Oxygen Flow Rate 2 Fraction of Inspired Oxygen 02/06/24 20:00 02/06/24 20:00 02/06/24 21:43 Temperature Pulse Rate 78 95 94 Respiratory Rate 29 H 33 H Blood Pressure Pulse Oximetry 80 L 95 Oxygen Delivery Nasal Cannula CPAP Oxygen Flow Rate 2 Fraction of Inspired Oxygen 02/06/24 22:00 02/06/24 22:00 02/06/24 22:00 Temperature 99.9 F H Pulse Rate 93 93 93 Respiratory Rate 31 H 31 H Blood Pressure 137/86 Pulse Oximetry 95 Oxygen Delivery Oxygen Flow Rate Fraction of Inspired Oxygen 02/06/24 21:42 02/06/24 21:49 02/06/24 22:49 Temperature Pulse Rate 95 92 87 Respiratory Rate 33 H 30 H 28 H Blood Pressure Pulse Oximetry Oxygen Delivery Oxygen Flow Rate Fraction of Inspired Oxygen 02/06/24 22:49 02/07/24 00:00 02/07/24 00:00 Temperature Pulse Rate 87 77 Respiratory Rate 28 H Blood Pressure Pulse Oximetry Oxygen Delivery CPAP Oxygen Flow Rate Fraction of Inspired Oxygen 36 02/07/24 00:00 02/07/24 00:00 02/06/24 23:22 Temperature 99.5 F Pulse Rate 78 78 96 Respiratory Rate 23 H 23 H 25 H Blood Pressure 104/66 Pulse Oximetry 96 Oxygen Delivery Oxygen Flow Rate Fraction of Inspired Oxygen 02/07/24 02:00 02/07/24 02:00 02/07/24 02:11 Temperature 99.3 F Pulse Rate 71 71 68 Respiratory Rate 21 H 22 H Blood Pressure 111/65 Pulse Oximetry 96 96 Oxygen Delivery CPAP Oxygen Flow Rate Fraction of Inspired Oxygen 02/07/24 02:00 02/07/24 04:00 02/07/24 04:00 Temperature 99.5 F Pulse Rate 71 67 69 Respiratory Rate 21 H 22 H Blood Pressure 125/89 Pulse Oximetry 96 Oxygen Delivery Oxygen Flow Rate Fraction of Inspired Oxygen 02/07/24 04:00 02/07/24 04:00 02/07/24 05:39 Temperature Pulse Rate 69 70 Respiratory Rate 22 H 20 Blood Pressure Pulse Oximetry 95 Oxygen Delivery CPAP CPAP Oxygen Flow Rate Fraction of Inspired Oxygen 36 02/07/24 06:00 02/07/24 06:40 02/07/24 06:00 Temperature Pulse Rate 75 72 75 Respiratory Rate 25 H 25 H Blood Pressure Pulse Oximetry Oxygen Delivery Oxygen Flow Rate Fraction of Inspired Oxygen 02/07/24 06:00 02/07/24 07:38 02/07/24 08:00 Temperature 99.8 F H 99.9 F H Pulse Rate 75 71 74 Respiratory Rate 25 H 21 H 31 H Blood Pressure 130/103 H 157/78 H Pulse Oximetry 90 94 Oxygen Delivery Oxygen Flow Rate Fraction of Inspired Oxygen 02/07/24 08:27 02/07/24 08:27 02/07/24 08:00 Temperature Pulse Rate 75 Respiratory Rate 20 Blood Pressure Pulse Oximetry 95 Oxygen Delivery Nasal Cannula Nasal Cannula Oxygen Flow Rate 2 Fraction of Inspired Oxygen 02/07/24 10:00 02/07/24 12:00 Temperature 97.8 F 98.7 F Pulse Rate 108 H 110 H Respiratory Rate 35 H 35 H Blood Pressure 165/82 H 171/113 H Pulse Oximetry 94 95 Oxygen Delivery Oxygen Flow Rate Fraction of Inspired Oxygen Intake/Output Intake/Output: Intake & Output 02/04/24 02/05/24 02/06/24 02/07/24 23:59 23:59 23:59 23:59 Intake Total 2686.7 1544.4 2150.8 186.7 Output Total 2300 2100 2600 525 Balance 386.7 -555.6 -449.2 -338.3 Meds/Results Medications: Active Medications Generic Name Dose Route Start Last Admin Trade Name Freq PRN Reason Stop Dose Admin Acetaminophen 650 mg 02/05/24 16:12 02/07/24 11:21 Acetaminophen 325 Mg Tablet PO 650 mg Q4H PRN Administration Headache Albuterol/Ipratropium 3 ml 02/05/24 17:43 02/06/24 21:42 Ipratropium 0.5 Mg/Albuterol Sulfate 2.5 Mg Ampul.Neb 3 Ml INHALATION 3 ml Q4HRT PRN Administration Shortness Of Breath Or Wheezing Dextrose 12.5 gm 02/02/24 10:59 Dextrose 50% 25 Gm/50 Ml Syringe IV PUSH PRN PRN Hypoglycemia Protocol Fluticasone Propionate 2 spray 02/02/24 00:09 Fluticasone Propionate 0.05% Na Spr 16 Gm Btl (*Bkc) NASAL DAILY PRN allergy symptoms Glucagon 1 mg 02/02/24 10:59 Glucagon For Inj 1 Mg Vial IM PRN PRN Hypoglycemia Protocol Glucose 15 gm 02/02/24 10:59 Glucose Oral Gel 15 Gm Of Glucse In 37.5 Gm Tube PO PRN PRN Hypoglycemia Protocol Heparin Sodium (Porcine) 5,000 units 02/02/24 14:00 02/07/24 06:39 Heparin Sodium 5,000 Units/Ml Vial SUB-Q 5,000 units Q8HR CARLITOS Administration Hydralazine HCl 20 mg 02/04/24 09:30 02/04/24 16:34 Hydralazine Hcl 20 Mg/Ml Vial IV PUSH 20 mg Q4H PRN Administration SBP more than 160 - 2nd choice Hydromorphone HCl 0.5 mg 02/03/24 13:53 02/06/24 14:21 Hydromorphone Hcl Inj (*Crx) 1 Mg/Ml Syr IV PUSH 0.5 mg Q2H PRN Administration Pain Rated 7-10 Piperacillin Sod/Tazobactam Sod 4.5 gm in 100 mls @ 200 mls/hr 02/03/24 11:00 02/07/24 11:24 Zosyn 4.5 Gm/Ns 100 Ml IVPB 100 mls/hr Q6H CARLITOS Administration Insulin Aspart 2 - 5 units 02/03/24 00:00 02/07/24 11:37 Insulin Aspart (*Bkc) 100 Units/Ml SUB-Q Not Given Q6HR [facility] Protocol Labetalol HCl 20 mg 02/04/24 09:30 02/04/24 10:54 Labetalol Hcl Inj 100 Mg/20 Ml Vial IV PUSH 20 mg Q4H PRN Administration SBP > 160 and HR> 60 -1st choice Ondansetron HCl 4 mg 02/01/24 19:52 02/05/24 01:15 Ondansetron Inj 4 Mg/2 Ml Vial IV PUSH 4 mg Q4H PRN Administration Nausea Pantoprazole Sodium 40 mg 02/04/24 09:00 02/07/24 09:17 Pantoprazole Sodium Iv 40 Mg Vial IV PUSH 40 mg QAM CARLITOS Administration Potassium Chloride 40 meq 02/07/24 09:00 02/07/24 09:17 Potassium Chloride 20 Meq Er Tablet PO 02/07/24 15:01 40 meq Q6H CARLITOS Administration Quetiapine Fumarate 25 mg 02/05/24 21:00 02/06/24 20:09 Quetiapine Fumarate 25 Mg Tablet PO 25 mg HS CARLITOS Administration Sodium Chloride 10 ml 02/03/24 14:00 02/07/24 06:52 Central Line Flush IV PUSH 10 ml Q8HR CARLITOS Administration Sodium Chloride 10 ml 02/03/24 12:07 Central Line Flush IV PUSH PRN PRN with TPN bag changes Sodium Chloride 20 ml 02/03/24 12:07 Central Line Flush IV PUSH PRN PRN after blood draws Radiology Results: ITS Impressions Chest/Abdomen/Pelvis CTA 02/01/24 18:35 IMPRESSION: No aortic dissection or aneurysm. Moderate interstitial pulmonary edema. Hepatomegaly. Acute interstitial pancreatitis. Possible portal vein and superior mesenteric vein thrombosis, versus artifact from unopacified blood in this arterial phase study. Consider right upper quadrant with a focus on obtaining portal venous color Doppler flow and waveforms. Vascular Ultrasound 02/01/24 19:23 IMPRESSION: Patent portal veins and superior mesenteric vein. Prior CT findings likely related to artifact from arterial phase imaging. Abdomen Ultrasound 02/02/24 09:49 IMPRESSION: 1. Pancreatitis. 2. Cholelithiasis. Gallbladder wall thickening may be secondary to interstitial edema or acute cholecystitis. 3. Diffuse hepatic steatosis. Abdomen/Pelvis CT 02/03/24 09:35 IMPRESSION: Findings consistent with acute pancreatitis, with additional findings worrisome for necrotizing pancreatitis, as detailed above. Severe hypovolemia by imaging criteria for which aggressive resuscitation is suggested. Cholelithiasis. Hepatomegaly. Interval development of bilateral pleural effusions with adjacent compressive atelectasis. These findings will be called to the ordering clinician. Once contact was made, an addendum will be performed. ADDENDUM: 02/03/24 1017 These findings were discussed with Rios Jones NP at 10:15 AM on 02/03/2024 Abdomen X-Ray 02/04/24 21:25 IMPRESSION: Interval replacement of the nasogastric tube with its tip projecting over the proximal stomach for which advancement of approximately 5 to 6 cm may be performed for optimal radiographic placement. Worsening bilateral pleural effusions, as detailed above. Chest X-Ray 02/06/24 08:52 IMPRESSION: 1. Stable small pleural effusions. 2. Stable airspace opacities in the mid and lower lung zones, consistent with atelectasis or less likely pneumonia. 3. Dilated small bowel, likely adynamic ileus. Labs Labs: Laboratory Results - last 24 hr 02/06/24 02/06/24 02/07/24 16:53 23:28 04:25 WBC 16.3 H RBC 3.91 L Hgb 10.8 L Hct 33.1 L MCV 84.7 MCH 27.6 MCHC 32.6 RDW 13.2 Plt Count 169 MPV 10.5 H Sodium 135 L Potassium 3.5 Chloride 102 Carbon Dioxide 30 Anion Gap 3 L BUN 22 H Creatinine 1.00 Estim Creat Clear Calc 51 Estimated GFR 55 L Glucose 125 H POC Capillary Glucose 179 H 145 H Calcium 7.6 L Phosphorus 2.9 Magnesium 2.0 Total Bilirubin 1.0 AST 29 ALT 20 Alkaline Phosphatase 119 Total Protein 6.0 L Albumin 2.9 L Lipase 52 02/07/24 02/07/24 06:46 11:36 WBC RBC Hgb Hct MCV MCH MCHC RDW Plt Count MPV Sodium Potassium Chloride Carbon Dioxide Anion Gap BUN Creatinine Estim Creat Clear Calc Estimated GFR Glucose POC Capillary Glucose 121 H 106 H Calcium Phosphorus Magnesium Total Bilirubin AST ALT Alkaline Phosphatase Total Protein Albumin Lipase Quality VTE Prophylaxis VTE prophylaxis: mechanical ordered and pharmacologic ordered Hospitalist MIPS Advance Care Plan I have confirmed that the patient's Advanced Care Plan is present, code status is documented, or surrogate decision maker is listed in patient medical record.: Yes Medication Reconciliation I have utilized all available resources to obtain, update and review the patients current medications (includes all prescriptions, OTC, herbals, cannabis, and nutritional supplements).: Yes
[2024-02-07 16:55] LABS: Glucose Point of Care 126 mg/dl (65-105)
--- NOTE | 2024-02-07 18:15 | PC.NURSE ---
This patient, Viridiana Vega, was transferred to 203 on 02/07/24 at 1815. Personal belongings sent with patient. Report given to Carmen Kraft. Appropriate documentation sent with patient. Family here and aware pt is moving to Room 203.
--- NOTE | 2024-02-07 18:35 | ADMGEN ---
This patient, Viridiana Vega, was admitted to IMU Room 203-01 @ 1835. Patient/family oriented to hospital policies and general routines including ID bracelet, bed and alarms, visiting hours, pain management, procedures, bathroom and other care routines, personal items, smoking policy, room service/diet, and visiting hours. Information on how to activate the Rapid Response Team has been discussed. Patient/Family are encouraged to report perceived risks to care and to ask questions if they do not understand what they are told or what they should do.
[2024-02-07] MEDS: QUEtiapine FUMARATE 25 MG TABLET PO (21:03)
[2024-02-07 21:12] LABS: Glucose Point of Care 133 mg/dl (65-105)
[2024-02-08] VITALS (18 sets, daily range): BP systolic 133–178; BP diastolic 76–114; PULSE 65–121; RESP 16–25; TEMP 36.4–37.5; O2SAT 90–98
[2024-02-08] MEDS: PIPERACILLIN/TAZ 4.5G/NS 100ML 4.5 GM/100 ML BAG IVPB ×4 (05:15→22:23)
[2024-02-08] MEDS: HEPARIN SODIUM 5,000 UNITS/ML VIAL 5000 UNITS SUB-Q ×3 (05:16→21:12)
[2024-02-08] MEDS: CENTRAL LINE FLUSH 10 ML IV PUSH ×3 (05:16→20:09)
[2024-02-08 05:19] LABS: Hematocrit 33.8 % (37.0-47.0); Hemoglobin 11.2 g/dL (12.0-15.0); Mean Corpuscular HGB Conc 33.1 g/dl (32-36); Mean Corpuscular Hemoglobin 27.7 pg (26-34); Mean Corpuscular Volume 83.5 fl (80-100); Mean Platelet Volume 10.4 fl (7.4-10.4); Platelet Count Result 198 k/mm3 (150-375); Red Blood Count 4.05 M/mm3 (4.2-5.4); Red Cell Distribution Width 13.2 % (11.5-14.5); White Blood Count 17.9 K/mm3 (4.5-10.0)
[2024-02-08 05:33] LABS: Alanine Aminotransferase 21 U/L (6-35); Albumin Level 2.9 g/dL (3.5-5.1); Alkaline Phosphatase 165 U/L (38-126); Anion Gap 6 mmol/L (4-12); Aspartate Amino Transferase 27 U/L (14-36); Bilirubin,Total 1.1 mg/dL (0.2-1.3); Blood Urea Nitrogen 21 mg/dL (7-17); Calcium 7.8 mg/dL (8.4-10.2); Carbon Dioxide 26 mmol/L (22-30); Chloride 104 mmol/L (98-107); Estimated CRCL calculation 57 ml/min; Estimated Glomerular Filt Rate > 60; Glucose 127 mg/dL (65-110); Lipase 55 U/L (23-300); Phosphorus 3.1 mg/dL (2.5-4.5); Potassium 3.4 mmol/L (3.4-5.0); Sodium 136 mmol/L (137-145)
[2024-02-08 08:06] LABS: Glucose Point of Care 126 mg/dl (65-105)
[2024-02-08] MEDS: PANTOPRAZOLE SODIUM IV 40 MG VIAL IV PUSH (08:39)
--- NOTE | 2024-02-08 09:38 | PM.PNGS ---
Progress Note: A&P Assessment and Plan (1) Gallstone pancreatitis: Code(s): K85.10 - Biliary acute pancreatitis without necrosis or infection Status: Acute Assessment and Plan: exam largely benign, increasing leukocytosis and tachycardia, continue antibiotics, will get CT for re-evaluation today Subjective Subjective Date/Time Seen: 02/08/24 09:38 Interval history: feels ok, still c epigastric pain with radiation to the back, tolerating low-fiber diet, having bowel fxn Review of Systems Review of Systems: All systems reviewed & are unremarkable except as noted in HPI and below Exam Const: General: cooperative, comfortable and no acute distress Resp: Auscultation: diminished lung sounds Cardio: Rate: tachycardic Rhythm: regular rhythm GI: Inspection: normal to inspection and distended GI Palp: Yes abdominal tenderness, Yes Tenderness to palpation present (GI), No Guarding due to palpation present (GI) and No Rigid due to palpation Objective Data Vital Signs Vital Signs: Vital Signs - 24 hr 02/07/24 10:00 02/07/24 12:00 02/07/24 14:00 Temperature 36.6 C 37.1 C 36.7 C Pulse Rate 108 H 110 H 117 H Respiratory Rate 35 H 35 H 28 H Blood Pressure 165/82 H 171/113 H 122/81 Pulse Oximetry 94 95 94 Oxygen Delivery Oxygen Flow Rate Fraction of Inspired Oxygen 02/07/24 16:00 02/07/24 18:48 02/07/24 20:04 Temperature 36.8 C 36.9 C Pulse Rate 123 H 98 Respiratory Rate 30 H 16 Blood Pressure 145/82 H 120/9 L 122/94 H Pulse Oximetry 95 99 Oxygen Delivery Oxygen Flow Rate Fraction of Inspired Oxygen 02/07/24 20:00 02/07/24 20:00 02/07/24 21:30 Temperature Pulse Rate 105 H 98 106 H Respiratory Rate 16 Blood Pressure Pulse Oximetry 99 Oxygen Delivery Nasal Cannula Oxygen Flow Rate 2 Fraction of Inspired Oxygen 36 02/07/24 23:43 02/07/24 23:43 02/07/24 23:54 Temperature 36.9 C Pulse Rate 104 H 104 H 109 H Respiratory Rate 16 20 Blood Pressure 155/77 H Pulse Oximetry 99 96 Oxygen Delivery CPAP Oxygen Flow Rate Fraction of Inspired Oxygen 02/08/24 02:00 02/08/24 04:00 02/08/24 04:00 Temperature Pulse Rate 99 98 99 Respiratory Rate 20 Blood Pressure Pulse Oximetry 96 Oxygen Delivery Nasal Cannula Oxygen Flow Rate 2 Fraction of Inspired Oxygen 02/08/24 04:00 02/08/24 05:39 02/08/24 07:58 Temperature 36.7 C 36.4 C L Pulse Rate 95 104 H 121 H Respiratory Rate 18 16 Blood Pressure 164/83 H 133/114 H Pulse Oximetry 98 97 Oxygen Delivery Oxygen Flow Rate Fraction of Inspired Oxygen Intake/Output Intake/Output: Intake & Output 02/05/24 02/06/24 02/07/24 02/08/24 23:59 23:59 23:59 23:59 Intake Total 1544.4 2150.8 436.7 600 Output Total 2100 2600 525 400 Balance -555.6 -449.2 -88.3 200 Meds/Results Medications: Active Medications Generic Name Dose Route Start Last Admin Trade Name Freq PRN Reason Stop Dose Admin Acetaminophen 650 mg 02/05/24 16:12 02/07/24 21:03 Acetaminophen 325 Mg Tablet PO 650 mg Q4H PRN Administration Headache Albuterol/Ipratropium 3 ml 02/05/24 17:43 02/06/24 21:42 Ipratropium 0.5 Mg/Albuterol Sulfate 2.5 Mg Ampul.Neb 3 Ml INHALATION 3 ml Q4HRT PRN Administration Shortness Of Breath Or Wheezing Dextrose 12.5 gm 02/02/24 10:59 Dextrose 50% 25 Gm/50 Ml Syringe IV PUSH PRN PRN Hypoglycemia Protocol Fluticasone Propionate 2 spray 02/02/24 00:09 Fluticasone Propionate 0.05% Na Spr 16 Gm Btl (*Bkc) NASAL DAILY PRN allergy symptoms Glucagon 1 mg 02/02/24 10:59 Glucagon For Inj 1 Mg Vial IM PRN PRN Hypoglycemia Protocol Glucose 15 gm 02/02/24 10:59 Glucose Oral Gel 15 Gm Of Glucse In 37.5 Gm Tube PO PRN PRN Hypoglycemia Protocol Heparin Sodium (Porcine) 5,000 units 02/02/24 14:00 02/08/24 05:16 Heparin Sodium 5,000 Units/Ml Vial SUB-Q 5,000 units Q8HR CARLITOS Administration Hydralazine HCl 20 mg 02/04/24 09:30 02/04/24 16:34 Hydralazine Hcl 20 Mg/Ml Vial IV PUSH 20 mg Q4H PRN Administration SBP more than 160 - 2nd choice Hydromorphone HCl 0.5 mg 02/03/24 13:53 02/06/24 14:21 Hydromorphone Hcl Inj (*Crx) 1 Mg/Ml Syr IV PUSH 0.5 mg Q2H PRN Administration Pain Rated 7-10 Piperacillin Sod/Tazobactam Sod 4.5 gm in 100 mls @ 200 mls/hr 02/03/24 11:00 02/08/24 08:21 Zosyn 4.5 Gm/Ns 100 Ml IVPB Infused Q6H CARLITOS Infusion Insulin Aspart 2 - 5 units 02/07/24 21:00 02/08/24 08:39 Insulin Aspart (*Bkc) 100 Units/Ml SUB-Q Not Given [facility] Protocol Labetalol HCl 20 mg 02/04/24 09:30 02/04/24 10:54 Labetalol Hcl Inj 100 Mg/20 Ml Vial IV PUSH 20 mg Q4H PRN Administration SBP > 160 and HR> 60 -1st choice Ondansetron HCl 4 mg 02/01/24 19:52 02/05/24 01:15 Ondansetron Inj 4 Mg/2 Ml Vial IV PUSH 4 mg Q4H PRN Administration Nausea Pantoprazole Sodium 40 mg 02/04/24 09:00 02/08/24 08:39 Pantoprazole Sodium Iv 40 Mg Vial IV PUSH 40 mg QAM CARLITOS Administration Quetiapine Fumarate 25 mg 02/05/24 21:00 02/07/24 21:03 Quetiapine Fumarate 25 Mg Tablet PO 25 mg HS CARLITOS Administration Sodium Chloride 10 ml 02/03/24 14:00 02/08/24 05:16 Central Line Flush IV PUSH 10 ml Q8HR CARLITOS Administration Sodium Chloride 10 ml 02/03/24 12:07 Central Line Flush IV PUSH PRN PRN with TPN bag changes Sodium Chloride 20 ml 02/03/24 12:07 Central Line Flush IV PUSH PRN PRN after blood draws Radiology Results: ITS Impressions Chest/Abdomen/Pelvis CTA 02/01/24 18:35 IMPRESSION: No aortic dissection or aneurysm. Moderate interstitial pulmonary edema. Hepatomegaly. Acute interstitial pancreatitis. Possible portal vein and superior mesenteric vein thrombosis, versus artifact from unopacified blood in this arterial phase study. Consider right upper quadrant with a focus on obtaining portal venous color Doppler flow and waveforms. Vascular Ultrasound 02/01/24 19:23 IMPRESSION: Patent portal veins and superior mesenteric vein. Prior CT findings likely related to artifact from arterial phase imaging. Abdomen Ultrasound 02/02/24 09:49 IMPRESSION: 1. Pancreatitis. 2. Cholelithiasis. Gallbladder wall thickening may be secondary to interstitial edema or acute cholecystitis. 3. Diffuse hepatic steatosis. Abdomen/Pelvis CT 02/03/24 09:35 IMPRESSION: Findings consistent with acute pancreatitis, with additional findings worrisome for necrotizing pancreatitis, as detailed above. Severe hypovolemia by imaging criteria for which aggressive resuscitation is suggested. Cholelithiasis. Hepatomegaly. Interval development of bilateral pleural effusions with adjacent compressive atelectasis. These findings will be called to the ordering clinician. Once contact was made, an addendum will be performed. ADDENDUM: 02/03/24 1017 These findings were discussed with Rios Jones NP at 10:15 AM on 02/03/2024 Abdomen X-Ray 02/04/24 21:25 IMPRESSION: Interval replacement of the nasogastric tube with its tip projecting over the proximal stomach for which advancement of approximately 5 to 6 cm may be performed for optimal radiographic placement. Worsening bilateral pleural effusions, as detailed above. Chest X-Ray 02/06/24 08:52 IMPRESSION: 1. Stable small pleural effusions. 2. Stable airspace opacities in the mid and lower lung zones, consistent with atelectasis or less likely pneumonia. 3. Dilated small bowel, likely adynamic ileus. Labs Labs: Laboratory Results - last 24 hr 02/07/24 02/07/24 02/07/24 11:36 16:53 20:57 WBC RBC Hgb Hct MCV MCH MCHC RDW Plt Count MPV Sodium Potassium Chloride Carbon Dioxide Anion Gap BUN Creatinine Estim Creat Clear Calc Estimated GFR Glucose POC Capillary Glucose 106 H 126 H 133 H Calcium Phosphorus Magnesium Total Bilirubin AST ALT Alkaline Phosphatase Total Protein Albumin Lipase 02/08/24 02/08/24 05:10 07:59 WBC 17.9 H RBC 4.05 L Hgb 11.2 L Hct 33.8 L MCV 83.5 MCH 27.7 MCHC 33.1 RDW 13.2 Plt Count 198 MPV 10.4 Sodium 136 L Potassium 3.4 Chloride 104 Carbon Dioxide 26 Anion Gap 6 BUN 21 H Creatinine 0.90 Estim Creat Clear Calc 57 Estimated GFR > 60 Glucose 127 H POC Capillary Glucose 126 H Calcium 7.8 L Phosphorus 3.1 Magnesium 2.0 Total Bilirubin 1.1 AST 27 ALT 21 Alkaline Phosphatase 165 H Total Protein 6.0 L Albumin 2.9 L Lipase 55
--- NOTE | 2024-02-08 10:11 | P.PNGI_ITS ---
Progress Note: A&P Assessment and Plan (1) Pleural effusion associated with pancreatitis: Code(s): K85.90 - Acute pancreatitis without necrosis or infection, unspecified; J91.8 - Pleural effusion in other conditions classified elsewhere Status: Acute (2) Acute necrotizing pancreatitis: Code(s): K85.91 - Acute pancreatitis with uninfected necrosis, unspecified Status: Acute Plan Acute necrotizing pancreatitis, better from the respiratory standpoint, afebrile, hemodynamically stable. Receiving antibiotics and pending CT scan as per surgery to assess local progression of disease. Tolerating liquids. Time Spent With Patient Time with patient: 15 - 25 minutes Subjective Date/time seen: 02/08/24 10:11 Interval history: Patient has minimal abdominal discomfort. Her breating feels much better, able to move from bet to chair or take some small steps without feeling winded. Exam GI: GI Palp: Yes Soft to palpation, No Firmness to palpation present (GI), No Tenderness to palpation present (GI) and No Guarding due to palpation present (GI) Auscultation: normal bowel sounds Objective Data Vital Signs Vital Signs: Vital Signs - 24 hr 02/07/24 12:00 02/07/24 14:00 02/07/24 16:00 Temperature 98.7 F 98.1 F 98.3 F Pulse Rate 110 H 117 H 123 H Respiratory Rate 35 H 28 H 30 H Blood Pressure 171/113 H 122/81 145/82 H Pulse Oximetry 95 94 95 Oxygen Delivery Oxygen Flow Rate Fraction of Inspired Oxygen 02/07/24 18:48 02/07/24 20:04 02/07/24 20:00 Temperature 98.4 F Pulse Rate 98 105 H Respiratory Rate 16 Blood Pressure 120/9 L 122/94 H Pulse Oximetry 99 Oxygen Delivery Oxygen Flow Rate Fraction of Inspired Oxygen 02/07/24 20:00 02/07/24 21:30 02/07/24 23:43 Temperature Pulse Rate 98 106 H 104 H Respiratory Rate 16 Blood Pressure Pulse Oximetry 99 Oxygen Delivery Nasal Cannula Oxygen Flow Rate 2 Fraction of Inspired Oxygen 36 02/07/24 23:43 02/07/24 23:54 02/08/24 02:00 Temperature 98.5 F Pulse Rate 104 H 109 H 99 Respiratory Rate 16 20 Blood Pressure 155/77 H Pulse Oximetry 99 96 Oxygen Delivery CPAP Oxygen Flow Rate Fraction of Inspired Oxygen 02/08/24 04:00 02/08/24 04:00 02/08/24 04:00 Temperature 98.0 F Pulse Rate 98 99 95 Respiratory Rate 20 18 Blood Pressure 164/83 H Pulse Oximetry 96 98 Oxygen Delivery Nasal Cannula Oxygen Flow Rate 2 Fraction of Inspired Oxygen 02/08/24 05:39 02/08/24 07:58 Temperature 97.5 F L Pulse Rate 104 H 121 H Respiratory Rate 16 Blood Pressure 133/114 H Pulse Oximetry 97 Oxygen Delivery Oxygen Flow Rate Fraction of Inspired Oxygen Intake/Output Intake/Output: Intake & Output 02/05/24 02/06/24 02/07/24 02/08/24 23:59 23:59 23:59 23:59 Intake Total 1544.4 2150.8 436.7 600 Output Total 2100 2600 525 400 Balance -555.6 -449.2 -88.3 200 Meds/Results Medications: Active Medications Generic Name Dose Route Start Last Admin Trade Name Freq PRN Reason Stop Dose Admin Acetaminophen 650 mg 02/05/24 16:12 02/07/24 21:03 Acetaminophen 325 Mg Tablet PO 650 mg Q4H PRN Administration Headache Albuterol/Ipratropium 3 ml 02/05/24 17:43 02/06/24 21:42 Ipratropium 0.5 Mg/Albuterol Sulfate 2.5 Mg Ampul.Neb 3 Ml INHALATION 3 ml Q4HRT PRN Administration Shortness Of Breath Or Wheezing Dextrose 12.5 gm 02/02/24 10:59 Dextrose 50% 25 Gm/50 Ml Syringe IV PUSH PRN PRN Hypoglycemia Protocol Fluticasone Propionate 2 spray 02/02/24 00:09 Fluticasone Propionate 0.05% Na Spr 16 Gm Btl (*Bkc) NASAL DAILY PRN allergy symptoms Glucagon 1 mg 02/02/24 10:59 Glucagon For Inj 1 Mg Vial IM PRN PRN Hypoglycemia Protocol Glucose 15 gm 02/02/24 10:59 Glucose Oral Gel 15 Gm Of Glucse In 37.5 Gm Tube PO PRN PRN Hypoglycemia Protocol Heparin Sodium (Porcine) 5,000 units 02/02/24 14:00 02/08/24 05:16 Heparin Sodium 5,000 Units/Ml Vial SUB-Q 5,000 units Q8HR CARLITOS Administration Hydralazine HCl 20 mg 02/04/24 09:30 02/04/24 16:34 Hydralazine Hcl 20 Mg/Ml Vial IV PUSH 20 mg Q4H PRN Administration SBP more than 160 - 2nd choice Hydromorphone HCl 0.5 mg 02/03/24 13:53 02/06/24 14:21 Hydromorphone Hcl Inj (*Crx) 1 Mg/Ml Syr IV PUSH 0.5 mg Q2H PRN Administration Pain Rated 7-10 Piperacillin Sod/Tazobactam Sod 4.5 gm in 100 mls @ 200 mls/hr 02/03/24 11:00 02/08/24 08:21 Zosyn 4.5 Gm/Ns 100 Ml IVPB Infused Q6H CARLITOS Infusion Insulin Aspart 2 - 5 units 02/07/24 21:00 02/08/24 08:39 Insulin Aspart (*Bkc) 100 Units/Ml SUB-Q Not Given [facility] Protocol Labetalol HCl 20 mg 02/04/24 09:30 02/04/24 10:54 Labetalol Hcl Inj 100 Mg/20 Ml Vial IV PUSH 20 mg Q4H PRN Administration SBP > 160 and HR> 60 -1st choice Ondansetron HCl 4 mg 02/01/24 19:52 02/05/24 01:15 Ondansetron Inj 4 Mg/2 Ml Vial IV PUSH 4 mg Q4H PRN Administration Nausea Pantoprazole Sodium 40 mg 02/04/24 09:00 02/08/24 08:39 Pantoprazole Sodium Iv 40 Mg Vial IV PUSH 40 mg QAM CARLITOS Administration Quetiapine Fumarate 25 mg 02/05/24 21:00 02/07/24 21:03 Quetiapine Fumarate 25 Mg Tablet PO 25 mg HS CARLITOS Administration Sodium Chloride 10 ml 02/03/24 14:00 02/08/24 05:16 Central Line Flush IV PUSH 10 ml Q8HR CARLITOS Administration Sodium Chloride 10 ml 02/03/24 12:07 Central Line Flush IV PUSH PRN PRN with TPN bag changes Sodium Chloride 20 ml 02/03/24 12:07 Central Line Flush IV PUSH PRN PRN after blood draws Radiology Results: ITS Impressions Chest/Abdomen/Pelvis CTA 02/01/24 18:35 IMPRESSION: No aortic dissection or aneurysm. Moderate interstitial pulmonary edema. Hepatomegaly. Acute interstitial pancreatitis. Possible portal vein and superior mesenteric vein thrombosis, versus artifact from unopacified blood in this arterial phase study. Consider right upper quadrant with a focus on obtaining portal venous color Doppler flow and waveforms. Vascular Ultrasound 02/01/24 19:23 IMPRESSION: Patent portal veins and superior mesenteric vein. Prior CT findings likely related to artifact from arterial phase imaging. Abdomen Ultrasound 02/02/24 09:49 IMPRESSION: 1. Pancreatitis. 2. Cholelithiasis. Gallbladder wall thickening may be secondary to interstitial edema or acute cholecystitis. 3. Diffuse hepatic steatosis. Abdomen/Pelvis CT 02/03/24 09:35 IMPRESSION: Findings consistent with acute pancreatitis, with additional findings worrisome for necrotizing pancreatitis, as detailed above. Severe hypovolemia by imaging criteria for which aggressive resuscitation is suggested. Cholelithiasis. Hepatomegaly. Interval development of bilateral pleural effusions with adjacent compressive atelectasis. These findings will be called to the ordering clinician. Once contact was made, an addendum will be performed. ADDENDUM: 02/03/24 1017 These findings were discussed with Rios Jones NP at 10:15 AM on 02/03/2024 Abdomen X-Ray 02/04/24 21:25 IMPRESSION: Interval replacement of the nasogastric tube with its tip projecting over the proximal stomach for which advancement of approximately 5 to 6 cm may be performed for optimal radiographic placement. Worsening bilateral pleural effusions, as detailed above. Chest X-Ray 02/06/24 08:52 IMPRESSION: 1. Stable small pleural effusions. 2. Stable airspace opacities in the mid and lower lung zones, consistent with atelectasis or less likely pneumonia. 3. Dilated small bowel, likely adynamic ileus. Labs Labs: Laboratory Results - last 24 hr 02/07/24 02/07/24 02/07/24 11:36 16:53 20:57 WBC RBC Hgb Hct MCV MCH MCHC RDW Plt Count MPV Sodium Potassium Chloride Carbon Dioxide Anion Gap BUN Creatinine Estim Creat Clear Calc Estimated GFR Glucose POC Capillary Glucose 106 H 126 H 133 H Calcium Phosphorus Magnesium Total Bilirubin AST ALT Alkaline Phosphatase Total Protein Albumin Lipase 02/08/24 02/08/24 05:10 07:59 WBC 17.9 H RBC 4.05 L Hgb 11.2 L Hct 33.8 L MCV 83.5 MCH 27.7 MCHC 33.1 RDW 13.2 Plt Count 198 MPV 10.4 Sodium 136 L Potassium 3.4 Chloride 104 Carbon Dioxide 26 Anion Gap 6 BUN 21 H Creatinine 0.90 Estim Creat Clear Calc 57 Estimated GFR > 60 Glucose 127 H POC Capillary Glucose 126 H Calcium 7.8 L Phosphorus 3.1 Magnesium 2.0 Total Bilirubin 1.1 AST 27 ALT 21 Alkaline Phosphatase 165 H Total Protein 6.0 L Albumin 2.9 L Lipase 55
--- NOTE | 2024-02-08 10:26 | P.PNIM_ITS ---
Progress Note: A&P Assessment and Plan (1) Acute hypoxemic respiratory failure: Code(s): J96.01 - Acute respiratory failure with hypoxia Status: Acute Assessment and Plan: Acute respiratory failure likely combination of pleural effusion, pulmonary edema, atelectasis ileus leading to rapid shallow breathing, Chest x-ray done this morning shows 1. Stable small pleural effusions. 2. Stable airspace opacities in the mid and lower lung zones, consistent with atelectasis or less likely pneumonia. Patient had CPAP ordered overnight but she did not wear it. Explained the reasoning behind it and the benefits of it. CPAP 8 Will continue CPAP at this time as tolerated Lasix IV if needed Bronchodilators Continue aggressive Incentive spirometry and up in chair CPAP p.r.n. Continue diuretics (2) Hypoxia: Code(s): R09.02 - Hypoxemia Status: Acute Assessment and Plan: See above (3) Acute necrotizing pancreatitis: Code(s): K85.91 - Acute pancreatitis with uninfected necrosis, unspecified Status: Acute Assessment and Plan: Acute necrotizing pancreatitis likely secondary to gallstones No currently obstructing gallstone as per imaging.. LFTs unremarkable. Lipase is improving Patient tolerating clear liquid diet at this time GI and general surgery following Imaging as above Pain control (4) Sepsis: Code(s): A41.9 - Sepsis, unspecified organism Status: Acute Assessment and Plan: Patient met criteria for sepsis. Blood cultures have been sent and are negative now Patient is on Zosyn which will be continued (5) Ileus: Code(s): K56.7 - Ileus, unspecified Status: Acute Assessment and Plan: Patient probable ileus likely severe pancreatitis poor NG tube was placed. Symptomatically patient is feeling better and now has diarrhea. X-ray still shows dilated bowel loops and she has decreased breath sounds but she is passing gas and not tolerating well clear liquid diet (6) Pleural effusion associated with pancreatitis: Code(s): K85.90 - Acute pancreatitis without necrosis or infection, unspecified; J91.8 - Pleural effusion in other conditions classified elsewhere Status: Acute Assessment and Plan: Likely secondary third-spacing. Continue diuretics (7) Cholelithiasis: Code(s): K80.20 - Calculus of gallbladder without cholecystitis without obstruction Status: Acute Assessment and Plan: See above (8) Electrolyte abnormality: Code(s): E87.8 - Other disorders of electrolyte and fluid balance, not elsewhere classified Status: Acute Assessment and Plan: Replace low potassium (9) Delirium: Code(s): R41.0 - Disorientation, unspecified Status: Acute Assessment and Plan: S/P Precedex infusion at ICU, avoid benzodiazepine Continue low-dose Seroquel at night Supportive treatment Subjective Date/time seen: 02/08/24 10:26 Interval history: Patient is not able to tolerate morning breakfast. Denies any fever, chills or shortness of breath. WBC has been increased from 16.3-17.9. Surgery team waiting until the resolution of acute pancreatitis to perform interval cholecystectomy.Patient multiple episodes of diarrhea which started in ICU. From yesterday night she had 6 episodes of diarrhea . C.Diff is tested and will be treated if necessary.Repeat CT Abd shows Stable acute necrotic pancreatitis. even though CT shows Worsened small pleural effusions patient has no respiratory distress ,saturating well on RA. Review of Systems Review of Systems: abdominal pain localized to the epigastric area, nausea, vomiting All systems reviewed & are unremarkable except as noted in HPI and below (HPI) Exam Narrative: General: Pt is alert awake and in NAD Lungs/Chest: Trachea central Clear BS B/L, occasional wheezing anteriorly, Breath sounds are decreased at bases. Mild tachypnea. But no respiratory distress or use of accessory muscles. Cardiac: RRR. Normal S1 S2. No murmurs Circulation: Pedal pulses are intact and symmetrical. Abdomen: Decreased bowel sounds.. Soft. Mildly distended. No tenderness on palpation today. Extremities: No clubbing, cyanosis or edema. Warm : Sanchez in place Neurologic: Follows commands. Moves all 4 extremities PERRL confused AO x3 only Skin: No Rash Const: General: comfortable, no acute distress, well developed, alert, awake and average body habitus Nutritional Appearance: average body habitus Orientation/consciousness: patient oriented x3 Other: well-appearing HENMT: Head: normal to inspection, normocephalic and atraumatic Ears: hear ing grossly normal bilaterally Face/Nose/Sinus: normal facial exam Face and sinus: normal facial exam Mouth: Yes moist mucous membranes Eyes: General: appearance normal, both eyes and all related structures Sclera: sclerae normal Pupils: Equal, round and reactive pupils present EOM: EOMs intact bilaterally Neck: Neck: full ROM, no lymphadenopathy, supple and no JVD Thyroid: thyroid normal Lymphatic: no lymphadenopathy noted Resp: Effort & Inspection: normal respiratory effort and able to speak in complete sentences Auscultation: clear to auscultation bilaterally Cardio: Jugular venous distension: no JVD Rate: regular rate Rhythm: regular rhythm Heart sounds: S1 normal heart sound present and S2 normal heart sound present GI: Inspection: normal to inspection Auscultation: normal bowel sounds : General: Yes deferred Skin: General skin exam: normal color Rashes: no rashes Wounds: no wounds Neuro: General: patient oriented x3 and CN's II-XI intact bilaterally Cranial nerves: Yes CN's II-XII intact bilaterally and Yes Equal, round and reactive pupils present Cognition (Neuro): normal cognition Speech: normal speech Gait exam (Neuro): Normal gait present Motor exam (neuro): 5/5 motor strength present throughout Extrem: General: normal to inspection, full ROM, no joint enlargement and no pedal edema Psych: Mental Status: mental status grossly normal Objective Data Vital Signs Vital Signs: Vital Signs - 24 hr 02/07/24 12:00 02/07/24 14:00 02/07/24 16:00 Temperature 98.7 F 98.1 F 98.3 F Pulse Rate 110 H 117 H 123 H Respiratory Rate 35 H 28 H 30 H Blood Pressure 171/113 H 122/81 145/82 H Pulse Oximetry 95 94 95 Oxygen Delivery Oxygen Flow Rate Fraction of Inspired Oxygen 02/07/24 18:48 02/07/24 20:04 02/07/24 20:00 Temperature 98.4 F Pulse Rate 98 105 H Respiratory Rate 16 Blood Pressure 120/9 L 122/94 H Pulse Oximetry 99 Oxygen Delivery Oxygen Flow Rate Fraction of Inspired Oxygen 02/07/24 20:00 02/07/24 21:30 02/07/24 23:43 Temperature Pulse Rate 98 106 H 104 H Respiratory Rate 16 Blood Pressure Pulse Oximetry 99 Oxygen Delivery Nasal Cannula Oxygen Flow Rate 2 Fraction of Inspired Oxygen 36 02/07/24 23:43 02/07/24 23:54 02/08/24 02:00 Temperature 98.5 F Pulse Rate 104 H 109 H 99 Respiratory Rate 16 20 Blood Pressure 155/77 H Pulse Oximetry 99 96 Oxygen Delivery CPAP Oxygen Flow Rate Fraction of Inspired Oxygen 02/08/24 04:00 02/08/24 04:00 02/08/24 04:00 Temperature 98.0 F Pulse Rate 98 99 95 Respiratory Rate 20 18 Blood Pressure 164/83 H Pulse Oximetry 96 98 Oxygen Delivery Nasal Cannula Oxygen Flow Rate 2 Fraction of Inspired Oxygen 02/08/24 05:39 02/08/24 07:58 Temperature 97.5 F L Pulse Rate 104 H 121 H Respiratory Rate 16 Blood Pressure 133/114 H Pulse Oximetry 97 Oxygen Delivery Oxygen Flow Rate Fraction of Inspired Oxygen Intake/Output Intake/Output: Intake & Output 02/05/24 02/06/24 02/07/24 02/08/24 23:59 23:59 23:59 23:59 Intake Total 1544.4 2150.8 436.7 600 Output Total 2100 2600 525 400 Balance -555.6 -449.2 -88.3 200 Meds/Results Medications: Active Medications Generic Name Dose Route Start Last Admin Trade Name Freq PRN Reason Stop Dose Admin Acetaminophen 650 mg 02/05/24 16:12 02/07/24 21:03 Acetaminophen 325 Mg Tablet PO 650 mg Q4H PRN Administration Headache Albuterol/Ipratropium 3 ml 02/05/24 17:43 02/06/24 21:42 Ipratropium 0.5 Mg/Albuterol Sulfate 2.5 Mg Ampul.Neb 3 Ml INHALATION 3 ml Q4HRT PRN Administration Shortness Of Breath Or Wheezing Dextrose 12.5 gm 02/02/24 10:59 Dextrose 50% 25 Gm/50 Ml Syringe IV PUSH PRN PRN Hypoglycemia Protocol Fluticasone Propionate 2 spray 02/02/24 00:09 Fluticasone Propionate 0.05% Na Spr 16 Gm Btl (*Bkc) NASAL DAILY PRN allergy symptoms Glucagon 1 mg 02/02/24 10:59 Glucagon For Inj 1 Mg Vial IM PRN PRN Hypoglycemia Protocol Glucose 15 gm 02/02/24 10:59 Glucose Oral Gel 15 Gm Of Glucse In 37.5 Gm Tube PO PRN PRN Hypoglycemia Protocol Heparin Sodium (Porcine) 5,000 units 02/02/24 14:00 02/08/24 05:16 Heparin Sodium 5,000 Units/Ml Vial SUB-Q 5,000 units Q8HR CARLITOS Administration Hydralazine HCl 20 mg 02/04/24 09:30 02/04/24 16:34 Hydralazine Hcl 20 Mg/Ml Vial IV PUSH 20 mg Q4H PRN Administration SBP more than 160 - 2nd choice Hydromorphone HCl 0.5 mg 02/03/24 13:53 02/06/24 14:21 Hydromorphone Hcl Inj (*Crx) 1 Mg/Ml Syr IV PUSH 0.5 mg Q2H PRN Administration Pain Rated 7-10 Piperacillin Sod/Tazobactam Sod 4.5 gm in 100 mls @ 200 mls/hr 02/03/24 11:00 02/08/24 08:21 Zosyn 4.5 Gm/Ns 100 Ml IVPB Infused Q6H CARLITOS Infusion Insulin Aspart 2 - 5 units 02/07/24 21:00 02/08/24 08:39 Insulin Aspart (*Bkc) 100 Units/Ml SUB-Q Not Given [facility] Protocol Labetalol HCl 20 mg 02/04/24 09:30 02/04/24 10:54 Labetalol Hcl Inj 100 Mg/20 Ml Vial IV PUSH 20 mg Q4H PRN Administration SBP > 160 and HR> 60 -1st choice Ondansetron HCl 4 mg 02/01/24 19:52 02/05/24 01:15 Ondansetron Inj 4 Mg/2 Ml Vial IV PUSH 4 mg Q4H PRN Administration Nausea Pantoprazole Sodium 40 mg 02/04/24 09:00 02/08/24 08:39 Pantoprazole Sodium Iv 40 Mg Vial IV PUSH 40 mg QAM CARLITOS Administration Quetiapine Fumarate 25 mg 02/05/24 21:00 02/07/24 21:03 Quetiapine Fumarate 25 Mg Tablet PO 25 mg HS CARLITOS Administration Sodium Chloride 10 ml 02/03/24 14:00 02/08/24 05:16 Central Line Flush IV PUSH 10 ml Q8HR CARLITOS Administration Sodium Chloride 10 ml 02/03/24 12:07 Central Line Flush IV PUSH PRN PRN with TPN bag changes Sodium Chloride 20 ml 02/03/24 12:07 Central Line Flush IV PUSH PRN PRN after blood draws Radiology Results: ITS Impressions Chest/Abdomen/Pelvis CTA 02/01/24 18:35 IMPRESSION: No aortic dissection or aneurysm. Moderate interstitial pulmonary edema. Hepatomegaly. Acute interstitial pancreatitis. Possible portal vein and superior mesenteric vein thrombosis, versus artifact from unopacified blood in this arterial phase study. Consider right upper quadrant with a focus on obtaining portal venous color Doppler flow and waveforms. Vascular Ultrasound 02/01/24 19:23 IMPRESSION: Patent portal veins and superior mesenteric vein. Prior CT findings likely related to artifact from arterial phase imaging. Abdomen Ultrasound 02/02/24 09:49 IMPRESSION: 1. Pancreatitis. 2. Cholelithiasis. Gallbladder wall thickening may be secondary to interstitial edema or acute cholecystitis. 3. Diffuse hepatic steatosis. Abdomen X-Ray 02/04/24 21:25 IMPRESSION: Interval replacement of the nasogastric tube with its tip projecting over the proximal stomach for which advancement of approximately 5 to 6 cm may be performed for optimal radiographic placement. Worsening bilateral pleural effusions, as detailed above. Labs Labs: Laboratory Results - last 24 hr 02/07/24 02/07/24 02/07/24 11:36 16:53 20:57 WBC RBC Hgb Hct MCV MCH MCHC RDW Plt Count MPV Sodium Potassium Chloride Carbon Dioxide Anion Gap BUN Creatinine Estim Creat Clear Calc Estimated GFR Glucose POC Capillary Glucose 106 H 126 H 133 H Calcium Phosphorus Magnesium Total Bilirubin AST ALT Alkaline Phosphatase Total Protein Albumin Lipase 02/08/24 02/08/24 05:10 07:59 WBC 17.9 H RBC 4.05 L Hgb 11.2 L Hct 33.8 L MCV 83.5 MCH 27.7 MCHC 33.1 RDW 13.2 Plt Count 198 MPV 10.4 Sodium 136 L Potassium 3.4 Chloride 104 Carbon Dioxide 26 Anion Gap 6 BUN 21 H Creatinine 0.90 Estim Creat Clear Calc 57 Estimated GFR > 60 Glucose 127 H POC Capillary Glucose 126 H Calcium 7.8 L Phosphorus 3.1 Magnesium 2.0 Total Bilirubin 1.1 AST 27 ALT 21 Alkaline Phosphatase 165 H Total Protein 6.0 L Albumin 2.9 L Lipase 55 Quality VTE Prophylaxis VTE prophylaxis: mechanical ordered and pharmacologic ordered Hospitalist MIPS Advance Care Plan I have confirmed that the patient's Advanced Care Plan is present, code status is documented, or surrogate decision maker is listed in patient medical record.: Yes Medication Reconciliation I have utilized all available resources to obtain, update and review the patients current medications (includes all prescriptions, OTC, herbals, cannabis, and nutritional supplements).: Yes
[2024-02-08 11:43] LABS: Glucose Point of Care 114 mg/dl (65-105)
[2024-02-08] MEDS: LABETALOL HCL INJ 100 MG/20 ML VIAL 20 MG IV PUSH (12:59)
[2024-02-08 13:17] LABS: Toxigenic C. Diff NEGATIVE (NEGATIVE)
[2024-02-08 16:05] LABS: Glucose Point of Care 129 mg/dl (65-105)
[2024-02-08] MEDS: QUEtiapine FUMARATE 25 MG TABLET PO (20:09)
[2024-02-08 20:50] LABS: Glucose Point of Care 139 mg/dl (65-105)
[2024-02-09] VITALS (12 sets, daily range): BP systolic 152–187; BP diastolic 73–82; PULSE 84–121; RESP 18–25; TEMP 36.7–37.1; O2SAT 94–98
[2024-02-09] MEDS: PIPERACILLIN/TAZ 4.5G/NS 100ML 4.5 GM/100 ML BAG IVPB ×4 (04:59→22:18)
[2024-02-09] MEDS: HEPARIN SODIUM 5,000 UNITS/ML VIAL 5000 UNITS SUB-Q ×3 (05:14→21:13)
[2024-02-09 05:26] LABS: Hematocrit 36.2 % (37.0-47.0); Hemoglobin 11.6 g/dL (12.0-15.0); Mean Corpuscular Hemoglobin 26.9 pg (26-34); Mean Corpuscular Volume 83.8 fl (80-100); Mean Platelet Volume 10.5 fl (7.4-10.4); Platelet Count Result 192 k/mm3 (150-375); Red Blood Count 4.32 M/mm3 (4.2-5.4); Red Cell Distribution Width 13.1 % (11.5-14.5)
[2024-02-09 05:40] LABS: Alanine Aminotransferase 19 U/L (6-35); Alkaline Phosphatase 164 U/L (38-126); Anion Gap 7 mmol/L (4-12); Aspartate Amino Transferase 28 U/L (14-36); Bilirubin,Total 0.9 mg/dL (0.2-1.3); Blood Urea Nitrogen 16 mg/dL (7-17); Carbon Dioxide 25 mmol/L (22-30); Chloride 103 mmol/L (98-107); Estimated CRCL calculation 62 ml/min; Estimated Glomerular Filt Rate > 60; Glucose 116 mg/dL (65-110); Lipase 42 U/L (23-300); Potassium 3.3 mmol/L (3.4-5.0); Sodium 135 mmol/L (137-145)
[2024-02-09 07:53] LABS: Glucose Point of Care 126 mg/dl (65-105)
[2024-02-09] MEDS: PANTOPRAZOLE SODIUM IV 40 MG VIAL IV PUSH (08:17)
[2024-02-09] MEDS: CENTRAL LINE FLUSH 10 ML IV PUSH ×3 (08:17→21:15)
--- NOTE | 2024-02-09 10:37 | PCNFU ---
Nutrition Follow-Up Complete: Altered GI function as related to pancreatitis as evidenced by NPO/clear liquids > 5 days. Goal:Meet estimated nutritional needs. Pt progressing towards goal. Continue with same goal Pt current nutrition is Low fiber. Nutrition recommendation: Add Ensure compact BID for an additional 220kcals, 9g protein Last recorded weight is 84.5 kg. Bowel Motility: +BM 02/07 Labs Reviewed: Hgb:11.6, HCT:36.2, alb:3.0, NA:135, K:3.3, Glu:126 Meds Noted: protonix Skin: WNL Additional Notes: Pt diet advanced to low fiber, intake 25-50% of meals. Recommend to add Ensure compact BID for supplement Will monitor weight, labs, skin, oral intake, meds every 5 days.
[2024-02-09 10:52] LABS: Glucose Point of Care 114 mg/dl (65-105)
[2024-02-09] MEDS: LABETALOL HCL INJ 100 MG/20 ML VIAL 20 MG IV PUSH (11:20)
--- NOTE | 2024-02-09 13:57 | PM.IMPN ---
Progress Note: A&P Assessment and Plan (1) Acute hypoxemic respiratory failure: Code(s): J96.01 - Acute respiratory failure with hypoxia Status: Acute Assessment and Plan: Acute respiratory failure likely combination of pleural effusion, pulmonary edema, atelectasis ileus leading to rapid shallow breathing, Chest x-ray done this morning shows 1. Stable small pleural effusions. 2. Stable airspace opacities in the mid and lower lung zones, consistent with atelectasis or less likely pneumonia. Patient had CPAP ordered overnight but she did not wear it. Explained the reasoning behind it and the benefits of it. CPAP 8 Will continue CPAP at this time as tolerated Lasix IV if needed Bronchodilators Continue aggressive Incentive spirometry and up in chair CPAP p.r.n. Continue diuretics (2) Hypoxia: Code(s): R09.02 - Hypoxemia Status: Acute Assessment and Plan: See above (3) Acute necrotizing pancreatitis: Code(s): K85.91 - Acute pancreatitis with uninfected necrosis, unspecified Status: Acute Assessment and Plan: Acute necrotizing pancreatitis likely secondary to gallstones No currently obstructing gallstone as per imaging.. LFTs unremarkable. Lipase is improving and normalized Patient tolerating diet up to low-fiber diet now GI and general surgery following Imaging as above Pain control Planned interval cholecystectomy Repeat CT with stable necrotic pancreatitis Clinically improved the leukocytosis persist and worsen today. Will recheck in a.m.. Continue IV Zosyn (4) Sepsis: Code(s): A41.9 - Sepsis, unspecified organism Status: Acute Assessment and Plan: Patient met criteria for sepsis. Blood cultures have been sent and are negative now Patient is on Zosyn which will be continued (5) Ileus: Code(s): K56.7 - Ileus, unspecified Status: Acute Assessment and Plan: Patient probable ileus likely severe pancreatitis. Initially treated with NG tube placement which is now been discontinued. X-ray still shows dilated bowel loops and she has decreased breath sounds but she is passing gas and not tolerating well clear liquid diet (6) Pleural effusion associated with pancreatitis: Code(s): K85.90 - Acute pancreatitis without necrosis or infection, unspecified; J91.8 - Pleural effusion in other conditions classified elsewhere Status: Acute Assessment and Plan: Likely secondary third-spacing. Continue diuretics (7) Cholelithiasis: Code(s): K80.20 - Calculus of gallbladder without cholecystitis without obstruction Status: Acute Assessment and Plan: See above (8) Electrolyte abnormality: Code(s): E87.8 - Other disorders of electrolyte and fluid balance, not elsewhere classified Status: Acute Assessment and Plan: Replace low potassium (9) Delirium: Code(s): R41.0 - Disorientation, unspecified Status: Acute Assessment and Plan: S/P Precedex infusion at ICU, avoid benzodiazepine Continue low-dose Seroquel at night Supportive treatment Plan Thickened endometrial complex. Follow-up as an outpatient basis Subjective Date/time seen: 02/09/24 13:57 Interval history: No overnight events. Feeling better. Denies any chest pain or shortness of breath. Remains afebrile. Review of Systems Review of Systems: All systems reviewed & are unremarkable except as noted in HPI and below (HPI) Exam Narrative: General: Pt is alert awake and in NAD Lungs/Chest: Trachea central Clear BS B/L, Breath sounds are decreased at bases. No respiratory distress Cardiac: RRR. Normal S1 S2. No murmurs Circulation: Pedal pulses are intact and symmetrical. Abdomen: Decreased bowel sounds.. Soft. Mildly distended. Nontender Extremities: No clubbing, cyanosis or edema. Warm Neurologic: Follows commands. Moves all 4 extremities PERRL alert and oriented x3 Skin: No Rash Objective Data Vital Signs Vital Signs: Vital Signs - 24 hr 02/08/24 14:00 02/08/24 16:00 02/08/24 16:00 Temperature 99.5 F Pulse Rate 87 90 108 H Respiratory Rate 24 H Blood Pressure 175/85 H Pulse Oximetry 95 Oxygen Delivery Oxygen Flow Rate Fraction of Inspired Oxygen 02/08/24 18:00 02/08/24 19:52 02/08/24 19:43 Temperature Pulse Rate 96 96 Respiratory Rate 24 H Blood Pressure Pulse Oximetry 95 95 Oxygen Delivery Nasal Cannula Nasal Cannula Oxygen Flow Rate 1 1 Fraction of Inspired Oxygen 02/08/24 20:31 02/08/24 20:00 02/08/24 22:00 Temperature 98.6 F Pulse Rate 98 98 93 Respiratory Rate 20 Blood Pressure 151/82 H Pulse Oximetry 98 Oxygen Delivery Oxygen Flow Rate Fraction of Inspired Oxygen 02/08/24 23:03 02/08/24 23:25 02/08/24 23:25 Temperature 97.8 F Pulse Rate 65 65 97 Respiratory Rate 25 H 25 H 22 H Blood Pressure 173/76 H Pulse Oximetry 98 98 96 Oxygen Delivery CPAP CPAP Oxygen Flow Rate Fraction of Inspired Oxygen 30 02/09/24 00:00 02/09/24 02:00 02/09/24 04:00 Temperature Pulse Rate 108 H 90 90 Respiratory Rate 25 H Blood Pressure Pulse Oximetry 98 Oxygen Delivery Nasal Cannula Oxygen Flow Rate 1 Fraction of Inspired Oxygen 02/09/24 04:23 02/09/24 04:00 02/09/24 05:57 Temperature 98.1 F Pulse Rate 101 H 110 H 94 Respiratory Rate 20 Blood Pressure 153/73 H Pulse Oximetry 96 Oxygen Delivery Oxygen Flow Rate Fraction of Inspired Oxygen 02/09/24 08:00 02/09/24 09:24 02/09/24 08:00 Temperature 98.4 F Pulse Rate 100 109 H Respiratory Rate 18 Blood Pressure 152/82 H Pulse Oximetry 95 94 Oxygen Delivery Nasal Cannula Oxygen Flow Rate 1 Fraction of Inspired Oxygen 02/09/24 10:00 02/09/24 12:00 Temperature 98.1 F Pulse Rate 121 H 103 H Respiratory Rate 20 Blood Pressure 187/73 H Pulse Oximetry 95 Oxygen Delivery Oxygen Flow Rate Fraction of Inspired Oxygen Intake/Output Intake/Output: Intake & Output 02/06/24 02/07/24 02/08/24 02/09/24 23:59 23:59 23:59 23:59 Intake Total 2150.8 436.7 1550 740 Output Total 2600 525 1400 400 Balance -449.2 -88.3 150 340 Meds/Results Medications: Active Medications Generic Name Dose Route Start Last Admin Trade Name Freq PRN Reason Stop Dose Admin Acetaminophen 650 mg 02/05/24 16:12 02/07/24 21:03 Acetaminophen 325 Mg Tablet PO 650 mg Q4H PRN Administration Headache Albuterol/Ipratropium 3 ml 02/05/24 17:43 02/06/24 21:42 Ipratropium 0.5 Mg/Albuterol Sulfate 2.5 Mg Ampul.Neb 3 Ml INHALATION 3 ml Q4HRT PRN Administration Shortness Of Breath Or Wheezing Dextrose 12.5 gm 02/02/24 10:59 Dextrose 50% 25 Gm/50 Ml Syringe IV PUSH PRN PRN Hypoglycemia Protocol Fluticasone Propionate 2 spray 02/02/24 00:09 Fluticasone Propionate 0.05% Na Spr 16 Gm Btl (*Bkc) NASAL DAILY PRN allergy symptoms Glucagon 1 mg 02/02/24 10:59 Glucagon For Inj 1 Mg Vial IM PRN PRN Hypoglycemia Protocol Glucose 15 gm 02/02/24 10:59 Glucose Oral Gel 15 Gm Of Glucse In 37.5 Gm Tube PO PRN PRN Hypoglycemia Protocol Heparin Sodium (Porcine) 5,000 units 02/02/24 14:00 02/09/24 13:28 Heparin Sodium 5,000 Units/Ml Vial SUB-Q 5,000 units Q8HR CARLITOS Administration Hydralazine HCl 20 mg 02/04/24 09:30 02/04/24 16:34 Hydralazine Hcl 20 Mg/Ml Vial IV PUSH 20 mg Q4H PRN Administration SBP more than 160 - 2nd choice Hydromorphone HCl 0.5 mg 02/03/24 13:53 02/06/24 14:21 Hydromorphone Hcl Inj (*Crx) 1 Mg/Ml Syr IV PUSH 0.5 mg Q2H PRN Administration Pain Rated 7-10 Piperacillin Sod/Tazobactam Sod 4.5 gm in 100 mls @ 200 mls/hr 02/03/24 11:00 02/09/24 12:11 Zosyn 4.5 Gm/Ns 100 Ml IVPB Infused Q6H CARLITOS Infusion Insulin Aspart 2 - 5 units 02/07/24 21:00 02/09/24 10:55 Insulin Aspart (*Bkc) 100 Units/Ml SUB-Q Not Given [facility] Protocol Labetalol HCl 20 mg 02/04/24 09:30 02/09/24 11:20 Labetalol Hcl Inj 100 Mg/20 Ml Vial IV PUSH 20 mg Q4H PRN Administration SBP > 160 and HR> 60 -1st choice Ondansetron HCl 4 mg 02/01/24 19:52 02/05/24 01:15 Ondansetron Inj 4 Mg/2 Ml Vial IV PUSH 4 mg Q4H PRN Administration Nausea Pantoprazole Sodium 40 mg 02/04/24 09:00 02/09/24 08:17 Pantoprazole Sodium Iv 40 Mg Vial IV PUSH 40 mg QAM CARLITOS Administration Quetiapine Fumarate 25 mg 02/05/24 21:00 02/08/24 20:09 Quetiapine Fumarate 25 Mg Tablet PO 25 mg HS CARLITOS Administration Sodium Chloride 10 ml 02/03/24 14:00 02/09/24 13:28 Central Line Flush IV PUSH 10 ml Q8HR CARLITOS Administration Sodium Chloride 10 ml 02/03/24 12:07 Central Line Flush IV PUSH PRN PRN with TPN bag changes Sodium Chloride 20 ml 02/03/24 12:07 Central Line Flush IV PUSH PRN PRN after blood draws Radiology Results: ITS Impressions Chest/Abdomen/Pelvis CTA 02/01/24 18:35 IMPRESSION: No aortic dissection or aneurysm. Moderate interstitial pulmonary edema. Hepatomegaly. Acute interstitial pancreatitis. Possible portal vein and superior mesenteric vein thrombosis, versus artifact from unopacified blood in this arterial phase study. Consider right upper quadrant with a focus on obtaining portal venous color Doppler flow and waveforms. Vascular Ultrasound 02/01/24 19:23 IMPRESSION: Patent portal veins and superior mesenteric vein. Prior CT findings likely related to artifact from arterial phase imaging. Abdomen Ultrasound 02/02/24 09:49 IMPRESSION: 1. Pancreatitis. 2. Cholelithiasis. Gallbladder wall thickening may be secondary to interstitial edema or acute cholecystitis. 3. Diffuse hepatic steatosis. Abdomen X-Ray 02/04/24 21:25 IMPRESSION: Interval replacement of the nasogastric tube with its tip projecting over the proximal stomach for which advancement of approximately 5 to 6 cm may be performed for optimal radiographic placement. Worsening bilateral pleural effusions, as detailed above. Chest X-Ray 02/08/24 10:27 IMPRESSION: 1. Small lung volumes with airspace opacities at the lung bases, likely atelectasis. 2. Small right pleural effusion. 3. Dilated small bowel, likely adynamic ileus. Abdomen/Pelvis CT 02/08/24 10:29 IMPRESSION: 1. Stable acute necrotic pancreatitis. 2. Improved small volume of ascites. 3. Worsened small pleural effusions. 4. Cholelithiasis. Gallbladder distention may be secondary to fasting or acute cholecystitis. 5. Dilated small bowel, likely adynamic ileus. 6. Thickened endometrial complex. The differential diagnosis includes endometrial hyperplasia, polyp, and carcinoma. Consider pelvis ultrasound or biopsy. Labs Labs: Laboratory Results - last 24 hr 02/08/24 02/08/24 02/09/24 15:14 20:41 05:19 WBC 22.0 H RBC 4.32 Hgb 11.6 L Hct 36.2 L MCV 83.8 MCH 26.9 MCHC 32.0 RDW 13.1 Plt Count 192 MPV 10.5 H Sodium 135 L Potassium 3.3 L Chloride 103 Carbon Dioxide 25 Anion Gap 7 BUN 16 Creatinine 0.80 Estim Creat Clear Calc 62 Estimated GFR > 60 Glucose 116 H POC Capillary Glucose 129 H 139 H Calcium 8.0 L Total Bilirubin 0.9 AST 28 ALT 19 Alkaline Phosphatase 164 H Total Protein 6.0 L Albumin 3.0 L Lipase 42 02/09/24 02/09/24 07:26 10:40 WBC RBC Hgb Hct MCV MCH MCHC RDW Plt Count MPV Sodium Potassium Chloride Carbon Dioxide Anion Gap BUN Creatinine Estim Creat Clear Calc Estimated GFR Glucose POC Capillary Glucose 126 H 114 H Calcium Total Bilirubin AST ALT Alkaline Phosphatase Total Protein Albumin Lipase
[2024-02-09] MEDS: POTASSIUM CHLORIDE 20 MEQ ER TABLET 40 MEQ PO (14:00)
--- NOTE | 2024-02-09 14:27 | WPDGIPROGNO ---
Progress Note: A&P Assessment and Plan (1) Gallstone pancreatitis: Code(s): K85.10 - Biliary acute pancreatitis without necrosis or infection Status: Acute Assessment and Plan: necrotizing pancreatitis clinically feeling better add ensure, will try to eat more (2) Nausea and vomiting in adult: Code(s): R11.2 - Nausea with vomiting, unspecified Status: Acute Assessment and Plan: antiemetics, better (3) Leukocytosis: Code(s): D72.829 - Elevated white blood cell count, unspecified Status: Acute Assessment and Plan: probably reactive from severe pancreatitis (4) Sepsis: Code(s): A41.9 - Sepsis, unspecified organism Status: Acute Assessment and Plan: from severe pancreatitis better (5) Cholelithiasis: Code(s): K80.20 - Calculus of gallbladder without cholecystitis without obstruction Status: Acute Assessment and Plan: surgery on board interval cholecystectomy once pancreatitis resolves (6) Acute hypoxemic respiratory failure: Code(s): J96.01 - Acute respiratory failure with hypoxia Status: Acute Assessment and Plan: improved (7) Acute necrotizing pancreatitis: Code(s): K85.91 - Acute pancreatitis with uninfected necrosis, unspecified Status: Acute Subjective Date/time seen: 02/09/24 14:27 Interval history: more comfortable, breathing better less pain, still poor appetite but will try to eat food from home Review of Systems Review of Systems: All systems reviewed & are unremarkable except as noted in HPI and below Exam Const: General: comfortable and no acute distress Orientation/consciousness: patient oriented x3 HENMT: Face/Nose/Sinus: Normal nares present Eyes: General: appearance normal, both eyes and all related structures Neck: Neck: supple Resp: Auscultation: no wheezes and diminished lung sounds Cardio: Rate: regular rate GI: Inspection: other (mildly distended) GI Palp: Yes Soft to palpation (her abdomen is soft throughout), Yes Firmness to palpation present (GI) (inflammation in the epigastric area), Yes Tenderness to palpation present (GI) (mild tenderness in the LUQ), No Guarding due to palpation present (GI), No Rebound tenderness present and Yes Other GI palpation findings present (multiple small areas of ecchymosis of the lower abdomen from subQ heparin) Auscultation: Hypoactive bowel sounds present Urinary Catheter: Urinary Catheter: patent and draining and urine clear Skin: General skin exam: normal color Neuro: Speech: normal speech Motor exam (neuro): 5/5 motor strength present throughout Extrem: General: no calf tenderness and no edema Psych: Mental Status: mental status grossly normal Objective Data Vital Signs Vital Signs: Vital Signs - 24 hr 02/08/24 16:00 02/08/24 16:00 02/08/24 18:00 Temperature 99.5 F Pulse Rate 90 108 H 96 Respiratory Rate 24 H Blood Pressure 175/85 H Pulse Oximetry 95 Oxygen Delivery Oxygen Flow Rate Fraction of Inspired Oxygen 02/08/24 19:52 02/08/24 19:43 02/08/24 20:31 Temperature 98.6 F Pulse Rate 96 98 Respiratory Rate 24 H 20 Blood Pressure 151/82 H Pulse Oximetry 95 95 98 Oxygen Delivery Nasal Cannula Nasal Cannula Oxygen Flow Rate 1 1 Fraction of Inspired Oxygen 02/08/24 20:00 02/08/24 22:00 02/08/24 23:03 Temperature Pulse Rate 98 93 65 Respiratory Rate 25 H Blood Pressure Pulse Oximetry 98 Oxygen Delivery CPAP Oxygen Flow Rate Fraction of Inspired Oxygen 02/08/24 23:25 02/08/24 23:25 02/09/24 00:00 Temperature 97.8 F Pulse Rate 65 97 108 H Respiratory Rate 25 H 22 H Blood Pressure 173/76 H Pulse Oximetry 98 96 Oxygen Delivery CPAP Oxygen Flow Rate Fraction of Inspired Oxygen 30 02/09/24 02:00 02/09/24 04:00 02/09/24 04:23 Temperature 98.1 F Pulse Rate 90 90 101 H Respiratory Rate 25 H 20 Blood Pressure 153/73 H Pulse Oximetry 98 96 Oxygen Delivery Nasal Cannula Oxygen Flow Rate 1 Fraction of Inspired Oxygen 02/09/24 04:00 02/09/24 05:57 02/09/24 08:00 Temperature 98.4 F Pulse Rate 110 H 94 100 Respiratory Rate 18 Blood Pressure 152/82 H Pulse Oximetry 95 Oxygen Delivery Oxygen Flow Rate Fraction of Inspired Oxygen 02/09/24 09:24 02/09/24 08:00 02/09/24 10:00 Temperature Pulse Rate 109 H 121 H Respiratory Rate Blood Pressure Pulse Oximetry 94 Oxygen Delivery Nasal Cannula Oxygen Flow Rate 1 Fraction of Inspired Oxygen 02/09/24 12:00 Temperature 98.1 F Pulse Rate 103 H Respiratory Rate 20 Blood Pressure 187/73 H Pulse Oximetry 95 Oxygen Delivery Oxygen Flow Rate Fraction of Inspired Oxygen Intake/Output Intake/Output: Intake & Output 02/06/24 02/07/24 02/08/24 02/09/24 23:59 23:59 23:59 23:59 Intake Total 2150.8 436.7 1550 740 Output Total 2600 525 1400 400 Balance -449.2 -88.3 150 340 Meds/Results Medications: Active Medications Generic Name Dose Route Start Last Admin Trade Name Freq PRN Reason Stop Dose Admin Acetaminophen 650 mg 02/05/24 16:12 02/07/24 21:03 Acetaminophen 325 Mg Tablet PO 650 mg Q4H PRN Administration Headache Albuterol/Ipratropium 3 ml 02/05/24 17:43 02/06/24 21:42 Ipratropium 0.5 Mg/Albuterol Sulfate 2.5 Mg Ampul.Neb 3 Ml INHALATION 3 ml Q4HRT PRN Administration Shortness Of Breath Or Wheezing Dextrose 12.5 gm 02/02/24 10:59 Dextrose 50% 25 Gm/50 Ml Syringe IV PUSH PRN PRN Hypoglycemia Protocol Fluticasone Propionate 2 spray 02/02/24 00:09 Fluticasone Propionate 0.05% Na Spr 16 Gm Btl (*Bkc) NASAL DAILY PRN allergy symptoms Glucagon 1 mg 02/02/24 10:59 Glucagon For Inj 1 Mg Vial IM PRN PRN Hypoglycemia Protocol Glucose 15 gm 02/02/24 10:59 Glucose Oral Gel 15 Gm Of Glucse In 37.5 Gm Tube PO PRN PRN Hypoglycemia Protocol Heparin Sodium (Porcine) 5,000 units 02/02/24 14:00 02/09/24 13:28 Heparin Sodium 5,000 Units/Ml Vial SUB-Q 5,000 units Q8HR CARLITOS Administration Hydralazine HCl 20 mg 02/04/24 09:30 02/04/24 16:34 Hydralazine Hcl 20 Mg/Ml Vial IV PUSH 20 mg Q4H PRN Administration SBP more than 160 - 2nd choice Hydromorphone HCl 0.5 mg 02/03/24 13:53 02/06/24 14:21 Hydromorphone Hcl Inj (*Crx) 1 Mg/Ml Syr IV PUSH 0.5 mg Q2H PRN Administration Pain Rated 7-10 Piperacillin Sod/Tazobactam Sod 4.5 gm in 100 mls @ 200 mls/hr 02/03/24 11:00 02/09/24 12:11 Zosyn 4.5 Gm/Ns 100 Ml IVPB Infused Q6H CARLITOS Infusion Insulin Aspart 2 - 5 units 02/07/24 21:00 02/09/24 10:55 Insulin Aspart (*Bkc) 100 Units/Ml SUB-Q Not Given [facility] Protocol Labetalol HCl 20 mg 02/04/24 09:30 02/09/24 11:20 Labetalol Hcl Inj 100 Mg/20 Ml Vial IV PUSH 20 mg Q4H PRN Administration SBP > 160 and HR> 60 -1st choice Ondansetron HCl 4 mg 02/01/24 19:52 02/05/24 01:15 Ondansetron Inj 4 Mg/2 Ml Vial IV PUSH 4 mg Q4H PRN Administration Nausea Pantoprazole Sodium 40 mg 02/04/24 09:00 02/09/24 08:17 Pantoprazole Sodium Iv 40 Mg Vial IV PUSH 40 mg QAM CARLITOS Administration Quetiapine Fumarate 25 mg 02/05/24 21:00 02/08/24 20:09 Quetiapine Fumarate 25 Mg Tablet PO 25 mg HS CARLITOS Administration Sodium Chloride 10 ml 02/03/24 14:00 02/09/24 13:28 Central Line Flush IV PUSH 10 ml Q8HR CARLITOS Administration Sodium Chloride 10 ml 02/03/24 12:07 Central Line Flush IV PUSH PRN PRN with TPN bag changes Sodium Chloride 20 ml 02/03/24 12:07 Central Line Flush IV PUSH PRN PRN after blood draws Radiology Results: ITS Impressions Chest/Abdomen/Pelvis CTA 02/01/24 18:35 IMPRESSION: No aortic dissection or aneurysm. Moderate interstitial pulmonary edema. Hepatomegaly. Acute interstitial pancreatitis. Possible portal vein and superior mesenteric vein thrombosis, versus artifact from unopacified blood in this arterial phase study. Consider right upper quadrant with a focus on obtaining portal venous color Doppler flow and waveforms. Vascular Ultrasound 02/01/24 19:23 IMPRESSION: Patent portal veins and superior mesenteric vein. Prior CT findings likely related to artifact from arterial phase imaging. Abdomen Ultrasound 02/02/24 09:49 IMPRESSION: 1. Pancreatitis. 2. Cholelithiasis. Gallbladder wall thickening may be secondary to interstitial edema or acute cholecystitis. 3. Diffuse hepatic steatosis. Abdomen X-Ray 02/04/24 21:25 IMPRESSION: Interval replacement of the nasogastric tube with its tip projecting over the proximal stomach for which advancement of approximately 5 to 6 cm may be performed for optimal radiographic placement. Worsening bilateral pleural effusions, as detailed above. Chest X-Ray 02/08/24 10:27 IMPRESSION: 1. Small lung volumes with airspace opacities at the lung bases, likely atelectasis. 2. Small right pleural effusion. 3. Dilated small bowel, likely adynamic ileus. Abdomen/Pelvis CT 02/08/24 10:29 IMPRESSION: 1. Stable acute necrotic pancreatitis. 2. Improved small volume of ascites. 3. Worsened small pleural effusions. 4. Cholelithiasis. Gallbladder distention may be secondary to fasting or acute cholecystitis. 5. Dilated small bowel, likely adynamic ileus. 6. Thickened endometrial complex. The differential diagnosis includes endometrial hyperplasia, polyp, and carcinoma. Consider pelvis ultrasound or biopsy. Labs Labs: Laboratory Results - last 24 hr 02/08/24 02/08/24 02/09/24 15:14 20:41 05:19 WBC 22.0 H RBC 4.32 Hgb 11.6 L Hct 36.2 L MCV 83.8 MCH 26.9 MCHC 32.0 RDW 13.1 Plt Count 192 MPV 10.5 H Sodium 135 L Potassium 3.3 L Chloride 103 Carbon Dioxide 25 Anion Gap 7 BUN 16 Creatinine 0.80 Estim Creat Clear Calc 62 Estimated GFR > 60 Glucose 116 H POC Capillary Glucose 129 H 139 H Calcium 8.0 L Total Bilirubin 0.9 AST 28 ALT 19 Alkaline Phosphatase 164 H Total Protein 6.0 L Albumin 3.0 L Lipase 42 02/09/24 02/09/24 07:26 10:40 WBC RBC Hgb Hct MCV MCH MCHC RDW Plt Count MPV Sodium Potassium Chloride Carbon Dioxide Anion Gap BUN Creatinine Estim Creat Clear Calc Estimated GFR Glucose POC Capillary Glucose 126 H 114 H Calcium Total Bilirubin AST ALT Alkaline Phosphatase Total Protein Albumin Lipase
[2024-02-09] MEDS: ACETAMINOPHEN 325 MG TABLET 650 MG PO (18:24)
[2024-02-09 21:09] LABS: Glucose Point of Care 113 mg/dl (65-105)
[2024-02-09] MEDS: QUEtiapine FUMARATE 25 MG TABLET PO (21:13)
[2024-02-10] MEDS: ACETAMINOPHEN 325 MG TABLET 650 MG PO ×2 (03:38→20:55)
[2024-02-10 05:15] VITALS: BP 143/76; PULSE 103; RESP 20; TEMP 36.4; O2SAT 96
[2024-02-10] MEDS: HEPARIN SODIUM 5,000 UNITS/ML VIAL 5000 UNITS SUB-Q ×3 (05:19→20:55)
[2024-02-10] MEDS: CENTRAL LINE FLUSH 10 ML IV PUSH ×3 (05:19→20:57)
[2024-02-10] MEDS: PIPERACILLIN/TAZ 4.5G/NS 100ML 4.5 GM/100 ML BAG IVPB (05:19)
[2024-02-10] MEDS: CENTRAL LINE FLUSH 20 ML IV PUSH (05:35)
[2024-02-10 05:55] LABS: Basophils Absolute Auto 0.1 K/mm3 (0.0-0.1); Basophils Percent Auto 0.3 % (0.2-1.2); Eosinophils Absolute Auto 0.3 K/mm3 (0-0.3); Eosinophils Percent Auto 1.5 % (0-4.4); Hematocrit 33.5 % (37.0-47.0); Hemoglobin 10.7 g/dL (12.0-15.0); Immature Granulocyte Absolute 0.62 K/mm3 (0.00-0.031); Immature Granulocyte Percent A 2.7 % (0-0.5); Immature Platelet Fraction Pct 4.3 % (0.9-11.2); Lymphocytes Absolute Auto 1.42 K/mm3 (0.9-3.2); Lymphocytes Percent Auto 6.2 % (18.3-44.2); Mean Corpuscular HGB Conc 31.9 g/dl (32-36); Mean Corpuscular Hemoglobin 26.8 pg (26-34); Mean Corpuscular Volume 83.8 fl (80-100); Mean Platelet Volume 10.5 fl (7.4-10.4); Monocytes Absolute Auto 1.8 K/mm3 (0.1-0.6); Monocytes Percent Auto 7.7 % (2.6-8.5); Neutrophils Absolute Auto 18.8 K/mm3 (1.3-6.7); Neutrophils Percent Auto 81.6 % (45.5-73.1); Platelet Count Result 220 k/mm3 (150-375); White Blood Count 23.1 K/mm3 (4.5-10.0)
[2024-02-10 06:14] LABS: Alanine Aminotransferase 18 U/L (6-35); Albumin Level 2.8 g/dL (3.5-5.1); Alkaline Phosphatase 168 U/L (38-126); Anion Gap 8 mmol/L (4-12); Aspartate Amino Transferase 31 U/L (14-36); Bilirubin,Total 0.9 mg/dL (0.2-1.3); Blood Urea Nitrogen 13 mg/dL (7-17); Calcium 7.8 mg/dL (8.4-10.2); Carbon Dioxide 24 mmol/L (22-30); Chloride 101 mmol/L (98-107); Estimated CRCL calculation 70 ml/min; Estimated Glomerular Filt Rate > 60; Glucose 107 mg/dL (65-110); Potassium 3.4 mmol/L (3.4-5.0); Sodium 133 mmol/L (137-145)
[2024-02-10 07:59] LABS: Glucose Point of Care 113 mg/dl (65-105)
[2024-02-10] MEDS: PANTOPRAZOLE SODIUM IV 40 MG VIAL IV PUSH (08:24)
[2024-02-10] MEDS: ALTEPLASE 2 MG VIAL (CATHFLO) IV PUSH (08:29)
[2024-02-10 08:49] VITALS: O2SAT 93
[2024-02-10] MEDS: MEROPENEM 1 GM/NS 100 ML 1 GM/100 ML BAG IVPB ×2 (11:47→20:56)
[2024-02-10 11:58] LABS: Glucose Point of Care 136 mg/dl (65-105)
--- NOTE | 2024-02-10 13:41 | P.PNIM_ITS ---
Progress Note: A&P Assessment and Plan (1) Acute necrotizing pancreatitis: Code(s): K85.91 - Acute pancreatitis with uninfected necrosis, unspecified Status: Acute Plan Acute necrotizing pancreatitis -with persistent leukocytosis 23k will broaden antibiotics -antibiotics: Changed from Zosyn to meropenem 02/09- -advancing diet as tolerated, Ensure added vaccination patient GI consultation, General surgery consultation -patient will need interval cholecystectomy once pancreatitis resolved. Surgery consultation recommends medical management now -sepsis on presentation resolved -leukocytosis, persistent, monitoring antibiotics -continue IV PPI Delirium, resolved -resolved, likely ICU delirium -patient had been started on Seroquel 25 mg nightly Chronic conditions -vitamin-D deficiency: Supplement -arthritis: On naproxen as needed -essential hypertension: Carvedilol, losartan, hydrochlorothiazide -muscle spasms: Flexeril -allergies: Flonase -hyperlipidemia: Rosuvastatin Diet: Low residue, dietary supplement DVT prophylaxis: SubQ heparin Code status: Full code Disposition: Home >2 days Time Spent With Patient Time: 35 minutes Subjective Date/time seen: 02/10/24 13:42 Interval history: Patient seen examined. Her leukocytosis still persistent 23,000, changing Zosyn to meropenem today. Last fever was on 02/05. She still has some abdominal discomfort. Will continue treating the pancreatitis. She is tolerating her diet, will not further advance. Patient's updated bedside. She denies fever, chills, nausea, vomiting, chest pain. Review of Systems 2 Review of Systems: 10 point ROS complete, negative other th an what is specified in HPI. Exam Narrative: - GENERAL: Pleasant woman No acute dist ress. Well-nourished. - EYES: EOMI. Anicteric. - HENT: Moist mucous membranes. - LUNGS: Clear to auscultation bilateral ly, no wheezing, rhonchi, or rales. - CARDIOVASCULAR: Regular rate and rhyth m. No murmur. No JVD. - ABDOMEN: Soft, tender on deep palpatio n - EXTREMITIES: No edema. Peripheral puls es 2+. Non-tender. - NEUROLOGIC: No focal neurological defi cits. CN II-XII grossly intact. - PSYCHIATRIC: Awake, Alert and oriented x 3. Appropriate mood and affect. - SKIN: No rashes or lesions. Warm. - LYMPH: No cervical lymphadenopathy. Objective Data Vital Signs Vital Signs: Vital Signs - 24 hr 02/09/24 16:00 02/09/24 20:45 02/09/24 20:00 Temperature 37.1 C 36.8 C Pulse Rate 84 90 Respiratory Rate 20 18 Blood Pressure 167/74 H 167/80 H Pulse Oximetry 97 95 95 Oxygen Delivery Nasal Cannula Oxygen Flow Rate 1 02/10/24 05:15 02/10/24 08:49 02/10/24 08:00 Temperature 36.4 C L Pulse Rate 103 H Respiratory Rate 20 Blood Pressure 143/76 H Pulse Oximetry 96 93 Oxygen Delivery Room Air Room Air Oxygen Flow Rate Intake/Output Intake/Output: Intake & Output 02/07/24 02/08/24 02/09/24 02/10/24 23:59 23:59 23:59 23:59 Intake Total 436.7 1550 2420 500 Output Total 525 1400 1101 425 Balance -88.3 150 1319 75 Meds/Results Medications: Active Medications Generic Name Dose Route Start Last Admin Trade Name Freq PRN Reason Stop Dose Admin Acetaminophen 650 mg 02/05/24 16:12 02/10/24 03:38 Acetaminophen 325 Mg Tablet PO 650 mg Q4H PRN Administration Headache Albuterol/Ipratropium 3 ml 02/05/24 17:43 02/06/24 21:42 Ipratropium 0.5 Mg/Albuterol Sulfate 2.5 Mg Ampul.Neb 3 Ml INHALATION 3 ml Q4HRT PRN Administration Shortness Of Breath Or Wheezing Alteplase, Recombinant 2 mg 02/10/24 06:52 02/10/24 08:29 Alteplase 2 Mg Vial (Cathflo) IV PUSH 2 mg ONCE PRN Administration Line Occlusion Dextrose 12.5 gm 02/02/24 10:59 Dextrose 50% 25 Gm/50 Ml Syringe IV PUSH PRN PRN Hypoglycemia Protocol Fluticasone Propionate 2 spray 02/02/24 00:09 Fluticasone Propionate 0.05% Na Spr 16 Gm Btl (*Bkc) NASAL DAILY PRN allergy symptoms Glucagon 1 mg 02/02/24 10:59 Glucagon For Inj 1 Mg Vial IM PRN PRN Hypoglycemia Protocol Glucose 15 gm 02/02/24 10:59 Glucose Oral Gel 15 Gm Of Glucse In 37.5 Gm Tube PO PRN PRN Hypoglycemia Protocol Heparin Sodium (Porcine) 5,000 units 02/02/24 14:00 02/10/24 05:19 Heparin Sodium 5,000 Units/Ml Vial SUB-Q 5,000 units Q8HR CARLITOS Administration Hydralazine HCl 20 mg 02/04/24 09:30 02/04/24 16:34 Hydralazine Hcl 20 Mg/Ml Vial IV PUSH 20 mg Q4H PRN Administration SBP more than 160 - 2nd choice Hydromorphone HCl 0.5 mg 02/03/24 13:53 02/06/24 14:21 Hydromorphone Hcl Inj (*Crx) 1 Mg/Ml Syr IV PUSH 0.5 mg Q2H PRN Administration Pain Rated 7-10 Meropenem 1 gm in 100 mls @ 200 mls/hr 02/10/24 12:00 02/10/24 11:47 IVPB 200 mls/hr Q8HR CARLITOS Administration Insulin Aspart 2 - 5 units 02/07/24 21:00 02/10/24 11:38 Insulin Aspart (*Bkc) 100 Units/Ml SUB-Q Not Given [facility] Protocol Labetalol HCl 20 mg 02/04/24 09:30 02/09/24 11:20 Labetalol Hcl Inj 100 Mg/20 Ml Vial IV PUSH 20 mg Q4H PRN Administration SBP > 160 and HR> 60 -1st choice Ondansetron HCl 4 mg 02/01/24 19:52 02/05/24 01:15 Ondansetron Inj 4 Mg/2 Ml Vial IV PUSH 4 mg Q4H PRN Administration Nausea Pantoprazole Sodium 40 mg 02/04/24 09:00 02/10/24 08:24 Pantoprazole Sodium Iv 40 Mg Vial IV PUSH 40 mg QAM CARLITOS Administration Quetiapine Fumarate 25 mg 02/05/24 21:00 02/09/24 21:13 Quetiapine Fumarate 25 Mg Tablet PO 25 mg HS CARLITOS Administration Sodium Chloride 10 ml 02/03/24 14:00 02/10/24 05:19 Central Line Flush IV PUSH 10 ml Q8HR CARLITOS Administration Sodium Chloride 10 ml 02/03/24 12:07 Central Line Flush IV PUSH PRN PRN with TPN bag changes Sodium Chloride 20 ml 02/03/24 12:07 02/10/24 05:35 Central Line Flush IV PUSH 20 ml PRN PRN Administration after blood draws Radiology Results: ITS Impressions Chest/Abdomen/Pelvis CTA 02/01/24 18:35 IMPRESSION: No aortic dissection or aneurysm. Moderate interstitial pulmonary edema. Hepatomegaly. Acute interstitial pancreatitis. Possible portal vein and superior mesenteric vein thrombosis, versus artifact from unopacified blood in this arterial phase study. Consider right upper quadrant with a focus on obtaining portal venous color Doppler flow and waveforms. Vascular Ultrasound 02/01/24 19:23 IMPRESSION: Patent portal veins and superior mesenteric vein. Prior CT findings likely related to artifact from arterial phase imaging. Abdomen Ultrasound 02/02/24 09:49 IMPRESSION: 1. Pancreatitis. 2. Cholelithiasis. Gallbladder wall thickening may be secondary to interstitial edema or acute cholecystitis. 3. Diffuse hepatic steatosis. Abdomen X-Ray 02/04/24 21:25 IMPRESSION: Interval replacement of the nasogastric tube with its tip projecting over the proximal stomach for which advancement of approximately 5 to 6 cm may be performed for optimal radiographic placement. Worsening bilateral pleural effusions, as detailed above. Chest X-Ray 02/08/24 10:27 IMPRESSION: 1. Small lung volumes with airspace opacities at the lung bases, likely atelectasis. 2. Small right pleural effusion. 3. Dilated small bowel, likely adynamic ileus. Abdomen/Pelvis CT 02/08/24 10:29 IMPRESSION: 1. Stable acute necrotic pancreatitis. 2. Improved small volume of ascites. 3. Worsened small pleural effusions. 4. Cholelithiasis. Gallbladder distention may be secondary to fasting or acute cholecystitis. 5. Dilated small bowel, likely adynamic ileus. 6. Thickened endometrial complex. The differential diagnosis includes endometrial hyperplasia, polyp, and carcinoma. Consider pelvis ultrasound or biopsy. Labs Labs: Laboratory Results - last 24 hr 02/09/24 02/10/24 02/10/24 20:47 05:31 05:33 WBC 23.1 H RBC 4.00 L Hgb 10.7 L Hct 33.5 L MCV 83.8 MCH 26.8 MCHC 31.9 L RDW 13.0 Plt Count 220 MPV 10.5 H Immature Gran % (Auto) 2.7 H Neut % (Auto) 81.6 H Lymph % (Auto) 6.2 L [place] % (Auto) 7.7 Eos % (Auto) 1.5 Baso % (Auto) 0.3 Lymph # (Auto) 1.42 [place] # (Auto) 1.8 H Eos # (Auto) 0.3 Baso # (Auto) 0.1 Abs Immat Gran (auto) 0.62 H Absolute Neuts (auto) 18.8 H Absolute Nucleated RBC 0.000 Nucleated RBC % 0.0 % Immature Plt Fraction 4.3 Sodium 133 L Potassium 3.4 Chloride 101 Carbon Dioxide 24 Anion Gap 8 BUN 13 Creatinine 0.70 Estim Creat Clear Calc 70 Estimated GFR > 60 Glucose 107 POC Capillary Glucose 113 H Calcium 7.8 L Total Bilirubin 0.9 AST 31 ALT 18 Alkaline Phosphatase 168 H Total Protein 6.0 L Albumin 2.8 L 02/10/24 02/10/24 07:49 11:47 WBC RBC Hgb Hct MCV MCH MCHC RDW Plt Count MPV Immature Gran % (Auto) Neut % (Auto) Lymph % (Auto) [place] % (Auto) Eos % (Auto) Baso % (Auto) Lymph # (Auto) [place] # (Auto) Eos # (Auto) Baso # (Auto) Abs Immat Gran (auto) Absolute Neuts (auto) Absolute Nucleated RBC Nucleated RBC % % Immature Plt Fraction Sodium Potassium Chloride Carbon Dioxide Anion Gap BUN Creatinine Estim Creat Clear Calc Estimated GFR Glucose POC Capillary Glucose 113 H 136 H Calcium Total Bilirubin AST ALT Alkaline Phosphatase Total Protein Albumin Hospitalist MIPS Advance Care Plan I have confirmed that the patient's Advanced Care Plan is present, code status is documented, or surrogate decision maker is listed in patient medical record.: Yes Medication Reconciliation I have utilized all available resources to obtain, update and review the patients current medications (includes all prescriptions, OTC, herbals, cannabis, and nutritional supplements).: Yes
--- NOTE | 2024-02-10 14:42 | P.PNGS_ITS ---
Progress Note: A&P Assessment and Plan (1) Gallstone pancreatitis: Code(s): K85.10 - Biliary acute pancreatitis without necrosis or infection Status: Acute Assessment and Plan: * Patient still experiencing postprandial pain and this is limiting her eating very much. Possible persistent cholecystitis could be causing this pain, but also could just be related to resolving pancreatitis. Will get HIDA scan inder orrow AM. Will consider cholecystostomy tube placement if needed. Subjective Subjective Date/Time Seen: 02/10/24 14:42 Interval history: still has abd pain with eating. breathing much better. overall feeling better. Exam GI: Inspection: non-distended GI Palp: Yes Soft to palpation and Yes Tenderness to palpation present (GI) (minimal epigastric) Objective Data Vital Signs Vital Signs: Vital Signs - 24 hr 02/09/24 16:00 02/09/24 20:45 02/09/24 20:00 Temperature 98.7 F 98.3 F Pulse Rate 84 90 Respiratory Rate 20 18 Blood Pressure 167/74 H 167/80 H Pulse Oximetry 97 95 95 Oxygen Delivery Nasal Cannula Oxygen Flow Rate 1 02/10/24 05:15 02/10/24 08:49 02/10/24 08:00 Temperature 97.5 F L Pulse Rate 103 H Respiratory Rate 20 Blood Pressure 143/76 H Pulse Oximetry 96 93 Oxygen Delivery Room Air Room Air Oxygen Flow Rate Intake/Output Intake/Output: Intake & Output 02/07/24 02/08/24 02/09/24 02/10/24 23:59 23:59 23:59 23:59 Intake Total 436.7 1550 2420 600 Output Total 525 1400 1101 425 Balance -88.3 150 1319 175 Meds/Results Medications: Active Medications Generic Name Dose Route Start Last Admin Trade Name Freq PRN Reason Stop Dose Admin Acetaminophen 650 mg 02/05/24 16:12 02/10/24 03:38 Acetaminophen 325 Mg Tablet PO 650 mg Q4H PRN Administration Headache Albuterol/Ipratropium 3 ml 02/05/24 17:43 02/06/24 21:42 Ipratropium 0.5 Mg/Albuterol Sulfate 2.5 Mg Ampul.Neb 3 Ml INHALATION 3 ml Q4HRT PRN Administration Shortness Of Breath Or Wheezing Alteplase, Recombinant 2 mg 02/10/24 06:52 02/10/24 08:29 Alteplase 2 Mg Vial (Cathflo) IV PUSH 2 mg ONCE PRN Administration Line Occlusion Dextrose 12.5 gm 02/02/24 10:59 Dextrose 50% 25 Gm/50 Ml Syringe IV PUSH PRN PRN Hypoglycemia Protocol Fluticasone Propionate 2 spray 02/02/24 00:09 Fluticasone Propionate 0.05% Na Spr 16 Gm Btl (*Bkc) NASAL DAILY PRN allergy symptoms Glucagon 1 mg 02/02/24 10:59 Glucagon For Inj 1 Mg Vial IM PRN PRN Hypoglycemia Protocol Glucose 15 gm 02/02/24 10:59 Glucose Oral Gel 15 Gm Of Glucse In 37.5 Gm Tube PO PRN PRN Hypoglycemia Protocol Heparin Sodium (Porcine) 5,000 units 02/02/24 14:00 02/10/24 14:04 Heparin Sodium 5,000 Units/Ml Vial SUB-Q 5,000 units Q8HR CARLITOS Administration Hydralazine HCl 20 mg 02/04/24 09:30 02/04/24 16:34 Hydralazine Hcl 20 Mg/Ml Vial IV PUSH 20 mg Q4H PRN Administration SBP more than 160 - 2nd choice Hydromorphone HCl 0.5 mg 02/03/24 13:53 02/06/24 14:21 Hydromorphone Hcl Inj (*Crx) 1 Mg/Ml Syr IV PUSH 0.5 mg Q2H PRN Administration Pain Rated 7-10 Meropenem 1 gm in 100 mls @ 200 mls/hr 02/10/24 12:00 02/10/24 12:17 IVPB Infused Q8HR CARLITOS Infusion Insulin Aspart 2 - 5 units 02/07/24 21:00 02/10/24 11:38 Insulin Aspart (*Bkc) 100 Units/Ml SUB-Q Not Given [facility] Protocol Labetalol HCl 20 mg 02/04/24 09:30 02/09/24 11:20 Labetalol Hcl Inj 100 Mg/20 Ml Vial IV PUSH 20 mg Q4H PRN Administration SBP > 160 and HR> 60 -1st choice Ondansetron HCl 4 mg 02/01/24 19:52 02/05/24 01:15 Ondansetron Inj 4 Mg/2 Ml Vial IV PUSH 4 mg Q4H PRN Administration Nausea Pantoprazole Sodium 40 mg 02/04/24 09:00 02/10/24 08:24 Pantoprazole Sodium Iv 40 Mg Vial IV PUSH 40 mg QAM CARLITOS Administration Quetiapine Fumarate 25 mg 02/05/24 21:00 02/09/24 21:13 Quetiapine Fumarate 25 Mg Tablet PO 25 mg HS CARLITOS Administration Sodium Chloride 10 ml 02/03/24 14:00 02/10/24 14:04 Central Line Flush IV PUSH 10 ml Q8HR CARLITOS Administration Sodium Chloride 10 ml 02/03/24 12:07 Central Line Flush IV PUSH PRN PRN with TPN bag changes Sodium Chloride 20 ml 02/03/24 12:07 02/10/24 05:35 Central Line Flush IV PUSH 20 ml PRN PRN Administration after blood draws Radiology Results: ITS Impressions Chest/Abdomen/Pelvis CTA 02/01/24 18:35 IMPRESSION: No aortic dissection or aneurysm. Moderate interstitial pulmonary edema. Hepatomegaly. Acute interstitial pancreatitis. Possible portal vein and superior mesenteric vein thrombosis, versus artifact from unopacified blood in this arterial phase study. Consider right upper quadrant with a focus on obtaining portal venous color Doppler flow and waveforms. Vascular Ultrasound 02/01/24 19:23 IMPRESSION: Patent portal veins and superior mesenteric vein. Prior CT findings likely related to artifact from arterial phase imaging. Abdomen Ultrasound 02/02/24 09:49 IMPRESSION: 1. Pancreatitis. 2. Cholelithiasis. Gallbladder wall thickening may be secondary to interstitial edema or acute cholecystitis. 3. Diffuse hepatic steatosis. Abdomen X-Ray 02/04/24 21:25 IMPRESSION: Interval replacement of the nasogastric tube with its tip projecting over the proximal stomach for which advancement of approximately 5 to 6 cm may be performed for optimal radiographic placement. Worsening bilateral pleural effusions, as detailed above. Chest X-Ray 02/08/24 10:27 IMPRESSION: 1. Small lung volumes with airspace opacities at the lung bases, likely atelectasis. 2. Small right pleural effusion. 3. Dilated small bowel, likely adynamic ileus. Abdomen/Pelvis CT 02/08/24 10:29 IMPRESSION: 1. Stable acute necrotic pancreatitis. 2. Improved small volume of ascites. 3. Worsened small pleural effusions. 4. Cholelithiasis. Gallbladder distention may be secondary to fasting or acute cholecystitis. 5. Dilated small bowel, likely adynamic ileus. 6. Thickened endometrial complex. The differential diagnosis includes endo metrial hyperplasia, polyp, and carcinoma. Consider pelvis ultrasound or biopsy. Labs Labs: Laboratory Results - last 24 hr 02/09/24 02/10/24 02/10/24 20:47 05:31 05:33 WBC 23.1 H RBC 4.00 L Hgb 10.7 L Hct 33.5 L MCV 83.8 MCH 26.8 MCHC 31.9 L RDW 13.0 Plt Count 220 MPV 10.5 H Immature Gran % (Auto) 2.7 H Neut % (Auto) 81.6 H Lymph % (Auto) 6.2 L [place] % (Auto) 7.7 Eos % (Auto) 1.5 Baso % (Auto) 0.3 Lymph # (Auto) 1.42 [place] # (Auto) 1.8 H Eos # (Auto) 0.3 Baso # (Auto) 0.1 Abs Immat Gran (auto) 0.62 H Absolute Neuts (auto) 18.8 H Absolute Nucleated RBC 0.000 Nucleated RBC % 0.0 % Immature Plt Fraction 4.3 Sodium 133 L Potassium 3.4 Chloride 101 Carbon Dioxide 24 Anion Gap 8 BUN 13 Creatinine 0.70 Estim Creat Clear Calc 70 Estimated GFR > 60 Glucose 107 POC Capillary Glucose 113 H Calcium 7.8 L Total Bilirubin 0.9 AST 31 ALT 18 Alkaline Phosphatase 168 H Total Protein 6.0 L Albumin 2.8 L 02/10/24 02/10/24 07:49 11:47 WBC RBC Hgb Hct MCV MCH MCHC RDW Plt Count MPV Immature Gran % (Auto) Neut % (Auto) Lymph % (Auto) [place] % (Auto) Eos % (Auto) Baso % (Auto) Lymph # (Auto) [place] # (Auto) Eos # (Auto) Baso # (Auto) Abs Immat Gran (auto) Absolute Neuts (auto) Absolute Nucleated RBC Nucleated RBC % % Immature Plt Fraction Sodium Potassium Chloride Carbon Dioxide Anion Gap BUN Creatinine Estim Creat Clear Calc Estimated GFR Glucose POC Capillary Glucose 113 H 136 H Calcium Total Bilirubin AST ALT Alkaline Phosphatase Total Protein Albumin
--- NOTE | 2024-02-10 14:46 | WPDGIPROGNO ---
Progress Note: A&P Assessment and Plan (1) Gallstone pancreatitis: Code(s): K85.10 - Biliary acute pancreatitis without necrosis or infection Status: Acute Assessment and Plan: necrotizing pancreatitis still with early satiety, ensure will get HIDA scan persistent leukocytosis, on iv abx afebrile for last 4 days (2) Nausea and vomiting in adult: Code(s): R11.2 - Nausea with vomiting, unspecified Status: Acute Assessment and Plan: antiemetics prn (3) Leukocytosis: Code(s): D72.829 - Elevated white blood cell count, unspecified Status: Acute Assessment and Plan: probably reactive from severe pancreatitis, on abx (4) Sepsis: Code(s): A41.9 - Sepsis, unspecified organism Status: Acute Assessment and Plan: from severe pancreatitis (5) Cholelithiasis: Code(s): K80.20 - Calculus of gallbladder without cholecystitis without obstruction Status: Acute Assessment and Plan: surgery on board interval cholecystectomy once pancreatitis resolves will get hida scan (6) Acute necrotizing pancreatitis: Code(s): K85.91 - Acute pancreatitis with uninfected necrosis, unspecified Status: Acute Subjective Date/time seen: 02/10/24 14:46 Interval history: no major changes, she is eating but early satiety, also having ensure earlier had issue with starkey catheter- it was flushed and now is working Review of Systems Review of Systems: All systems reviewed & are unremarkable except as noted in HPI and below Exam Const: General: comfortable and no acute distress Orientation/consciousness: patient oriented x3 HENMT: Face/Nose/Sinus: Normal nares present Eyes: General: appearance normal, both eyes and all related structures Neck: Neck: supple Resp: Auscultation: no wheezes and diminished lung sounds Cardio: Rate: regular rate GI: Inspection: other (mildly distended) GI Palp: Yes Soft to palpation (her abdomen is soft throughout), Yes Tenderness to palpation present (GI) (mild tenderness in the LUQ), No Guarding due to palpation present (GI) and No Rebound tenderness present Auscultation: Hypoactive bowel sounds present Urinary Catheter: Urinary Catheter: patent and draining and urine clear Skin: General skin exam: normal color Neuro: Speech: normal speech Motor exam (neuro): 5/5 motor strength present throughout Extrem: General: no calf tenderness and no edema Psych: Mental Status: mental status grossly normal Objective Data Vital Signs Vital Signs: Vital Signs - 24 hr 02/09/24 16:00 02/09/24 20:45 02/09/24 20:00 Temperature 98.7 F 98.3 F Pulse Rate 84 90 Respiratory Rate 20 18 Blood Pressure 167/74 H 167/80 H Pulse Oximetry 97 95 95 Oxygen Delivery Nasal Cannula Oxygen Flow Rate 1 02/10/24 05:15 02/10/24 08:49 02/10/24 08:00 Temperature 97.5 F L Pulse Rate 103 H Respiratory Rate 20 Blood Pressure 143/76 H Pulse Oximetry 96 93 Oxygen Delivery Room Air Room Air Oxygen Flow Rate Intake/Output Intake/Output: Intake & Output 02/07/24 02/08/24 02/09/24 02/10/24 23:59 23:59 23:59 23:59 Intake Total 436.7 1550 2420 600 Output Total 525 1400 1101 425 Balance -88.3 150 1319 175 Meds/Results Medications: Active Medications Generic Name Dose Route Start Last Admin Trade Name Freq PRN Reason Stop Dose Admin Acetaminophen 650 mg 02/05/24 16:12 02/10/24 03:38 Acetaminophen 325 Mg Tablet PO 650 mg Q4H PRN Administration Headache Albuterol/Ipratropium 3 ml 02/05/24 17:43 02/06/24 21:42 Ipratropium 0.5 Mg/Albuterol Sulfate 2.5 Mg Ampul.Neb 3 Ml INHALATION 3 ml Q4HRT PRN Administration Shortness Of Breath Or Wheezing Alteplase, Recombinant 2 mg 02/10/24 06:52 02/10/24 08:29 Alteplase 2 Mg Vial (Cathflo) IV PUSH 2 mg ONCE PRN Administration Line Occlusion Dextrose 12.5 gm 02/02/24 10:59 Dextrose 50% 25 Gm/50 Ml Syringe IV PUSH PRN PRN Hypoglycemia Protocol Fluticasone Propionate 2 spray 02/02/24 00:09 Fluticasone Propionate 0.05% Na Spr 16 Gm Btl (*Bkc) NASAL DAILY PRN allergy symptoms Glucagon 1 mg 02/02/24 10:59 Glucagon For Inj 1 Mg Vial IM PRN PRN Hypoglycemia Protocol Glucose 15 gm 02/02/24 10:59 Glucose Oral Gel 15 Gm Of Glucse In 37.5 Gm Tube PO PRN PRN Hypoglycemia Protocol Heparin Sodium (Porcine) 5,000 units 02/02/24 14:00 02/10/24 14:04 Heparin Sodium 5,000 Units/Ml Vial SUB-Q 5,000 units Q8HR CARLITOS Administration Hydralazine HCl 20 mg 02/04/24 09:30 02/04/24 16:34 Hydralazine Hcl 20 Mg/Ml Vial IV PUSH 20 mg Q4H PRN Administration SBP more than 160 - 2nd choice Hydromorphone HCl 0.5 mg 02/03/24 13:53 02/06/24 14:21 Hydromorphone Hcl Inj (*Crx) 1 Mg/Ml Syr IV PUSH 0.5 mg Q2H PRN Administration Pain Rated 7-10 Meropenem 1 gm in 100 mls @ 200 mls/hr 02/10/24 12:00 02/10/24 12:17 IVPB Infused Q8HR CARLITOS Infusion Insulin Aspart 2 - 5 units 02/07/24 21:00 02/10/24 11:38 Insulin Aspart (*Bkc) 100 Units/Ml SUB-Q Not Given [facility] Protocol Labetalol HCl 20 mg 02/04/24 09:30 02/09/24 11:20 Labetalol Hcl Inj 100 Mg/20 Ml Vial IV PUSH 20 mg Q4H PRN Administration SBP > 160 and HR> 60 -1st choice Ondansetron HCl 4 mg 02/01/24 19:52 02/05/24 01:15 Ondansetron Inj 4 Mg/2 Ml Vial IV PUSH 4 mg Q4H PRN Administration Nausea Pantoprazole Sodium 40 mg 02/04/24 09:00 02/10/24 08:24 Pantoprazole Sodium Iv 40 Mg Vial IV PUSH 40 mg QAM CARLITOS Administration Quetiapine Fumarate 25 mg 02/05/24 21:00 02/09/24 21:13 Quetiapine Fumarate 25 Mg Tablet PO 25 mg HS CARLITOS Administration Sodium Chloride 10 ml 02/03/24 14:00 02/10/24 14:04 Central Line Flush IV PUSH 10 ml Q8HR CARLITOS Administration Sodium Chloride 10 ml 02/03/24 12:07 Central Line Flush IV PUSH PRN PRN with TPN bag changes Sodium Chloride 20 ml 02/03/24 12:07 02/10/24 05:35 Central Line Flush IV PUSH 20 ml PRN PRN Administration after blood draws Radiology Results: ITS Impressions Chest/Abdomen/Pelvis CTA 02/01/24 18:35 IMPRESSION: No aortic dissection or aneurysm. Moderate interstitial pulmonary edema. Hepatomegaly. Acute interstitial pancreatitis. Possible portal vein and superior mesenteric vein thrombosis, versus artifact from unopacified blood in this arterial phase study. Consider right upper quadrant with a focus on obtaining portal venous color Doppler flow and waveforms. Vascular Ultrasound 02/01/24 19:23 IMPRESSION: Patent portal veins and superior mesenteric vein. Prior CT findings likely related to artifact from arterial phase imaging. Abdomen Ultrasound 02/02/24 09:49 IMPRESSION: 1. Pancreatitis. 2. Cholelithiasis. Gallbladder wall thickening may be secondary to interstitial edema or acute cholecystitis. 3. Diffuse hepatic steatosis. Abdomen X-Ray 02/04/24 21:25 IMPRESSION: Interval replacement of the nasogastric tube with its tip projecting over the proximal stomach for which advancement of approximately 5 to 6 cm may be performed for optimal radiographic placement. Worsening bilateral pleural effusions, as detailed above. Chest X-Ray 02/08/24 10:27 IMPRESSION: 1. Small lung volumes with airspace opacities at the lung bases, likely atelectasis. 2. Small right pleural effusion. 3. Dilated small bowel, likely adynamic ileus. Abdomen/Pelvis CT 02/08/24 10:29 IMPRESSION: 1. Stable acute necrotic pancreatitis. 2. Improved small volume of ascites. 3. Worsened small pleural effusions. 4. Cholelithiasis. Gallbladder distention may be secondary to fasting or acute cholecystitis. 5. Dilated small bowel, likely adynamic ileus. 6. Thickened endometrial complex. The differential diagnosis includes endometrial hyperplasia, polyp, and carcinoma. Consider pelvis ultrasound or biopsy. Labs Labs: Laboratory Results - last 24 hr 02/09/24 02/10/24 02/10/24 20:47 05:31 05:33 WBC 23.1 H RBC 4.00 L Hgb 10.7 L Hct 33.5 L MCV 83.8 MCH 26.8 MCHC 31.9 L RDW 13.0 Plt Count 220 MPV 10.5 H Immature Gran % (Auto) 2.7 H Neut % (Auto) 81.6 H Lymph % (Auto) 6.2 L [place] % (Auto) 7.7 Eos % (Auto) 1.5 Baso % (Auto) 0.3 Lymph # (Auto) 1.42 [place] # (Auto) 1.8 H Eos # (Auto) 0.3 Baso # (Auto) 0.1 Abs Immat Gran (auto) 0.62 H Absolute Neuts (auto) 18.8 H Absolute Nucleated RBC 0.000 Nucleated RBC % 0.0 % Immature Plt Fraction 4.3 Sodium 133 L Potassium 3.4 Chloride 101 Carbon Dioxide 24 Anion Gap 8 BUN 13 Creatinine 0.70 Estim Creat Clear Calc 70 Estimated GFR > 60 Glucose 107 POC Capillary Glucose 113 H Calcium 7.8 L Total Bilirubin 0.9 AST 31 ALT 18 Alkaline Phosphatase 168 H Total Protein 6.0 L Albumin 2.8 L 02/10/24 02/10/24 07:49 11:47 WBC RBC Hgb Hct MCV MCH MCHC RDW Plt Count MPV Immature Gran % (Auto) Neut % (Auto) Lymph % (Auto) [place] % (Auto) Eos % (Auto) Baso % (Auto) Lymph # (Auto) [place] # (Auto) Eos # (Auto) Baso # (Auto) Abs Immat Gran (auto) Absolute Neuts (auto) Absolute Nucleated RBC Nucleated RBC % % Immature Plt Fraction Sodium Potassium Chloride Carbon Dioxide Anion Gap BUN Creatinine Estim Creat Clear Calc Estimated GFR Glucose POC Capillary Glucose 113 H 136 H Calcium Total Bilirubin AST ALT Alkaline Phosphatase Total Protein Albumin
[2024-02-10 16:00] VITALS: BP 181/84; PULSE 108; RESP 22; TEMP 37; O2SAT 93
[2024-02-10 19:45] VITALS: BP 178/89; PULSE 101; RESP 18; TEMP 37.1; O2SAT 96
[2024-02-10 20:24] LABS: Glucose Point of Care 133 mg/dl (65-105)
[2024-02-10 20:50] VITALS: BP 159/90
[2024-02-10] MEDS: QUEtiapine FUMARATE 25 MG TABLET PO (20:55)
[2024-02-11] MEDS: ACETAMINOPHEN 325 MG TABLET 650 MG PO ×4 (03:03→21:37)
[2024-02-11 04:50] VITALS: BP 160/74; PULSE 99; RESP 20; TEMP 37; O2SAT 94
[2024-02-11] MEDS: HEPARIN SODIUM 5,000 UNITS/ML VIAL 5000 UNITS SUB-Q ×3 (05:13→21:37)
[2024-02-11] MEDS: MEROPENEM 1 GM/NS 100 ML 1 GM/100 ML BAG IVPB ×3 (05:13→21:36)
[2024-02-11] MEDS: CENTRAL LINE FLUSH 10 ML IV PUSH ×3 (05:14→21:36)
[2024-02-11 05:34] LABS: Basophils Absolute Auto 0.1 K/mm3 (0.0-0.1); Basophils Percent Auto 0.3 % (0.2-1.2); Eosinophils Absolute Auto 0.3 K/mm3 (0-0.3); Eosinophils Percent Auto 1.4 % (0-4.4); Hematocrit 31.3 % (37.0-47.0); Hemoglobin 10.5 g/dL (12.0-15.0); Immature Granulocyte Absolute 0.46 K/mm3 (0.00-0.031); Immature Granulocyte Percent A 2.3 % (0-0.5); Lymphocytes Absolute Auto 1.42 K/mm3 (0.9-3.2); Lymphocytes Percent Auto 7.1 % (18.3-44.2); Mean Corpuscular HGB Conc 33.5 g/dl (32-36); Mean Corpuscular Hemoglobin 27.9 pg (26-34); Mean Corpuscular Volume 83.2 fl (80-100); Monocytes Absolute Auto 1.5 K/mm3 (0.1-0.6); Monocytes Percent Auto 7.6 % (2.6-8.5); Neutrophils Absolute Auto 16.2 K/mm3 (1.3-6.7); Neutrophils Percent Auto 81.3 % (45.5-73.1); Platelet Count Result 237 k/mm3 (150-375); Red Blood Count 3.76 M/mm3 (4.2-5.4); Red Cell Distribution Width 13.1 % (11.5-14.5)
[2024-02-11 05:56] LABS: Alanine Aminotransferase 22 U/L (6-35); Albumin Level 2.7 g/dL (3.5-5.1); Alkaline Phosphatase 161 U/L (38-126); Anion Gap 6 mmol/L (4-12); Aspartate Amino Transferase 32 U/L (14-36); Bilirubin,Total 0.7 mg/dL (0.2-1.3); Blood Urea Nitrogen 10 mg/dL (7-17); Calcium 7.9 mg/dL (8.4-10.2); Carbon Dioxide 27 mmol/L (22-30); Chloride 102 mmol/L (98-107); Estimated CRCL calculation 80 ml/min; Estimated Glomerular Filt Rate > 60; Glucose 111 mg/dL (65-110); Magnesium 2.1 mg/dL (1.6-2.3); Sodium 135 mmol/L (137-145)
[2024-02-11 07:47] LABS: Glucose Point of Care 102 mg/dl (65-105)
[2024-02-11 08:00] VITALS: BP 177/77; PULSE 97; RESP 20; TEMP 36.9; O2SAT 95
[2024-02-11] MEDS: POTASSIUM CHLORIDE 20 MEQ ER TABLET 40 MEQ PO (08:57)
[2024-02-11 08:58] VITALS: PULSE 99
[2024-02-11] MEDS: LOSARTAN POTASSIUM 100 MG TABLET PO (08:58)
[2024-02-11] MEDS: carvediloL 12.5 MG TABLET PO ×2 (08:58→19:54)
[2024-02-11] MEDS: hydroCHLOROthiazide 25 MG TABLET PO (08:59)
[2024-02-11] MEDS: PANTOPRAZOLE SODIUM IV 40 MG VIAL IV PUSH (09:01)
--- NOTE | 2024-02-11 10:38 | P.PNIM_ITS ---
Progress Note: A&P Assessment and Plan (1) Acute necrotizing pancreatitis: Code(s): K85.91 - Acute pancreatitis with uninfected necrosis, unspecified Status: Acute Plan Acute necrotizing pancreatitis -with changed to meropenem leukocytosis improving from 23-20 K -antibiotics: meropenem 02/09- -advancing diet as tolerated, ensure. GI consultation, General surgery consultation -HIDA scan pending -patient will need interval cholecystectomy once pancreatitis resolved. Surgery consultation recommends medical management now -sepsis on presentation resolved -leukocytosis, persistent, monitoring antibiotics -continue IV PPI Delirium, resolved -resolved, likely ICU delirium -will stop seroquel as she appears to not need it anymore -she may get up ad george and shower Chronic conditions -vitamin-D deficiency: Supplement -arthritis: On naproxen as needed -essential hypertension: Carvedilol, losartan, hydrochlorothiazide -muscle spasms: Flexeril -allergies: Flonase -hyperlipidemia: Rosuvastatin Diet: Low residue, dietary supplement DVT prophylaxis: SubQ heparin Code status: Full code Disposition: Home >2 days Time Spent With Patient Time: 35 minutes Subjective Date/time seen: 02/11/24 10:38 Interval history: Patient seen and examined. After changed to meropenem leukocytosis is downtrending. Potassium is 3.0 over bleeding. Blood pressure is still significantly elevated, resuming all home antihypertensives. Patient may shower and get up ad george. We will continue her current diet, she is getting increased nausea with more solid food that her brought in. Pending HIDA scan. She denies fever, chills, chest pain, abdominal pain. She occasionally has some nausea. Review of Systems Review of Systems: 10 point ROS complete, negative other th an what is specified in HPI. Exam Narrative: - GENERAL: Pleasant woman in no acute d istress. Well-nourished. - EYES: EOMI. Anicteric. - HENT: Moist mucous membranes. - LUNGS: Clear to auscultation bilateral ly, no wheezing, rhonchi, or rales. - CARDIOVASCULAR: Regular rate and rhyth m. No murmur. No JVD. - ABDOMEN: Soft, tender on deep palpatio n in epigastric region - EXTREMITIES: No edema. Peripheral puls es 2+. Non-tender. - NEUROLOGIC: No focal neurological defi cits. CN II-XII grossly intact. - PSYCHIATRIC: Awake, Alert and oriented x 3. Appropriate mood and affect. - SKIN: No rashes or lesions. Warm. - LYMPH: No cervical lymphadenopathy. Objective Data Vital Signs Vital Signs: Vital Signs - 24 hr 02/10/24 16:00 02/10/24 19:45 02/10/24 20:50 Temperature 37.0 C 37.1 C Pulse Rate 108 H 101 H Respiratory Rate 22 H 18 Blood Pressure 181/84 H 178/89 H 159/90 H Pulse Oximetry 93 96 Oxygen Delivery 02/10/24 21:10 02/11/24 04:50 02/11/24 08:58 Temperature 37.0 C Pulse Rate 99 99 Respiratory Rate 20 Blood Pressure 160/74 H Pulse Oximetry 94 Oxygen Delivery Room Air 02/11/24 08:00 Temperature 36.9 C Pulse Rate 97 Respiratory Rate 20 Blood Pressure 177/77 H Pulse Oximetry 95 Oxygen Delivery Intake/Output Intake/Output: Intake & Output 02/08/24 02/09/24 02/10/24 02/11/24 23:59 23:59 23:59 23:59 Intake Total 1550 2420 2340 950 Output Total 1400 1101 977 Balance 150 1319 1363 950 Meds/Results Medications: Active Medications Generic Name Dose Route Start Last Admin Trade Name Freq PRN Reason Stop Dose Admin Acetaminophen 650 mg 02/05/24 16:12 02/11/24 03:03 Acetaminophen 325 Mg Tablet PO 650 mg Q4H PRN Administration Headache Albuterol/Ipratropium 3 ml 02/05/24 17:43 02/06/24 21:42 Ipratropium 0.5 Mg/Albuterol Sulfate 2.5 Mg Ampul.Neb 3 Ml INHALATION 3 ml Q4HRT PRN Administration Shortness Of Breath Or Wheezing Alteplase, Recombinant 2 mg 02/10/24 06:52 02/10/24 08:29 Alteplase 2 Mg Vial (Cathflo) IV PUSH 2 mg ONCE PRN Administration Line Occlusion Carvedilol 12.5 mg 02/11/24 09:00 02/11/24 08:58 Carvedilol 12.5 Mg Tablet PO 12.5 mg Q12HR CARLITOS Administration Dextrose 12.5 gm 02/02/24 10:59 Dextrose 50% 25 Gm/50 Ml Syringe IV PUSH PRN PRN Hypoglycemia Protocol Fluticasone Propionate 2 spray 02/02/24 00:09 Fluticasone Propionate 0.05% Na Spr 16 Gm Btl (*Bkc) NASAL DAILY PRN allergy symptoms Glucagon 1 mg 02/02/24 10:59 Glucagon For Inj 1 Mg Vial IM PRN PRN Hypoglycemia Protocol Glucose 15 gm 02/02/24 10:59 Glucose Oral Gel 15 Gm Of Glucse In 37.5 Gm Tube PO PRN PRN Hypoglycemia Protocol Heparin Sodium (Porcine) 5,000 units 02/02/24 14:00 02/11/24 05:13 Heparin Sodium 5,000 Units/Ml Vial SUB-Q 5,000 units Q8HR CARLITOS Administration Hydralazine HCl 20 mg 02/04/24 09:30 02/04/24 16:34 Hydralazine Hcl 20 Mg/Ml Vial IV PUSH 20 mg Q4H PRN Administration SBP more than 160 - 2nd choice Hydrochlorothiazide 25 mg 02/11/24 09:00 02/11/24 08:59 Hydrochlorothiazide 25 Mg Tablet PO 25 mg QAM CARLITOS Administration Hydromorphone HCl 0.5 mg 02/03/24 13:53 02/06/24 14:21 Hydromorphone Hcl Inj (*Crx) 1 Mg/Ml Syr IV PUSH 0.5 mg Q2H PRN Administration Pain Rated 7-10 Meropenem 1 gm in 100 mls @ 200 mls/hr 02/10/24 12:00 02/11/24 05:13 IVPB 200 mls/hr Q8HR CARLITOS Administration Insulin Aspart 2 - 5 units 02/07/24 21:00 02/11/24 08:57 Insulin Aspart (*Bkc) 100 Units/Ml SUB-Q Not Given [facility] CARLITOS Protocol Labetalol HCl 20 mg 02/04/24 09:30 02/09/24 11:20 Labetalol Hcl Inj 100 Mg/20 Ml Vial IV PUSH 20 mg Q4H PRN Administration SBP > 160 and HR> 60 -1st choice Losartan Potassium 100 mg 02/11/24 09:00 02/11/24 08:58 Losartan Potassium 100 Mg Tablet PO 100 mg DAILY CARLITOS Administration Ondansetron HCl 4 mg 02/01/24 19:52 02/05/24 01:15 Ondansetron Inj 4 Mg/2 Ml Vial IV PUSH 4 mg Q4H PRN Administration Nausea Pantoprazole Sodium 40 mg 02/04/24 09:00 02/11/24 09:01 Pantoprazole Sodium Iv 40 Mg Vial IV PUSH 40 mg QAM CARLITOS Administration Quetiapine Fumarate 25 mg 02/05/24 21:00 02/10/24 20:55 Quetiapine Fumarate 25 Mg Tablet PO 25 mg HS CARLITOS Administration Sodium Chloride 10 ml 02/03/24 14:00 02/11/24 05:14 Central Line Flush IV PUSH 10 ml Q8HR CARLITOS Administration Sodium Chloride 10 ml 02/03/24 12:07 Central Line Flush IV PUSH PRN PRN with TPN bag changes Sodium Chloride 20 ml 02/03/24 12:07 02/10/24 05:35 Central Line Flush IV PUSH 20 ml PRN PRN Administration after blood draws Radiology Results: ITS Impressions Chest/Abdomen/Pelvis CTA 02/01/24 18:35 IMPRESSION: No aortic dissection or aneurysm. Moderate interstitial pulmonary edema. Hepatomegaly. Acute interstitial pancreatitis. Possible portal vein and superior mesenteric vein thrombosis, versus artifact from unopacified blood in this arterial phase study. Consider right upper quadrant with a focus on obtaining portal venous color Doppler flow and waveforms. Vascular Ultrasound 02/01/24 19:23 IMPRESSION: Patent portal veins and superior mesenteric vein. Prior CT findings likely related to artifact from arterial phase imaging. Abdomen Ultrasound 02/02/24 09:49 IMPRESSION: 1. Pancreatitis. 2. Cholelithiasis. Gallbladder wall thickening may be secondary to interstitial edema or acute cholecystitis. 3. Diffuse hepatic steatosis. Abdomen X-Ray 02/04/24 21:25 IMPRESSION: Interval replacement of the nasogastric tube with its tip projecting over the proximal stomach for which advancement of approximately 5 to 6 cm may be performed for optimal radiographic placement. Worsening bilateral pleural effusions, as detailed above. Chest X-Ray 02/08/24 10:27 IMPRESSION: 1. Small lung volumes with airspace opacities at the lung bases, likely atelectasis. 2. Small right pleural effusion. 3. Dilated small bowel, likely adynamic ileus. Abdomen/Pelvis CT 02/08/24 10:29 IMPRESSION: 1. Stable acute necrotic pancreatitis. 2. Improved small volume of ascites. 3. Worsened small pleural effusions. 4. Cholelithiasis. Gallbladder distention may be secondary to fasting or acute cholecystitis. 5. Dilated small bowel, likely adynamic ileus. 6. Thickened endometrial complex. The differential diagnosis includes endometrial hyperplasia, polyp, and carcinoma. Consider pelvis ultrasound or biopsy. Labs Labs: Laboratory Results - last 24 hr 02/10/24 02/10/24 02/11/24 11:47 20:01 05:21 WBC 20.0 H RBC 3.76 L Hgb 10.5 L Hct 31.3 L MCV 83.2 MCH 27.9 MCHC 33.5 RDW 13.1 Plt Count 237 MPV 10.0 Immature Gran % (Auto) 2.3 H Neut % (Auto) 81.3 H Lymph % (Auto) 7.1 L [place] % (Auto) 7.6 Eos % (Auto) 1.4 Baso % (Auto) 0.3 Lymph # (Auto) 1.42 [place] # (Auto) 1.5 H Eos # (Auto) 0.3 Baso # (Auto) 0.1 Abs Immat Gran (auto) 0.46 H Absolute Neuts (auto) 16.2 H Absolute Nucleated RBC 0.000 Nucleated RBC % 0.0 Sodium 135 L Potassium 3.0 L Chloride 102 Carbon Dioxide 27 Anion Gap 6 BUN 10 Creatinine 0.60 L Estim Creat Clear Calc 80 Estimated GFR > 60 Glucose 111 H POC Capillary Glucose 136 H 133 H Calcium 7.9 L Magnesium 2.1 Total Bilirubin 0.7 AST 32 ALT 22 Alkaline Phosphatase 161 H Total Protein 6.0 L Albumin 2.7 L 02/11/24 07:44 WBC RBC Hgb Hct MCV MCH MCHC RDW Plt Count MPV Immature Gran % (Auto) Neut % (Auto) Lymph % (Auto) [place] % (Auto) Eos % (Auto) Baso % (Auto) Lymph # (Auto) [place] # (Auto) Eos # (Auto) Baso # (Auto) Abs Immat Gran (auto) Absolute Neuts (auto) Absolute Nucleated RBC Nucleated RBC % Sodium Potassium Chloride Carbon Dioxide Anion Gap BUN Creatinine Estim Creat Clear Calc Estimated GFR Glucose POC Capillary Glucose 102 Calcium Magnesium Total Bilirubin AST ALT Alkaline Phosphatase Total Protein Albumin Hospitalist MIPS Advance Care Plan I have confirmed that the patient's Advanced Care Plan is present, code status is documented, or surrogate decision maker is listed in patient medical record.: Yes Medication Reconciliation I have utilized all available resources to obtain, update and review the patients current medications (includes all prescriptions, OTC, herbals, cannabis, and nutritional supplements).: Yes
[2024-02-11 11:17] LABS: Glucose Point of Care 145 mg/dl (65-105)
[2024-02-11 14:00] VITALS: BP 170/84; PULSE 79; RESP 18; TEMP 36.2; O2SAT 92
--- NOTE | 2024-02-11 15:02 | WPDGIPROGNO ---
Progress Note: A&P Assessment and Plan (1) Gallstone pancreatitis: Code(s): K85.10 - Biliary acute pancreatitis without necrosis or infection Status: Acute Assessment and Plan: necrotizing pancreatitis still with early satiety, ensure pending HIDA scan leukocytosis down to 20k, on iv abx afebrile for last 4 days (2) Nausea and vomiting in adult: Code(s): R11.2 - Nausea with vomiting, unspecified Status: Acute Assessment and Plan: antiemetics prn (3) Leukocytosis: Code(s): D72.829 - Elevated white blood cell count, unspecified Status: Acute Assessment and Plan: probably reactive from severe pancreatitis, on abx wkc 20k hida scan pending (4) Cholelithiasis: Code(s): K80.20 - Calculus of gallbladder without cholecystitis without obstruction Status: Acute Assessment and Plan: surgery on board interval cholecystectomy once pancreatitis resolves hida scan (5) Acute necrotizing pancreatitis: Code(s): K85.91 - Acute pancreatitis with uninfected necrosis, unspecified Status: Acute Subjective Date/time seen: 02/11/24 15:02 Interval history: more comfortable, getting HIDA scan Review of Systems Review of Systems: All systems reviewed & are unremarkable except as noted in HPI and below Exam Const: General: comfortable and no acute distress Orientation/consciousness: patient oriented x3 HENMT: Face/Nose/Sinus: Normal nares present Eyes: General: appearance normal, both eyes and all related structures Neck: Neck: supple Resp: Auscultation: no wheezes and diminished lung sounds Cardio: Rate: regular rate GI: GI Palp: Yes Soft to palpation (her abdomen is soft throughout), Yes Tenderness to palpation present (GI) (mild tenderness in the LUQ), No Guarding due to palpation present (GI) and No Rebound tenderness present Urinary Catheter: Urinary Catheter: patent and draining and urine clear Skin: General skin exam: normal color Neuro: Speech: normal speech Motor exam (neuro): 5/5 motor strength present throughout Extrem: General: no calf tenderness and no edema Psych: Mental Status: mental status grossly normal Objective Data Vital Signs Vital Signs: Vital Signs - 24 hr 02/10/24 16:00 02/10/24 19:45 02/10/24 20:50 Temperature 98.6 F 98.8 F Pulse Rate 108 H 101 H Respiratory Rate 22 H 18 Blood Pressure 181/84 H 178/89 H 159/90 H Pulse Oximetry 93 96 Oxygen Delivery 02/10/24 21:10 02/11/24 04:50 02/11/24 08:58 Temperature 98.6 F Pulse Rate 99 99 Respiratory Rate 20 Blood Pressure 160/74 H Pulse Oximetry 94 Oxygen Delivery Room Air 02/11/24 08:00 02/11/24 08:00 02/11/24 14:00 Temperature 98.4 F 97.1 F L Pulse Rate 97 79 Respiratory Rate 20 18 Blood Pressure 177/77 H 170/84 H Pulse Oximetry 95 92 Oxygen Delivery Room Air Intake/Output Intake/Output: Intake & Output 02/08/24 02/09/24 02/10/24 02/11/24 23:59 23:59 23:59 23:59 Intake Total 1550 2420 2340 1050 Output Total 1400 1101 977 Balance 150 1319 1363 1050 Meds/Results Medications: Active Medications Generic Name Dose Route Start Last Admin Trade Name Freq PRN Reason Stop Dose Admin Acetaminophen 650 mg 02/05/24 16:12 02/11/24 11:36 Acetaminophen 325 Mg Tablet PO 650 mg Q4H PRN Administration Headache Albuterol/Ipratropium 3 ml 02/05/24 17:43 02/06/24 21:42 Ipratropium 0.5 Mg/Albuterol Sulfate 2.5 Mg Ampul.Neb 3 Ml INHALATION 3 ml Q4HRT PRN Administration Shortness Of Breath Or Wheezing Alteplase, Recombinant 2 mg 02/10/24 06:52 02/10/24 08:29 Alteplase 2 Mg Vial (Cathflo) IV PUSH 2 mg ONCE PRN Administration Line Occlusion Carvedilol 12.5 mg 02/11/24 09:00 02/11/24 08:58 Carvedilol 12.5 Mg Tablet PO 12.5 mg Q12HR CARLITOS Administration Dextrose 12.5 gm 02/02/24 10:59 Dextrose 50% 25 Gm/50 Ml Syringe IV PUSH PRN PRN Hypoglycemia Protocol Fluticasone Propionate 2 spray 02/02/24 00:09 Fluticasone Propionate 0.05% Na Spr 16 Gm Btl (*Bkc) NASAL DAILY PRN allergy symptoms Glucagon 1 mg 02/02/24 10:59 Glucagon For Inj 1 Mg Vial IM PRN PRN Hypoglycemia Protocol Glucose 15 gm 02/02/24 10:59 Glucose Oral Gel 15 Gm Of Glucse In 37.5 Gm Tube PO PRN PRN Hypoglycemia Protocol Heparin Sodium (Porcine) 5,000 units 02/02/24 14:00 02/11/24 13:58 Heparin Sodium 5,000 Units/Ml Vial SUB-Q 5,000 units Q8HR CARLITOS Administration Hydralazine HCl 20 mg 02/04/24 09:30 02/04/24 16:34 Hydralazine Hcl 20 Mg/Ml Vial IV PUSH 20 mg Q4H PRN Administration SBP more than 160 - 2nd choice Hydrochlorothiazide 25 mg 02/11/24 09:00 02/11/24 08:59 Hydrochlorothiazide 25 Mg Tablet PO 25 mg QAM CARLITOS Administration Hydromorphone HCl 0.5 mg 02/03/24 13:53 02/06/24 14:21 Hydromorphone Hcl Inj (*Crx) 1 Mg/Ml Syr IV PUSH 0.5 mg Q2H PRN Administration Pain Rated 7-10 Meropenem 1 gm in 100 mls @ 200 mls/hr 02/10/24 12:00 02/11/24 13:59 IVPB 200 mls/hr Q8HR CARLITOS Administration Insulin Aspart 2 - 5 units 02/07/24 21:00 02/11/24 11:35 Insulin Aspart (*Bkc) 100 Units/Ml SUB-Q Not Given [facility] CARLITOS Protocol Labetalol HCl 20 mg 02/04/24 09:30 02/09/24 11:20 Labetalol Hcl Inj 100 Mg/20 Ml Vial IV PUSH 20 mg Q4H PRN Administration SBP > 160 and HR> 60 -1st choice Losartan Potassium 100 mg 02/11/24 09:00 02/11/24 08:58 Losartan Potassium 100 Mg Tablet PO 100 mg DAILY CARLITOS Administration Ondansetron HCl 4 mg 02/01/24 19:52 02/05/24 01:15 Ondansetron Inj 4 Mg/2 Ml Vial IV PUSH 4 mg Q4H PRN Administration Nausea Pantoprazole Sodium 40 mg 02/04/24 09:00 02/11/24 09:01 Pantoprazole Sodium Iv 40 Mg Vial IV PUSH 40 mg QAM CARLITOS Administration Quetiapine Fumarate 25 mg 02/05/24 21:00 02/10/24 20:55 Quetiapine Fumarate 25 Mg Tablet PO 25 mg HS CARLITOS Administration Sodium Chloride 10 ml 02/03/24 14:00 02/11/24 14:00 Central Line Flush IV PUSH 10 ml Q8HR CARLITOS Administration Sodium Chloride 10 ml 02/03/24 12:07 Central Line Flush IV PUSH PRN PRN with TPN bag changes Sodium Chloride 20 ml 02/03/24 12:07 02/10/24 05:35 Central Line Flush IV PUSH 20 ml PRN PRN Administration after blood draws Radiology Results: ITS Impressions Chest/Abdomen/Pelvis CTA 02/01/24 18:35 IMPRESSION: No aortic dissection or aneurysm. Moderate interstitial pulmonary edema. Hepatomegaly. Acute interstitial pancreatitis. Possible portal vein and superior mesenteric vein thrombosis, versus artifact from unopacified blood in this arterial phase study. Consider right upper quadrant with a focus on obtaining portal venous color Doppler flow and waveforms. Vascular Ultrasound 02/01/24 19:23 IMPRESSION: Patent portal veins and superior mesenteric vein. Prior CT findings likely related to artifact from arterial phase imaging. Abdomen Ultrasound 02/02/24 09:49 IMPRESSION: 1. Pancreatitis. 2. Cholelithiasis. Gallbladder wall thickening may be secondary to interstitial edema or acute cholecystitis. 3. Diffuse hepatic steatosis. Abdomen X-Ray 02/04/24 21:25 IMPRESSION: Interval replacement of the nasogastric tube with its tip projecting over the proximal stomach for which advancement of approximately 5 to 6 cm may be performed for optimal radiographic placement. Worsening bilateral pleural effusions, as detailed above. Chest X-Ray 02/08/24 10:27 IMPRESSION: 1. Small lung volumes with airspace opacities at the lung bases, likely atelectasis. 2. Small right pleural effusion. 3. Dilated small bowel, likely adynamic ileus. Abdomen/Pelvis CT 02/08/24 10:29 IMPRESSION: 1. Stable acute necrotic pancreatitis. 2. Improved small volume of ascites. 3. Worsened small pleural effusions. 4. Cholelithiasis. Gallbladder distention may be secondary to fasting or acute cholecystitis. 5. Dilated small bowel, likely adynamic ileus. 6. Thickened endometrial complex. The differential diagnosis includes endometrial hyperplasia, polyp, and carcinoma. Consider pelvis ultrasound or biopsy. Labs Labs: Laboratory Results - last 24 hr 10/15/24 10/16/24 10/16/24 20:01 05:21 07:44 WBC 20.0 H RBC 3.76 L Hgb 10.5 L Hct 31.3 L MCV 83.2 MCH 27.9 MCHC 33.5 RDW 13.1 Plt Count 237 MPV 10.0 Immature Gran % (Auto) 2.3 H Neut % (Auto) 81.3 H Lymph % (Auto) 7.1 L [place] % (Auto) 7.6 Eos % (Auto) 1.4 Baso % (Auto) 0.3 Lymph # (Auto) 1.42 [place] # (Auto) 1.5 H Eos # (Auto) 0.3 Baso # (Auto) 0.1 Abs Immat Gran (auto) 0.46 H Absolute Neuts (auto) 16.2 H Absolute Nucleated RBC 0.000 Nucleated RBC % 0.0 Sodium 135 L Potassium 3.0 L Chloride 102 Carbon Dioxide 27 Anion Gap 6 BUN 10 Creatinine 0.60 L Estim Creat Clear Calc 80 Estimated GFR > 60 Glucose 111 H POC Capillary Glucose 133 H 102 Calcium 7.9 L Magnesium 2.1 Total Bilirubin 0.7 AST 32 ALT 22 Alkaline Phosphatase 161 H Total Protein 6.0 L Albumin 2.7 L 02/11/24 11:15 WBC RBC Hgb Hct MCV MCH MCHC RDW Plt Count MPV Immature Gran % (Auto) Neut % (Auto) Lymph % (Auto) [place] % (Auto) Eos % (Auto) Baso % (Auto) Lymph # (Auto) [place] # (Auto) Eos # (Auto) Baso # (Auto) Abs Immat Gran (auto) Absolute Neuts (auto) Absolute Nucleated RBC Nucleated RBC % Sodium Potassium Chloride Carbon Dioxide Anion Gap BUN Creatinine Estim Creat Clear Calc Estimated GFR Glucose POC Capillary Glucose 145 H Calcium Magnesium Total Bilirubin AST ALT Alkaline Phosphatase Total Protein Albumin
--- NOTE | 2024-02-11 16:05 | PM.PNGS ---
Progress Note: A&P Assessment and Plan (1) Gallstone pancreatitis: Code(s): K85.10 - Biliary acute pancreatitis without necrosis or infection Status: Acute Assessment and Plan: HIDA scan showed no evidence of acute cholecystitis. Encouraged increased nutrition and caloric intake. Surgically stable and will discuss laparoscopic cholecystectomy in future as an outpatient. (2) Steatorrhea: Code(s): K90.9 - Intestinal malabsorption, unspecified Status: Acute Assessment and Plan: Will start Creon for persistent symptoms. Subjective Subjective Date/Time Seen: 02/11/24 16:05 Interval history: Still having some pain and loose stools with eating. Stools are somewhat greasy and floating. Exam GI: Inspection: non-distended GI Palp: Yes Soft to palpation and No Tenderness to palpation present (GI) Auscultation: normal bowel sounds Objective Data Vital Signs Vital Signs: Vital Signs - 24 hr 02/10/24 19:45 02/10/24 20:50 02/10/24 21:10 Temperature 98.8 F Pulse Rate 101 H Respiratory Rate 18 Blood Pressure 178/89 H 159/90 H Pulse Oximetry 96 Oxygen Delivery Room Air 02/11/24 04:50 02/11/24 08:58 02/11/24 08:00 Temperature 98.6 F 98.4 F Pulse Rate 99 99 97 Respiratory Rate 20 20 Blood Pressure 160/74 H 177/77 H Pulse Oximetry 94 95 Oxygen Delivery 02/11/24 08:00 02/11/24 14:00 Temperature 97.1 F L Pulse Rate 79 Respiratory Rate 18 Blood Pressure 170/84 H Pulse Oximetry 92 Oxygen Delivery Room Air Intake/Output Intake/Output: Intake & Output 02/08/24 02/09/24 02/10/24 02/11/24 23:59 23:59 23:59 23:59 Intake Total 1550 2420 2340 1050 Output Total 1400 1101 977 Balance 150 1319 1363 1050 Meds/Results Medications: Active Medications Generic Name Dose Route Start Last Admin Trade Name Freq PRN Reason Stop Dose Admin Acetaminophen 650 mg 02/05/24 16:12 02/11/24 11:36 Acetaminophen 325 Mg Tablet PO 650 mg Q4H PRN Administration Headache Albuterol/Ipratropium 3 ml 02/05/24 17:43 02/06/24 21:42 Ipratropium 0.5 Mg/Albuterol Sulfate 2.5 Mg Ampul.Neb 3 Ml INHALATION 3 ml Q4HRT PRN Administration Shortness Of Breath Or Wheezing Alteplase, Recombinant 2 mg 02/10/24 06:52 02/10/24 08:29 Alteplase 2 Mg Vial (Cathflo) IV PUSH 2 mg ONCE PRN Administration Line Occlusion Carvedilol 12.5 mg 02/11/24 09:00 02/11/24 08:58 Carvedilol 12.5 Mg Tablet PO 12.5 mg Q12HR CARLITOS Administration Dextrose 12.5 gm 02/02/24 10:59 Dextrose 50% 25 Gm/50 Ml Syringe IV PUSH PRN PRN Hypoglycemia Protocol Fluticasone Propionate 2 spray 02/02/24 00:09 Fluticasone Propionate 0.05% Na Spr 16 Gm Btl (*Bkc) NASAL DAILY PRN allergy symptoms Glucagon 1 mg 02/02/24 10:59 Glucagon For Inj 1 Mg Vial IM PRN PRN Hypoglycemia Protocol Glucose 15 gm 02/02/24 10:59 Glucose Oral Gel 15 Gm Of Glucse In 37.5 Gm Tube PO PRN PRN Hypoglycemia Protocol Heparin Sodium (Porcine) 5,000 units 02/02/24 14:00 02/11/24 13:58 Heparin Sodium 5,000 Units/Ml Vial SUB-Q 5,000 units Q8HR CARLITOS Administration Hydralazine HCl 20 mg 02/04/24 09:30 02/04/24 16:34 Hydralazine Hcl 20 Mg/Ml Vial IV PUSH 20 mg Q4H PRN Administration SBP more than 160 - 2nd choice Hydrochlorothiazide 25 mg 02/11/24 09:00 02/11/24 08:59 Hydrochlorothiazide 25 Mg Tablet PO 25 mg QAM CARLITOS Administration Hydromorphone HCl 0.5 mg 02/03/24 13:53 02/06/24 14:21 Hydromorphone Hcl Inj (*Crx) 1 Mg/Ml Syr IV PUSH 0.5 mg Q2H PRN Administration Pain Rated 7-10 Meropenem 1 gm in 100 mls @ 200 mls/hr 02/10/24 12:00 02/11/24 13:59 IVPB 200 mls/hr Q8HR CARLITOS Administration Insulin Aspart 2 - 5 units 02/07/24 21:00 02/11/24 11:35 Insulin Aspart (*Bkc) 100 Units/Ml SUB-Q Not Given [facility] Protocol Labetalol HCl 20 mg 02/04/24 09:30 02/09/24 11:20 Labetalol Hcl Inj 100 Mg/20 Ml Vial IV PUSH 20 mg Q4H PRN Administration SBP > 160 and HR> 60 -1st choice Losartan Potassium 100 mg 02/11/24 09:00 02/11/24 08:58 Losartan Potassium 100 Mg Tablet PO 100 mg DAILY CARLITOS Administration Ondansetron HCl 4 mg 02/01/24 19:52 02/05/24 01:15 Ondansetron Inj 4 Mg/2 Ml Vial IV PUSH 4 mg Q4H PRN Administration Nausea Pantoprazole Sodium 40 mg 02/04/24 09:00 02/11/24 09:01 Pantoprazole Sodium Iv 40 Mg Vial IV PUSH 40 mg QAM CARLITOS Administration Quetiapine Fumarate 25 mg 02/05/24 21:00 02/10/24 20:55 Quetiapine Fumarate 25 Mg Tablet PO 25 mg HS CARLITOS Administration Sodium Chloride 10 ml 02/03/24 14:00 02/11/24 14:00 Central Line Flush IV PUSH 10 ml Q8HR CARLITOS Administration Sodium Chloride 10 ml 02/03/24 12:07 Central Line Flush IV PUSH PRN PRN with TPN bag changes Sodium Chloride 20 ml 02/03/24 12:07 02/10/24 05:35 Central Line Flush IV PUSH 20 ml PRN PRN Administration after blood draws Radiology Results: ITS Impressions Chest/Abdomen/Pelvis CTA 02/01/24 18:35 IMPRESSION: No aortic dissection or aneurysm. Moderate interstitial pulmonary edema. Hepatomegaly. Acute interstitial pancreatitis. Possible portal vein and superior mesenteric vein thrombosis, versus artifact from unopacified blood in this arterial phase study. Consider right upper quadrant with a focus on obtaining portal venous color Doppler flow and waveforms. Vascular Ultrasound 02/01/24 19:23 IMPRESSION: Patent portal veins and superior mesenteric vein. Prior CT findings likely related to artifact from arterial phase imaging. Abdomen Ultrasound 02/02/24 09:49 IMPRESSION: 1. Pancreatitis. 2. Cholelithiasis. Gallbladder wall thickening may be secondary to interstitial edema or acute cholecystitis. 3. Diffuse hepatic steatosis. Abdomen X-Ray 02/04/24 21:25 IMPRESSION: Interval replacement of the nasogastric tube with its tip projecting over the proximal stomach for which advancement of approximately 5 to 6 cm may be performed for optimal radiographic placement. Worsening bilateral pleural effusions, as detailed above. Chest X-Ray 02/08/24 10:27 IMPRESSION: 1. Small lung volumes with airspace opacities at the lung bases, likely atelectasis. 2. Small right pleural effusion. 3. Dilated small bowel, likely adynamic ileus. Abdomen/Pelvis CT 02/08/24 10:29 IMPRESSION: 1. Stable acute necrotic pancreatitis. 2. Improved small volume of ascites. 3. Worsened small pleural effusions. 4. Cholelithiasis. Gallbladder distention may be secondary to fasting or acute cholecystitis. 5. Dilated small bowel, likely adynamic ileus. 6. Thickened endometrial complex. The differential diagnosis includes endometrial hyperplasia, polyp, and carcinoma. Consider pelvis ultrasound or biopsy. Hepatobiliary Scan Nuclear Medicine 02/11/24 15:32 IMPRESSION: 1. No evident biliary obstruction with patent cystic duct essentially excluding acute cholecystitis. Labs Labs: Laboratory Results - last 24 hr 02/10/24 02/11/24 02/11/24 20:01 05:21 07:44 WBC 20.0 H RBC 3.76 L Hgb 10.5 L Hct 31.3 L MCV 83.2 MCH 27.9 MCHC 33.5 RDW 13.1 Plt Count 237 MPV 10.0 Immature Gran % (Auto) 2.3 H Neut % (Auto) 81.3 H Lymph % (Auto) 7.1 L Carlton % (Auto) 7.6 Eos % (Auto) 1.4 Baso % (Auto) 0.3 Lymph # (Auto) 1.42 Carlton # (Auto) 1.5 H Eos # (Auto) 0.3 Baso # (Auto) 0.1 Abs Immat Gran (auto) 0.46 H Absolute Neuts (auto) 16.2 H Absolute Nucleated RBC 0.000 Nucleated RBC % 0.0 Sodium 135 L Potassium 3.0 L Chloride 102 Carbon Dioxide 27 Anion Gap 6 BUN 10 Creatinine 0.60 L Estim Creat Clear Calc 80 Estimated GFR > 60 Glucose 111 H POC Capillary Glucose 133 H 102 Calcium 7.9 L Magnesium 2.1 Total Bilirubin 0.7 AST 32 ALT 22 Alkaline Phosphatase 161 H Total Protein 6.0 L Albumin 2.7 L 02/11/24 11:15 WBC RBC Hgb Hct MCV MCH MCHC RDW Plt Count MPV Immature Gran % (Auto) Neut % (Auto) Lymph % (Auto) Carlton % (Auto) Eos % (Auto) Baso % (Auto) Lymph # (Auto) Carlton # (Auto) Eos # (Auto) Baso # (Auto) Abs Immat Gran (auto) Absolute Neuts (auto) Absolute Nucleated RBC Nucleated RBC % Sodium Potassium Chloride Carbon Dioxide Anion Gap BUN Creatinine Estim Creat Clear Calc Estimated GFR Glucose POC Capillary Glucose 145 H Calcium Magnesium Total Bilirubin AST ALT Alkaline Phosphatase Total Protein Albumin
[2024-02-11 16:39] LABS: Glucose Point of Care 124 mg/dl (65-105)
[2024-02-11] MEDS: LIPASE/AMYLASE/PROTEASE 12,000 UNITS CAP 1 CAP PO (17:11)
[2024-02-11 19:54] VITALS: PULSE 84
[2024-02-11] MEDS: QUEtiapine FUMARATE 25 MG TABLET PO (19:54)
[2024-02-11 20:30] LABS: Glucose Point of Care 146 mg/dl (65-105)
[2024-02-11 21:07] VITALS: BP 134/86; PULSE 89; RESP 16; TEMP 36.3; O2SAT 97
[2024-02-12] VITALS (8 sets, daily range): BP systolic 140–170; BP diastolic 75–80; PULSE 72–88; RESP 14–20; TEMP 36.4–36.8; O2SAT 94–97
[2024-02-12] MEDS: HEPARIN SODIUM 5,000 UNITS/ML VIAL 5000 UNITS SUB-Q ×3 (06:16→20:36)
[2024-02-12] MEDS: MEROPENEM 1 GM/NS 100 ML 1 GM/100 ML BAG IVPB ×3 (06:17→20:37)
[2024-02-12] MEDS: CENTRAL LINE FLUSH 10 ML IV PUSH ×3 (06:21→20:37)
[2024-02-12 06:24] LABS: Basophils Absolute Auto 0.1 K/mm3 (0.0-0.1); Basophils Percent Auto 0.3 % (0.2-1.2); Eosinophils Absolute Auto 0.4 K/mm3 (0-0.3); Hematocrit 30.6 % (37.0-47.0); Hemoglobin 10.2 g/dL (12.0-15.0); Immature Granulocyte Absolute 0.36 K/mm3 (0.00-0.031); Immature Granulocyte Percent A 1.8 % (0-0.5); Lymphocytes Absolute Auto 1.13 K/mm3 (0.9-3.2); Lymphocytes Percent Auto 5.8 % (18.3-44.2); Mean Corpuscular HGB Conc 33.3 g/dl (32-36); Mean Corpuscular Hemoglobin 27.9 pg (26-34); Mean Corpuscular Volume 83.8 fl (80-100); Mean Platelet Volume 10.4 fl (7.4-10.4); Monocytes Absolute Auto 1.3 K/mm3 (0.1-0.6); Monocytes Percent Auto 6.4 % (2.6-8.5); Neutrophils Absolute Auto 16.4 K/mm3 (1.3-6.7); Neutrophils Percent Auto 83.7 % (45.5-73.1); Platelet Count Result 262 k/mm3 (150-375); Red Blood Count 3.65 M/mm3 (4.2-5.4); Red Cell Distribution Width 13.1 % (11.5-14.5); White Blood Count 19.6 K/mm3 (4.5-10.0)
[2024-02-12 06:36] LABS: Alanine Aminotransferase 25 U/L (6-35); Albumin Level 2.7 g/dL (3.5-5.1); Alkaline Phosphatase 161 U/L (38-126); Anion Gap 4 mmol/L (4-12); Aspartate Amino Transferase 37 U/L (14-36); Bilirubin,Total 0.6 mg/dL (0.2-1.3); Blood Urea Nitrogen 9 mg/dL (7-17); Calcium 7.9 mg/dL (8.4-10.2); Carbon Dioxide 31 mmol/L (22-30); Chloride 99 mmol/L (98-107); Estimated CRCL calculation 80 ml/min; Estimated Glomerular Filt Rate > 60; Glucose 111 mg/dL (65-110); Phosphorus 3.3 mg/dL (2.5-4.5); Potassium 3.3 mmol/L (3.4-5.0); Sodium 134 mmol/L (137-145)
--- NOTE | 2024-02-12 08:35 | P.PNIM_ITS ---
Progress Note: A&P Assessment and Plan (1) Acute necrotizing pancreatitis: Code(s): K85.91 - Acute pancreatitis with uninfected necrosis, unspecified Status: Acute Plan Acute necrotizing pancreatitis on meropenem leukocytosis improving -antibiotics: meropenem 02/09- -advancing diet as tolerated, ensure. GI consultation, General surgery consultation HIDA scan: No evident biliary obstruction with patent cystic duct essentially excluding acute cholecystitis. patient will need interval cholecystectomy once pancreatitis resolved. Surgery consultation recommends, laparoscopic cholecystectomy in future as an outpatient. medical management now sepsis on presentation resolved leukocytosis, persistent, monitoring antibiotics Patient is afebrile over the night, leukocytosis improving, continue antibiotics treatment, patient cannot tolerate solid food that aggravate abdomen pain Hypokalemia, hyponatremia Possible due to poor intake and on hydrochlorothiazide Discontinue hydrochlorothiazide Repeat potassium chloride 40 mg p.o. once daily Delirium, -resolved, likely ICU delirium stop seroquel as she appears to not need it anymore Chronic conditions -vitamin-D deficiency: Supplement -arthritis: On naproxen as needed -essential hypertension: Carvedilol, losartan, hydrochlorothiazide -muscle spasms: Flexeril -allergies: Flonase -hyperlipidemia: Rosuvastatin Diet: Low residue, dietary supplement DVT prophylaxis: SubQ heparin Code status: Full code Disposition: Home >2 days Subjective Date/time seen: 02/12/24 08:35 Interval history: I saw examined the patient. Patient is afebrile, no O2 desaturation room air. Labs, leukocytosis persists, white blood cell count number is trending down, hemoglobin 10.2 stable. Patient still has abdomen pain after taking solid food. Patient has a poor intake. Patient denies nausea vomiting. Patient is afebrile, blood pressure stable, no O2 desaturation on room air. Exam Narrative: - GENERAL: Pleasant woman in no acute d istress. Well-nourished. - EYES: EOMI. Anicteric. - HENT: Moist mucous membranes. - LUNGS: Clear to auscultation bilateral ly, no wheezing, rhonchi, or rales. - CARDIOVASCULAR: Regular rate and rhyth m. No murmur. No JVD. - ABDOMEN: Soft, mild to moderate tender ness mid abdomen - EXTREMITIES: No edema. Peripheral puls es 2+. Non-tender. - NEUROLOGIC: No focal neurological defi cits. CN II-XII grossly intact. - PSYCHIATRIC: Awake, Alert and oriented x 3. Appropriate mood and affect. - SKIN: No rashes or lesions. Warm. - LYMPH: No cervical lymphadenopathy. Objective Data Vital Signs Vital Signs: Vital Signs - 24 hr 02/11/24 08:58 02/11/24 14:00 02/11/24 19:54 Temperature 97.1 F L Pulse Rate 99 79 84 Respiratory Rate 18 Blood Pressure 170/84 H Pulse Oximetry 92 Oxygen Delivery Fraction of Inspired Oxygen 02/11/24 21:07 02/12/24 05:29 02/12/24 08:21 Temperature 97.3 F L 98.2 F Pulse Rate 89 86 Respiratory Rate 16 14 Blood Pressure 134/86 149/80 H Pulse Oximetry 97 97 97 Oxygen Delivery Room Air Fraction of Inspired Oxygen 21 Intake/Output Intake/Output: Intake & Output 02/09/24 02/10/24 02/11/24 02/12/24 23:59 23:59 23:59 23:59 Intake Total 2420 2340 1770 300 Output Total 1101 977 Balance 1319 1363 1770 300 Meds/Results Medications: Active Medications Generic Name Dose Route Start Last Admin Trade Name Freq PRN Reason Stop Dose Admin Acetaminophen 650 mg 02/05/24 16:12 02/11/24 21:37 Acetaminophen 325 Mg Tablet PO 650 mg Q4H PRN Administration Headache Albuterol/Ipratropium 3 ml 02/05/24 17:43 02/06/24 21:42 Ipratropium 0.5 Mg/Albuterol Sulfate 2.5 Mg Ampul.Neb 3 Ml INHALATION 3 ml Q4HRT PRN Administration Shortness Of Breath Or Wheezing Alteplase, Recombinant 2 mg 02/10/24 06:52 02/10/24 08:29 Alteplase 2 Mg Vial (Cathflo) IV PUSH 2 mg ONCE PRN Administration Line Occlusion Lipase/Protease/Amylase 1 cap 02/11/24 17:00 02/11/24 17:11 Lipase/Amylase/Protease 12,000 Units Cap PO 1 cap TIDWM CARLITOS Administration Carvedilol 12.5 mg 02/11/24 09:00 02/11/24 19:54 Carvedilol 12.5 Mg Tablet PO 12.5 mg Q12HR CARLITOS Administration Dextrose 12.5 gm 10/07/24 10:59 Dextrose 50% 25 Gm/50 Ml Syringe IV PUSH PRN PRN Hypoglycemia Protocol Fluticasone Propionate 2 spray 02/02/24 00:09 Fluticasone Propionate 0.05% Na Spr 16 Gm Btl (*Bkc) NASAL DAILY PRN allergy symptoms Glucagon 1 mg 02/02/24 10:59 Glucagon For Inj 1 Mg Vial IM PRN PRN Hypoglycemia Protocol Glucose 15 gm 02/02/24 10:59 Glucose Oral Gel 15 Gm Of Glucse In 37.5 Gm Tube PO PRN PRN Hypoglycemia Protocol Heparin Sodium (Porcine) 5,000 units 02/02/24 14:00 02/12/24 06:16 Heparin Sodium 5,000 Units/Ml Vial SUB-Q 5,000 units Q8HR CARLITOS Administration Hydralazine HCl 20 mg 02/04/24 09:30 02/04/24 16:34 Hydralazine Hcl 20 Mg/Ml Vial IV PUSH 20 mg Q4H PRN Administration SBP more than 160 - 2nd choice Hydrochlorothiazide 25 mg 02/11/24 09:00 02/11/24 08:59 Hydrochlorothiazide 25 Mg Tablet PO 25 mg QAM CARLITOS Administration Hydromorphone HCl 0.5 mg 02/03/24 13:53 02/06/24 14:21 Hydromorphone Hcl Inj (*Crx) 1 Mg/Ml Syr IV PUSH 0.5 mg Q2H PRN Administration Pain Rated 7-10 Meropenem 1 gm in 100 mls @ 200 mls/hr 02/10/24 12:00 02/12/24 06:17 IVPB 200 mls/hr Q8HR CARLITOS Administration Insulin Aspart 2 - 5 units 02/07/24 21:00 02/11/24 20:05 Insulin Aspart (*Bkc) 100 Units/Ml SUB-Q Not Given [facility] CARLITOS Protocol Labetalol HCl 20 mg 02/04/24 09:30 02/09/24 11:20 Labetalol Hcl Inj 100 Mg/20 Ml Vial IV PUSH 20 mg Q4H PRN Administration SBP > 160 and HR> 60 -1st choice Losartan Potassium 100 mg 02/11/24 09:00 02/11/24 08:58 Losartan Potassium 100 Mg Tablet PO 100 mg DAILY CARLITOS Administration Ondansetron HCl 4 mg 02/01/24 19:52 02/05/24 01:15 Ondansetron Inj 4 Mg/2 Ml Vial IV PUSH 4 mg Q4H PRN Administration Nausea Pantoprazole Sodium 40 mg 02/04/24 09:00 02/11/24 09:01 Pantoprazole Sodium Iv 40 Mg Vial IV PUSH 40 mg QAM CARLITOS Administration Quetiapine Fumarate 25 mg 02/05/24 21:00 02/11/24 19:54 Quetiapine Fumarate 25 Mg Tablet PO 25 mg HS CARLITOS Administration Sodium Chloride 10 ml 02/03/24 14:00 02/12/24 06:21 Central Line Flush IV PUSH 10 ml Q8HR CARLITOS Administration Sodium Chloride 10 ml 02/03/24 12:07 Central Line Flush IV PUSH PRN PRN with TPN bag changes Sodium Chloride 20 ml 02/03/24 12:07 02/10/24 05:35 Central Line Flush IV PUSH 20 ml PRN PRN Administration after blood draws Radiology Results: ITS Impressions Chest/Abdomen/Pelvis CTA 02/01/24 18:35 IMPRESSION: No aortic dissection or aneurysm. Moderate interstitial pulmonary edema. Hepatomegaly. Acute interstitial pancreatitis. Possible portal vein and superior mesenteric vein thrombosis, versus artifact from unopacified blood in this arterial phase study. Consider right upper quadrant with a focus on obtaining portal venous color Doppler flow and waveforms. Vascular Ultrasound 02/01/24 19:23 IMPRESSION: Patent portal veins and superior mesenteric vein. Prior CT findings likely related to artifact from arterial phase imaging. Abdomen Ultrasound 02/02/24 09:49 IMPRESSION: 1. Pancreatitis. 2. Cholelithiasis. Gallbladder wall thickening may be secondary to interstitial edema or acute cholecystitis. 3. Diffuse hepatic steatosis. Abdomen X-Ray 02/04/24 21:25 IMPRESSION: Interval replacement of the nasogastric tube with its tip projecting over the proximal stomach for which advancement of approximately 5 to 6 cm may be performed for optimal radiographic placement. Worsening bilateral pleural effusions, as detailed above. Chest X-Ray 02/08/24 10:27 IMPRESSION: 1. Small lung volumes with airspace opacities at the lung bases, likely atelectasis. 2. Small right pleural effusion. 3. Dilated small bowel, likely adynamic ileus. Abdomen/Pelvis CT 02/08/24 10:29 IMPRESSION: 1. Stable acute necrotic pancreatitis. 2. Improved small volume of ascites. 3. Worsened small pleural effusions. 4. Cholelithiasis. Gallbladder distention may be secondary to fasting or acute cholecystitis. 5. Dilated small bowel, likely adynamic ileus. 6. Thickened endometrial complex. The differential diagnosis includes endometrial hyperplasia, polyp, and carcinoma. Consider pelvis ultrasound or biopsy. Hepatobiliary Scan Nuclear Medicine 02/11/24 15:32 IMPRESSION: 1. No evident biliary obstruction with patent cystic duct essentially excluding acute cholecystitis. Labs Labs: Laboratory Results - last 24 hr 02/11/24 02/11/24 02/11/24 11:15 16:36 20:05 WBC RBC Hgb Hct MCV MCH MCHC RDW Plt Count MPV Immature Gran % (Auto) Neut % (Auto) Lymph % (Auto) Stewart % (Auto) Eos % (Auto) Baso % (Auto) Lymph # (Auto) Stewart # (Auto) Eos # (Auto) Baso # (Auto) Abs Immat Gran (auto) Absolute Neuts (auto) Absolute Nucleated RBC Nucleated RBC % Sodium Potassium Chloride Carbon Dioxide Anion Gap BUN Creatinine Estim Creat Clear Calc Estimated GFR Glucose POC Capillary Glucose 145 H 124 H 146 H Calcium Phosphorus Magnesium Total Bilirubin AST ALT Alkaline Phosphatase Total Protein Albumin 02/12/24 06:14 WBC 19.6 H RBC 3.65 L Hgb 10.2 L Hct 30.6 L MCV 83.8 MCH 27.9 MCHC 33.3 RDW 13.1 Plt Count 262 MPV 10.4 Immature Gran % (Auto) 1.8 H Neut % (Auto) 83.7 H Lymph % (Auto) 5.8 L Stewart % (Auto) 6.4 Eos % (Auto) 2.0 Baso % (Auto) 0.3 Lymph # (Auto) 1.13 Stewart # (Auto) 1.3 H Eos # (Auto) 0.4 H Baso # (Auto) 0.1 Abs Immat Gran (auto) 0.36 H Absolute Neuts (auto) 16.4 H Absolute Nucleated RBC 0.000 Nucleated RBC % 0.0 Sodium 134 L Potassium 3.3 L Chloride 99 Carbon Dioxide 31 H Anion Gap 4 BUN 9 Creatinine 0.60 L Estim Creat Clear Calc 80 Estimated GFR > 60 Glucose 111 H POC Capillary Glucose Calcium 7.9 L Phosphorus 3.3 Magnesium 2.0 Total Bilirubin 0.6 AST 37 H ALT 25 Alkaline Phosphatase 161 H Total Protein 6.0 L Albumin 2.7 L
[2024-02-12] MEDS: LIPASE/AMYLASE/PROTEASE 12,000 UNITS CAP 1 CAP PO ×3 (08:56→16:43)
[2024-02-12] MEDS: LOSARTAN POTASSIUM 100 MG TABLET PO (08:56)
[2024-02-12] MEDS: carvediloL 12.5 MG TABLET PO ×2 (08:57→20:35)
[2024-02-12] MEDS: PANTOPRAZOLE SODIUM IV 40 MG VIAL IV PUSH (09:10)
[2024-02-12] MEDS: POTASSIUM CHLORIDE 20 MEQ ER TABLET 40 MEQ PO (09:11)
[2024-02-12 11:31] LABS: Glucose Point of Care 105 mg/dl (65-105)
[2024-02-12 11:31] LABS: Glucose Point of Care 129 mg/dl (65-105)
[2024-02-12] MEDS: oxyCODONE HCL (*CRX) 5 MG TAB IR PO (12:00)
--- NOTE | 2024-02-12 15:30 | P.PNGI_ITS ---
Progress Note: A&P Assessment and Plan (1) Gallstone pancreatitis: Code(s): K85.10 - Biliary acute pancreatitis without necrosis or infection Status: Acute Assessment and Plan: necrotizing pancreatitis she is eating more HIDA scan without active cholecystitis leukocytosis down to 19k, on iv abx afebrile for last 6 days (2) Nausea and vomiting in adult: Code(s): R11.2 - Nausea with vomiting, unspecified Status: Acute Assessment and Plan: better, eating more (3) Leukocytosis: Code(s): D72.829 - Elevated white blood cell count, unspecified Status: Acute Assessment and Plan: probably reactive from severe pancreatitis, on abx wkc 19k hida scan without active cholecystitis (4) Cholelithiasis: Code(s): K80.20 - Calculus of gallbladder without cholecystitis without obstruction Status: Acute Assessment and Plan: surgery on board interval cholecystectomy once pancreatitis resolves- probably as outpatient (5) Acute necrotizing pancreatitis: Code(s): K85.91 - Acute pancreatitis with uninfected necrosis, unspecified Status: Acute Subjective Date/time seen: 02/12/24 15:30 Interval history: eating more, comfortable Review of Systems Review of Systems: All systems reviewed & are unremarkable except as noted in HPI and below Exam Const: General: comfortable HENMT: Face/Nose/Sinus: Normal nares present Eyes: Sclera: sclerae normal Neck: Neck: supple Resp: Effort & Inspection: normal respiratory effort Cardio: Rate: regular rate GI: Inspection: non-distended GI Palp: Yes Soft to palpation and No Tenderness to palpation present (GI) Auscultation: normal bowel sounds Skin: General skin exam: no rashes or lesions noted Neuro: Speech: normal speech Motor exam (neuro): 5/5 motor strength present throughout Extrem: General: normal to inspection Psych: Mental Status: mental status grossly normal Objective Data Vital Signs Vital Signs: Vital Signs - 24 hr 02/11/24 19:54 02/11/24 21:07 02/12/24 05:29 Temperature 97.3 F L 98.2 F Pulse Rate 84 89 86 Respiratory Rate 16 14 Blood Pressure 134/86 149/80 H Pulse Oximetry 97 97 Oxygen Delivery Fraction of Inspired Oxygen 02/12/24 08:21 02/12/24 08:57 Temperature Pulse Rate 88 Respiratory Rate Blood Pressure Pulse Oximetry 97 Oxygen Delivery Room Air Fraction of Inspired Oxygen 21 Intake/Output Intake/Output: Intake & Output 02/09/24 02/10/24 02/11/24 02/12/24 23:59 23:59 23:59 23:59 Intake Total 2420 2340 1770 658 Output Total 1101 977 Balance 1319 1363 1770 658 Meds/Results Medications: Active Medications Generic Name Dose Route Start Last Admin Trade Name Freq PRN Reason Stop Dose Admin Acetaminophen 650 mg 02/05/24 16:12 02/11/24 21:37 Acetaminophen 325 Mg Tablet PO 650 mg Q4H PRN Administration Headache Albuterol/Ipratropium 3 ml 02/05/24 17:43 02/06/24 21:42 Ipratropium 0.5 Mg/Albuterol Sulfate 2.5 Mg Ampul.Neb 3 Ml INHALATION 3 ml Q4HRT PRN Administration Shortness Of Breath Or Wheezing Alteplase, Recombinant 2 mg 02/10/24 06:52 02/10/24 08:29 Alteplase 2 Mg Vial (Cathflo) IV PUSH 2 mg ONCE PRN Administration Line Occlusion Lipase/Protease/Amylase 1 cap 02/11/24 17:00 02/12/24 11:59 Lipase/Amylase/Protease 12,000 Units Cap PO 1 cap TIDWM CARLITOS Administration Carvedilol 12.5 mg 02/11/24 09:00 02/12/24 08:57 Carvedilol 12.5 Mg Tablet PO 12.5 mg Q12HR CARLITOS Administration Dextrose 12.5 gm 02/02/24 10:59 Dextrose 50% 25 Gm/50 Ml Syringe IV PUSH PRN PRN Hypoglycemia Protocol Fluticasone Propionate 2 spray 02/02/24 00:09 Fluticasone Propionate 0.05% Na Spr 16 Gm Btl (*Bkc) NASAL DAILY PRN allergy symptoms Glucagon 1 mg 02/02/24 10:59 Glucagon For Inj 1 Mg Vial IM PRN PRN Hypoglycemia Protocol Glucose 15 gm 02/02/24 10:59 Glucose Oral Gel 15 Gm Of Glucse In 37.5 Gm Tube PO PRN PRN Hypoglycemia Protocol Heparin Sodium (Porcine) 5,000 units 02/02/24 14:00 02/12/24 14:33 Heparin Sodium 5,000 Units/Ml Vial SUB-Q 5,000 units Q8HR CARLITOS Administration Hydralazine HCl 20 mg 02/04/24 09:30 02/04/24 16:34 Hydralazine Hcl 20 Mg/Ml Vial IV PUSH 20 mg Q4H PRN Administration SBP more than 160 - 2nd choice Hydromorphone HCl 0.5 mg 02/03/24 13:53 02/06/24 14:21 Hydromorphone Hcl Inj (*Crx) 1 Mg/Ml Syr IV PUSH 0.5 mg Q2H PRN Administration Pain Rated 7-10 Meropenem 1 gm in 100 mls @ 200 mls/hr 02/10/24 12:00 02/12/24 06:17 IVPB 200 mls/hr Q8HR CARLITOS Administration Insulin Aspart 2 - 5 units 02/07/24 21:00 02/12/24 12:00 Insulin Aspart (*Bkc) 100 Units/Ml SUB-Q Not Given [facility] Protocol Labetalol HCl 20 mg 02/04/24 09:30 02/09/24 11:20 Labetalol Hcl Inj 100 Mg/20 Ml Vial IV PUSH 20 mg Q4H PRN Administration SBP > 160 and HR> 60 -1st choice Losartan Potassium 100 mg 02/11/24 09:00 02/12/24 08:56 Losartan Potassium 100 Mg Tablet PO 100 mg DAILY CARLITOS Administration Ondansetron HCl 4 mg 02/01/24 19:52 02/05/24 01:15 Ondansetron Inj 4 Mg/2 Ml Vial IV PUSH 4 mg Q4H PRN Administration Nausea Oxycodone HCl 5 mg 02/12/24 12:03 02/12/24 12:00 Oxycodone Hcl (*Crx) 5 Mg Tab Ir PO 5 mg Q4H PRN Administration Pain Rated 4-10 Pantoprazole Sodium 40 mg 02/04/24 09:00 02/11/24 09:01 Pantoprazole Sodium Iv 40 Mg Vial IV PUSH 40 mg QAM CARLITOS Administration Potassium Chloride 40 meq 02/12/24 09:00 Potassium Chloride 20 Meq Packet (For Liquid) PO DAILY CARLITOS Quetiapine Fumarate 25 mg 02/05/24 21:00 02/11/24 19:54 Quetiapine Fumarate 25 Mg Tablet PO 25 mg HS CARLITOS Administration Sodium Chloride 10 ml 02/03/24 14:00 02/12/24 06:21 Central Line Flush IV PUSH 10 ml Q8HR CARLITOS Administration Sodium Chloride 10 ml 02/03/24 12:07 Central Line Flush IV PUSH PRN PRN with TPN bag changes Sodium Chloride 20 ml 02/03/24 12:07 02/10/24 05:35 Central Line Flush IV PUSH 20 ml PRN PRN Administration after blood draws Radiology Results: ITS Impressions Chest/Abdomen/Pelvis CTA 02/01/24 18:35 IMPRESSION: No aortic dissection or aneurysm. Moderate interstitial pulmonary edema. Hepatomegaly. Acute interstitial pancreatitis. Possible portal vein and superior mesenteric vein thrombosis, versus artifact from unopacified blood in this arterial phase study. Consider right upper quadrant with a focus on obtaining portal venous color Doppler flow and waveforms. Vascular Ultrasound 02/01/24 19:23 IMPRESSION: Patent portal veins and superior mesenteric vein. Prior CT findings likely related to artifact from arterial phase imaging. Abdomen Ultrasound 02/02/24 09:49 IMPRESSION: 1. Pancreatitis. 2. Cholelithiasis. Gallbladder wall thickening may be secondary to interstitial edema or acute cholecystitis. 3. Diffuse hepatic steatosis. Abdomen X-Ray 02/04/24 21:25 IMPRESSION: Interval replacement of the nasogastric tube with its tip projecting over the proximal stomach for which advancement of approximately 5 to 6 cm may be performed for optimal radiographic placement. Worsening bilateral pleural effusions, as detailed above. Chest X-Ray 02/08/24 10:27 IMPRESSION: 1. Small lung volumes with airspace opacities at the lung bases, likely atelectasis. 2. Small right pleural effusion. 3. Dilated small bowel, likely adynamic ileus. Abdomen/Pelvis CT 02/08/24 10:29 IMPRESSION: 1. Stable acute necrotic pancreatitis. 2. Improved small volume of ascites. 3. Worsened small pleural effusions. 4. Cholelithiasis. Gallbladder distention may be secondary to fasting or acute cholecystitis. 5. Dilated small bowel, likely adynamic ileus. 6. Thickened endometrial complex. The differential diagnosis includes endometrial hyperplasia, polyp, and carcinoma. Consider pelvis ultrasound or biopsy. Hepatobiliary Scan Nuclear Medicine 02/11/24 15:32 IMPRESSION: 1. No evident biliary obstruction with patent cystic duct essentially excluding acute cholecystitis. Labs Labs: Laboratory Results - last 24 hr 02/11/24 02/11/24 02/12/24 16:36 20:05 06:14 WBC 19.6 H RBC 3.65 L Hgb 10.2 L Hct 30.6 L MCV 83.8 MCH 27.9 MCHC 33.3 RDW 13.1 Plt Count 262 MPV 10.4 Immature Gran % (Auto) 1.8 H Neut % (Auto) 83.7 H Lymph % (Auto) 5.8 L [place] % (Auto) 6.4 Eos % (Auto) 2.0 Baso % (Auto) 0.3 Lymph # (Auto) 1.13 [place] # (Auto) 1.3 H Eos # (Auto) 0.4 H Baso # (Auto) 0.1 Abs Immat Gran (auto) 0.36 H Absolute Neuts (auto) 16.4 H Absolute Nucleated RBC 0.000 Nucleated RBC % 0.0 Sodium 134 L Potassium 3.3 L Chloride 99 Carbon Dioxide 31 H Anion Gap 4 BUN 9 Creatinine 0.60 L Estim Creat Clear Calc 80 Estimated GFR > 60 Glucose 111 H POC Capillary Glucose 124 H 146 H Calcium 7.9 L Phosphorus 3.3 Magnesium 2.0 Total Bilirubin 0.6 AST 37 H ALT 25 Alkaline Phosphatase 161 H Total Protein 6.0 L Albumin 2.7 L 02/12/24 02/12/24 08:15 11:25 WBC RBC Hgb Hct MCV MCH MCHC RDW Plt Count MPV Immature Gran % (Auto) Neut % (Auto) Lymph % (Auto) [place] % (Auto) Eos % (Auto) Baso % (Auto) Lymph # (Auto) [place] # (Auto) Eos # (Auto) Baso # (Auto) Abs Immat Gran (auto) Absolute Neuts (auto) Absolute Nucleated RBC Nucleated RBC % Sodium Potassium Chloride Carbon Dioxide Anion Gap BUN Creatinine Estim Creat Clear Calc Estimated GFR Glucose POC Capillary Glucose 105 129 H Calcium Phosphorus Magnesium Total Bilirubin AST ALT Alkaline Phosphatase Total Protein Albumin
[2024-02-12 19:54] LABS: Glucose Point of Care 120 mg/dl (65-105)
[2024-02-12] MEDS: ACETAMINOPHEN 325 MG TABLET 650 MG PO (20:33)
[2024-02-12] MEDS: QUEtiapine FUMARATE 25 MG TABLET PO (20:34)
[2024-02-13] VITALS (7 sets, daily range): BP systolic 144–165; BP diastolic 79–82; PULSE 68–86; RESP 16–20; TEMP 36.4–37.3; O2SAT 95–97
[2024-02-13] MEDS: MEROPENEM 1 GM/NS 100 ML 1 GM/100 ML BAG IVPB ×3 (05:52→20:34)
[2024-02-13] MEDS: HEPARIN SODIUM 5,000 UNITS/ML VIAL 5000 UNITS SUB-Q ×3 (05:53→20:32)
[2024-02-13] MEDS: CENTRAL LINE FLUSH 10 ML IV PUSH ×3 (05:53→20:34)
[2024-02-13 07:40] LABS: Glucose Point of Care 106 mg/dl (65-105)
[2024-02-13] MEDS: POTASSIUM CHLORIDE 20 MEQ ER TABLET 40 MEQ PO (09:00)
[2024-02-13] MEDS: carvediloL 12.5 MG TABLET PO ×2 (09:01→20:32)
[2024-02-13] MEDS: LIPASE/AMYLASE/PROTEASE 12,000 UNITS CAP 1 CAP PO ×2 (09:01→16:36)
[2024-02-13] MEDS: PANTOPRAZOLE SODIUM IV 40 MG VIAL IV PUSH (09:01)
[2024-02-13] MEDS: LOSARTAN POTASSIUM 100 MG TABLET PO (09:01)
[2024-02-13 11:01] LABS: Basophils Absolute Auto 0.1 K/mm3 (0.0-0.1); Basophils Percent Auto 0.4 % (0.2-1.2); Eosinophils Absolute Auto 0.3 K/mm3 (0-0.3); Eosinophils Percent Auto 1.9 % (0-4.4); Hematocrit 32.3 % (37.0-47.0); Hemoglobin 10.3 g/dL (12.0-15.0); Immature Granulocyte Percent A 1.3 % (0-0.5); Lymphocytes Absolute Auto 1.32 K/mm3 (0.9-3.2); Lymphocytes Percent Auto 8.3 % (18.3-44.2); Mean Corpuscular HGB Conc 31.9 g/dl (32-36); Mean Corpuscular Hemoglobin 27.1 pg (26-34); Mean Platelet Volume 9.9 fl (7.4-10.4); Monocytes Absolute Auto 1.1 K/mm3 (0.1-0.6); Neutrophils Percent Auto 81.1 % (45.5-73.1); Platelet Count Result 336 k/mm3 (150-375); Red Cell Distribution Width 13.1 % (11.5-14.5)
[2024-02-13 11:16] LABS: Glucose Point of Care 131 mg/dl (65-105)
[2024-02-13 11:17] LABS: Alanine Aminotransferase 22 U/L (6-35); Albumin Level 2.9 g/dL (3.5-5.1); Alkaline Phosphatase 164 U/L (38-126); Anion Gap 1 mmol/L (4-12); Aspartate Amino Transferase 29 U/L (14-36); Bilirubin,Total 0.4 mg/dL (0.2-1.3); Blood Urea Nitrogen 11 mg/dL (7-17); Calcium 8.1 mg/dL (8.4-10.2); Carbon Dioxide 32 mmol/L (22-30); Chloride 101 mmol/L (98-107); Estimated CRCL calculation 80 ml/min; Estimated Glomerular Filt Rate > 60; Glucose 137 mg/dL (65-110); Magnesium 2.2 mg/dL (1.6-2.3); Sodium 134 mmol/L (137-145)
--- NOTE | 2024-02-13 14:40 | P.PNGI_ITS ---
Progress Note: A&P Assessment and Plan (1) Gallstone pancreatitis: Code(s): K85.10 - Biliary acute pancreatitis without necrosis or infection Status: Acute Assessment and Plan: necrotizing pancreatitis HIDA scan without active cholecystitis leukocytosis down to 16k, on iv abx hopefull home in 1-2 days and then will need follow-up with surgery started on creon for concern of steatorrhea (2) Nausea and vomiting in adult: Code(s): R11.2 - Nausea with vomiting, unspecified Status: Acute Assessment and Plan: better, still poor apettite (3) Leukocytosis: Code(s): D72.829 - Elevated white blood cell count, unspecified Status: Acute Assessment and Plan: from severe pancreatitis, on abx wkc down to 16k hida scan without active cholecystitis (4) Cholelithiasis: Code(s): K80.20 - Calculus of gallbladder without cholecystitis without obstruction Status: Acute Assessment and Plan: surgery on board interval cholecystectomy once pancreatitis resolves- probably as outpatient (5) Acute necrotizing pancreatitis: Code(s): K85.91 - Acute pancreatitis with uninfected necrosis, unspecified Status: Acute Subjective Date/time seen: 02/13/24 14:40 Interval history: less pain she is trying to eat but still small amount Review of Systems Review of Systems: All systems reviewed & are unremarkable except as noted in HPI and below Exam Const: General: comfortable HENMT: Face/Nose/Sinus: Normal nares present Eyes: Sclera: sclerae normal Neck: Neck: supple Resp: Effort & Inspection: normal respiratory effort Cardio: Rate: regular rate GI: GI Palp: Yes Soft to palpation and No Tenderness to palpation present (GI) Auscultation: normal bowel sounds Other: less distended Skin: General skin exam: no rashes or lesions noted Neuro: Speech: normal speech Motor exam (neuro): 5/5 motor strength present throughout Extrem: General: normal to inspection Psych: Mental Status: mental status grossly normal Objective Data Vital Signs Vital Signs: Vital Signs - 24 hr 02/12/24 20:35 02/12/24 20:40 02/12/24 20:50 Temperature 97.5 F L Pulse Rate 72 74 Respiratory Rate 14 Blood Pressure 170/80 H Pulse Oximetry 97 Oxygen Delivery Fraction of Inspired Oxygen 02/12/24 21:55 02/13/24 05:23 02/13/24 08:31 Temperature 97.9 F Pulse Rate 68 Respiratory Rate 16 Blood Pressure 140/80 144/79 H Pulse Oximetry 97 95 Oxygen Delivery Room Air Fraction of Inspired Oxygen 21 02/13/24 09:01 02/13/24 14:00 Temperature 99.1 F Pulse Rate 68 77 Respiratory Rate 16 Blood Pressure 165/79 H Pulse Oximetry 96 Oxygen Delivery Fraction of Inspired Oxygen Intake/Output Intake/Output: Intake & Output 02/10/24 02/11/24 02/12/24 02/13/24 23:59 23:59 23:59 23:59 Intake Total 2340 1770 2698 550 Output Total 977 Balance 1363 1770 2698 550 Meds/Results Medications: Active Medications Generic Name Dose Route Start Last Admin Trade Name Freq PRN Reason Stop Dose Admin Acetaminophen 650 mg 02/05/24 16:12 02/12/24 20:33 Acetaminophen 325 Mg Tablet PO 650 mg Q4H PRN Administration Headache Albuterol/Ipratropium 3 ml 02/05/24 17:43 02/06/24 21:42 Ipratropium 0.5 Mg/Albuterol Sulfate 2.5 Mg Ampul.Neb 3 Ml INHALATION 3 ml Q4HRT PRN Administration Shortness Of Breath Or Wheezing Alteplase, Recombinant 2 mg 02/10/24 06:52 02/10/24 08:29 Alteplase 2 Mg Vial (Cathflo) IV PUSH 2 mg ONCE PRN Administration Line Occlusion Lipase/Protease/Amylase 1 cap 02/11/24 17:00 02/13/24 12:21 Lipase/Amylase/Protease 12,000 Units Cap PO Not Given TIDWM CARLITOS Carvedilol 12.5 mg 02/11/24 09:00 02/13/24 09:01 Carvedilol 12.5 Mg Tablet PO 12.5 mg Q12HR CARLITOS Administration Dextrose 12.5 gm 02/02/24 10:59 Dextrose 50% 25 Gm/50 Ml Syringe IV PUSH PRN PRN Hypoglycemia Protocol Fluticasone Propionate 2 spray 02/02/24 00:09 Fluticasone Propionate 0.05% Na Spr 16 Gm Btl (*Bkc) NASAL DAILY PRN allergy symptoms Glucagon 1 mg 02/02/24 10:59 Glucagon For Inj 1 Mg Vial IM PRN PRN Hypoglycemia Protocol Glucose 15 gm 02/02/24 10:59 Glucose Oral Gel 15 Gm Of Glucse In 37.5 Gm Tube PO PRN PRN Hypoglycemia Protocol Heparin Sodium (Porcine) 5,000 units 02/02/24 14:00 02/13/24 05:53 Heparin Sodium 5,000 Units/Ml Vial SUB-Q 5,000 units Q8HR CARLITOS Administration Hydralazine HCl 20 mg 02/04/24 09:30 02/04/24 16:34 Hydralazine Hcl 20 Mg/Ml Vial IV PUSH 20 mg Q4H PRN Administration SBP more than 160 - 2nd choice Hydromorphone HCl 0.5 mg 02/03/24 13:53 02/06/24 14:21 Hydromorphone Hcl Inj (*Crx) 1 Mg/Ml Syr IV PUSH 0.5 mg Q2H PRN Administration Pain Rated 7-10 Meropenem 1 gm in 100 mls @ 200 mls/hr 02/10/24 12:00 02/13/24 05:52 IVPB 200 mls/hr Q8HR CARLITOS Administration Insulin Aspart 2 - 5 units 02/07/24 21:00 02/13/24 11:33 Insulin Aspart (*Bkc) 100 Units/Ml SUB-Q Not Given [facility] Protocol Labetalol HCl 20 mg 02/04/24 09:30 02/09/24 11:20 Labetalol Hcl Inj 100 Mg/20 Ml Vial IV PUSH 20 mg Q4H PRN Administration SBP > 160 and HR> 60 -1st choice Losartan Potassium 100 mg 02/11/24 09:00 02/13/24 09:01 Losartan Potassium 100 Mg Tablet PO 100 mg DAILY CARLITOS Administration Ondansetron HCl 4 mg 02/01/24 19:52 02/05/24 01:15 Ondansetron Inj 4 Mg/2 Ml Vial IV PUSH 4 mg Q4H PRN Administration Nausea Oxycodone HCl 5 mg 02/12/24 12:03 02/12/24 12:00 Oxycodone Hcl (*Crx) 5 Mg Tab Ir PO 5 mg Q4H PRN Administration Pain Rated 4-10 Pantoprazole Sodium 40 mg 02/04/24 09:00 02/13/24 09:01 Pantoprazole Sodium Iv 40 Mg Vial IV PUSH 40 mg QAM CARLITOS Administration Quetiapine Fumarate 25 mg 02/05/24 21:00 02/12/24 20:34 Quetiapine Fumarate 25 Mg Tablet PO 25 mg HS CARLITOS Administration Sodium Chloride 10 ml 02/03/24 14:00 02/13/24 05:53 Central Line Flush IV PUSH 10 ml Q8HR CARLITOS Administration Sodium Chloride 10 ml 02/03/24 12:07 Central Line Flush IV PUSH PRN PRN with TPN bag changes Sodium Chloride 20 ml 02/03/24 12:07 02/10/24 05:35 Central Line Flush IV PUSH 20 ml PRN PRN Administration after blood draws Radiology Results: ITS Impressions Chest/Abdomen/Pelvis CTA 02/01/24 18:35 IMPRESSION: No aortic dissection or aneurysm. Moderate interstitial pulmonary edema. Hepatomegaly. Acute interstitial pancreatitis. Possible portal vein and superior mesenteric vein thrombosis, versus artifact from unopacified blood in this arterial phase study. Consider right upper quadrant with a focus on obtaining portal venous color Doppler flow and waveforms. Vascular Ultrasound 02/01/24 19:23 IMPRESSION: Patent portal veins and superior mesenteric vein. Prior CT findings likely related to artifact from arterial phase imaging. Abdomen Ultrasound 02/02/24 09:49 IMPRESSION: 1. Pancreatitis. 2. Cholelithiasis. Gallbladder wall thickening may be secondary to interstitial edema or acute cholecystitis. 3. Diffuse hepatic steatosis. Abdomen X-Ray 02/04/24 21:25 IMPRESSION: Interval replacement of the nasogastric tube with its tip projecting over the proximal stomach for which advancement of approximately 5 to 6 cm may be performed for optimal radiographic placement. Worsening bilateral pleural effusions, as detailed above. Chest X-Ray 02/08/24 10:27 IMPRESSION: 1. Small lung volumes with airspace opacities at the lung bases, likely atelectasis. 2. Small right pleural effusion. 3. Dilated small bowel, likely adynamic ileus. Abdomen/Pelvis CT 02/08/24 10:29 IMPRESSION: 1. Stable acute necrotic pancreatitis. 2. Improved small volume of ascites. 3. Worsened small pleural effusions. 4. Cholelithiasis. Gallbladder distention may be secondary to fasting or acute cholecystitis. 5. Dilated small bowel, likely adynamic ileus. 6. Thickened endometrial complex. The differential diagnosis includes endometrial hyperplasia, polyp, and carcinoma. Consider pelvis ultrasound or biopsy. Hepatobiliary Scan Nuclear Medicine 02/11/24 15:32 IMPRESSION: 1. No evident biliary obstruction with patent cystic duct essentially excluding acute cholecystitis. Labs Labs: Laboratory Results - last 24 hr 02/12/24 02/13/24 02/13/24 19:32 07:34 10:44 WBC 16.0 H RBC 3.80 L Hgb 10.3 L Hct 32.3 L MCV 85.0 MCH 27.1 MCHC 31.9 L RDW 13.1 Plt Count 336 MPV 9.9 Immature Gran % (Auto) 1.3 H Neut % (Auto) 81.1 H Lymph % (Auto) 8.3 L [place]akon % (Auto) 7.0 Eos % (Auto) 1.9 Baso % (Auto) 0.4 Lymph # (Auto) 1.32 [place]akon # (Auto) 1.1 H Eos # (Auto) 0.3 Baso # (Auto) 0.1 Abs Immat Gran (auto) 0.20 H Absolute Neuts (auto) 13.0 H Absolute Nucleated RBC 0.000 Nucleated RBC % 0.0 Sodium 134 L Potassium 4.0 Chloride 101 Carbon Dioxide 32 H Anion Gap 1 L BUN 11 Creatinine 0.60 L Estim Creat Clear Calc 80 Estimated GFR > 60 Glucose 137 H POC Capillary Glucose 120 H 106 H Calcium 8.1 L Magnesium 2.2 Total Bilirubin 0.4 AST 29 ALT 22 Alkaline Phosphatase 164 H Total Protein 6.0 L Albumin 2.9 L 02/13/24 11:13 WBC RBC Hgb Hct MCV MCH MCHC RDW Plt Count MPV Immature Gran % (Auto) Neut % (Auto) Lymph % (Auto) [place] % (Auto) Eos % (Auto) Baso % (Auto) Lymph # (Auto) [place]on # (Auto) Eos # (Auto) Baso # (Auto) Abs Immat Gran (auto) Absolute Neuts (auto) Absolute Nucleated RBC Nucleated RBC % Sodium Potassium Chloride Carbon Dioxide Anion Gap BUN Creatinine Estim Creat Clear Calc Estimated GFR Glucose POC Capillary Glucose 131 H Calcium Magnesium Total Bilirubin AST ALT Alkaline Phosphatase Total Protein Albumin
--- NOTE | 2024-02-13 14:53 | P.PNIM_ITS ---
Progress Note: A&P Assessment and Plan (1) Steatorrhea: Code(s): K90.9 - Intestinal malabsorption, unspecified Status: Acute (2) Acute hypoxemic respiratory failure: Code(s): J96.01 - Acute respiratory failure with hypoxia Status: Acute (3) Acute necrotizing pancreatitis: Code(s): K85.91 - Acute pancreatitis with uninfected necrosis, unspecified Status: Acute (4) Cholelithiasis: Code(s): K80.20 - Calculus of gallbladder without cholecystitis without obstruction Status: Acute (5) Gallstone pancreatitis: Code(s): K85.10 - Biliary acute pancreatitis without necrosis or infection Status: Acute Plan 68-year-old female with history of hypertension presents with her at bedside for chest pain and abdominal pain. CT abdomen showed acute interstitial pancreatitis, possible portal vein and superior mesenteric vein thrombosis versus artifact from unopacified blood in the arterial phase study. Underwent right upper quadrant ultrasound which showed pancreatitis, cholelithiasis, gallbladder wall thickening questionable secondary to interstitial edema or acute cholecystitis, diffuse hepatic steatosis. Hospital course was complicated with acute hypoxic respiratory failure requiring ICU stay. 1. Acute necrotizing pancreatitis : HIDA scan without acute active cholecystitis Monitor leukocytosis Continue with meropenem if GI following Started on Creon for concern for steatorrhea General surgery following likely plan for interval cholecystectomy once acute pancreatitis has resolved likely outpatient Encourage p.o. intake 2. ICU delirium: Resolved 3. Acute hypoxic respiratory failure: Required ICU stay Resolved Currently on room air 4. Hypertension: Continue with Norvasc, losartan, Coreg 5. Diabetes mellitus: Hemoglobin A1c 6 Blood glucose checked t.i.d. a.c. and HS Continue with sliding scale insulin Adjust dose as needed 6. Code status: Full 7. DVT prophylaxis: Heparin subQ 8. Disposition: Pending improvement Time Spent With Patient Time with patient: 15 - 25 minutes Subjective Date/time seen: 02/13/24 14:53 Interval history: Still complains of abdominal pain after eating not able to tolerate diet so well Review of Systems Review of Systems: 10 point ROS complete, negative other th an what is specified in HPI. Exam Narrative: - GENERAL: Pleasant woman in no acute d istress. - EYES: EOMI. Anicteric. - HENT: Moist mucous membranes. - LUNGS: Clear to auscultation bilateral ly, no wheezing, rhonchi, or rales. - CARDIOVASCULAR: Regular rate and rhyth m. No murmur. No JVD. - ABDOMEN: Soft, mild to moderate tender ness mid abdomen - EXTREMITIES: No edema. Peripheral puls es 2+. Non-tender. - NEUROLOGIC: No focal neurological defi cits. CN II-XII grossly intact. - PSYCHIATRIC: Awake, Alert and oriented x 3. Appropriate mood and affect. - SKIN: No rashes or lesions. Warm. - LYMPH: No cervical lymphadenopathy. Objective Data Vital Signs Vital Signs: Vital Signs - 24 hr 02/12/24 20:35 02/12/24 20:40 02/12/24 20:50 Temperature 97.5 F L Pulse Rate 72 74 Respiratory Rate 14 Blood Pressure 170/80 H Pulse Oximetry 97 Oxygen Delivery Fraction of Inspired Oxygen 02/12/24 21:55 02/13/24 05:23 02/13/24 08:31 Temperature 97.9 F Pulse Rate 68 Respiratory Rate 16 Blood Pressure 140/80 144/79 H Pulse Oximetry 97 95 Oxygen Delivery Room Air Fraction of Inspired Oxygen 02/13/24 09:01 02/13/24 14:00 Temperature 99.1 F Pulse Rate 68 77 Respiratory Rate 16 Blood Pressure 165/79 H Pulse Oximetry 96 Oxygen Delivery Fraction of Inspired Oxygen Intake/Output Intake/Output: Intake & Output 02/10/24 02/11/24 02/12/24 02/13/24 23:59 23:59 23:59 23:59 Intake Total 2340 1770 2698 650 Output Total 977 Balance 1363 1770 2698 650 Meds/Results Medications: Active Medications Generic Name Dose Route Start Last Admin Trade Name Freq PRN Reason Stop Dose Admin Acetaminophen 650 mg 02/05/24 16:12 02/12/24 20:33 Acetaminophen 325 Mg Tablet PO 650 mg Q4H PRN Administration Headache Albuterol/Ipratropium 3 ml 02/05/24 17:43 02/06/24 21:42 Ipratropium 0.5 Mg/Albuterol Sulfate 2.5 Mg Ampul.Neb 3 Ml INHALATION 3 ml Q4HRT PRN Administration Shortness Of Breath Or Wheezing Alteplase, Recombinant 2 mg 02/10/24 06:52 02/10/24 08:29 Alteplase 2 Mg Vial (Cathflo) IV PUSH 2 mg ONCE PRN Administration Line Occlusion Amlodipine Besylate 10 mg 02/13/24 14:55 Amlodipine Besylate 10 Mg Tablet PO DAILY CARLITOS Lipase/Protease/Amylase 1 cap 02/11/24 17:00 02/13/24 12:21 Lipase/Amylase/Protease 12,000 Units Cap PO Not Given TIDWM CARLITOS Carvedilol 12.5 mg 02/11/24 09:00 02/13/24 09:01 Carvedilol 12.5 Mg Tablet PO 12.5 mg Q12HR CARLITOS Administration Dextrose 12.5 gm 02/02/24 10:59 Dextrose 50% 25 Gm/50 Ml Syringe IV PUSH PRN PRN Hypoglycemia Protocol Fluticasone Propionate 2 spray 02/02/24 00:09 Fluticasone Propionate 0.05% Na Spr 16 Gm Btl (*Bkc) NASAL DAILY PRN allergy symptoms Glucagon 1 mg 02/02/24 10:59 Glucagon For Inj 1 Mg Vial IM PRN PRN Hypoglycemia Protocol Glucose 15 gm 02/02/24 10:59 Glucose Oral Gel 15 Gm Of Glucse In 37.5 Gm Tube PO PRN PRN Hypoglycemia Protocol Heparin Sodium (Porcine) 5,000 units 02/02/24 14:00 02/13/24 14:38 Heparin Sodium 5,000 Units/Ml Vial SUB-Q 5,000 units Q8HR CARLITOS Administration Hydralazine HCl 20 mg 02/04/24 09:30 02/04/24 16:34 Hydralazine Hcl 20 Mg/Ml Vial IV PUSH 20 mg Q4H PRN Administration SBP more than 160 - 2nd choice Hydromorphone HCl 0.5 mg 02/03/24 13:53 02/06/24 14:21 Hydromorphone Hcl Inj (*Crx) 1 Mg/Ml Syr IV PUSH 0.5 mg Q2H PRN Administration Pain Rated 7-10 Meropenem 1 gm in 100 mls @ 200 mls/hr 02/10/24 12:00 02/13/24 14:40 IVPB 200 mls/hr Q8HR CARLITOS Administration Insulin Aspart 2 - 5 units 02/07/24 21:00 02/13/24 11:33 Insulin Aspart (*Bkc) 100 Units/Ml SUB-Q Not Given [facility] CARLITOS Protocol Labetalol HCl 20 mg 02/04/24 09:30 02/09/24 11:20 Labetalol Hcl Inj 100 Mg/20 Ml Vial IV PUSH 20 mg Q4H PRN Administration SBP > 160 and HR> 60 -1st choice Losartan Potassium 100 mg 02/11/24 09:00 02/13/24 09:01 Losartan Potassium 100 Mg Tablet PO 100 mg DAILY CARLITOS Administration Ondansetron HCl 4 mg 02/01/24 19:52 02/05/24 01:15 Ondansetron Inj 4 Mg/2 Ml Vial IV PUSH 4 mg Q4H PRN Administration Nausea Oxycodone HCl 5 mg 02/12/24 12:03 02/12/24 12:00 Oxycodone Hcl (*Crx) 5 Mg Tab Ir PO 5 mg Q4H PRN Administration Pain Rated 4-10 Pantoprazole Sodium 40 mg 02/04/24 09:00 02/13/24 09:01 Pantoprazole Sodium Iv 40 Mg Vial IV PUSH 40 mg QAM CARLITOS Administration Quetiapine Fumarate 25 mg 02/05/24 21:00 02/12/24 20:34 Quetiapine Fumarate 25 Mg Tablet PO 25 mg HS CARLITOS Administration Sodium Chloride 10 ml 02/03/24 14:00 02/13/24 14:40 Central Line Flush IV PUSH 10 ml Q8HR CARLITOS Administration Sodium Chloride 10 ml 02/03/24 12:07 Central Line Flush IV PUSH PRN PRN with TPN bag changes Sodium Chloride 20 ml 02/03/24 12:07 02/10/24 05:35 Central Line Flush IV PUSH 20 ml PRN PRN Administration after blood draws Radiology Results: ITS Impressions Chest/Abdomen/Pelvis CTA 02/01/24 18:35 IMPRESSION: No aortic dissection or aneurysm. Moderate interstitial pulmonary edema. Hepatomegaly. Acute interstitial pancreatitis. Possible portal vein and superior mesenteric vein thrombosis, versus artifact from unopacified blood in this arterial phase study. Consider right upper quadrant with a focus on obtaining portal venous color Doppler flow and waveforms. Vascular Ultrasound 02/01/24 19:23 IMPRESSION: Patent portal veins and superior mesenteric vein. Prior CT findings likely related to artifact from arterial phase imaging. Abdomen Ultrasound 02/02/24 09:49 IMPRESSION: 1. Pancreatitis. 2. Cholelithiasis. Gallbladder wall thickening may be secondary to interstitial edema or acute cholecystitis. 3. Diffuse hepatic steatosis. Abdomen X-Ray 02/04/24 21:25 IMPRESSION: Interval replacement of the nasogastric tube with its tip projecting over the proximal stomach for which advancement of approximately 5 to 6 cm may be performed for optimal radiographic placement. Worsening bilateral pleural effusions, as detailed above. Chest X-Ray 02/08/24 10:27 IMPRESSION: 1. Small lung volumes with airspace opacities at the lung bases, likely atelectasis. 2. Small right pleural effusion. 3. Dilated small bowel, likely adynamic ileus. Abdomen/Pelvis CT 02/08/24 10:29 IMPRESSION: 1. Stable acute necrotic pancreatitis. 2. Improved small volume of ascites. 3. Worsened small pleural effusions. 4. Cholelithiasis. Gallbladder distention may be secondary to fasting or acute cholecystitis. 5. Dilated small bowel, likely adynamic ileus. 6. Thickened endometrial complex. The differential diagnosis includes endometrial hyperplasia, polyp, and carcinoma. Consider pelvis ultrasound or biopsy. Hepatobiliary Scan Nuclear Medicine 02/11/24 15:32 IMPRESSION: 1. No evident biliary obstruction with patent cystic duct essentially excluding acute cholecystitis. Labs Labs: Laboratory Results - last 24 hr 02/12/24 02/13/24 02/13/24 19:32 07:34 10:44 WBC 16.0 H RBC 3.80 L Hgb 10.3 L Hct 32.3 L MCV 85.0 MCH 27.1 MCHC 31.9 L RDW 13.1 Plt Count 336 MPV 9.9 Immature Gran % (Auto) 1.3 H Neut % (Auto) 81.1 H Lymph % (Auto) 8.3 L [place] % (Auto) 7.0 Eos % (Auto) 1.9 Baso % (Auto) 0.4 Lymph # (Auto) 1.32 [place] # (Auto) 1.1 H Eos # (Auto) 0.3 Baso # (Auto) 0.1 Abs Immat Gran (auto) 0.20 H Absolute Neuts (auto) 13.0 H Absolute Nucleated RBC 0.000 Nucleated RBC % 0.0 Sodium 134 L Potassium 4.0 Chloride 101 Carbon Dioxide 32 H Anion Gap 1 L BUN 11 Creatinine 0.60 L Estim Creat Clear Calc 80 Estimated GFR > 60 Glucose 137 H POC Capillary Glucose 120 H 106 H Calcium 8.1 L Magnesium 2.2 Total Bilirubin 0.4 AST 29 ALT 22 Alkaline Phosphatase 164 H Total Protein 6.0 L Albumin 2.9 L 02/13/24 11:13 WBC RBC Hgb Hct MCV MCH MCHC RDW Plt Count MPV Immature Gran % (Auto) Neut % (Auto) Lymph % (Auto) [place] % (Auto) Eos % (Auto) Baso % (Auto) Lymph # (Auto) [place] # (Auto) Eos # (Auto) Baso # (Auto) Abs Immat Gran (auto) Absolute Neuts (auto) Absolute Nucleated RBC Nucleated RBC % Sodium Potassium Chloride Carbon Dioxide Anion Gap BUN Creatinine Estim Creat Clear Calc Estimated GFR Glucose POC Capillary Glucose 131 H Calcium Magnesium Total Bilirubin AST ALT Alkaline Phosphatase Total Protein Albumin
[2024-02-13 16:36] LABS: Glucose Point of Care 122 mg/dl (65-105)
[2024-02-13] MEDS: amLODIPine BESYLATE 10 MG TABLET PO (16:36)
[2024-02-13 20:06] LABS: Glucose Point of Care 139 mg/dl (65-105)
[2024-02-13] MEDS: ACETAMINOPHEN 325 MG TABLET 650 MG PO (20:31)
[2024-02-13] MEDS: QUEtiapine FUMARATE 25 MG TABLET PO (20:32)
[2024-02-14 05:25] VITALS: BP 151/76; PULSE 84; RESP 18; TEMP 36.7; O2SAT 96
[2024-02-14] MEDS: MEROPENEM 1 GM/NS 100 ML 1 GM/100 ML BAG IVPB ×3 (05:31→21:16)
[2024-02-14] MEDS: CENTRAL LINE FLUSH 10 ML IV PUSH ×3 (05:32→21:16)
[2024-02-14] MEDS: HEPARIN SODIUM 5,000 UNITS/ML VIAL 5000 UNITS SUB-Q ×3 (05:32→21:16)
[2024-02-14 05:46] LABS: Basophils Percent Auto 0.3 % (0.2-1.2); Eosinophils Absolute Auto 0.3 K/mm3 (0-0.3); Eosinophils Percent Auto 2.5 % (0-4.4); Hematocrit 30.4 % (37.0-47.0); Hemoglobin 9.9 g/dL (12.0-15.0); Immature Granulocyte Percent A 1.6 % (0-0.5); Lymphocytes Absolute Auto 1.38 K/mm3 (0.9-3.2); Lymphocytes Percent Auto 11.3 % (18.3-44.2); Mean Corpuscular HGB Conc 32.6 g/dl (32-36); Mean Corpuscular Hemoglobin 27.7 pg (26-34); Mean Corpuscular Volume 84.9 fl (80-100); Mean Platelet Volume 10.1 fl (7.4-10.4); Monocytes Percent Auto 7.9 % (2.6-8.5); Neutrophils Absolute Auto 9.3 K/mm3 (1.3-6.7); Neutrophils Percent Auto 76.4 % (45.5-73.1); Platelet Count Result 331 k/mm3 (150-375); Red Blood Count 3.58 M/mm3 (4.2-5.4); Red Cell Distribution Width 12.9 % (11.5-14.5); White Blood Count 12.2 K/mm3 (4.5-10.0)
[2024-02-14 05:57] LABS: Alanine Aminotransferase 21 U/L (6-35); Albumin Level 2.8 g/dL (3.5-5.1); Alkaline Phosphatase 155 U/L (38-126); Anion Gap 1 mmol/L (4-12); Aspartate Amino Transferase 31 U/L (14-36); Bilirubin,Total 0.5 mg/dL (0.2-1.3); Blood Urea Nitrogen 10 mg/dL (7-17); Calcium 8.1 mg/dL (8.4-10.2); Carbon Dioxide 31 mmol/L (22-30); Chloride 101 mmol/L (98-107); Estimated CRCL calculation 80 ml/min; Estimated Glomerular Filt Rate > 60; Glucose 114 mg/dL (65-110); Potassium 4.1 mmol/L (3.4-5.0); Sodium 133 mmol/L (137-145)
--- NOTE | 2024-02-14 07:50 | PM.IMPN ---
Progress Note: A&P Assessment and Plan (1) Steatorrhea: Code(s): K90.9 - Intestinal malabsorption, unspecified Status: Acute (2) Acute hypoxemic respiratory failure: Code(s): J96.01 - Acute respiratory failure with hypoxia Status: Acute (3) Acute necrotizing pancreatitis: Code(s): K85.91 - Acute pancreatitis with uninfected necrosis, unspecified Status: Acute (4) Cholelithiasis: Code(s): K80.20 - Calculus of gallbladder without cholecystitis without obstruction Status: Acute (5) Gallstone pancreatitis: Code(s): K85.10 - Biliary acute pancreatitis without necrosis or infection Status: Acute Plan 68-year-old female with history of hypertension presents with her at bedside for chest pain and abdominal pain. CT abdomen showed acute interstitial pancreatitis, possible portal vein and superior mesenteric vein thrombosis versus artifact from unopacified blood in the arterial phase study. Underwent right upper quadrant ultrasound which showed pancreatitis, cholelithiasis, gallbladder wall thickening questionable secondary to interstitial edema or acute cholecystitis, diffuse hepatic steatosis. Hospital course was complicated with acute hypoxic respiratory failure requiring ICU stay. Acute necrotizing pancreatitis : HIDA scan without acute active cholecystitis Monitor leukocytosis Continue with meropenem if GI following Started on Creon for concern for steatorrhea General surgery following likely plan for interval cholecystectomy once acute pancreatitis has resolved likely outpatient Encourage p.o. intake Patient still has pain associated with eating and drinking, cannot tolerate solid diet, afebrile, leukocytosis improving, 2. ICU delirium: Resolved 3. Acute hypoxic respiratory failure: Required ICU stay Resolved Currently on room air 4. Hypertension: Continue with Norvasc, losartan, Coreg 5. Diabetes mellitus: Hemoglobin A1c 6 Blood glucose checked t.i.d. a.c. and HS Continue with sliding scale insulin Adjust dose as needed 6. Code status: Full 7. DVT prophylaxis: Heparin subQ 8. Disposition: Pending improvement Subjective Date/time seen: 02/14/24 07:50 Interval history: I saw examined the patient. Patient feels improving but slowly. Patient cannot tolerate solid diet, patient has a poor intake because of pain. Patient leukocytosis improving, denies nausea vomiting still has some loose stool Exam Narrative: - GENERAL: Pleasant woman in no acute distress. - EYES: EOMI. Anicteric. - HENT: Moist mucous membranes. - LUNGS: Clear to auscultation bilaterally, no wheezing, rhonchi, or rales. - CARDIOVASCULAR: Regular rate and rhythm. No murmur. No JVD. - ABDOMEN: Soft, mild to moderate tenderness mid abdomen - EXTREMITIES: No edema. Peripheral pulses 2+. Non-tender. - NEUROLOGIC: No focal neurological deficits. CN II-XII grossly intact. - PSYCHIATRIC: Awake, Alert and oriented x 3. Appropriate mood and affect. - SKIN: No rashes or lesions. Warm. - LYMPH: No cervical lymphadenopathy. Objective Data Vital Signs Vital Signs: Vital Signs - 24 hr 02/13/24 08:31 02/13/24 09:01 02/13/24 14:00 Temperature 99.1 F Pulse Rate 68 77 Respiratory Rate 16 Blood Pressure 165/79 H Pulse Oximetry 95 96 Oxygen Delivery Room Air Fraction of Inspired Oxygen 21 02/13/24 09:00 02/13/24 20:12 02/13/24 20:32 Temperature Pulse Rate 82 Respiratory Rate Blood Pressure Pulse Oximetry 96 Oxygen Delivery Room Air Room Air Fraction of Inspired Oxygen 02/13/24 21:24 02/14/24 05:25 Temperature 97.6 F 98.0 F Pulse Rate 86 84 Respiratory Rate 20 18 Blood Pressure 150/82 H 151/76 H Pulse Oximetry 96 96 Oxygen Delivery Fraction of Inspired Oxygen Intake/Output Intake/Output: Intake & Output 02/11/24 02/12/24 02/13/24 02/14/24 23:59 23:59 23:59 23:59 Intake Total 1770 2698 1268 Balance 1770 2698 1268 Meds/Results Medications: Active Medications Generic Name Dose Route Start Last Admin Trade Name Freq PRN Reason Stop Dose Admin Acetaminophen 650 mg 02/05/24 16:12 02/13/24 20:31 Acetaminophen 325 Mg Tablet PO 650 mg Q4H PRN Administration Headache Albuterol/Ipratropium 3 ml 02/05/24 17:43 02/06/24 21:42 Ipratropium 0.5 Mg/Albuterol Sulfate 2.5 Mg Ampul.Neb 3 Ml INHALATION 3 ml Q4HRT PRN Administration Shortness Of Breath Or Wheezing Alteplase, Recombinant 2 mg 02/10/24 06:52 02/10/24 08:29 Alteplase 2 Mg Vial (Cathflo) IV PUSH 2 mg ONCE PRN Administration Line Occlusion Amlodipine Besylate 10 mg 02/13/24 14:55 02/13/24 16:36 Amlodipine Besylate 10 Mg Tablet PO 10 mg DAILY CARLITOS Administration Lipase/Protease/Amylase 1 cap 02/11/24 17:00 02/13/24 16:36 Lipase/Amylase/Protease 12,000 Units Cap PO 1 cap TIDWM CARLITOS Administration Carvedilol 12.5 mg 02/11/24 09:00 02/13/24 20:32 Carvedilol 12.5 Mg Tablet PO 12.5 mg Q12HR CARLITOS Administration Dextrose 12.5 gm 02/02/24 10:59 Dextrose 50% 25 Gm/50 Ml Syringe IV PUSH PRN PRN Hypoglycemia Protocol Fluticasone Propionate 2 spray 02/02/24 00:09 Fluticasone Propionate 0.05% Na Spr 16 Gm Btl (*Bkc) NASAL DAILY PRN allergy symptoms Glucagon 1 mg 02/02/24 10:59 Glucagon For Inj 1 Mg Vial IM PRN PRN Hypoglycemia Protocol Glucose 15 gm 02/02/24 10:59 Glucose Oral Gel 15 Gm Of Glucse In 37.5 Gm Tube PO PRN PRN Hypoglycemia Protocol Heparin Sodium (Porcine) 5,000 units 02/02/24 14:00 02/14/24 05:32 Heparin Sodium 5,000 Units/Ml Vial SUB-Q 5,000 units Q8HR CARLITOS Administration Hydralazine HCl 20 mg 02/04/24 09:30 02/04/24 16:34 Hydralazine Hcl 20 Mg/Ml Vial IV PUSH 20 mg Q4H PRN Administration SBP more than 160 - 2nd choice Hydromorphone HCl 0.5 mg 02/03/24 13:53 02/06/24 14:21 Hydromorphone Hcl Inj (*Crx) 1 Mg/Ml Syr IV PUSH 0.5 mg Q2H PRN Administration Pain Rated 7-10 Meropenem 1 gm in 100 mls @ 200 mls/hr 02/10/24 12:00 02/14/24 05:31 IVPB 200 mls/hr Q8HR CARLITOS Administration Insulin Aspart 2 - 5 units 02/07/24 21:00 02/13/24 22:57 Insulin Aspart (*Bkc) 100 Units/Ml SUB-Q Not Given [facility] Protocol Labetalol HCl 20 mg 02/04/24 09:30 02/09/24 11:20 Labetalol Hcl Inj 100 Mg/20 Ml Vial IV PUSH 20 mg Q4H PRN Administration SBP > 160 and HR> 60 -1st choice Losartan Potassium 100 mg 02/11/24 09:00 02/13/24 09:01 Losartan Potassium 100 Mg Tablet PO 100 mg DAILY CARLITOS Administration Ondansetron HCl 4 mg 02/01/24 19:52 02/05/24 01:15 Ondansetron Inj 4 Mg/2 Ml Vial IV PUSH 4 mg Q4H PRN Administration Nausea Oxycodone HCl 5 mg 02/12/24 12:03 02/12/24 12:00 Oxycodone Hcl (*Crx) 5 Mg Tab Ir PO 5 mg Q4H PRN Administration Pain Rated 4-10 Pantoprazole Sodium 40 mg 02/04/24 09:00 02/13/24 09:01 Pantoprazole Sodium Iv 40 Mg Vial IV PUSH 40 mg QAM CARLITOS Administration Quetiapine Fumarate 25 mg 02/05/24 21:00 02/13/24 20:32 Quetiapine Fumarate 25 Mg Tablet PO 25 mg HS CARLITOS Administration Sodium Chloride 10 ml 02/03/24 14:00 02/14/24 05:32 Central Line Flush IV PUSH 10 ml Q8HR CARLITOS Administration Sodium Chloride 10 ml 02/03/24 12:07 Central Line Flush IV PUSH PRN PRN with TPN bag changes Sodium Chloride 20 ml 02/03/24 12:07 02/10/24 05:35 Central Line Flush IV PUSH 20 ml PRN PRN Administration after blood draws Radiology Results: ITS Impressions Chest/Abdomen/Pelvis CTA 02/01/24 18:35 IMPRESSION: No aortic dissection or aneurysm. Moderate interstitial pulmonary edema. Hepatomegaly. Acute interstitial pancreatitis. Possible portal vein and superior mesenteric vein thrombosis, versus artifact from unopacified blood in this arterial phase study. Consider right upper quadrant with a focus on obtaining portal venous color Doppler flow and waveforms. Vascular Ultrasound 02/01/24 19:23 IMPRESSION: Patent portal veins and superior mesenteric vein. Prior CT findings likely related to artifact from arterial phase imaging. Abdomen Ultrasound 02/02/24 09:49 IMPRESSION: 1. Pancreatitis. 2. Cholelithiasis. Gallbladder wall thickening may be secondary to interstitial edema or acute cholecystitis. 3. Diffuse hepatic steatosis. Abdomen X-Ray 02/04/24 21:25 IMPRESSION: Interval replacement of the nasogastric tube with its tip projecting over the proximal stomach for which advancement of approximately 5 to 6 cm may be performed for optimal radiographic placement. Worsening bilateral pleural effusions, as detailed above. Chest X-Ray 02/08/24 10:27 IMPRESSION: 1. Small lung volumes with airspace opacities at the lung bases, likely atelectasis. 2. Small right pleural effusion. 3. Dilated small bowel, likely adynamic ileus. Abdomen/Pelvis CT 02/08/24 10:29 IMPRESSION: 1. Stable acute necrotic pancreatitis. 2. Improved small volume of ascites. 3. Worsened small pleural effusions. 4. Cholelithiasis. Gallbladder distention may be secondary to fasting or acute cholecystitis. 5. Dilated small bowel, likely adynamic ileus. 6. Thickened endometrial complex. The differential diagnosis includes endometrial hyperplasia, polyp, and carcinoma. Consider pelvis ultrasound or biopsy. Hepatobiliary Scan Nuclear Medicine 02/11/24 15:32 IMPRESSION: 1. No evident biliary obstruction with patent cystic duct essentially excluding acute cholecystitis. Labs Labs: Laboratory Results - last 24 hr 02/13/24 02/13/24 02/13/24 10:44 11:13 16:33 WBC 16.0 H RBC 3.80 L Hgb 10.3 L Hct 32.3 L MCV 85.0 MCH 27.1 MCHC 31.9 L RDW 13.1 Plt Count 336 MPV 9.9 Immature Gran % (Auto) 1.3 H Neut % (Auto) 81.1 H Lymph % (Auto) 8.3 L [place] % (Auto) 7.0 Eos % (Auto) 1.9 Baso % (Auto) 0.4 Lymph # (Auto) 1.32 [place] # (Auto) 1.1 H Eos # (Auto) 0.3 Baso # (Auto) 0.1 Abs Immat Gran (auto) 0.20 H Absolute Neuts (auto) 13.0 H Absolute Nucleated RBC 0.000 Nucleated RBC % 0.0 Sodium 134 L Potassium 4.0 Chloride 101 Carbon Dioxide 32 H Anion Gap 1 L BUN 11 Creatinine 0.60 L Estim Creat Clear Calc 80 Estimated GFR > 60 Glucose 137 H POC Capillary Glucose 131 H 122 H Calcium 8.1 L Magnesium 2.2 Total Bilirubin 0.4 AST 29 ALT 22 Alkaline Phosphatase 164 H Total Protein 6.0 L Albumin 2.9 L 10/18/24 10/19/24 19:46 05:30 WBC 12.2 H RBC 3.58 L Hgb 9.9 L Hct 30.4 L MCV 84.9 MCH 27.7 MCHC 32.6 RDW 12.9 Plt Count 331 MPV 10.1 Immature Gran % (Auto) 1.6 H Neut % (Auto) 76.4 H Lymph % (Auto) 11.3 L [place] % (Auto) 7.9 Eos % (Auto) 2.5 Baso % (Auto) 0.3 Lymph # (Auto) 1.38 [place] # (Auto) 1.0 H Eos # (Auto) 0.3 Baso # (Auto) 0.0 Abs Immat Gran (auto) 0.20 H Absolute Neuts (auto) 9.3 H Absolute Nucleated RBC 0.000 Nucleated RBC % 0.0 Sodium 133 L Potassium 4.1 Chloride 101 Carbon Dioxide 31 H Anion Gap 1 L BUN 10 Creatinine 0.60 L Estim Creat Clear Calc 80 Estimated GFR > 60 Glucose 114 H POC Capillary Glucose 139 H Calcium 8.1 L Magnesium Total Bilirubin 0.5 AST 31 ALT 21 Alkaline Phosphatase 155 H Total Protein 6.0 L Albumin 2.8 L
[2024-02-14 08:03] LABS: Glucose Point of Care 112 mg/dl (65-105)
[2024-02-14 08:56] VITALS: PULSE 84
[2024-02-14] MEDS: amLODIPine BESYLATE 10 MG TABLET PO (08:56)
[2024-02-14] MEDS: LOSARTAN POTASSIUM 100 MG TABLET PO (08:56)
[2024-02-14] MEDS: PANTOPRAZOLE SODIUM IV 40 MG VIAL IV PUSH (08:56)
[2024-02-14] MEDS: LIPASE/AMYLASE/PROTEASE 12,000 UNITS CAP 1 CAP PO ×3 (08:56→16:52)
[2024-02-14] MEDS: carvediloL 12.5 MG TABLET PO ×2 (08:56→21:16)
--- NOTE | 2024-02-14 10:11 | WPDGIPROGNO ---
Progress Note: A&P Assessment and Plan (1) Gallstone pancreatitis: Code(s): K85.10 - Biliary acute pancreatitis without necrosis or infection Status: Acute Assessment and Plan: necrotizing pancreatitis HIDA scan without active cholecystitis leukocytosis down to 12k, on iv abx home soon, still poor appetite and some discomfort continue with creon for concern of steatorrhea (2) Nausea and vomiting in adult: Code(s): R11.2 - Nausea with vomiting, unspecified Status: Acute Assessment and Plan: still poor apettite (3) Leukocytosis: Code(s): D72.829 - Elevated white blood cell count, unspecified Status: Acute Assessment and Plan: from severe pancreatitis, on abx wkc down to 12k hida scan without active cholecystitis (4) Cholelithiasis: Code(s): K80.20 - Calculus of gallbladder without cholecystitis without obstruction Status: Acute Assessment and Plan: surgery on board interval cholecystectomy once pancreatitis resolves as outpatient (5) Acute necrotizing pancreatitis: Code(s): K85.91 - Acute pancreatitis with uninfected necrosis, unspecified Status: Acute Subjective Date/time seen: 02/14/24 10:11 Interval history: still pain after eating with cramping, this morning had diarrhea after breakfast no major changes Review of Systems Review of Systems: All systems reviewed & are unremarkable except as noted in HPI and below Exam Const: General: comfortable HENMT: Face/Nose/Sinus: Normal nares present Eyes: Sclera: sclerae normal Neck: Neck: supple Resp: Effort & Inspection: normal respiratory effort Cardio: Rate: regular rate GI: GI Palp: Yes Soft to palpation and No Tenderness to palpation present (GI) Auscultation: normal bowel sounds Skin: General skin exam: no rashes or lesions noted Neuro: Speech: normal speech Motor exam (neuro): 5/5 motor strength present throughout Extrem: General: normal to inspection Psych: Mental Status: mental status grossly normal Objective Data Vital Signs Vital Signs: Vital Signs - 24 hr 02/13/24 14:00 02/13/24 20:12 02/13/24 20:32 Temperature 99.1 F Pulse Rate 77 82 Respiratory Rate 16 Blood Pressure 165/79 H Pulse Oximetry 96 96 Oxygen Delivery Room Air 02/13/24 21:24 02/14/24 05:25 02/14/24 08:56 Temperature 97.6 F 98.0 F Pulse Rate 86 84 84 Respiratory Rate 20 18 Blood Pressure 150/82 H 151/76 H Pulse Oximetry 96 96 Oxygen Delivery Intake/Output Intake/Output: Intake & Output 02/11/24 02/12/24 02/13/24 02/14/24 23:59 23:59 23:59 23:59 Intake Total 1770 2698 1268 120 Balance 1770 2698 1268 120 Meds/Results Medications: Active Medications Generic Name Dose Route Start Last Admin Trade Name Freq PRN Reason Stop Dose Admin Acetaminophen 650 mg 02/05/24 16:12 02/13/24 20:31 Acetaminophen 325 Mg Tablet PO 650 mg Q4H PRN Administration Headache Albuterol/Ipratropium 3 ml 02/05/24 17:43 02/06/24 21:42 Ipratropium 0.5 Mg/Albuterol Sulfate 2.5 Mg Ampul.Neb 3 Ml INHALATION 3 ml Q4HRT PRN Administration Shortness Of Breath Or Wheezing Alteplase, Recombinant 2 mg 02/10/24 06:52 02/10/24 08:29 Alteplase 2 Mg Vial (Cathflo) IV PUSH 2 mg ONCE PRN Administration Line Occlusion Amlodipine Besylate 10 mg 02/13/24 14:55 02/14/24 08:56 Amlodipine Besylate 10 Mg Tablet PO 10 mg DAILY CARLITOS Administration Lipase/Protease/Amylase 1 cap 02/11/24 17:00 02/14/24 08:56 Lipase/Amylase/Protease 12,000 Units Cap PO 1 cap TIDWM CARLITOS Administration Carvedilol 12.5 mg 02/11/24 09:00 02/14/24 08:56 Carvedilol 12.5 Mg Tablet PO 12.5 mg Q12HR CARLITOS Administration Dextrose 12.5 gm 02/02/24 10:59 Dextrose 50% 25 Gm/50 Ml Syringe IV PUSH PRN PRN Hypoglycemia Protocol Fluticasone Propionate 2 spray 02/02/24 00:09 Fluticasone Propionate 0.05% Na Spr 16 Gm Btl (*Bkc) NASAL DAILY PRN allergy symptoms Glucagon 1 mg 02/02/24 10:59 Glucagon For Inj 1 Mg Vial IM PRN PRN Hypoglycemia Protocol Glucose 15 gm 02/02/24 10:59 Glucose Oral Gel 15 Gm Of Glucse In 37.5 Gm Tube PO PRN PRN Hypoglycemia Protocol Heparin Sodium (Porcine) 5,000 units 02/02/24 14:00 02/14/24 05:32 Heparin Sodium 5,000 Units/Ml Vial SUB-Q 5,000 units Q8HR CARLITOS Administration Hydralazine HCl 20 mg 02/04/24 09:30 02/04/24 16:34 Hydralazine Hcl 20 Mg/Ml Vial IV PUSH 20 mg Q4H PRN Administration SBP more than 160 - 2nd choice Hydromorphone HCl 0.5 mg 02/03/24 13:53 02/06/24 14:21 Hydromorphone Hcl Inj (*Crx) 1 Mg/Ml Syr IV PUSH 0.5 mg Q2H PRN Administration Pain Rated 7-10 Meropenem 1 gm in 100 mls @ 200 mls/hr 02/10/24 12:00 02/14/24 05:31 IVPB 200 mls/hr Q8HR CARLITOS Administration Insulin Aspart 2 - 5 units 02/07/24 21:00 02/14/24 08:55 Insulin Aspart (*Bkc) 100 Units/Ml SUB-Q Not Given [facility] Protocol Labetalol HCl 20 mg 02/04/24 09:30 02/09/24 11:20 Labetalol Hcl Inj 100 Mg/20 Ml Vial IV PUSH 20 mg Q4H PRN Administration SBP > 160 and HR> 60 -1st choice Losartan Potassium 100 mg 02/11/24 09:00 02/14/24 08:56 Losartan Potassium 100 Mg Tablet PO 100 mg DAILY CARLITOS Administration Ondansetron HCl 4 mg 02/01/24 19:52 02/05/24 01:15 Ondansetron Inj 4 Mg/2 Ml Vial IV PUSH 4 mg Q4H PRN Administration Nausea Oxycodone HCl 5 mg 02/12/24 12:03 02/12/24 12:00 Oxycodone Hcl (*Crx) 5 Mg Tab Ir PO 5 mg Q4H PRN Administration Pain Rated 4-10 Pantoprazole Sodium 40 mg 02/04/24 09:00 02/14/24 08:56 Pantoprazole Sodium Iv 40 Mg Vial IV PUSH 40 mg QAM CARLITOS Administration Quetiapine Fumarate 25 mg 02/05/24 21:00 02/13/24 20:32 Quetiapine Fumarate 25 Mg Tablet PO 25 mg HS CARLITOS Administration Sodium Chloride 10 ml 10/08/24 14:00 02/14/24 05:32 Central Line Flush IV PUSH 10 ml Q8HR CARLITOS Administration Sodium Chloride 10 ml 02/03/24 12:07 Central Line Flush IV PUSH PRN PRN with TPN bag changes Sodium Chloride 20 ml 02/03/24 12:07 02/10/24 05:35 Central Line Flush IV PUSH 20 ml PRN PRN Administration after blood draws Radiology Results: ITS Impressions Chest/Abdomen/Pelvis CTA 02/01/24 18:35 IMPRESSION: No aortic dissection or aneurysm. Moderate interstitial pulmonary edema. Hepatomegaly. Acute interstitial pancreatitis. Possible portal vein and superior mesenteric vein thrombosis, versus artifact from unopacified blood in this arterial phase study. Consider right upper quadrant with a focus on obtaining portal venous color Doppler flow and waveforms. Vascular Ultrasound 02/01/24 19:23 IMPRESSION: Patent portal veins and superior mesenteric vein. Prior CT findings likely related to artifact from arterial phase imaging. Abdomen Ultrasound 02/02/24 09:49 IMPRESSION: 1. Pancreatitis. 2. Cholelithiasis. Gallbladder wall thickening may be secondary to interstitial edema or acute cholecystitis. 3. Diffuse hepatic steatosis. Abdomen X-Ray 02/04/24 21:25 IMPRESSION: Interval replacement of the nasogastric tube with its tip projecting over the proximal stomach for which advancement of approximately 5 to 6 cm may be performed for optimal radiographic placement. Worsening bilateral pleural effusions, as detailed above. Chest X-Ray 02/08/24 10:27 IMPRESSION: 1. Small lung volumes with airspace opacities at the lung bases, likely atelectasis. 2. Small right pleural effusion. 3. Dilated small bowel, likely adynamic ileus. Abdomen/Pelvis CT 02/08/24 10:29 IMPRESSION: 1. Stable acute necrotic pancreatitis. 2. Improved small volume of ascites. 3. Worsened small pleural effusions. 4. Cholelithiasis. Gallbladder distention may be secondary to fasting or acute cholecystitis. 5. Dilated small bowel, likely adynamic ileus. 6. Thickened endometrial complex. The differential diagnosis includes endometrial hyperplasia, polyp, and carcinoma. Consider pelvis ultrasound or biopsy. Hepatobiliary Scan Nuclear Medicine 02/11/24 15:32 IMPRESSION: 1. No evident biliary obstruction with patent cystic duct essentially excluding acute cholecystitis. Labs Labs: Laboratory Results - last 24 hr 1002/13/24 02/13/24 10:44 11:13 16:33 WBC 16.0 H RBC 3.80 L Hgb 10.3 L Hct 32.3 L MCV 85.0 MCH 27.1 MCHC 31.9 L RDW 13.1 Plt Count 336 MPV 9.9 Immature Gran % (Auto) 1.3 H Neut % (Auto) 81.1 H Lymph % (Auto) 8.3 L [place] % (Auto) 7.0 Eos % (Auto) 1.9 Baso % (Auto) 0.4 Lymph # (Auto) 1.32 [place] # (Auto) 1.1 H Eos # (Auto) 0.3 Baso # (Auto) 0.1 Abs Immat Gran (auto) 0.20 H Absolute Neuts (auto) 13.0 H Absolute Nucleated RBC 0.000 Nucleated RBC % 0.0 Sodium 134 L Potassium 4.0 Chloride 101 Carbon Dioxide 32 H Anion Gap 1 L BUN 11 Creatinine 0.60 L Estim Creat Clear Calc 80 Estimated GFR > 60 Glucose 137 H POC Capillary Glucose 131 H 122 H Calcium 8.1 L Magnesium 2.2 Total Bilirubin 0.4 AST 29 ALT 22 Alkaline Phosphatase 164 H Total Protein 6.0 L Albumin 2.9 L 02/13/24 02/14/24 02/14/24 19:46 05:30 07:58 WBC 12.2 H RBC 3.58 L Hgb 9.9 L Hct 30.4 L MCV 84.9 MCH 27.7 MCHC 32.6 RDW 12.9 Plt Count 331 MPV 10.1 Immature Gran % (Auto) 1.6 H Neut % (Auto) 76.4 H Lymph % (Auto) 11.3 L [place] % (Auto) 7.9 Eos % (Auto) 2.5 Baso % (Auto) 0.3 Lymph # (Auto) 1.38 [place] # (Auto) 1.0 H Eos # (Auto) 0.3 Baso # (Auto) 0.0 Abs Immat Gran (auto) 0.20 H Absolute Neuts (auto) 9.3 H Absolute Nucleated RBC 0.000 Nucleated RBC % 0.0 Sodium 133 L Potassium 4.1 Chloride 101 Carbon Dioxide 31 H Anion Gap 1 L BUN 10 Creatinine 0.60 L Estim Creat Clear Calc 80 Estimated GFR > 60 Glucose 114 H POC Capillary Glucose 139 H 112 H Calcium 8.1 L Magnesium Total Bilirubin 0.5 AST 31 ALT 21 Alkaline Phosphatase 155 H Total Protein 6.0 L Albumin 2.8 L
[2024-02-14 11:42] LABS: Glucose Point of Care 114 mg/dl (65-105)
[2024-02-14 15:27] VITALS: BP 152/67; PULSE 80; RESP 16; TEMP 36.8; O2SAT 95
[2024-02-14 16:40] LABS: Glucose Point of Care 128 mg/dl (65-105)
[2024-02-14 20:02] LABS: Glucose Point of Care 131 mg/dl (65-105)
[2024-02-14 20:10] VITALS: BP 146/69; PULSE 82; RESP 16; TEMP 36.6; O2SAT 95
[2024-02-14 21:16] VITALS: PULSE 88
[2024-02-14] MEDS: QUEtiapine FUMARATE 25 MG TABLET PO (21:16)
[2024-02-15 05:43] VITALS: BP 138/65; PULSE 75; RESP 16; TEMP 36.3; O2SAT 95
[2024-02-15] MEDS: HEPARIN SODIUM 5,000 UNITS/ML VIAL 5000 UNITS SUB-Q ×2 (05:59→22:08)
[2024-02-15] MEDS: MEROPENEM 1 GM/NS 100 ML 1 GM/100 ML BAG IVPB ×3 (05:59→22:08)
[2024-02-15] MEDS: CENTRAL LINE FLUSH 10 ML IV PUSH ×3 (05:59→22:12)
[2024-02-15 07:52] LABS: Glucose Point of Care 112 mg/dl (65-105)
--- NOTE | 2024-02-15 08:27 | P.PNIM_ITS ---
Progress Note: A&P Assessment and Plan (1) Steatorrhea: Code(s): K90.9 - Intestinal malabsorption, unspecified Status: Acute (2) Acute hypoxemic respiratory failure: Code(s): J96.01 - Acute respiratory failure with hypoxia Status: Acute (3) Acute necrotizing pancreatitis: Code(s): K85.91 - Acute pancreatitis with uninfected necrosis, unspecified Status: Acute (4) Cholelithiasis: Code(s): K80.20 - Calculus of gallbladder without cholecystitis without obstruction Status: Acute (5) Gallstone pancreatitis: Code(s): K85.10 - Biliary acute pancreatitis without necrosis or infection Status: Acute Plan 68-year-old female with history of hypertension presents with her at bedside for chest pain and abdominal pain. CT abdomen showed acute interstitial pancreatitis, possible portal vein and superior mesenteric vein thrombosis versus artifact from unopacified blood in the arterial phase study. Underwent right upper quadrant ultrasound which showed pancreatitis, cholelithiasis, gallbladder wall thickening questionable secondary to interstitial edema or acute cholecystitis, diffuse hepatic steatosis. Hospital course was complicated with acute hypoxic respiratory failure requiring ICU stay. Currently patient condition become more stable, patient has moved to medical floor to continue management Gross hematuria Patient notice bloody urine today, patient denies dysuria, urinary urgency frequency UA showed hematuria Follow renal ultrasound Consult urologist for evaluation treatment Acute necrotizing pancreatitis : HIDA scan without acute active cholecystitis Monitor leukocytosis Continue with meropenem if GI following Started on Creon for concern for steatorrhea General surgery following likely plan for interval cholecystectomy once acute pancreatitis has resolved likely outpatient Encourage p.o. intake Patient still has pain associated with eating and drinking, cannot tolerate solid diet, afebrile, leukocytosis improving, ICU delirium: Resolved Acute hypoxic respiratory failure: Required ICU stay Resolved Currently on room air Hypertension: Continue with Norvasc, losartan, Coreg Diabetes mellitus: Hemoglobin A1c 6 Blood glucose checked t.i.d. a.c. and HS Continue with sliding scale insulin Adjust dose as needed Code status: Full DVT prophylaxis: Heparin subQ Disposition: Pending improvement Subjective Date/time seen: 02/15/24 08:27 Interval history: I saw examined the patient. Patient feels improving but slowly. Food tolerance is increasing, patient noticed grows bloody urine today, patient denies dysuria, urinary urgency frequency. Labs reviewed, urinalysis shows showed cloudy urine, hematuria. Leukocytosis improving Exam Narrative: - GENERAL: Pleasant woman in no acute d istress. - EYES: EOMI. Anicteric. - HENT: Moist mucous membranes. - LUNGS: Clear to auscultation bilateral ly, no wheezing, rhonchi, or rales. - CARDIOVASCULAR: Regular rate and rhyth m. No murmur. No JVD. - ABDOMEN: Soft, mild to moderate tender ness mid abdomen - EXTREMITIES: No edema. Peripheral puls es 2+. Non-tender. - NEUROLOGIC: No focal neurological defi cits. CN II-XII grossly intact. - PSYCHIATRIC: Awake, Alert and oriented x 3. Appropriate mood and affect. - SKIN: No rashes or lesions. Warm. - LYMPH: No cervical lymphadenopathy. Objective Data Vital Signs Vital Signs: Vital Signs - 24 hr 02/14/24 08:56 02/14/24 15:27 02/14/24 20:10 Temperature 98.2 F 97.8 F Pulse Rate 84 80 82 Respiratory Rate 16 16 Blood Pressure 152/67 H 146/69 H Pulse Oximetry 95 95 Oxygen Delivery 02/14/24 21:16 02/14/24 20:00 02/15/24 05:43 Temperature 97.4 F L Pulse Rate 88 75 Respiratory Rate 16 Blood Pressure 138/65 Pulse Oximetry 95 Oxygen Delivery Room Air Intake/Output Intake/Output: Intake & Output 02/12/24 02/13/24 02/14/24 02/15/24 23:59 23:59 23:59 23:59 Intake Total 2698 1268 810 300 Balance 2698 1268 810 300 Meds/Results Medications: Active Medications Generic Name Dose Route Start Last Admin Trade Name Freq PRN Reason Stop Dose Admin Acetaminophen 650 mg 02/05/24 16:12 02/13/24 20:31 Acetaminophen 325 Mg Tablet PO 650 mg Q4H PRN Administration Headache Albuterol/Ipratropium 3 ml 02/05/24 17:43 02/06/24 21:42 Ipratropium 0.5 Mg/Albuterol Sulfate 2.5 Mg Ampul.Neb 3 Ml INHALATION 3 ml Q4HRT PRN Administration Shortness Of Breath Or Wheezing Alteplase, Recombinant 2 mg 02/10/24 06:52 02/10/24 08:29 Alteplase 2 Mg Vial (Cathflo) IV PUSH 2 mg ONCE PRN Administration Line Occlusion Amlodipine Besylate 10 mg 02/13/24 14:55 02/14/24 08:56 Amlodipine Besylate 10 Mg Tablet PO 10 mg DAILY CARLITOS Administration Lipase/Protease/Amylase 1 cap 02/11/24 17:00 02/14/24 16:52 Lipase/Amylase/Protease 12,000 Units Cap PO 1 cap TIDWM CARLITOS Administration Carvedilol 12.5 mg 02/11/24 09:00 02/14/24 21:16 Carvedilol 12.5 Mg Tablet PO 12.5 mg Q12HR CARLITOS Administration Dextrose 12.5 gm 02/02/24 10:59 Dextrose 50% 25 Gm/50 Ml Syringe IV PUSH PRN PRN Hypoglycemia Protocol Fluticasone Propionate 2 spray 02/02/24 00:09 Fluticasone Propionate 0.05% Na Spr 16 Gm Btl (*Bkc) NASAL DAILY PRN allergy symptoms Glucagon 1 mg 02/02/24 10:59 Glucagon For Inj 1 Mg Vial IM PRN PRN Hypoglycemia Protocol Glucose 15 gm 02/02/24 10:59 Glucose Oral Gel 15 Gm Of Glucse In 37.5 Gm Tube PO PRN PRN Hypoglycemia Protocol Heparin Sodium (Porcine) 5,000 units 02/02/24 14:00 02/15/24 05:59 Heparin Sodium 5,000 Units/Ml Vial SUB-Q 5,000 units Q8HR CARLITOS Administration Hydralazine HCl 20 mg 02/04/24 09:30 02/04/24 16:34 Hydralazine Hcl 20 Mg/Ml Vial IV PUSH 20 mg Q4H PRN Administration SBP more than 160 - 2nd choice Hydromorphone HCl 0.5 mg 02/03/24 13:53 02/06/24 14:21 Hydromorphone Hcl Inj (*Crx) 1 Mg/Ml Syr IV PUSH 0.5 mg Q2H PRN Administration Pain Rated 7-10 Meropenem 1 gm in 100 mls @ 200 mls/hr 02/10/24 12:00 02/15/24 05:59 IVPB 200 mls/hr Q8HR CARLITOS Administration Insulin Aspart 2 - 5 units 02/07/24 21:00 02/14/24 20:20 Insulin Aspart (*Bkc) 100 Units/Ml SUB-Q Not Given [facility] Protocol Labetalol HCl 20 mg 02/04/24 09:30 02/09/24 11:20 Labetalol Hcl Inj 100 Mg/20 Ml Vial IV PUSH 20 mg Q4H PRN Administration SBP > 160 and HR> 60 -1st choice Losartan Potassium 100 mg 02/11/24 09:00 02/14/24 08:56 Losartan Potassium 100 Mg Tablet PO 100 mg DAILY CARLITOS Administration Ondansetron HCl 4 mg 02/01/24 19:52 02/05/24 01:15 Ondansetron Inj 4 Mg/2 Ml Vial IV PUSH 4 mg Q4H PRN Administration Nausea Oxycodone HCl 5 mg 02/12/24 12:03 02/12/24 12:00 Oxycodone Hcl (*Crx) 5 Mg Tab Ir PO 5 mg Q4H PRN Administration Pain Rated 4-10 Pantoprazole Sodium 40 mg 02/04/24 09:00 02/14/24 08:56 Pantoprazole Sodium Iv 40 Mg Vial IV PUSH 40 mg QAM CARLITOS Administration Quetiapine Fumarate 25 mg 02/05/24 21:00 02/14/24 21:16 Quetiapine Fumarate 25 Mg Tablet PO 25 mg HS CARLITOS Administration Sodium Chloride 10 ml 02/03/24 14:00 02/15/24 05:59 Central Line Flush IV PUSH 10 ml Q8HR CARLITOS Administration Sodium Chloride 10 ml 02/03/24 12:07 Central Line Flush IV PUSH PRN PRN with TPN bag changes Sodium Chloride 20 ml 02/03/24 12:07 02/10/24 05:35 Central Line Flush IV PUSH 20 ml PRN PRN Administration after blood draws Radiology Results: ITS Impressions Chest/Abdomen/Pelvis CTA 02/01/24 18:35 IMPRESSION: No aortic dissection or aneurysm. Moderate interstitial pulmonary edema. Hepatomegaly. Acute interstitial pancreatitis. Possible portal vein and superior mesenteric vein thrombosis, versus artifact from unopacified blood in this arterial phase study. Consider right upper quadr ant with a focus on obtaining portal venous color Doppler flow and waveforms. Vascular Ultrasound 02/01/24 19:23 IMPRESSION: Patent portal veins and superior mesenteric vein. Prior CT findings likely related to artifact from arterial phase imaging. Abdomen Ultrasound 02/02/24 09:49 IMPRESSION: 1. Pancreatitis. 2. Cholelithiasis. Gallbladder wall thickening may be secondary to interstitial edema or acute cholecystitis. 3. Diffuse hepatic steatosis. Abdomen X-Ray 02/04/24 21:25 IMPRESSION: Interval replacement of the nasogastric tube with its tip projecting over the proximal stomach for which advancement of approximately 5 to 6 cm may be performed for optimal radiographic placement. Worsening bilateral pleural effusions, as detailed above. Chest X-Ray 02/08/24 10:27 IMPRESSION: 1. Small lung volumes with airspace opacities at the lung bases, likely atelectasis. 2. Small right pleural effusion. 3. Dilated small bowel, likely adynamic ileus. Abdomen/Pelvis CT 02/08/24 10:29 IMPRESSION: 1. Stable acute necrotic pancreatitis. 2. Improved small volume of ascites. 3. Worsened small pleural effusions. 4. Cholelithiasis. Gallbladder distention may be secondary to fasting or acute cholecystitis. 5. Dilated small bowel, likely adynamic ileus. 6. Thickened endometrial complex. The differential diagnosis includes endometrial hyperplasia, polyp, and carcinoma. Consider pelvis ultrasound or biopsy. Hepatobiliary Scan Nuclear Medicine 02/11/24 15:32 IMPRESSION: 1. No evident biliary obstruction with patent cystic duct essentially excluding acute cholecystitis. Labs Labs: Laboratory Results - last 24 hr 02/14/24 02/14/24 02/14/24 11:30 16:37 19:57 POC Capillary Glucose 114 H 128 H 131 H 02/15/24 07:47 POC Capillary Glucose 112 H
[2024-02-15 08:28] VITALS: PULSE 67
[2024-02-15] MEDS: LIPASE/AMYLASE/PROTEASE 12,000 UNITS CAP 1 CAP PO ×3 (08:28→18:22)
[2024-02-15] MEDS: amLODIPine BESYLATE 10 MG TABLET PO (08:28)
[2024-02-15] MEDS: LOSARTAN POTASSIUM 100 MG TABLET PO (08:28)
[2024-02-15] MEDS: carvediloL 12.5 MG TABLET PO ×2 (08:28→22:07)
[2024-02-15] MEDS: PANTOPRAZOLE SODIUM IV 40 MG VIAL IV PUSH (08:31)
[2024-02-15 08:56] LABS: Basophils Absolute Auto 0.1 K/mm3 (0.0-0.1); Basophils Percent Auto 0.5 % (0.2-1.2); Eosinophils Absolute Auto 0.3 K/mm3 (0-0.3); Eosinophils Percent Auto 2.8 % (0-4.4); Hematocrit 32.9 % (37.0-47.0); Hemoglobin 10.6 g/dL (12.0-15.0); Immature Granulocyte Absolute 0.16 K/mm3 (0.00-0.031); Immature Granulocyte Percent A 1.5 % (0-0.5); Lymphocytes Absolute Auto 1.55 K/mm3 (0.9-3.2); Lymphocytes Percent Auto 14.9 % (18.3-44.2); Mean Corpuscular HGB Conc 32.2 g/dl (32-36); Mean Corpuscular Hemoglobin 27.4 pg (26-34); Mean Platelet Volume 10.1 fl (7.4-10.4); Monocytes Absolute Auto 0.9 K/mm3 (0.1-0.6); Monocytes Percent Auto 8.7 % (2.6-8.5); Neutrophils Absolute Auto 7.5 K/mm3 (1.3-6.7); Neutrophils Percent Auto 71.6 % (45.5-73.1); Platelet Count Result 416 k/mm3 (150-375); Red Blood Count 3.87 M/mm3 (4.2-5.4); Red Cell Distribution Width 12.9 % (11.5-14.5); White Blood Count 10.4 K/mm3 (4.5-10.0)
[2024-02-15 09:16] LABS: Anion Gap 5 mmol/L (4-12); Blood Urea Nitrogen 10 mg/dL (7-17); Calcium 8.5 mg/dL (8.4-10.2); Carbon Dioxide 28 mmol/L (22-30); Chloride 101 mmol/L (98-107); Estimated CRCL calculation 79 ml/min; Estimated Glomerular Filt Rate > 60; Glucose 129 mg/dL (65-110); Potassium 4.1 mmol/L (3.4-5.0); Sodium 134 mmol/L (137-145)
--- NOTE | 2024-02-15 10:15 | WPDURCON ---
Assessment and Plan Assessment and plan (1) Gross hematuria: Code(s): R31.0 - Gross hematuria Status: Acute Assessment and Plan: - we discussed potential etiologies of GH including renal stones, malignancy, infection, inflammation, pseudohematuria from [employer] sources. plan for CTU, urine culture cytology and cystoscopy cystoscopy can likely be performed as outpt pending Urology Consult Note HPI Date Seen: 02/15/24 Requesting Physician: Flora Evans MD Primary Care Provider: Gonzalez Cuenca MD Consult Narrative Narrative: Viridiana Vega is a 68 year old female admitted for pancreatitis. consulted for gross hematuria without clots. No prior episodes. had recent starkey. Nonsmoker. No hx of stone disease, no trauma. no flank pain. Currently on carbapenem for pancreatitis. Denies frequent UTI, denies new irritative or obstructive voiding symptoms. Denies incontinence. Never seen a urologist before. Denies abnormal vaginal bleeding. urine in commode yellow/ pink without clots. Does not take ASA or other anticogulants. Review of Systems Constitutional: Constitutional: Reports no additional constitutional complaints, Denies body ache(s) and Denies chills Eyes: Eyes: Reports as per HPI ENT: Reports system reviewed and no additional complaints, except as documented Cardiovascular: Cardiovascular: Reports no additional cardiovascular complaints and Denies chest pain Respiratory: Respiratory: Denies dyspnea on exertion Gastrointestinal: Gastrointestinal: Reports no additional gastrointestinal complaints Genitourinary: Genitourinary: Reports no additional female genitourinary complaints Musculoskeletal: Musculoskeletal: Reports no additional musculoskeletal complaints Integumentary/Breasts: Skin/Breast: Reports system reviewed and no additional complaints, except as docu Neurologic: Reports system reviewed and no additional complaints, except as documented Psychiatric: Psychiatric: Reports no additional psychiatric complaints [facility] Past Medical History Medical History Abnormal finding of blood chemistry, unspecified Acute bilateral thoracic back pain Back pain Benign essential hypertension BMI 29.0-29.9,adult BMI 30.0-30.9,adult BMI 31.0-31.9,adult BPPV (benign paroxysmal positional vertigo) Bronchitis Carotid bruit Chest heaviness Cholelithiasis Dysphagia Elevated liver enzymes Encounter for Medicare annual wellness exam Encounter for preventive health examination Encounter for routine adult health examination without abnormal findings Encounter for screening mammogram for malignant neoplasm of breast Gallstone pancreatitis History of strep sore throat Hx of colonic polyps Left knee pain Leukocytosis Nausea and vomiting in adult Nonintractable headache 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 Pre-diabetes Sinus infection SIRS (systemic inflammatory response syndrome) Vitamin D deficiency Surgical History Surgical History History of section History of total right hip replacement History of tubal ligation Hx of parathyroidectomy Family History Family History Father Hypertension Family history of diabetes mellitus in first degree relative Acute myocardial infarction Mother Hypertension Family history of heart disease in male family member before age 55 Sibling Family history of diabetes mellitus in first degree relative Other Diabetes mellitus Social History Social History Smoking status: Never smoker Second hand tobacco smoke exposure: No Alcohol intake: never Do You Feel Safe in your Home?: Yes Lack of Transportation: No Lack of Food: Never True Current Housing: I Have Housing Concerned About Future Housing: No Difficulty Paying Gas/Electric Bills: No Difficulty Paying for Meds: No Currently Unemployed: No Education: Associate Degree Difficulty w/ Childcare or Family Care: No Living arrangements: with family Gender identity (if verbalized by the patient): Female Spiritual care concerns: No Meds Home Medications and Allergies Home Medications Medication Instructions Recorded Confirmed Type naproxen 500 mg tablet (Naprosyn) 500 mg PO BID PRN pain #60 tabs 07/12/20 02/01/24 Rx cholecalciferol (vitamin D3) 50 50 mcg PO DAILY 04/16/22 02/01/24 History mcg (2,000 unit) capsule rosuvastatin 40 mg tablet 40 mg PO DAILY #90 tabs 10/07/22 02/01/24 Rx cyclobenzaprine 10 mg tablet 10 mg PO TID PRN muscle spasm #30 02/03/23 02/01/24 Rx tabs fluticasone propionate 50 2 spray intranasal DAILY PRN 02/03/23 02/01/24 Rx mcg/actuation nasal allergy symptoms #16 grams spray,suspension carvedilol 12.5 mg tablet 12.5 mg PO BID 02/01/24 02/01/24 History losartan 100 1 tablet PO DAILY 02/01/24 02/01/24 History mg-hydrochlorothiazide 25 mg tablet Allergies Allergy/AdvReac Type Severity Reaction Status Date / Time No Known Allergies Allergy Verified 02/01/24 18:21 Vital Signs Vital Signs - 24 hr 02/14/24 15:27 02/14/24 20:10 02/14/24 21:16 Temperature 36.8 C 36.6 C Pulse Rate 80 82 88 Respiratory Rate 16 16 Blood Pressure 152/67 H 146/69 H Pulse Oximetry 95 95 Oxygen Delivery 02/14/24 20:00 02/15/24 05:43 02/15/24 08:28 Temperature 36.3 C L Pulse Rate 75 67 Respiratory Rate 16 Blood Pressure 138/65 Pulse Oximetry 95 Oxygen Delivery Room Air Exam Const: General: comfortable and no acute distress HENMT: Face/Nose/Sinus: Normal nares present Eyes: General: appearance normal, both eyes and all related structures Resp: Effort & Inspection: normal respiratory effort Cardio: Rate: regular rate Rhythm: regular rhythm GI: Inspection: non-distended GI Palp: Yes Soft to palpation, No Firmness to palpation present (GI), No Tenderness to palpation present (GI) and No Guarding due to palpation present (GI) Skin: General skin exam: normal color Extrem: General: normal to inspection Psych: Speech and movement: Normal speech and movement present Results Labs 02/15/24 08:45 02/15/24 08:45 Labs: Short CBC 02/15/24 Range/Units 08:45 WBC 10.4 H (4.5-10.0) K/mm3 Hgb 10.6 L (12.0-15.0) g/dL Hct 32.9 L (37.0-47.0) % Plt Count 416 H (150-375) k/mm3 BMP 02/15/24 08:45 Sodium 134 L Potassium 4.1 Chloride 101 Carbon Dioxide 28 BUN 10 Creatinine 0.60 L Glucose 129 H Calcium 8.5 Imaging Radiologist's impression: IMPRESSION: 1. Stable acute necrotic pancreatitis. 2. Improved small volume of ascites. 3. Worsened small pleural effusions. 4. Cholelithiasis. Gallbladder distention may be secondary to fasting or acute cholecystitis. 5. Dilated small bowel, likely adynamic ileus. 6. Thickened endometrial complex. The differential diagnosis includes endometrial hyperplasia, polyp, and carcinoma. Consider pelvis ultrasound or biopsy.
[2024-02-15 10:27] LABS: Add Urine Microscopic? YES; Appearance Urine Cloudy (Clear); Bacteria Urine None Seen /hpf; Bilirubin Urine Negative (Negative); Blood Urine 3+ (Negative); Color Urine Yellow (Yellow); Glucose Urine UA Negative (Negative); Ketones Urine Trace mg/dL (Negative); Leukocyte Esterase Ur Negative LEU/UL (Negative); Nitrate Urine Negative (Negative); Non Pathogenic Casts 0-2; Protein Urine Negative (Negative); RBC Urine >100 /hpf (0-2); Specific Grav Ur 1.013 (1.001-1.035); Squamous Epithelial Cell Urine None Seen /hpf (Few); Urobilinogen Urine 0.2 mg/dL (<2.0); WBC Urine 0-5 /hpf (0-3); pH Urine 7.5 (5.0-9.0)
[2024-02-15 11:31] LABS: Glucose Point of Care 153 mg/dl (65-105)
--- NOTE | 2024-02-15 12:31 | WPDGIPROGNO ---
Progress Note: A&P Assessment and Plan (1) Gallstone pancreatitis: Code(s): K85.10 - Biliary acute pancreatitis without necrosis or infection Status: Acute Assessment and Plan: necrotizing pancreatitis HIDA scan without active cholecystitis leukocytosis down to 10k, on iv abx eating more, today had hematuria and primary asked urology to evaluate patient continue with creon for concern of steatorrhea home soon (2) Nausea and vomiting in adult: Code(s): R11.2 - Nausea with vomiting, unspecified Status: Acute Assessment and Plan: encourage to eat more (3) Leukocytosis: Code(s): D72.829 - Elevated white blood cell count, unspecified Status: Acute Assessment and Plan: from severe pancreatitis, on abx wkc down to 10k hida scan without active cholecystitis (4) Gross hematuria: Code(s): R31.0 - Gross hematuria Status: Acute Assessment and Plan: urology on board (5) Cholelithiasis: Code(s): K80.20 - Calculus of gallbladder without cholecystitis without obstruction Status: Acute Assessment and Plan: surgery on board interval cholecystectomy once pancreatitis resolves as outpatient (6) Acute necrotizing pancreatitis: Code(s): K85.91 - Acute pancreatitis with uninfected necrosis, unspecified Status: Acute Subjective Date/time seen: 02/15/24 12:31 Interval history: had episode of hematuria she is eating more and abdominal discomfort improved Review of Systems Review of Systems: All systems reviewed & are unremarkable except as noted in HPI and below Exam Const: General: comfortable HENMT: Face/Nose/Sinus: Normal nares present Eyes: Sclera: sclerae normal Neck: Neck: supple Resp: Effort & Inspection: normal respiratory effort Cardio: Rate: regular rate GI: GI Palp: Yes Soft to palpation and No Tenderness to palpation present (GI) Auscultation: normal bowel sounds Skin: General skin exam: no rashes or lesions noted Neuro: Speech: normal speech Motor exam (neuro): 5/5 motor strength present throughout Extrem: General: normal to inspection Psych: Mental Status: mental status grossly normal Objective Data Vital Signs Vital Signs: Vital Signs - 24 hr 02/14/24 15:27 02/14/24 20:10 02/14/24 21:16 Temperature 98.2 F 97.8 F Pulse Rate 80 82 88 Respiratory Rate 16 16 Blood Pressure 152/67 H 146/69 H Pulse Oximetry 95 95 Oxygen Delivery 02/14/24 20:00 02/15/24 05:43 02/15/24 08:28 Temperature 97.4 F L Pulse Rate 75 67 Respiratory Rate 16 Blood Pressure 138/65 Pulse Oximetry 95 Oxygen Delivery Room Air Intake/Output Intake/Output: Intake & Output 02/12/24 02/13/24 02/14/24 02/15/24 23:59 23:59 23:59 23:59 Intake Total 2698 1268 810 420 Balance 2698 1268 810 420 Meds/Results Medications: Active Medications Generic Name Dose Route Start Last Admin Trade Name Freq PRN Reason Stop Dose Admin Acetaminophen 650 mg 02/05/24 16:12 02/13/24 20:31 Acetaminophen 325 Mg Tablet PO 650 mg Q4H PRN Administration Headache Albuterol/Ipratropium 3 ml 02/05/24 17:43 02/06/24 21:42 Ipratropium 0.5 Mg/Albuterol Sulfate 2.5 Mg Ampul.Neb 3 Ml INHALATION 3 ml Q4HRT PRN Administration Shortness Of Breath Or Wheezing Alteplase, Recombinant 2 mg 02/10/24 06:52 02/10/24 08:29 Alteplase 2 Mg Vial (Cathflo) IV PUSH 2 mg ONCE PRN Administration Line Occlusion Amlodipine Besylate 10 mg 02/13/24 14:55 02/15/24 08:28 Amlodipine Besylate 10 Mg Tablet PO 10 mg DAILY CARLITOS Administration Lipase/Protease/Amylase 1 cap 02/11/24 17:00 02/15/24 08:28 Lipase/Amylase/Protease 12,000 Units Cap PO 1 cap TIDWM CARLITOS Administration Carvedilol 12.5 mg 02/11/24 09:00 02/15/24 08:28 Carvedilol 12.5 Mg Tablet PO 12.5 mg Q12HR CARLITOS Administration Dextrose 12.5 gm 02/02/24 10:59 Dextrose 50% 25 Gm/50 Ml Syringe IV PUSH PRN PRN Hypoglycemia Protocol Fluticasone Propionate 2 spray 02/02/24 00:09 Fluticasone Propionate 0.05% Na Spr 16 Gm Btl (*Bkc) NASAL DAILY PRN allergy symptoms Glucagon 1 mg 02/02/24 10:59 Glucagon For Inj 1 Mg Vial IM PRN PRN Hypoglycemia Protocol Glucose 15 gm 02/02/24 10:59 Glucose Oral Gel 15 Gm Of Glucse In 37.5 Gm Tube PO PRN PRN Hypoglycemia Protocol Heparin Sodium (Porcine) 5,000 units 02/02/24 14:00 02/15/24 05:59 Heparin Sodium 5,000 Units/Ml Vial SUB-Q 5,000 units Q8HR CARLITOS Administration Hydralazine HCl 20 mg 02/04/24 09:30 02/04/24 16:34 Hydralazine Hcl 20 Mg/Ml Vial IV PUSH 20 mg Q4H PRN Administration SBP more than 160 - 2nd choice Hydromorphone HCl 0.5 mg 02/03/24 13:53 02/06/24 14:21 Hydromorphone Hcl Inj (*Crx) 1 Mg/Ml Syr IV PUSH 0.5 mg Q2H PRN Administration Pain Rated 7-10 Meropenem 1 gm in 100 mls @ 200 mls/hr 02/10/24 12:00 02/15/24 05:59 IVPB 200 mls/hr Q8HR CARLITOS Administration Insulin Aspart 2 - 5 units 02/07/24 21:00 02/15/24 08:33 Insulin Aspart (*Bkc) 100 Units/Ml SUB-Q Not Given [facility] CARLITOS Protocol Labetalol HCl 20 mg 02/04/24 09:30 02/09/24 11:20 Labetalol Hcl Inj 100 Mg/20 Ml Vial IV PUSH 20 mg Q4H PRN Administration SBP > 160 and HR> 60 -1st choice Losartan Potassium 100 mg 02/11/24 09:00 02/15/24 08:28 Losartan Potassium 100 Mg Tablet PO 100 mg DAILY CARLITOS Administration Ondansetron HCl 4 mg 02/01/24 19:52 02/05/24 01:15 Ondansetron Inj 4 Mg/2 Ml Vial IV PUSH 4 mg Q4H PRN Administration Nausea Oxycodone HCl 5 mg 02/12/24 12:03 02/12/24 12:00 Oxycodone Hcl (*Crx) 5 Mg Tab Ir PO 5 mg Q4H PRN Administration Pain Rated 4-10 Pantoprazole Sodium 40 mg 02/04/24 09:00 02/15/24 08:31 Pantoprazole Sodium Iv 40 Mg Vial IV PUSH 40 mg QAM CARLITOS Administration Quetiapine Fumarate 25 mg 02/05/24 21:00 02/14/24 21:16 Quetiapine Fumarate 25 Mg Tablet PO 25 mg HS CARLITOS Administration Sodium Chloride 10 ml 02/03/24 14:00 02/15/24 05:59 Central Line Flush IV PUSH 10 ml Q8HR CARLITOS Administration Sodium Chloride 10 ml 02/03/24 12:07 Central Line Flush IV PUSH PRN PRN with TPN bag changes Sodium Chloride 20 ml 02/03/24 12:07 02/10/24 05:35 Central Line Flush IV PUSH 20 ml PRN PRN Administration after blood draws Radiology Results: ITS Impressions Chest/Abdomen/Pelvis CTA 02/01/24 18:35 IMPRESSION: No aortic dissection or aneurysm. Moderate interstitial pulmonary edema. Hepatomegaly. Acute interstitial pancreatitis. Possible portal vein and superior mesenteric vein thrombosis, versus artifact from unopacified blood in this arterial phase study. Consider right upper quadrant with a focus on obtaining portal venous color Doppler flow and waveforms. Vascular Ultrasound 02/01/24 19:23 IMPRESSION: Patent portal veins and superior mesenteric vein. Prior CT findings likely related to artifact from arterial phase imaging. Abdomen Ultrasound 02/02/24 09:49 IMPRESSION: 1. Pancreatitis. 2. Cholelithiasis. Gallbladder wall thickening may be secondary to interstitial edema or acute cholecystitis. 3. Diffuse hepatic steatosis. Abdomen X-Ray 02/04/24 21:25 IMPRESSION: Interval replacement of the nasogastric tube with its tip projecting over the proximal stomach for which advancement of approximately 5 to 6 cm may be performed for optimal radiographic placement. Worsening bilateral pleural effusions, as detailed above. Chest X-Ray 02/08/24 10:27 IMPRESSION: 1. Small lung volumes with airspace opacities at the lung bases, likely atelectasis. 2. Small right pleural effusion. 3. Dilated small bowel, likely adynamic ileus. Abdomen/Pelvis CT 02/08/24 10:29 IMPRESSION: 1. Stable acute necrotic pancreatitis. 2. Improved small volume of ascites. 3. Worsened small pleural effusions. 4. Cholelithiasis. Gallbladder distention may be secondary to fasting or acute cholecystitis. 5. Dilated small bowel, likely adynamic ileus. 6. Thickened endometrial complex. The differential diagnosis includes endometrial hyperplasia, polyp, and carcinoma. Consider pelvis ultrasound or biopsy. Hepatobiliary Scan Nuclear Medicine 02/11/24 15:32 IMPRESSION: 1. No evident biliary obstruction with patent cystic duct essentially excluding acute cholecystitis. Labs Labs: Laboratory Results - last 24 hr 02/14/24 02/14/24 02/15/24 16:37 19:57 07:47 WBC RBC Hgb Hct MCV MCH MCHC RDW Plt Count MPV Immature Gran % (Auto) Neut % (Auto) Lymph % (Auto) [place] % (Auto) Eos % (Auto) Baso % (Auto) Lymph # (Auto) [place] # (Auto) Eos # (Auto) Baso # (Auto) Abs Immat Gran (auto) Absolute Neuts (auto) Absolute Nucleated RBC Nucleated RBC % Sodium Potassium Chloride Carbon Dioxide Anion Gap BUN Creatinine Estim Creat Clear Calc Estimated GFR Glucose POC Capillary Glucose 128 H 131 H 112 H Calcium Urine Color Urine Appearance Urine pH Ur Specific [place] Urine Protein Urine Glucose (UA) Urine Ketones Ur Blood (Man) Urine Nitrate Urine Bilirubin Urine Urobilinogen Ur Leukocyte Esterase Urine RBC Urine WBC Ur Squamous Epith Cells Urine Bacteria Urine Casts 02/15/24 02/15/24 02/15/24 08:45 10:14 11:22 WBC 10.4 H RBC 3.87 L Hgb 10.6 L Hct 32.9 L MCV 85.0 MCH 27.4 MCHC 32.2 RDW 12.9 Plt Count 416 H MPV 10.1 Immature Gran % (Auto) 1.5 H Neut % (Auto) 71.6 Lymph % (Auto) 14.9 L [place] % (Auto) 8.7 H Eos % (Auto) 2.8 Baso % (Auto) 0.5 Lymph # (Auto) 1.55 [place] # (Auto) 0.9 H Eos # (Auto) 0.3 Baso # (Auto) 0.1 Abs Immat Gran (auto) 0.16 H Absolute Neuts (auto) 7.5 H Absolute Nucleated RBC 0.000 Nucleated RBC % 0.0 Sodium 134 L Potassium 4.1 Chloride 101 Carbon Dioxide 28 Anion Gap 5 BUN 10 Creatinine 0.60 L Estim Creat Clear Calc 79 Estimated GFR > 60 Glucose 129 H POC Capillary Glucose 153 H Calcium 8.5 Urine Color Yellow Urine Appearance Cloudy H Urine pH 7.5 Ur Specific [place] 1.013 Urine Protein Negative Urine Glucose (UA) Negative Urine Ketones Trace H Ur Blood (Man) 3+ H Urine Nitrate Negative Urine Bilirubin Negative Urine Urobilinogen 0.2 Ur Leukocyte Esterase Negative Urine RBC >100 H Urine WBC 0-5 Ur Squamous Epith Cells None seen Urine Bacteria None seen Urine Casts 0-2
[2024-02-15 15:09] VITALS: BP 134/64; PULSE 71; RESP 16; TEMP 36.7; O2SAT 94
[2024-02-15 16:54] LABS: Glucose Point of Care 117 mg/dl (65-105)
[2024-02-15 21:19] LABS: Glucose Point of Care 82 mg/dl (65-105)
[2024-02-15 21:55] VITALS: BP 133/67; PULSE 73; RESP 18; TEMP 36.8; O2SAT 96
[2024-02-15] MEDS: QUEtiapine FUMARATE 25 MG TABLET PO (22:07)
[2024-02-16 05:57] VITALS: PULSE 75; RESP 18; TEMP 36.9; O2SAT 93
[2024-02-16] MEDS: HEPARIN SODIUM 5,000 UNITS/ML VIAL 5000 UNITS SUB-Q (06:00)
[2024-02-16] MEDS: MEROPENEM 1 GM/NS 100 ML 1 GM/100 ML BAG IVPB ×3 (06:00→21:19)
[2024-02-16 06:07] VITALS: BP 132/62
[2024-02-16] MEDS: CENTRAL LINE FLUSH 10 ML IV PUSH ×3 (06:27→21:20)
[2024-02-16 07:34] LABS: Glucose Point of Care 111 mg/dl (65-105)
[2024-02-16 08:51] VITALS: PULSE 76
[2024-02-16] MEDS: LOSARTAN POTASSIUM 100 MG TABLET PO (08:51)
[2024-02-16] MEDS: LIPASE/AMYLASE/PROTEASE 12,000 UNITS CAP 1 CAP PO ×3 (08:51→17:47)
[2024-02-16] MEDS: amLODIPine BESYLATE 10 MG TABLET PO (08:51)
[2024-02-16] MEDS: carvediloL 12.5 MG TABLET PO ×2 (08:51→21:18)
[2024-02-16] MEDS: PANTOPRAZOLE SODIUM IV 40 MG VIAL IV PUSH (08:52)
[2024-02-16 09:12] LABS: Basophils Absolute Auto 0.1 K/mm3 (0.0-0.1); Basophils Percent Auto 0.6 % (0.2-1.2); Eosinophils Absolute Auto 0.3 K/mm3 (0-0.3); Eosinophils Percent Auto 2.9 % (0-4.4); Hematocrit 32.6 % (37.0-47.0); Hemoglobin 10.2 g/dL (12.0-15.0); Lymphocytes Absolute Auto 1.76 K/mm3 (0.9-3.2); Lymphocytes Percent Auto 17.3 % (18.3-44.2); Mean Corpuscular HGB Conc 31.3 g/dl (32-36); Mean Corpuscular Hemoglobin 26.7 pg (26-34); Mean Corpuscular Volume 85.3 fl (80-100); Mean Platelet Volume 9.9 fl (7.4-10.4); Monocytes Percent Auto 9.8 % (2.6-8.5); Neutrophils Absolute Auto 6.9 K/mm3 (1.3-6.7); Neutrophils Percent Auto 67.4 % (45.5-73.1); Platelet Count Result 466 k/mm3 (150-375); Red Blood Count 3.82 M/mm3 (4.2-5.4); Red Cell Distribution Width 12.8 % (11.5-14.5); White Blood Count 10.2 K/mm3 (4.5-10.0)
--- NOTE | 2024-02-16 09:16 | WPDUROPN2 ---
Progress Note: A&P Assessment and Plan (1) Gross hematuria: Code(s): R31.0 - Gross hematuria Status: Acute Assessment and Plan: Discussed potential etiologies of GH including renal stones, malignancy, infection, inflammation, pseudohematuria from [facility] sources. CT urogram reviewed and is unremarkable, no etiology for hematuria. Renal ultrasound unremarkable. Pelvic ultrasound with borderline thickening of endometrial stripe, will need medical office representative follow-up. Will plan for outpatient cystoscopy and cytology for complete hematuria workup Subjective Subjective Date/Time Seen: 02/16/24 09:16 Interval history: Viridiana is feeling well today. States that her urine is mostly clear yellow with just very faint a light pink tinge. She denies flank pain or back pain. Denies lower abdominal pain but reports epigastric pain related to pancreatitis. No nausea or vomiting Review of Systems Review of Systems: All systems reviewed & are unremarkable except as noted in HPI and below Exam Narrative: General: Awake, alert, comfortable, no acute distress HEENT: Normocephalic, atraumatic, sclerae anicteric Respiratory: Normal respiratory effort, no accessory muscle use Abdomen: Nondistended, soft, nontender Skin: Normal coloration, warm and dry Neurologic: No focal neuro deficits noted Psychiatric: Appropriate mood and affect, judgment and insight intact Objective Data Vital Signs Vital Signs: Vital Signs - 24 hr 02/15/24 15:09 02/15/24 21:55 02/15/24 20:00 Temperature 98.1 F 98.3 F Pulse Rate 71 73 Respiratory Rate 16 18 Blood Pressure 134/64 133/67 Pulse Oximetry 94 96 Oxygen Delivery Room Air 02/16/24 05:57 02/16/24 06:07 02/16/24 08:51 Temperature 98.5 F Pulse Rate 75 76 Respiratory Rate 18 Blood Pressure 132/62 Pulse Oximetry 93 Oxygen Delivery Intake/Output Intake/Output: Intake & Output 02/13/24 02/14/24 02/15/24 02/16/24 23:59 23:59 23:59 23:59 Intake Total 1268 810 990 100 Output Total 100 Balance 1268 810 890 100 Meds/Results Medications: Active Medications Generic Name Dose Route Start Last Admin Trade Name Freq PRN Reason Stop Dose Admin Acetaminophen 650 mg 02/05/24 16:12 02/13/24 20:31 Acetaminophen 325 Mg Tablet PO 650 mg Q4H PRN Administration Headache Albuterol/Ipratropium 3 ml 02/05/24 17:43 02/06/24 21:42 Ipratropium 0.5 Mg/Albuterol Sulfate 2.5 Mg Ampul.Neb 3 Ml INHALATION 3 ml Q4HRT PRN Administration Shortness Of Breath Or Wheezing Alteplase, Recombinant 2 mg 02/10/24 06:52 02/10/24 08:29 Alteplase 2 Mg Vial (Cathflo) IV PUSH 2 mg ONCE PRN Administration Line Occlusion Amlodipine Besylate 10 mg 02/13/24 14:55 02/16/24 08:51 Amlodipine Besylate 10 Mg Tablet PO 10 mg DAILY CARLITOS Administration Lipase/Protease/Amylase 1 cap 02/11/24 17:00 02/16/24 08:51 Lipase/Amylase/Protease 12,000 Units Cap PO 1 cap TIDWM CARLITOS Administration Carvedilol 12.5 mg 02/11/24 09:00 02/16/24 08:51 Carvedilol 12.5 Mg Tablet PO 12.5 mg Q12HR CARLITOS Administration Dextrose 12.5 gm 02/02/24 10:59 Dextrose 50% 25 Gm/50 Ml Syringe IV PUSH PRN PRN Hypoglycemia Protocol Fluticasone Propionate 2 spray 02/02/24 00:09 Fluticasone Propionate 0.05% Na Spr 16 Gm Btl (*Bkc) NASAL DAILY PRN allergy symptoms Glucagon 1 mg 02/02/24 10:59 Glucagon For Inj 1 Mg Vial IM PRN PRN Hypoglycemia Protocol Glucose 15 gm 02/02/24 10:59 Glucose Oral Gel 15 Gm Of Glucse In 37.5 Gm Tube PO PRN PRN Hypoglycemia Protocol Heparin Sodium (Porcine) 5,000 units 02/02/24 14:00 02/16/24 06:00 Heparin Sodium 5,000 Units/Ml Vial SUB-Q 5,000 units Q8HR CARLITOS Administration Hydralazine HCl 20 mg 02/04/24 09:30 02/04/24 16:34 Hydralazine Hcl 20 Mg/Ml Vial IV PUSH 20 mg Q4H PRN Administration SBP more than 160 - 2nd choice Hydromorphone HCl 0.5 mg 02/03/24 13:53 02/06/24 14:21 Hydromorphone Hcl Inj (*Crx) 1 Mg/Ml Syr IV PUSH 0.5 mg Q2H PRN Administration Pain Rated 7-10 Meropenem 1 gm in 100 mls @ 200 mls/hr 02/10/24 12:00 02/16/24 06:30 IVPB Infused Q8HR CARLITOS Infusion Insulin Aspart 2 - 5 units 02/07/24 21:00 02/16/24 09:06 Insulin Aspart (*Bkc) 100 Units/Ml SUB-Q Not Given [facility] Protocol Labetalol HCl 20 mg 02/04/24 09:30 02/09/24 11:20 Labetalol Hcl Inj 100 Mg/20 Ml Vial IV PUSH 20 mg Q4H PRN Administration SBP > 160 and HR> 60 -1st choice Losartan Potassium 100 mg 02/11/24 09:00 02/16/24 08:51 Losartan Potassium 100 Mg Tablet PO 100 mg DAILY CARLITOS Administration Ondansetron HCl 4 mg 02/01/24 19:52 02/05/24 01:15 Ondansetron Inj 4 Mg/2 Ml Vial IV PUSH 4 mg Q4H PRN Administration Nausea Oxycodone HCl 5 mg 02/12/24 12:03 02/12/24 12:00 Oxycodone Hcl (*Crx) 5 Mg Tab Ir PO 5 mg Q4H PRN Administration Pain Rated 4-10 Pantoprazole Sodium 40 mg 02/04/24 09:00 02/16/24 08:52 Pantoprazole Sodium Iv 40 Mg Vial IV PUSH 40 mg QAM CARLITOS Administration Quetiapine Fumarate 25 mg 02/05/24 21:00 02/15/24 22:07 Quetiapine Fumarate 25 Mg Tablet PO 25 mg HS CARLITOS Administration Sodium Chloride 10 ml 02/03/24 14:00 02/16/24 06:27 Central Line Flush IV PUSH 10 ml Q8HR CARLITOS Administration Sodium Chloride 10 ml 02/03/24 12:07 Central Line Flush IV PUSH PRN PRN with TPN bag changes Sodium Chloride 20 ml 02/03/24 12:07 02/10/24 05:35 Central Line Flush IV PUSH 20 ml PRN PRN Administration after blood draws Radiology Results: ITS Impressions Chest/Abdomen/Pelvis CTA 02/01/24 18:35 IMPRESSION: No aortic dissection or aneurysm. Moderate interstitial pulmonary edema. Hepatomegaly. Acute interstitial pancreatitis. Possible portal vein and superior mesenteric vein thrombosis, versus artifact from unopacified blood in this arterial phase study. Consider right upper quadrant with a focus on obtaining portal venous color Doppler flow and waveforms. Vascular Ultrasound 02/01/24 19:23 IMPRESSION: Patent portal veins and superior mesenteric vein. Prior CT findings likely related to artifact from arterial phase imaging. Abdomen Ultrasound 02/02/24 09:49 IMPRESSION: 1. Pancreatitis. 2. Cholelithiasis. Gallbladder wall thickening may be secondary to interstitial edema or acute cholecystitis. 3. Diffuse hepatic steatosis. Abdomen X-Ray 02/04/24 21:25 IMPRESSION: Interval replacement of the nasogastric tube with its tip projecting over the proximal stomach for which advancement of approximately 5 to 6 cm may be performed for optimal radiographic placement. Worsening bilateral pleural effusions, as detailed above. Chest X-Ray 02/08/24 10:27 IMPRESSION: 1. Small lung volumes with airspace opacities at the lung bases, likely atelectasis. 2. Small right pleural effusion. 3. Dilated small bowel, likely adynamic ileus. Hepatobiliary Scan Nuclear Medicine 02/11/24 15:32 IMPRESSION: 1. No evident biliary obstruction with patent cystic duct essentially excluding acute cholecystitis. Abdomen/Pelvis CT 02/15/24 13:21 Impression: No definite etiology for hematuria identified. Present pancreatitis with developing extensive irregular peripancreatic fluid collections, compatible with developing pseudocysts or walled off necrosis. Small amount of pelvic ascites. Bilateral pleural effusions, as detailed above, with bibasilar atelectasis. Cholelithiasis. Pelvis Ultrasound 02/15/24 13:30 Impression: Moderate free fluid, of uncertain etiology. Borderline thickening of endometrial stripe. Consider additional workup for endometrial hyperplasia versus endometrial neoplasm, as indicated. Renal Ultrasound 02/15/24 13:30 Impression: Unremarkable ultrasound of the kidneys and urinary bladder. Labs Labs: Laboratory Results - last 24 hr 02/15/24 02/15/24 02/15/24 08:45 10:14 11:22 WBC RBC Hgb Hct MCV MCH MCHC RDW Plt Count MPV Immature Gran % (Auto) Neut % (Auto) Lymph % (Auto) [place] % (Auto) Eos % (Auto) Baso % (Auto) Lymph # (Auto) [place] # (Auto) Eos # (Auto) Baso # (Auto) Abs Immat Gran (auto) Absolute Neuts (auto) Absolute Nucleated RBC Nucleated RBC % Sodium 134 L Potassium 4.1 Chloride 101 Carbon Dioxide 28 Anion Gap 5 BUN 10 Creatinine 0.60 L Estim Creat Clear Calc 79 Estimated GFR > 60 Glucose 129 H POC Capillary Glucose 153 H Calcium 8.5 Urine Color Yellow Urine Appearance Cloudy H Urine pH 7.5 Ur Specific [place] 1.013 Urine Protein Negative Urine Glucose (UA) Negative Urine Ketones Trace H Ur Blood (Man) 3+ H Urine Nitrate Negative Urine Bilirubin Negative Urine Urobilinogen 0.2 Ur Leukocyte Esterase Negative Urine RBC >100 H Urine WBC 0-5 Ur Squamous Epith Cells None seen Urine Bacteria None seen Urine Casts 0-2 02/15/24 02/15/24 02/16/24 16:51 21:15 07:30 WBC RBC Hgb Hct MCV MCH MCHC RDW Plt Count MPV Immature Gran % (Auto) Neut % (Auto) Lymph % (Auto) [place] % (Auto) Eos % (Auto) Baso % (Auto) Lymph # (Auto) [place] # (Auto) Eos # (Auto) Baso # (Auto) Abs Immat Gran (auto) Absolute Neuts (auto) Absolute Nucleated RBC Nucleated RBC % Sodium Potassium Chloride Carbon Dioxide Anion Gap BUN Creatinine Estim Creat Clear Calc Estimated GFR Glucose POC Capillary Glucose 117 H 82 111 H Calcium Urine Color Urine Appearance Urine pH Ur Specific [place] Urine Protein Urine Glucose (UA) Urine Ketones Ur Blood (Man) Urine Nitrate Urine Bilirubin Urine Urobilinogen Ur Leukocyte Esterase Urine RBC Urine WBC Ur Squamous Epith Cells Urine Bacteria Urine Casts 02/16/24 09:04 WBC 10.2 H RBC 3.82 L Hgb 10.2 L Hct 32.6 L MCV 85.3 MCH 26.7 MCHC 31.3 L RDW 12.8 Plt Count 466 H MPV 9.9 Immature Gran % (Auto) 2.0 H Neut % (Auto) 67.4 Lymph % (Auto) 17.3 L [place] % (Auto) 9.8 H Eos % (Auto) 2.9 Baso % (Auto) 0.6 Lymph # (Auto) 1.76 [place] # (Auto) 1.0 H Eos # (Auto) 0.3 Baso # (Auto) 0.1 Abs Immat Gran (auto) 0.20 H Absolute Neuts (auto) 6.9 H Absolute Nucleated RBC 0.000 Nucleated RBC % 0.0 Sodium Potassium Chloride Carbon Dioxide Anion Gap BUN Creatinine Estim Creat Clear Calc Estimated GFR Glucose POC Capillary Glucose Calcium Urine Color Urine Appearance Urine pH Ur Specific [place] Urine Protein Urine Glucose (UA) Urine Ketones Ur Blood (Man) Urine Nitrate Urine Bilirubin Urine Urobilinogen Ur Leukocyte Esterase Urine RBC Urine WBC Ur Squamous Epith Cells Urine Bacteria Urine Casts
[2024-02-16 09:29] LABS: Anion Gap 4 mmol/L (4-12); Blood Urea Nitrogen 12 mg/dL (7-17); Calcium 8.4 mg/dL (8.4-10.2); Carbon Dioxide 29 mmol/L (22-30); Chloride 101 mmol/L (98-107); Estimated CRCL calculation 78 ml/min; Estimated Glomerular Filt Rate > 60; Glucose 122 mg/dL (65-110); Sodium 134 mmol/L (137-145)
--- NOTE | 2024-02-16 09:51 | P.PNIM_ITS ---
Progress Note: A&P Assessment and Plan (1) Steatorrhea: Code(s): K90.9 - Intestinal malabsorption, unspecified Status: Acute (2) Acute hypoxemic respiratory failure: Code(s): J96.01 - Acute respiratory failure with hypoxia Status: Acute (3) Acute necrotizing pancreatitis: Code(s): K85.91 - Acute pancreatitis with uninfected necrosis, unspecified Status: Acute (4) Cholelithiasis: Code(s): K80.20 - Calculus of gallbladder without cholecystitis without obstruction Status: Acute (5) Gallstone pancreatitis: Code(s): K85.10 - Biliary acute pancreatitis without necrosis or infection Status: Acute (6) Abnormal vaginal bleeding: Code(s): N93.9 - Abnormal uterine and vaginal bleeding, unspecified Status: Acute Plan 68-year-old female with history of hypertension presents with her at [facility] for chest pain and abdominal pain. CT abdomen showed acute interstitial pancreatitis, possible portal vein and superior mesenteric vein thrombosis versus artifact from unopacified blood in the arterial phase study. Underwent right upper quadrant ultrasound which showed pancreatitis, cholelithiasis, gallbladder wall thickening questionable secondary to interstitial edema or acute cholecystitis, diffuse hepatic steatosis. Hospital course was complicated with acute hypoxic respiratory failure requiring ICU stay. Currently patient condition become more stable, patient has moved to medical floor to continue management Gross hematuria Patient notice bloody urine today, patient denies dysuria, urinary urgency frequency UA showed hematuria Follow renal ultrasound: Unremarkable Consult urologist for evaluation treatment Cystoscope outpatient is scheduled Abnormal vaginal bleeding Pelvic ultrasounds showed borderline thickening of endometrial stripe. Consider additional workup for endometrial hyperplasia versus endometrial neoplasm Consult [employer] for evaluation treatment Acute necrotizing pancreatitis : HIDA scan without acute active cholecystitis Monitor leukocytosis Continue with meropenem if GI following Started on Creon for concern for steatorrhea General surgery following likely plan for interval cholecystectomy once acute pancreatitis has resolved likely outpatient Encourage p.o. intake Patient still has pain associated with eating and drinking, cannot tolerate solid diet, afebrile, leukocytosis improving, ICU delirium: Resolved Acute hypoxic respiratory failure: Required ICU stay Resolved Currently on room air Hypertension: Continue with Norvasc, losartan, Coreg Diabetes mellitus: Hemoglobin A1c 6 Blood glucose checked t.i.d. a.c. and HS Continue with sliding scale insulin Adjust dose as needed Code status: Full DVT prophylaxis: Heparin subQ Disposition: Pending improvement may discharge pt in 1-2 days Subjective Date/time seen: 02/16/24 09:51 Interval history: Patient is afebrile, leukocytosis improving, hemoglobin stable, Patient tolerated diet better, seems has discharge from vagina. Denies lightheadedness, shortness breath, lightheadedness, dysuria, labs reviewed, leukocytosis improving, hemoglobin is stable Exam Narrative: GENERAL: Pleasant, in no acute distress. Well-nourished. - EYES: EOMI. Anicteric. - HENT: Moist mucous membranes. - LUNGS: Clear to auscultation bilateral ly, no wheezing, rhonchi, or rales. - CARDIOVASCULAR: Regular rate and rhyth m. No murmur. No JVD. - ABDOMEN: Soft, mid abdominal tender an d non-distended. No palpable masses. - EXTREMITIES: No edema. Peripheral puls es 2+. Non-tender. - NEUROLOGIC: No focal neurological defi cits. CN II-XII grossly intact. - PSYCHIATRIC: Awake, Alert and oriented x 3. Appropriate mood and affect. - SKIN: No rashes or lesions. Warm. - LYMPH: No cervical lymphadenopathy. Objective Data Vital Signs Vital Signs: Vital Signs - 24 hr 02/15/24 15:09 02/15/24 21:55 02/15/24 20:00 Temperature 98.1 F 98.3 F Pulse Rate 71 73 Respiratory Rate 16 18 Blood Pressure 134/64 133/67 Pulse Oximetry 94 96 Oxygen Delivery Room Air 02/16/24 05:57 02/16/24 06:07 02/16/24 08:51 Temperature 98.5 F Pulse Rate 75 76 Respiratory Rate 18 Blood Pressure 132/62 Pulse Oximetry 93 Oxygen Delivery Intake/Output Intake/Output: Intake & Output 02/13/24 02/14/24 02/15/24 02/16/24 23:59 23:59 23:59 23:59 Intake Total 1268 810 990 100 Output Total 100 Balance 1268 810 890 100 Meds/Results Medications: Active Medications Generic Name Dose Route Start Last Admin Trade Name Freq PRN Reason Stop Dose Admin Acetaminophen 650 mg 02/05/24 16:12 02/13/24 20:31 Acetaminophen 325 Mg Tablet PO 650 mg Q4H PRN Administration Headache Albuterol/Ipratropium 3 ml 02/05/24 17:43 02/06/24 21:42 Ipratropium 0.5 Mg/Albuterol Sulfate 2.5 Mg Ampul.Neb 3 Ml INHALATION 3 ml Q4HRT PRN Administration Shortness Of Breath Or Wheezing Alteplase, Recombinant 2 mg 02/10/24 06:52 02/10/24 08:29 Alteplase 2 Mg Vial (Cathflo) IV PUSH 2 mg ONCE PRN Administration Line Occlusion Amlodipine Besylate 10 mg 02/13/24 14:55 02/16/24 08:51 Amlodipine Besylate 10 Mg Tablet PO 10 mg DAILY CARLITOS Administration Lipase/Protease/Amylase 1 cap 02/11/24 17:00 02/16/24 08:51 Lipase/Amylase/Protease 12,000 Units Cap PO 1 cap TIDWM CARLITOS Administration Carvedilol 12.5 mg 02/11/24 09:00 02/16/24 08:51 Carvedilol 12.5 Mg Tablet PO 12.5 mg Q12HR CARLITOS Administration Dextrose 12.5 gm 02/02/24 10:59 Dextrose 50% 25 Gm/50 Ml Syringe IV PUSH PRN PRN Hypoglycemia Protocol Fluticasone Propionate 2 spray 02/02/24 00:09 Fluticasone Propionate 0.05% Na Spr 16 Gm Btl (*Bkc) NASAL DAILY PRN allergy symptoms Glucagon 1 mg 02/02/24 10:59 Glucagon For Inj 1 Mg Vial IM PRN PRN Hypoglycemia Protocol Glucose 15 gm 02/02/24 10:59 Glucose Oral Gel 15 Gm Of Glucse In 37.5 Gm Tube PO PRN PRN Hypoglycemia Protocol Heparin Sodium (Porcine) 5,000 units 02/02/24 14:00 02/16/24 06:00 Heparin Sodium 5,000 Units/Ml Vial SUB-Q 5,000 units Q8HR CARLITOS Administration Hydralazine HCl 20 mg 02/04/24 09:30 02/04/24 16:34 Hydralazine Hcl 20 Mg/Ml Vial IV PUSH 20 mg Q4H PRN Administration SBP more than 160 - 2nd choice Hydromorphone HCl 0.5 mg 02/03/24 13:53 02/06/24 14:21 Hydromorphone Hcl Inj (*Crx) 1 Mg/Ml Syr IV PUSH 0.5 mg Q2H PRN Administration Pain Rated 7-10 Meropenem 1 gm in 100 mls @ 200 mls/hr 02/10/24 12:00 02/16/24 06:30 IVPB Infused Q8HR CARLITOS Infusion Insulin Aspart 2 - 5 units 02/07/24 21:00 02/16/24 09:06 Insulin Aspart (*Bkc) 100 Units/Ml SUB-Q Not Given [facility] Protocol Labetalol HCl 20 mg 02/04/24 09:30 02/09/24 11:20 Labetalol Hcl Inj 100 Mg/20 Ml Vial IV PUSH 20 mg Q4H PRN Administration SBP > 160 and HR> 60 -1st choice Losartan Potassium 100 mg 02/11/24 09:00 02/16/24 08:51 Losartan Potassium 100 Mg Tablet PO 100 mg DAILY CARLITOS Administration Ondansetron HCl 4 mg 02/01/24 19:52 02/05/24 01:15 Ondansetron Inj 4 Mg/2 Ml Vial IV PUSH 4 mg Q4H PRN Administration Nausea Oxycodone HCl 5 mg 02/12/24 12:03 02/12/24 12:00 Oxycodone Hcl (*Crx) 5 Mg Tab Ir PO 5 mg Q4H PRN Administration Pain Rated 4-10 Pantoprazole Sodium 40 mg 02/04/24 09:00 02/16/24 08:52 Pantoprazole Sodium Iv 40 Mg Vial IV PUSH 40 mg QAM CARLITOS Administration Quetiapine Fumarate 25 mg 02/05/24 21:00 02/15/24 22:07 Quetiapine Fumarate 25 Mg Tablet PO 25 mg HS CARLITOS Administration Sodium Chloride 10 ml 02/03/24 14:00 02/16/24 06:27 Central Line Flush IV PUSH 10 ml Q8HR CARLITOS Administration Sodium Chloride 10 ml 02/03/24 12:07 Central Line Flush IV PUSH PRN PRN with TPN bag changes Sodium Chloride 20 ml 02/03/24 12:07 02/10/24 05:35 Central Line Flush IV PUSH 20 ml PRN PRN Administration after blood draws Radiology Results: ITS Impressions Chest/Abdomen/Pelvis CTA 02/01/24 18:35 IMPRESSION: No aortic dissection or aneurysm. Moderate interstitial pulmonary edema. Hepatomegaly. Acute interstitial pancreatitis. Possible portal vein and superior mesenteric vein thrombosis, versus artifact from unopacified blood in this arterial phase study. Consider right upper quadrant with a focus on obtaining portal venous color Doppler flow and waveforms. Vascular Ultrasound 02/01/24 19:23 IMPRESSION: Patent portal veins and superior mesenteric vein. Prior CT findings likely related to artifact from arterial phase imaging. Abdomen Ultrasound 02/02/24 09:49 IMPRESSION: 1. Pancreatitis. 2. Cholelithiasis. Gallbladder wall thickening may be secondary to interstitial edema or acute cholecystitis. 3. Diffuse hepatic steatosis. Abdomen X-Ray 02/04/24 21:25 IMPRESSION: Interval replacement of the nasogastric tube with its tip projecting over the proximal stomach for which advancement of approximately 5 to 6 cm may be performed for optimal radiographic placement. Worsening bilateral pleural effusions, as detailed above. Chest X-Ray 02/08/24 10:27 IMPRESSION: 1. Small lung volumes with airspace opacities at the lung bases, likely atelectasis. 2. Small right pleural effusion. 3. Dilated small bowel, likely adynamic ileus. Hepatobiliary Scan Nuclear Medicine 02/11/24 15:32 IMPRESSION: 1. No evident biliary obstruction with patent cystic duct essentially excluding acute cholecystitis. Abdomen/Pelvis CT 02/15/24 13:21 Impression: No definite etiology for hematuria identified. Present pancreatitis with developing extensive irregular peripancreatic fluid collections, compatible with developing pseudocysts or walled off necrosis. Small amount of pelvic ascites. Bilateral pleural effusions, as detailed above, with bibasilar atelectasis. Cholelithiasis. Pelvis Ultrasound 02/15/24 13:30 Impression: Moderate free fluid, of uncertain etiology. Borderline thickening of endometrial stripe. Consider additional workup for endometrial hyperplasia versus endometrial neoplasm, as indicated. Renal Ultrasound 02/15/24 13:30 Impression: Unremarkable ultrasound of the kidneys and urinary bladder. Labs Labs: Laboratory Results - last 24 hr 02/15/24 02/15/24 02/15/24 10:14 11:22 16:51 WBC RBC Hgb Hct MCV MCH MCHC RDW Plt Count MPV Immature Gran % (Auto) Neut % (Auto) Lymph % (Auto) [place] % (Auto) Eos % (Auto) Baso % (Auto) Lymph # (Auto) [place] # (Auto) Eos # (Auto) Baso # (Auto) Abs Immat Gran (auto) Absolute Neuts (auto) Absolute Nucleated RBC Nucleated RBC % Sodium Potassium Chloride Carbon Dioxide Anion Gap BUN Creatinine Estim Creat Clear Calc Estimated GFR Glucose POC Capillary Glucose 153 H 117 H Calcium Urine Color Yellow Urine Appearance Cloudy H Urine pH 7.5 Ur Specific [place] 1.013 Urine Protein Negative Urine Glucose (UA) Negative Urine Ketones Trace H Ur Blood (Man) 3+ H Urine Nitrate Negative Urine Bilirubin Negative Urine Urobilinogen 0.2 Ur Leukocyte Esterase Negative Urine RBC >100 H Urine WBC 0-5 Ur Squamous Epith Cells None seen Urine Bacteria None seen Urine Casts 0-2 02/15/24 02/16/24 02/16/24 21:15 07:30 09:04 WBC 10.2 H RBC 3.82 L Hgb 10.2 L Hct 32.6 L MCV 85.3 MCH 26.7 MCHC 31.3 L RDW 12.8 Plt Count 466 H MPV 9.9 Immature Gran % (Auto) 2.0 H Neut % (Auto) 67.4 Lymph % (Auto) 17.3 L [place] % (Auto) 9.8 H Eos % (Auto) 2.9 Baso % (Auto) 0.6 Lymph # (Auto) 1.76 [place] # (Auto) 1.0 H Eos # (Auto) 0.3 Baso # (Auto) 0.1 Abs Immat Gran (auto) 0.20 H Absolute Neuts (auto) 6.9 H Absolute Nucleated RBC 0.000 Nucleated RBC % 0.0 Sodium 134 L Potassium 4.0 Chloride 101 Carbon Dioxide 29 Anion Gap 4 BUN 12 Creatinine 0.60 L Estim Creat Clear Calc 78 Estimated GFR > 60 Glucose 122 H POC Capillary Glucose 82 111 H Calcium 8.4 Urine Color Urine Appearance Urine pH Ur Specific [place] Urine Protein Urine Glucose (UA) Urine Ketones Ur Blood (Man) Urine Nitrate Urine Bilirubin Urine Urobilinogen Ur Leukocyte Esterase Urine RBC Urine WBC Ur Squamous Epith Cells Urine Bacteria Urine Casts
[2024-02-16 11:13] LABS: Glucose Point of Care 121 mg/dl (65-105)
--- NOTE | 2024-02-16 11:32 | PCNFU ---
Nutrition Follow-Up Complete: Altered GI function as related to pancreatitis as evidenced by NPO/clear liquids > 5 days. Goal:Meet estimated nutritional needs. Pt slowly progressing towards goal. Continue with same goal. Pt current nutrition is Low fiber. Nutrition recommendation: Add Ensure Enlive TID for supplement Last recorded weight is 78.4 kg. Bowel Motility: +BM 02/14 Labs Reviewed: Hgb:10.2, HCt:32.6, NA:134, Cr:0.6, Glu:122 Meds Noted: protonix, novolog Skin: WNL Additional Notes: Pt diet advanced to low fiber, intake remains poor at 10%, pt asleep during assessment, family present states intake is poor. Was on Ensure TID, no orders at this time but will restart. Encourage po intake. Will monitor weight, labs, skin, oral intake, meds every 3 days.
--- NOTE | 2024-02-16 12:36 | WPDCN ---
Assessment and Plan Assessment and plan (1) Post-menopausal bleeding: Code(s): N95.0 - Postmenopausal bleeding Status: Acute Assessment and Plan: Pelvic ultrasound shows thickened endometrium. Plan is to perform a D&C hysteroscopy as an outpatient. Our office will attempt to coordinate with Dr. Barajas was office at the time of the cholecystectomy. HPI Data of Consult Date/Time: 02/16/24 12:36 Requesting Physician: Flora Evans MD Primary Care Provider: Gonzalez Cuenca MD Consult Narrative Reason for consult: Vaginal bleeding with thickened endometrium Narrative: Viridiana Vega is a 68 year old female with a complicated long admission for pancreatitis. After the patient's Sanchez catheter came out she began wearing pads and noted a 2 day history of blood in the pad. She was unsure if this was urinary or vaginal. She was no longer bleeding. She states she went through menopause early and her mid to late 40s. She has not seen a fitness specialist in over 20 years. She does have a history of an abnormal Pap smear ?class 4? that resolved on its own but has not had a follow-up Pap smear in over 20 years. In addition, the patient states she had a procedure for a thickened lining over 20 years ago in the office that sounds like a possible hysteroscopy with endometrial biopsy. She states this was benign. [facility] Past Medical History Medical History (Updated 02/16/24 @ 12:43 by Shefali Zaragoza MD) Benign essential hypertension Cholelithiasis Gallstone pancreatitis Hx of colonic polyps Hypercholesterolemia Pre-diabetes Vitamin D deficiency Surgical History Surgical History (Updated 02/16/24 @ 12:41 by Shefali Zaragoza MD) History of section History of hysteroscopy History of total right hip replacement History of tubal ligation Hx of parathyroidectomy Family History Family History Father Hypertension Family history of diabetes mellitus in first degree relative Acute myocardial infarction Mother Hypertension Family history of heart disease in male family member before age 55 Sibling Family history of diabetes mellitus in first degree relative Other Diabetes mellitus Social History Social History Smoking status: Never smoker Second hand tobacco smoke exposure: No Alcohol intake: never Do You Feel Safe in your Home?: Yes Lack of Transportation: No Lack of Food: Never True Current Housing: I Have Housing Concerned About Future Housing: No Difficulty Paying Gas/Electric Bills: No Difficulty Paying for Meds: No Currently Unemployed: No Education: Associate Degree Difficulty w/ Childcare or Family Care: No Living arrangements: with family Gender identity (if verbalized by the patient): Female Spiritual care concerns: No Meds Home Medications and Allergies Home Medications Medication Instructions Recorded Confirmed Type naproxen 500 mg tablet (Naprosyn) 500 mg PO BID PRN pain #60 tabs 07/12/20 02/01/24 Rx cholecalciferol (vitamin D3) 50 50 mcg PO DAILY 04/16/22 02/01/24 History mcg (2,000 unit) capsule rosuvastatin 40 mg tablet 40 mg PO DAILY #90 tabs 10/07/22 02/01/24 Rx cyclobenzaprine 10 mg tablet 10 mg PO TID PRN muscle spasm #30 02/03/23 02/01/24 Rx tabs fluticasone propionate 50 2 spray intranasal DAILY PRN 02/03/23 02/01/24 Rx mcg/actuation nasal allergy symptoms #16 grams spray,suspension carvedilol 12.5 mg tablet 12.5 mg PO BID 02/01/24 02/01/24 History losartan 100 1 tablet PO DAILY 02/01/24 02/01/24 History mg-hydrochlorothiazide 25 mg tablet Allergies Allergy/AdvReac Type Severity Reaction Status Date / Time No Known Allergies Allergy Verified 02/01/24 18:21 Vital Signs Vital Signs - 24 hr 02/15/24 15:09 02/15/24 21:55 02/15/24 20:00 Temperature 98.1 F 98.3 F Pulse Rate 71 73 Respiratory Rate 16 18 Blood Pressure 134/64 133/67 Pulse Oximetry 94 96 Oxygen Delivery Room Air 02/16/24 05:57 02/16/24 06:07 02/16/24 08:51 Temperature 98.5 F Pulse Rate 75 76 Respiratory Rate 18 Blood Pressure 132/62 Pulse Oximetry 93 Oxygen Delivery Exam Const: General: cooperative and no acute distress Resp: Effort & Inspection: normal respiratory effort and able to speak in complete sentences GI: GI Palp: Yes Soft to palpation and Yes Tenderness to palpation present (GI) (mild) : General: Yes other (Deferred to the office exam) Results Labs 02/16/24 09:04 02/16/24 09:04 Labs: Short CBC 02/16/24 Range/Units 09:04 WBC 10.2 H (4.5-10.0) K/mm3 Hgb 10.2 L (12.0-15.0) g/dL Hct 32.6 L (37.0-47.0) % Plt Count 466 H (150-375) k/mm3 BMP 02/16/24 09:04 Sodium 134 L Potassium 4.0 Chloride 101 Carbon Dioxide 29 BUN 12 Creatinine 0.60 L Glucose 122 H Calcium 8.4
[2024-02-16 13:38] VITALS: BP 126/62; PULSE 66; RESP 16; TEMP 36.5; O2SAT 96
--- NOTE | 2024-02-16 15:15 | P.PNGI_ITS ---
Progress Note: A&P Assessment and Plan (1) Gallstone pancreatitis: Code(s): K85.10 - Biliary acute pancreatitis without necrosis or infection Status: Acute Assessment and Plan: necrotizing pancreatitis- repeat CT scan noted developing fluid collection ? pseudocyst vs WOPN HIDA scan without active cholecystitis leukocytosis down to 10k, on iv abx patient can go home soon, trying to eat more and comfortable, then we can see her in office in 2-3 weeks, consider to repeat imaging and if increasing size of more peripancreatic fluid collection then will refer to advance endoscopy at [facility] with Dr Lugo for EUS +/- drainage if needed continue with creon for concern of steatorrhea (2) Nausea and vomiting in adult: Code(s): R11.2 - Nausea with vomiting, unspecified Status: Acute Assessment and Plan: encourage to eat more (3) Leukocytosis: Code(s): D72.829 - Elevated white blood cell count, unspecified Status: Acute Assessment and Plan: wkc down to 10k hida scan without active cholecystitis (4) Cholelithiasis: Code(s): K80.20 - Calculus of gallbladder without cholecystitis without obstruction Status: Acute Assessment and Plan: surgery on board interval cholecystectomy once pancreatitis resolves as outpatient (5) Acute necrotizing pancreatitis: Code(s): K85.91 - Acute pancreatitis with uninfected necrosis, unspecified Status: Acute Subjective Date/time seen: 02/16/24 15:15 Interval history: no major changes, no more bleeding 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 (ultrasound noted thickening of endometrium) Review of Systems Review of Systems: All systems reviewed & are unremarkable except as noted in HPI and below Exam Const: General: comfortable HENMT: Face/Nose/Sinus: Normal nares present Eyes: Sclera: sclerae normal Neck: Neck: supple Resp: Effort & Inspection: normal respiratory effort Cardio: Rate: regular rate GI: GI Palp: Yes Soft to palpation and No Tenderness to palpation present (GI) Auscultation: normal bowel sounds Skin: General skin exam: no rashes or lesions noted Neuro: Speech: normal speech Motor exam (neuro): 5/5 motor strength present throughout Extrem: General: normal to inspection Psych: Mental Status: mental status grossly normal Objective Data Vital Signs Vital Signs: Vital Signs - 24 hr 02/15/24 21:55 02/15/24 20:00 02/16/24 05:57 Temperature 98.3 F 98.5 F Pulse Rate 73 75 Respiratory Rate 18 18 Blood Pressure 133/67 Pulse Oximetry 96 93 Oxygen Delivery Room Air 02/16/24 06:07 02/16/24 08:51 02/16/24 13:38 Temperature 97.7 F Pulse Rate 76 66 Respiratory Rate 16 Blood Pressure 132/62 126/62 Pulse Oximetry 96 Oxygen Delivery Intake/Output Intake/Output: Intake & Output 02/13/24 02/14/24 02/15/24 02/16/24 23:59 23:59 23:59 23:59 Intake Total 1268 810 990 340 Output Total 100 Balance 1268 810 890 340 Meds/Results Medications: Active Medications Generic Name Dose Route Start Last Admin Trade Name Freq PRN Reason Stop Dose Admin Acetaminophen 650 mg 02/05/24 16:12 02/13/24 20:31 Acetaminophen 325 Mg Tablet PO 650 mg Q4H PRN Administration Headache Albuterol/Ipratropium 3 ml 02/05/24 17:43 02/06/24 21:42 Ipratropium 0.5 Mg/Albuterol Sulfate 2.5 Mg Ampul.Neb 3 Ml INHALATION 3 ml Q4HRT PRN Administration Shortness Of Breath Or Wheezing Alteplase, Recombinant 2 mg 02/10/24 06:52 02/10/24 08:29 Alteplase 2 Mg Vial (Cathflo) IV PUSH 2 mg ONCE PRN Administration Line Occlusion Amlodipine Besylate 10 mg 02/13/24 14:55 02/16/24 08:51 Amlodipine Besylate 10 Mg Tablet PO 10 mg DAILY CARLITOS Administration Lipase/Protease/Amylase 1 cap 02/11/24 17:00 02/16/24 08:51 Lipase/Amylase/Protease 12,000 Units Cap PO 1 cap TIDWM CARLITOS Administration Carvedilol 12.5 mg 02/11/24 09:00 02/16/24 08:51 Carvedilol 12.5 Mg Tablet PO 12.5 mg Q12HR CARLITOS Administration Dextrose 12.5 gm 02/02/24 10:59 Dextrose 50% 25 Gm/50 Ml Syringe IV PUSH PRN PRN Hypoglycemia Protocol Fluticasone Propionate 2 spray 02/02/24 00:09 Fluticasone Propionate 0.05% Na Spr 16 Gm Btl (*Bkc) NASAL DAILY PRN allergy symptoms Glucagon 1 mg 02/02/24 10:59 Glucagon For Inj 1 Mg Vial IM PRN PRN Hypoglycemia Protocol Glucose 15 gm 02/02/24 10:59 Glucose Oral Gel 15 Gm Of Glucse In 37.5 Gm Tube PO PRN PRN Hypoglycemia Protocol Heparin Sodium (Porcine) 5,000 units 02/02/24 14:00 02/16/24 06:00 Heparin Sodium 5,000 Units/Ml Vial SUB-Q 5,000 units Q8HR CARLITOS Administration Hydralazine HCl 20 mg 02/04/24 09:30 02/04/24 16:34 Hydralazine Hcl 20 Mg/Ml Vial IV PUSH 20 mg Q4H PRN Administration SBP more than 160 - 2nd choice Hydromorphone HCl 0.5 mg 02/03/24 13:53 02/06/24 14:21 Hydromorphone Hcl Inj (*Crx) 1 Mg/Ml Syr IV PUSH 0.5 mg Q2H PRN Administration Pain Rated 7-10 Meropenem 1 gm in 100 mls @ 200 mls/hr 02/10/24 12:00 02/16/24 12:48 IVPB 200 mls/hr Q8HR CARLITOS Administration Insulin Aspart 2 - 5 units 02/07/24 21:00 02/16/24 09:06 Insulin Aspart (*Bkc) 100 Units/Ml SUB-Q Not Given [facility] Protocol Labetalol HCl 20 mg 02/04/24 09:30 02/09/24 11:20 Labetalol Hcl Inj 100 Mg/20 Ml Vial IV PUSH 20 mg Q4H PRN Administration SBP > 160 and HR> 60 -1st choice Losartan Potassium 100 mg 02/11/24 09:00 02/16/24 08:51 Losartan Potassium 100 Mg Tablet PO 100 mg DAILY CARLITOS Administration Ondansetron HCl 4 mg 02/01/24 19:52 02/05/24 01:15 Ondansetron Inj 4 Mg/2 Ml Vial IV PUSH 4 mg Q4H PRN Administration Nausea Oxycodone HCl 5 mg 02/12/24 12:03 02/12/24 12:00 Oxycodone Hcl (*Crx) 5 Mg Tab Ir PO 5 mg Q4H PRN Administration Pain Rated 4-10 Pantoprazole Sodium 40 mg 02/04/24 09:00 02/16/24 08:52 Pantoprazole Sodium Iv 40 Mg Vial IV PUSH 40 mg QAM CARLITOS Administration Quetiapine Fumarate 25 mg 02/05/24 21:00 02/15/24 22:07 Quetiapine Fumarate 25 Mg Tablet PO 25 mg HS CARLITOS Administration Sodium Chloride 10 ml 02/03/24 14:00 02/16/24 06:27 Central Line Flush IV PUSH 10 ml Q8HR CARLITOS Administration Sodium Chloride 10 ml 02/03/24 12:07 Central Line Flush IV PUSH PRN PRN with TPN bag changes Sodium Chloride 20 ml 02/03/24 12:07 02/10/24 05:35 Central Line Flush IV PUSH 20 ml PRN PRN Administration after blood draws Radiology Results: ITS Impressions Chest/Abdomen/Pelvis CTA 02/01/24 18:35 IMPRESSION: No aortic dissection or aneurysm. Moderate interstitial pulmonary edema. Hepatomegaly. Acute interstitial pancreatitis. Possible portal vein and superior mesenteric vein thrombosis, versus artifact from unopacified blood in this arterial phase study. Consider right upper quadrant with a focus on obtaining portal venous color Doppler flow and waveforms. Vascular Ultrasound 02/01/24 19:23 IMPRESSION: Patent portal veins and superior mesenteric vein. Prior CT findings likely related to artifact from arterial phase imaging. Abdomen Ultrasound 02/02/24 09:49 IMPRESSION: 1. Pancreatitis. 2. Cholelithiasis. Gallbladder wall thickening may be secondary to interstitial edema or acute cholecystitis. 3. Diffuse hepatic steatosis. Abdomen X-Ray 02/04/24 21:25 IMPRESSION: Interval replacement of the nasogastric tube with its tip projecting over the proximal stomach for which advancement of approximately 5 to 6 cm may be performed for optimal radiographic placement. Worsening bilateral pleural effusions, as detailed above. Chest X-Ray 02/08/24 10:27 IMPRESSION: 1. Small lung volumes with airspace opacities at the lung bases, likely atelectasis. 2. Small right pleural effusion. 3. Dilated small bowel, likely adynamic ileus. Hepatobiliary Scan Nuclear Medicine 02/11/24 15:32 IMPRESSION: 1. No evident biliary obstruction with patent cystic duct essentially excluding acute cholecystitis. Abdomen/Pelvis CT 02/15/24 13:21 Impression: No definite etiology for hematuria identified. Present pancreatitis with developing extensive irregular peripancreatic fluid collections, compatible with developing pseudocysts or walled off necrosis. Small amount of pelvic ascites. Bilateral pleural effusions, as detailed above, with bibasilar atelectasis. Cholelithiasis. Pelvis Ultrasound 02/15/24 13:30 Impression: Moderate free fluid, of uncertain etiology. Borderline thickening of endometrial stripe. Consider additional workup for endometrial hyperplasia versus endometrial neoplasm, as indicated. Renal Ultrasound 02/15/24 13:30 Impression: Unremarkable ultrasound of the kidneys and urinary bladder. Labs Labs: Laboratory Results - last 24 hr 02/15/24 02/15/24 02/16/24 16:51 21:15 07:30 WBC RBC Hgb Hct MCV MCH MCHC RDW Plt Count MPV Immature Gran % (Auto) Neut % (Auto) Lymph % (Auto) Giles % (Auto) Eos % (Auto) Baso % (Auto) Lymph # (Auto) Giles # (Auto) Eos # (Auto) Baso # (Auto) Abs Immat Gran (auto) Absolute Neuts (auto) Absolute Nucleated RBC Nucleated RBC % Sodium Potassium Chloride Carbon Dioxide Anion Gap BUN Creatinine Estim Creat Clear Calc Estimated GFR Glucose POC Capillary Glucose 117 H 82 111 H Calcium 02/16/24 02/16/24 09:04 11:10 WBC 10.2 H RBC 3.82 L Hgb 10.2 L Hct 32.6 L MCV 85.3 MCH 26.7 MCHC 31.3 L RDW 12.8 Plt Count 466 H MPV 9.9 Immature Gran % (Auto) 2.0 H Neut % (Auto) 67.4 Lymph % (Auto) 17.3 L Giles % (Auto) 9.8 H Eos % (Auto) 2.9 Baso % (Auto) 0.6 Lymph # (Auto) 1.76 Giles # (Auto) 1.0 H Eos # (Auto) 0.3 Baso # (Auto) 0.1 Abs Immat Gran (auto) 0.20 H Absolute Neuts (auto) 6.9 H Absolute Nucleated RBC 0.000 Nucleated RBC % 0.0 Sodium 134 L Potassium 4.0 Chloride 101 Carbon Dioxide 29 Anion Gap 4 BUN 12 Creatinine 0.60 L Estim Creat Clear Calc 78 Estimated GFR > 60 Glucose 122 H POC Capillary Glucose 121 H Calcium 8.4
[2024-02-16 16:37] LABS: Glucose Point of Care 113 mg/dl (65-105)
[2024-02-16 20:17] LABS: Glucose Point of Care 116 mg/dl (65-105)
[2024-02-16 21:15] VITALS: BP 130/67; PULSE 72; RESP 16; TEMP 37.1; O2SAT 94
[2024-02-16 21:18] VITALS: PULSE 78
[2024-02-16] MEDS: QUEtiapine FUMARATE 25 MG TABLET PO (21:18)
[2024-02-17] MEDS: MEROPENEM 1 GM/NS 100 ML 1 GM/100 ML BAG IVPB ×3 (05:25→21:03)
[2024-02-17] MEDS: CENTRAL LINE FLUSH 10 ML IV PUSH ×3 (05:25→21:02)
[2024-02-17 06:00] VITALS: BP 108/63; PULSE 76; RESP 20; TEMP 36.6; O2SAT 96
[2024-02-17 08:05] VITALS: PULSE 82
[2024-02-17] MEDS: carvediloL 12.5 MG TABLET PO ×2 (08:05→20:12)
[2024-02-17] MEDS: LIPASE/AMYLASE/PROTEASE 12,000 UNITS CAP 1 CAP PO ×3 (08:05→17:08)
[2024-02-17] MEDS: LOSARTAN POTASSIUM 100 MG TABLET PO (08:06)
[2024-02-17] MEDS: PANTOPRAZOLE SODIUM IV 40 MG VIAL IV PUSH (08:06)
[2024-02-17] MEDS: amLODIPine BESYLATE 10 MG TABLET PO (08:06)
[2024-02-17 08:30] LABS: Basophils Absolute Auto 0.1 K/mm3 (0.0-0.1); Basophils Percent Auto 0.6 % (0.2-1.2); Eosinophils Absolute Auto 0.3 K/mm3 (0-0.3); Eosinophils Percent Auto 2.7 % (0-4.4); Hematocrit 33.1 % (37.0-47.0); Hemoglobin 10.7 g/dL (12.0-15.0); Immature Granulocyte Absolute 0.14 K/mm3 (0.00-0.031); Immature Granulocyte Percent A 1.5 % (0-0.5); Lymphocytes Absolute Auto 1.57 K/mm3 (0.9-3.2); Lymphocytes Percent Auto 16.3 % (18.3-44.2); Mean Corpuscular HGB Conc 32.3 g/dl (32-36); Mean Corpuscular Hemoglobin 27.3 pg (26-34); Mean Corpuscular Volume 84.4 fl (80-100); Mean Platelet Volume 9.7 fl (7.4-10.4); Monocytes Absolute Auto 0.9 K/mm3 (0.1-0.6); Monocytes Percent Auto 9.7 % (2.6-8.5); Neutrophils Absolute Auto 6.7 K/mm3 (1.3-6.7); Neutrophils Percent Auto 69.2 % (45.5-73.1); Platelet Count Result 448 k/mm3 (150-375); Red Blood Count 3.92 M/mm3 (4.2-5.4); Red Cell Distribution Width 12.7 % (11.5-14.5); White Blood Count 9.6 K/mm3 (4.5-10.0)
[2024-02-17 09:11] LABS: Glucose Point of Care 120 mg/dl (65-105)
[2024-02-17 09:16] LABS: Anion Gap 5 mmol/L (4-12); Blood Urea Nitrogen 12 mg/dL (7-17); Calcium 8.5 mg/dL (8.4-10.2); Carbon Dioxide 28 mmol/L (22-30); Chloride 100 mmol/L (98-107); Estimated CRCL calculation 78 ml/min; Estimated Glomerular Filt Rate > 60; Glucose 126 mg/dL (65-110); Potassium 4.1 mmol/L (3.4-5.0); Sodium 133 mmol/L (137-145)
[2024-02-17 14:00] VITALS: BP 99/68; PULSE 74; RESP 20; TEMP 36.2; O2SAT 99
--- NOTE | 2024-02-17 15:40 | P.PNIM_ITS ---
Progress Note: A&P Assessment and Plan (1) Steatorrhea: Code(s): K90.9 - Intestinal malabsorption, unspecified Status: Acute (2) Acute hypoxemic respiratory failure: Code(s): J96.01 - Acute respiratory failure with hypoxia Status: Acute (3) Acute necrotizing pancreatitis: Code(s): K85.91 - Acute pancreatitis with uninfected necrosis, unspecified Status: Acute (4) Cholelithiasis: Code(s): K80.20 - Calculus of gallbladder without cholecystitis without obstruction Status: Acute (5) Gallstone pancreatitis: Code(s): K85.10 - Biliary acute pancreatitis without necrosis or infection Status: Acute (6) Abnormal vaginal bleeding: Code(s): N93.9 - Abnormal uterine and vaginal bleeding, unspecified Status: Acute Plan 68-year-old female with history of hypertension presents with her at [facility] for chest pain and abdominal pain. CT abdomen showed acute interstitial pancreatitis, possible portal vein and superior mesenteric vein thrombosis versus artifact from unopacified blood in the arterial phase study. Underwent right upper quadrant ultrasound which showed pancreatitis, cholelithiasis, gallbladder wall thickening questionable secondary to interstitial edema or acute cholecystitis, diffuse hepatic steatosis. Hospital course was complicated with acute hypoxic respiratory failure requiring ICU stay. Currently patient condition become more stable, patient has moved to medical floor to continue management Gross hematuria Patient notice bloody urine today, patient denies dysuria, urinary urgency frequency UA showed hematuria Follow renal ultrasound: Unremarkable CT urogram no significant finding Consult urologist for evaluation treatment Cystoscope outpatient is scheduled Abnormal vaginal bleeding Pelvic ultrasounds showed borderline thickening of endometrial stripe. 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 pseudocyst vs WOPN Consider to repeat imaging and if increasing size of more peripancreatic fluid collection then will refer to advance endoscopy at [facility] with [facility] Lugo for EUS +/- drainage Monitor leukocytosis Continue with meropenem if GI following Started on Creon for concern for steatorrhea General surgery following likely plan for interval cholecystectomy once acute pancreatitis has resolved likely outpatient Encourage p.o. intake Patient still has pain associated with eating and drinking, cannot tolerate solid diet, afebrile, leukocytosis improving, ICU delirium: Resolved Acute hypoxic respiratory failure: Required ICU stay Resolved Currently on room air Hypertension: Continue with Norvasc, losartan, Coreg Diabetes mellitus: Hemoglobin A1c 6 Blood glucose checked t.i.d. a.c. and HS Continue with sliding scale insulin Adjust dose as needed Code status: Full DVT prophylaxis: Heparin subQ Disposition: Pending improvement may discharge pt in 1-2 days Subjective Date/time seen: 02/17/24 15:40 Interval history: Patient was evaluated at the bedside. Encouraged the patient to drink so and advance the diet if possible the episodes of hematuria. Patient underwent CT urogram which was unremarkable and renal ultrasound as well. As per Urology patient needs to undergo outpatient cystoscopy and cytology for complete hematuria workup. Patient was also evaluated by obstetrics because of the pelvic ultrasound which showed thickened endometrium. Plan is to perform D&C hysteroscopy as an outpatient. In regards to the knee code dyes in pancreatitis the repeat CT shows a developing fluid collection suggestive pseudocystvs WOPN. The HIDA scan shows without active cholecystitis. Patient will continue the current antibiotic and we will repeat the imaging in the is case of increasing size of more pancreatic fluid collection and patient might need endoscopy at [facility] with [facility] Lugo for EUS +/- drainag Review of Systems Review of Systems: 10 point ROS complete, negative other th an what is specified in HPI. All systems reviewed & are unremarkable except as noted in HPI and below Exam Narrative: GENERAL: Pleasant, in no acute distress. Well-nourished. - EYES: EOMI. Anicteric. - HENT: Moist mucous membranes. - LUNGS: Clear to auscultation bilateral ly, no wheezing, rhonchi, or rales. - CARDIOVASCULAR: Regular rate and rhyth m. No murmur. No JVD. - ABDOMEN: Soft, mid abdominal tender an d non-distended. No palpable masses. - EXTREMITIES: No edema. Peripheral puls es 2+. Non-tender. - NEUROLOGIC: No focal neurological defi cits. CN II-XII grossly intact. - PSYCHIATRIC: Awake, Alert and oriented x 3. Appropriate mood and affect. - SKIN: No rashes or lesions. Warm. - LYMPH: No cervical lymphadenopathy. Const: General: comfortable, no acute distress, well developed, alert, awake and average body habitus Nutritional Appearance: average body habitus Orientation/consciousness: patient oriented x3 Other: well-appearing HENMT: Head: normal to inspection, normocephalic and atraumatic Ears: hearing grossly normal bilaterally Face/Nose/Sinus: normal facial exam Face and sinus: normal facial exam Mouth: Yes moist mucous membranes Eyes: General: appearance normal, both eyes and all related structures Sclera: sclerae normal Pupils: Equal, round and reactive pupils present EOM: EOMs intact bilaterally Neck: Neck: full ROM, no lymphadenopathy, supple and no JVD Thyroid: thyroid normal Lymphatic: no lymphadenopathy noted Resp: Effort & Inspection: normal respiratory effort and able to speak in complete sentences Auscultation: clear to auscultation bilaterally Cardio: Jugular venous distension: no JVD Rate: regular rate Rhythm: regular rhythm Heart sounds: S1 normal heart sound present and S2 normal heart sound present GI: Inspection: normal to inspection Auscultation: normal bowel sounds : General: Yes deferred Skin: General skin exam: normal color Rashes: no rashes Wounds: no wounds Neuro: General: patient oriented x3 and CN's II-XI intact bilaterally Cranial nerves: Yes CN's II-XII intact bilaterally and Yes Equal, round and reactive pupils present Cognition (Neuro): normal cognition Speech: normal speech Gait exam (Neuro): Normal gait present Motor exam (neuro): 5/5 motor strength present throughout Extrem: General: normal to inspection, full ROM, no joint enlargement and no pedal edema Psych: Mental Status: mental status grossly normal Objective Data Vital Signs Vital Signs: Vital Signs - 24 hr 02/16/24 21:18 02/16/24 21:15 02/17/24 06:00 Temperature 98.7 F 97.8 F Pulse Rate 78 72 76 Respiratory Rate 16 20 Blood Pressure 130/67 108/63 Pulse Oximetry 94 96 02/17/24 08:05 02/17/24 14:00 Temperature 97.1 F L Pulse Rate 82 74 Respiratory Rate 20 Blood Pressure 99/68 L Pulse Oximetry 99 Intake/Output Intake/Output: Intake & Output 02/14/24 02/15/24 02/16/24 02/17/24 23:59 23:59 23:59 23:59 Intake Total 020 985 0034 450 Output Total 100 Balance 533 381 8147 450 Meds/Results Medications: Active Medications Generic Name Dose Route Start Last Admin Trade Name Freq PRN Reason Stop Dose Admin Acetaminophen 650 mg 02/05/24 16:12 02/13/24 20:31 Acetaminophen 325 Mg Tablet PO 650 mg Q4H PRN Administration Headache Albuterol/Ipratropium 3 ml 02/05/24 17:43 02/06/24 21:42 Ipratropium 0.5 Mg/Albuterol Sulfate 2.5 Mg Ampul.Neb 3 Ml INHALATION 3 ml Q4HRT PRN Administration Shortness Of Breath Or Wheezing Alteplase, Recombinant 2 mg 02/10/24 06:52 02/10/24 08:29 Alteplase 2 Mg Vial (Cathflo) IV PUSH 2 mg ONCE PRN Administration Line Occlusion Amlodipine Besylate 10 mg 02/13/24 14:55 02/17/24 08:06 Amlodipine Besylate 10 Mg Tablet PO 10 mg DAILY CARLITOS Administration Lipase/Protease/Amylase 1 cap 02/11/24 17:00 02/17/24 15:21 Lipase/Amylase/Protease 12,000 Units Cap PO 1 cap TIDWM CARLITOS Administration Carvedilol 12.5 mg 02/11/24 09:00 02/17/24 08:05 Carvedilol 12.5 Mg Tablet PO 12.5 mg Q12HR CARLITOS Administration Dextrose 12.5 gm 02/02/24 10:59 Dextrose 50% 25 Gm/50 Ml Syringe IV PUSH PRN PRN Hypoglycemia Protocol Fluticasone Propionate 2 spray 02/02/24 00:09 Fluticasone Propionate 0.05% Na Spr 16 Gm Btl (*Bkc) NASAL DAILY PRN allergy symptoms Glucagon 1 mg 02/02/24 10:59 Glucagon For Inj 1 Mg Vial IM PRN PRN Hypoglycemia Protocol Glucose 15 gm 02/02/24 10:59 Glucose Oral Gel 15 Gm Of Glucse In 37.5 Gm Tube PO PRN PRN Hypoglycemia Protocol Heparin Sodium (Porcine) 5,000 units 02/02/24 14:00 02/17/24 15:20 Heparin Sodium 5,000 Units/Ml Vial SUB-Q Not Given Q8HR CARLITOS Hydralazine HCl 20 mg 02/04/24 09:30 02/04/24 16:34 Hydralazine Hcl 20 Mg/Ml Vial IV PUSH 20 mg Q4H PRN Administration SBP more than 160 - 2nd choice Hydromorphone HCl 0.5 mg 02/03/24 13:53 02/06/24 14:21 Hydromorphone Hcl Inj (*Crx) 1 Mg/Ml Syr IV PUSH 0.5 mg Q2H PRN Administration Pain Rated 7-10 Meropenem 1 gm in 100 mls @ 200 mls/hr 02/10/24 12:00 02/17/24 15:20 IVPB 200 mls/hr Q8HR CARLITOS Administration Insulin Aspart 2 - 5 units 02/07/24 21:00 02/17/24 15:24 Insulin Aspart (*Bkc) 100 Units/Ml SUB-Q Not Given [facility] Protocol Labetalol HCl 20 mg 02/04/24 09:30 02/09/24 11:20 Labetalol Hcl Inj 100 Mg/20 Ml Vial IV PUSH 20 mg Q4H PRN Administration SBP > 160 and HR> 60 -1st choice Losartan Potassium 100 mg 02/11/24 09:00 02/17/24 08:06 Losartan Potassium 100 Mg Tablet PO 100 mg DAILY CARLITOS Administration Ondansetron HCl 4 mg 02/01/24 19:52 02/05/24 01:15 Ondansetron Inj 4 Mg/2 Ml Vial IV PUSH 4 mg Q4H PRN Administration Nausea Oxycodone HCl 5 mg 02/12/24 12:03 02/12/24 12:00 Oxycodone Hcl (*Crx) 5 Mg Tab Ir PO 5 mg Q4H PRN Administration Pain Rated 4-10 Pantoprazole Sodium 40 mg 02/04/24 09:00 02/17/24 08:06 Pantoprazole Sodium Iv 40 Mg Vial IV PUSH 40 mg QAM CARLITOS Administration Quetiapine Fumarate 25 mg 02/05/24 21:00 02/16/24 21:18 Quetiapine Fumarate 25 Mg Tablet PO 25 mg HS CARLITOS Administration Sodium Chloride 10 ml 02/03/24 14:00 02/17/24 15:23 Central Line Flush IV PUSH 10 ml Q8HR CARLITOS Administration Sodium Chloride 10 ml 02/03/24 12:07 Central Line Flush IV PUSH PRN PRN with TPN bag changes Sodium Chloride 20 ml 02/03/24 12:07 02/10/24 05:35 Central Line Flush IV PUSH 20 ml PRN PRN Administration after blood draws Radiology Results: ITS Impressions Chest/Abdomen/Pelvis CTA 02/01/24 18:35 IMPRESSION: No aortic dissection or aneurysm. Moderate interstitial pulmonary edema. Hepatomegaly. Acute interstitial pancreatitis. Possible portal vein and superior mesenteric vein thrombosis, versus artifact from unopacified blood in this arterial phase study. Consider right upper quadrant with a focus on obtaining portal venous color Doppler flow and waveforms. Vascular Ultrasound 02/01/24 19:23 IMPRESSION: Patent portal veins and superior mesenteric vein. Prior CT findings likely related to artifact from arterial phase imaging. Abdomen Ultrasound 02/02/24 09:49 IMPRESSION: 1. Pancreatitis. 2. Cholelithiasis. Gallbladder wall thickening may be secondary to interstitial edema or acute cholecystitis. 3. Diffuse hepatic steatosis. Abdomen X-Ray 02/04/24 21:25 IMPRESSION: Interval replacement of the nasogastric tube with its tip projecting over the proximal stomach for which advancement of approximately 5 to 6 cm may be performed for optimal radiographic placement. Worsening bilateral pleural effusions, as detailed above. Chest X-Ray 02/08/24 10:27 IMPRESSION: 1. Small lung volumes with airspace opacities at the lung bases, likely atelectasis. 2. Small right pleural effusion. 3. Dilated small bowel, likely adynamic ileus. Hepatobiliary Scan Nuclear Medicine 02/11/24 15:32 IMPRESSION: 1. No evident biliary obstruction with patent cystic duct essentially excluding acute cholecystitis. Abdomen/Pelvis CT 02/15/24 13:21 Impression: No definite etiology for hematuria identified. Present pancreatitis with developing extensive irregular peripancreatic fluid collections, compatible with developing pseudocysts or walled off necrosis. Small amount of pelvic ascites. Bilateral pleural effusions, as detailed above, with bibasilar atelectasis. Cholelithiasis. Pelvis Ultrasound 02/15/24 13:30 Impression: Moderate free fluid, of uncertain etiology. Borderline thickening of endometrial stripe. Consider additional workup for endometrial hyperplasia versus endometrial neoplasm, as indicated. Renal Ultrasound 02/15/24 13:30 Impression: Unremarkable ultrasound of the kidneys and urinary bladder. Labs Labs: Laboratory Results - last 24 hr 02/16/24 02/16/24 02/17/24 16:33 19:42 07:51 WBC RBC Hgb Hct MCV MCH MCHC RDW Plt Count MPV Immature Gran % (Auto) Neut % (Auto) Lymph % (Auto) [place] % (Auto) Eos % (Auto) Baso % (Auto) Lymph # (Auto) [place] # (Auto) Eos # (Auto) Baso # (Auto) Abs Immat Gran (auto) Absolute Neuts (auto) Absolute Nucleated RBC Nucleated RBC % Sodium Potassium Chloride Carbon Dioxide Anion Gap BUN Creatinine Estim Creat Clear Calc Estimated GFR Glucose POC Capillary Glucose 113 H 116 H 120 H Calcium 02/17/24 08:00 WBC 9.6 RBC 3.92 L Hgb 10.7 L Hct 33.1 L MCV 84.4 MCH 27.3 MCHC 32.3 RDW 12.7 Plt Count 448 H MPV 9.7 Immature Gran % (Auto) 1.5 H Neut % (Auto) 69.2 Lymph % (Auto) 16.3 L [place] % (Auto) 9.7 H Eos % (Auto) 2.7 Baso % (Auto) 0.6 Lymph # (Auto) 1.57 [place] # (Auto) 0.9 H Eos # (Auto) 0.3 Baso # (Auto) 0.1 Abs Immat Gran (auto) 0.14 H Absolute Neuts (auto) 6.7 Absolute Nucleated RBC 0.000 Nucleated RBC % 0.0 Sodium 133 L Potassium 4.1 Chloride 100 Carbon Dioxide 28 Anion Gap 5 BUN 12 Creatinine 0.60 L Estim Creat Clear Calc 78 Estimated GFR > 60 Glucose 126 H POC Capillary Glucose Calcium 8.5 Quality VTE Prophylaxis VTE prophylaxis: mechanical ordered and pharmacologic ordered Hospitalist MIPS Advance Care Plan I have confirmed that the patient's Advanced Care Plan is present, code status is documented, or surrogate decision maker is listed in patient medical record.: Yes Medication Reconciliation I have utilized all available resources to obtain, update and review the patients current medications (includes all prescriptions, OTC, herbals, cannabis, and nutritional supplements).: Yes
[2024-02-17 16:45] LABS: Glucose Point of Care 99 mg/dl (65-105)
[2024-02-17] MEDS: QUEtiapine FUMARATE 25 MG TABLET PO (20:11)
[2024-02-17 20:12] VITALS: PULSE 72
[2024-02-17 20:45] VITALS: BP 105/61; PULSE 72; RESP 20; TEMP 37.2; O2SAT 96
[2024-02-17 20:45] LABS: Glucose Point of Care 122 mg/dl (65-105)
[2024-02-18 05:00] VITALS: BP 116/69; PULSE 71; RESP 20; TEMP 36.9; O2SAT 93
[2024-02-18] MEDS: MEROPENEM 1 GM/NS 100 ML 1 GM/100 ML BAG IVPB ×3 (05:41→21:10)
[2024-02-18] MEDS: CENTRAL LINE FLUSH 10 ML IV PUSH ×3 (05:42→21:11)
[2024-02-18 06:00] LABS: Hematocrit 32.3 % (37.0-47.0); Hemoglobin 10.2 g/dL (12.0-15.0); Mean Corpuscular HGB Conc 31.6 g/dl (32-36); Mean Corpuscular Volume 85.4 fl (80-100); Mean Platelet Volume 9.7 fl (7.4-10.4); Platelet Count Result 431 k/mm3 (150-375); Red Blood Count 3.78 M/mm3 (4.2-5.4); Red Cell Distribution Width 12.7 % (11.5-14.5); White Blood Count 9.4 K/mm3 (4.5-10.0)
[2024-02-18 06:17] LABS: Alanine Aminotransferase 22 U/L (6-35); Albumin Level 3.2 g/dL (3.5-5.1); Alkaline Phosphatase 115 U/L (38-126); Anion Gap 5 mmol/L (4-12); Aspartate Amino Transferase 27 U/L (14-36); Bilirubin,Total 0.5 mg/dL (0.2-1.3); Blood Urea Nitrogen 14 mg/dL (7-17); Calcium 8.7 mg/dL (8.4-10.2); Carbon Dioxide 28 mmol/L (22-30); Chloride 100 mmol/L (98-107); Estimated CRCL calculation 78 ml/min; Estimated Glomerular Filt Rate > 60; Glucose 96 mg/dL (65-110); Potassium 4.3 mmol/L (3.4-5.0); Sodium 133 mmol/L (137-145)
[2024-02-18 08:16] LABS: Glucose Point of Care 89 mg/dl (65-105)
[2024-02-18] MEDS: LOSARTAN POTASSIUM 100 MG TABLET PO (08:56)
[2024-02-18 08:57] VITALS: PULSE 71
[2024-02-18] MEDS: amLODIPine BESYLATE 10 MG TABLET PO (08:57)
[2024-02-18] MEDS: carvediloL 12.5 MG TABLET PO ×2 (08:57→21:10)
[2024-02-18] MEDS: LIPASE/AMYLASE/PROTEASE 12,000 UNITS CAP 1 CAP PO ×3 (08:57→16:50)
[2024-02-18] MEDS: PANTOPRAZOLE SODIUM IV 40 MG VIAL IV PUSH (09:23)
[2024-02-18 11:30] LABS: Glucose Point of Care 123 mg/dl (65-105)
[2024-02-18 14:00] VITALS: BP 115/64; PULSE 72; RESP 20; TEMP 36.5; O2SAT 98
--- NOTE | 2024-02-18 14:33 | P.PNIM_ITS ---
Progress Note: A&P Assessment and Plan (1) Steatorrhea: Code(s): K90.9 - Intestinal malabsorption, unspecified Status: Acute (2) Acute hypoxemic respiratory failure: Code(s): J96.01 - Acute respiratory failure with hypoxia Status: Acute (3) Acute necrotizing pancreatitis: Code(s): K85.91 - Acute pancreatitis with uninfected necrosis, unspecified Status: Acute (4) Cholelithiasis: Code(s): K80.20 - Calculus of gallbladder without cholecystitis without obstruction Status: Acute (5) Gallstone pancreatitis: Code(s): K85.10 - Biliary acute pancreatitis without necrosis or infection Status: Acute (6) Abnormal vaginal bleeding: Code(s): N93.9 - Abnormal uterine and vaginal bleeding, unspecified Status: Acute Plan 68-year-old female with history of hypertension presents with her at [facility] for chest pain and abdominal pain. CT abdomen showed acute interstitial pancreatitis, possible portal vein and superior mesenteric vein thrombosis versus artifact from unopacified blood in the arterial phase study. Underwent right upper quadrant ultrasound which showed pancreatitis, cholelithiasis, gallbladder wall thickening questionable secondary to interstitial edema or acute cholecystitis, diffuse hepatic steatosis. Hospital course was complicated with acute hypoxic respiratory failure requiring ICU stay. Currently patient condition become more stable, patient has moved to medical floor to continue management Gross hematuria Patient notice bloody urine today, patient denies dysuria, urinary urgency frequency UA showed hematuria Follow renal ultrasound: Unremarkable CT urogram no significant finding Consult urologist for evaluation treatment Cystoscope outpatient is scheduled Abnormal vaginal bleeding Pelvic ultrasounds showed borderline thickening of endometrial stripe. Consider additional workup for endometrial hyperplasia versus endometrial neoplasm Consult [employer] for evaluation treatment Recommends D&C hysteroscopy as an outpatient Acute necrotizing pancreatitis : HIDA scan without acute active cholecystitis Repeat CT scan noted developing fluid collection ? pseudocyst vs WOPN Consider to repeat imaging and if increasing size of more peripancreatic fluid collection then will refer to advance endoscopy at [facility] with Dr Lugo for EUS +/- drainage Monitor leukocytosis Continue with meropenem if GI following Started on Creon for concern for steatorrhea General surgery following likely plan for interval cholecystectomy once acute pancreatitis has resolved likely outpatient Encourage p.o. intake Patient still has pain associated with eating and drinking, cannot tolerate solid diet, afebrile, leukocytosis improving, ICU delirium: Resolved Acute hypoxic respiratory failure: Required ICU stay Resolved Currently on room air Hypertension: Continue with Norvasc, losartan, Coreg Diabetes mellitus: Hemoglobin A1c 6 Blood glucose checked t.i.d. a.c. and HS Continue with sliding scale insulin Adjust dose as needed Code status: Full DVT prophylaxis: Heparin subQ Disposition: Pending improvement may discharge pt in 1-2 days Subjective Date/time seen: 02/18/24 14:33 Interval history: Patient is able to tolerate food even though still is experiencing mild abdominal pain. Denies nausea, vomiting, diarrhea. Patient in the CCU the last dose of meropenem tomorrow. Patient will likely receive levofloxacin and Flagyl for 10 days upon discharge. We will discuss the case with surgery and GI for potential discharge. Review of Systems Review of Systems: 10 point ROS complete, negative other th an what is specified in HPI. All systems reviewed & are unremarkable except as noted in HPI and below Exam Narrative: GENERAL: Pleasant, in no acute distress. Well-nourished. - EYES: EOMI. Anicteric. - HENT: Moist mucous membranes. - LUNGS: Clear to auscultation bilateral ly, no wheezing, rhonchi, or rales. - CARDIOVASCULAR: Regular rate and rhyth m. No murmur. No JVD. - ABDOMEN: Soft, mid abdominal tender an d non-distended. No palpable masses. - EXTREMITIES: No edema. Peripheral puls es 2+. Non-tender. - NEUROLOGIC: No focal neurological defi cits. CN II-XII grossly intact. - PSYCHIATRIC: Awake, Alert and oriented x 3. Appropriate mood and affect. - SKIN: No rashes or lesions. Warm. - LYMPH: No cervical lymphadenopathy. Const: General: comfortable, no acute distress, well developed, alert, awake and average body habitus Nutritional Appearance: average body habitus Orientation/consciousness: patient oriented x3 Other: well-appearing HENMT: Head: normal to inspection, normocephalic and atraumatic Ears: hearing grossly normal bilaterally Face/Nose/Sinus: normal facial exam Face and sinus: normal facial exam Mouth: Yes moist mucous membranes Eyes: General: appearance normal, both eyes and all related structures Sclera: sclerae normal Pupils: Equal, round and reactive pupils present EOM: EOMs intact bilaterally Neck: Neck: full ROM, no lymphadenopathy, supple and no JVD Thyroid: thyroid normal Lymphatic: no lymphadenopathy noted Resp: Effort & Inspection: normal respiratory effort and able to speak in complete sentences Auscultation: clear to auscultation bilaterally Cardio: Jugular venous distension: no JVD Rate: regular rate Rhythm: regular rhythm Heart sounds: S1 normal heart sound present and S2 normal heart sound present GI: Inspection: normal to inspection Auscultation: normal bowel sounds : General: Yes deferred Skin: General skin exam: normal color Rashes: no rashes Wounds: no wounds Neuro: General: patient oriented x3 and CN's II-XI intact bilaterally Cranial nerves: Yes CN's II-XII intact bilaterally and Yes Equal, round and reactive pupils present Cognition (Neuro): normal cognition Speech: normal speech Gait exam (Neuro): Normal gait present Motor exam (neuro): 5/5 motor strength present throughout Extrem: General: normal to inspection, full ROM, no joint enlargement and no pedal edema Psych: Mental Status: mental status grossly normal Objective Data Vital Signs Vital Signs: Vital Signs - 24 hr 02/17/24 16:40 02/17/24 20:12 02/17/24 20:00 Temperature Pulse Rate 72 Respiratory Rate Blood Pressure Pulse Oximetry Oxygen Delivery Room Air Room Air 02/17/24 20:45 02/18/24 05:00 02/18/24 08:57 Temperature 98.9 F 98.4 F Pulse Rate 72 71 71 Respiratory Rate 20 20 Blood Pressure 105/61 116/69 Pulse Oximetry 96 93 Oxygen Delivery 02/18/24 08:00 02/18/24 14:00 Temperature 97.7 F Pulse Rate 72 Respiratory Rate 20 Blood Pressure 115/64 Pulse Oximetry 98 Oxygen Delivery Room Air Intake/Output Intake/Output: Intake & Output 02/15/24 02/16/24 02/17/24 02/18/24 23:59 23:59 23:59 23:59 Intake Total 990 1262 650 812 Output Total 100 Balance 890 1262 650 812 Meds/Results Medications: Active Medications Generic Name Dose Route Start Last Admin Trade Name Freq PRN Reason Stop Dose Admin Acetaminophen 650 mg 02/05/24 16:12 02/13/24 20:31 Acetaminophen 325 Mg Tablet PO 650 mg Q4H PRN Administration Headache Albuterol/Ipratropium 3 ml 02/05/24 17:43 02/06/24 21:42 Ipratropium 0.5 Mg/Albuterol Sulfate 2.5 Mg Ampul.Neb 3 Ml INHALATION 3 ml Q4HRT PRN Administration Shortness Of Breath Or Wheezing Alteplase, Recombinant 2 mg 02/10/24 06:52 02/10/24 08:29 Alteplase 2 Mg Vial (Cathflo) IV PUSH 2 mg ONCE PRN Administration Line Occlusion Amlodipine Besylate 10 mg 02/13/24 14:55 02/18/24 08:57 Amlodipine Besylate 10 Mg Tablet PO 10 mg DAILY CARLITOS Administration Lipase/Protease/Amylase 1 cap 02/11/24 17:00 02/18/24 11:40 Lipase/Amylase/Protease 12,000 Units Cap PO 1 cap TIDWM CARLITOS Administration Carvedilol 12.5 mg 02/11/24 09:00 02/18/24 08:57 Carvedilol 12.5 Mg Tablet PO 12.5 mg Q12HR CARLITOS Administration Dextrose 12.5 gm 02/02/24 10:59 Dextrose 50% 25 Gm/50 Ml Syringe IV PUSH PRN PRN Hypoglycemia Protocol Fluticasone Propionate 2 spray 02/02/24 00:09 Fluticasone Propionate 0.05% Na Spr 16 Gm Btl (*Bkc) NASAL DAILY PRN allergy symptoms Glucagon 1 mg 02/02/24 10:59 Glucagon For Inj 1 Mg Vial IM PRN PRN Hypoglycemia Protocol Glucose 15 gm 02/02/24 10:59 Glucose Oral Gel 15 Gm Of Glucse In 37.5 Gm Tube PO PRN PRN Hypoglycemia Protocol Hydralazine HCl 20 mg 02/04/24 09:30 02/04/24 16:34 Hydralazine Hcl 20 Mg/Ml Vial IV PUSH 20 mg Q4H PRN Administration SBP more than 160 - 2nd choice Hydromorphone HCl 0.5 mg 02/03/24 13:53 02/06/24 14:21 Hydromorphone Hcl Inj (*Crx) 1 Mg/Ml Syr IV PUSH 0.5 mg Q2H PRN Administration Pain Rated 7-10 Meropenem 1 gm in 100 mls @ 200 mls/hr 02/10/24 12:00 02/18/24 14:02 IVPB 02/19/24 22:29 200 mls/hr Q8HR CARLITOS Administration Insulin Aspart 2 - 5 units 02/07/24 21:00 02/18/24 11:45 Insulin Aspart (*Bkc) 100 Units/Ml SUB-Q Not Given [facility] Protocol Labetalol HCl 20 mg 02/04/24 09:30 02/09/24 11:20 Labetalol Hcl Inj 100 Mg/20 Ml Vial IV PUSH 20 mg Q4H PRN Administration SBP > 160 and HR> 60 -1st choice Levofloxacin 750 mg 02/20/24 09:00 Levofloxacin 750 Mg Tablet PO 02/29/24 09:01 DAILY CARLITOS Losartan Potassium 100 mg 02/11/24 09:00 02/18/24 08:56 Losartan Potassium 100 Mg Tablet PO 100 mg DAILY CARLITOS Administration Metronidazole 500 mg 02/20/24 06:00 Metronidazole 500 Mg Tablet PO 02/29/24 22:01 Q8HR CARLITOS Ondansetron HCl 4 mg 02/01/24 19:52 02/05/24 01:15 Ondansetron Inj 4 Mg/2 Ml Vial IV PUSH 4 mg Q4H PRN Administration Nausea Oxycodone HCl 5 mg 02/12/24 12:03 02/12/24 12:00 Oxycodone Hcl (*Crx) 5 Mg Tab Ir PO 5 mg Q4H PRN Administration Pain Rated 4-10 Pantoprazole Sodium 40 mg 02/04/24 09:00 02/18/24 09:23 Pantoprazole Sodium Iv 40 Mg Vial IV PUSH 40 mg QAM CARLITOS Administration Quetiapine Fumarate 25 mg 02/05/24 21:00 02/17/24 20:11 Quetiapine Fumarate 25 Mg Tablet PO 25 mg HS CARLITOS Administration Sodium Chloride 10 ml 02/03/24 14:00 02/18/24 14:03 Central Line Flush IV PUSH 10 ml Q8HR CARLITOS Administration Sodium Chloride 10 ml 02/03/24 12:07 Central Line Flush IV PUSH PRN PRN with TPN bag changes Sodium Chloride 20 ml 02/03/24 12:07 02/10/24 05:35 Central Line Flush IV PUSH 20 ml PRN PRN Administration after blood draws Radiology Results: ITS Impressions Chest/Abdomen/Pelvis CTA 02/01/24 18:35 IMPRESSION: No aortic dissection or aneurysm. Moderate interstitial pulmonary edema. Hepatomegaly. Acute interstitial pancreatitis. Possible portal vein and superior mesenteric vein thrombosis, versus artifact from unopacified blood in this arterial phase study. Consider right upper quadrant with a focus on obtaining portal venous color Doppler flow and waveforms. Vascular Ultrasound 02/01/24 19:23 IMPRESSION: Patent portal veins and superior mesenteric vein. Prior CT findings likely related to artifact from arterial phase imaging. Abdomen Ultrasound 02/02/24 09:49 IMPRESSION: 1. Pancreatitis. 2. Cholelithiasis. Gallbladder wall thickening may be secondary to interstitial edema or acute cholecystitis. 3. Diffuse hepatic steatosis. Abdomen X-Ray 02/04/24 21:25 IMPRESSION: Interval replacement of the nasogastric tube with its tip projecting over the proximal stomach for which advancement of approximately 5 to 6 cm may be performed for optimal radiographic placement. Worsening bilateral pleural effusions, as detailed above. Chest X-Ray 02/08/24 10:27 IMPRESSION: 1. Small lung volumes with airspace opacities at the lung bases, likely atelectasis. 2. Small right pleural effusion. 3. Dilated small bowel, likely adynamic ileus. Hepatobiliary Scan Nuclear Medicine 02/11/24 15:32 IMPRESSION: 1. No evident biliary obstruction with patent cystic duct essentially excluding acute cholecystitis. Abdomen/Pelvis CT 02/15/24 13:21 Impression: No definite etiology for hematuria identified. Present pancreatitis with developing extensive irregular peripancreatic fluid collections, compatible with developing pseudocysts or walled off necrosis. Small amount of pelvic ascites. Bilateral pleural effusions, as detailed above, with bibasilar atelectasis. Cholelithiasis. Pelvis Ultrasound 02/15/24 13:30 Impression: Moderate free fluid, of uncertain etiology. Borderline thickening of endometrial stripe. Consider additional workup for endometrial hyperplasia versus endometrial neoplasm, as indicated. Renal Ultrasound 02/15/24 13:30 Impression: Unremarkable ultrasound of the kidneys and urinary bladder. Labs Labs: Laboratory Results - last 24 hr 02/17/24 02/17/24 02/18/24 16:40 20:32 05:41 WBC 9.4 RBC 3.78 L Hgb 10.2 L Hct 32.3 L MCV 85.4 MCH 27.0 MCHC 31.6 L RDW 12.7 Plt Count 431 H MPV 9.7 Sodium 133 L Potassium 4.3 Chloride 100 Carbon Dioxide 28 Anion Gap 5 BUN 14 Creatinine 0.60 L Estim Creat Clear Calc 78 Estimated GFR > 60 Glucose 96 POC Capillary Glucose 99 122 H Calcium 8.7 Total Bilirubin 0.5 AST 27 ALT 22 Alkaline Phosphatase 115 Total Protein 7.0 Albumin 3.2 L 02/18/24 02/18/24 07:32 11:23 WBC RBC Hgb Hct MCV MCH MCHC RDW Plt Count MPV Sodium Potassium Chloride Carbon Dioxide Anion Gap BUN Creatinine Estim Creat Clear Calc Estimated GFR Glucose POC Capillary Glucose 89 123 H Calcium Total Bilirubin AST ALT Alkaline Phosphatase Total Protein Albumin Quality VTE Prophylaxis VTE prophylaxis: mechanical ordered and pharmacologic ordered Hospitalist MIPS Advance Care Plan I have confirmed that the patient's Advanced Care Plan is present, code status is documented, or surrogate decision maker is listed in patient medical record.: Yes Medication Reconciliation I have utilized all available resources to obtain, update and review the patients current medications (includes all prescriptions, OTC, herbals, cannabis, and nutritional supplements).: Yes
[2024-02-18 16:38] LABS: Glucose Point of Care 102 mg/dl (65-105)
[2024-02-18 20:13] LABS: Glucose Point of Care 125 mg/dl (65-105)
[2024-02-18 20:42] VITALS: BP 113/65; PULSE 72; RESP 14; TEMP 36.3; O2SAT 96
[2024-02-18] MEDS: QUEtiapine FUMARATE 25 MG TABLET PO (21:09)
[2024-02-18 21:10] VITALS: PULSE 78
[2024-02-19] MEDS: MEROPENEM 1 GM/NS 100 ML 1 GM/100 ML BAG IVPB ×3 (05:28→18:06)
[2024-02-19] MEDS: CENTRAL LINE FLUSH 10 ML IV PUSH (05:28)
[2024-02-19 05:37] VITALS: BP 115/65; PULSE 64; RESP 14; TEMP 36.2; O2SAT 96
[2024-02-19 05:49] LABS: Hematocrit 31.4 % (37.0-47.0); Mean Corpuscular HGB Conc 31.8 g/dl (32-36); Mean Corpuscular Volume 84.9 fl (80-100); Platelet Count Result 396 k/mm3 (150-375); Red Cell Distribution Width 12.7 % (11.5-14.5); White Blood Count 8.7 K/mm3 (4.5-10.0)
[2024-02-19 06:03] LABS: Alanine Aminotransferase 23 U/L (6-35); Albumin Level 3.1 g/dL (3.5-5.1); Alkaline Phosphatase 114 U/L (38-126); Anion Gap 7 mmol/L (4-12); Aspartate Amino Transferase 29 U/L (14-36); Bilirubin,Total 0.6 mg/dL (0.2-1.3); Blood Urea Nitrogen 15 mg/dL (7-17); Calcium 8.5 mg/dL (8.4-10.2); Carbon Dioxide 27 mmol/L (22-30); Chloride 99 mmol/L (98-107); Estimated CRCL calculation 67 ml/min; Estimated Glomerular Filt Rate > 60; Glucose 104 mg/dL (65-110); Potassium 4.3 mmol/L (3.4-5.0); Sodium 133 mmol/L (137-145)
[2024-02-19 07:34] LABS: Glucose Point of Care 101 mg/dl (65-105)
[2024-02-19 09:17] VITALS: PULSE 72
[2024-02-19] MEDS: carvediloL 12.5 MG TABLET PO (09:17)
[2024-02-19] MEDS: LOSARTAN POTASSIUM 100 MG TABLET PO (09:17)
[2024-02-19] MEDS: PANTOPRAZOLE SODIUM IV 40 MG VIAL IV PUSH (09:17)
[2024-02-19] MEDS: LIPASE/AMYLASE/PROTEASE 12,000 UNITS CAP 1 CAP PO ×3 (09:17→16:41)
[2024-02-19] MEDS: amLODIPine BESYLATE 10 MG TABLET PO (09:18)
[2024-02-19 11:37] LABS: Glucose Point of Care 125 mg/dl (65-105)
[2024-02-19 14:00] VITALS: BP 100/54; PULSE 71; RESP 18; TEMP 36.5; O2SAT 93
--- NOTE | 2024-02-19 15:46 | PM.DS ---
DS: Admitting Diagnosis Discharge Date 02/19/2024 Admitting Diagnosis Abdominal pain DS: Discharge Diagnosis Discharge Diagnosis (1) Steatorrhea: Code(s): K90.9 - Intestinal malabsorption, unspecified Status: Acute (2) Acute hypoxemic respiratory failure: Code(s): J96.01 - Acute respiratory failure with hypoxia Status: Acute (3) Acute necrotizing pancreatitis: Code(s): K85.91 - Acute pancreatitis with uninfected necrosis, unspecified Status: Acute (4) Cholelithiasis: Code(s): K80.20 - Calculus of gallbladder without cholecystitis without obstruction Status: Acute (5) Gallstone pancreatitis: Code(s): K85.10 - Biliary acute pancreatitis without necrosis or infection Status: Acute (6) Abnormal vaginal bleeding: Code(s): N93.9 - Abnormal uterine and vaginal bleeding, unspecified Status: Acute Plan 68-year-old female with history of hypertension presents with her at bedside for chest pain and abdominal pain. CT abdomen showed acute interstitial pancreatitis, possible portal vein and superior mesenteric vein thrombosis versus artifact from unopacified blood in the arterial phase study. Underwent right upper quadrant ultrasound which showed pancreatitis, cholelithiasis, gallbladder wall thickening questionable secondary to interstitial edema or acute cholecystitis, diffuse hepatic steatosis. Hospital course was complicated with acute hypoxic respiratory failure requiring ICU stay. Currently patient condition become more stable, patient has moved to medical floor to continue management Gross hematuria Patient notice bloody urine today, patient denies dysuria, urinary urgency frequency UA showed hematuria Follow renal ultrasound: Unremarkable CT urogram no significant finding Consult urologist for evaluation treatment Cystoscope outpatient is scheduled Abnormal vaginal bleeding Pelvic ultrasounds showed borderline thickening of endometrial stripe. Consider additional workup for endometrial hyperplasia versus endometrial neoplasm Consult FUR TANNER for evaluation treatment Recommends D&C hysteroscopy as an outpatient Acute necrotizing pancreatitis : HIDA scan without acute active cholecystitis Repeat CT scan noted developing fluid collection ? pseudocyst vs WOPN Consider to repeat imaging and if increasing size of more peripancreatic fluid collection then will refer to advance endoscopy at [facility] with Dr Lugo for EUS +/- drainage Monitor leukocytosis Continue with meropenem if GI following Started on Creon for concern for steatorrhea General surgery following likely plan for interval cholecystectomy once acute pancreatitis has resolved likely outpatient Encourage p.o. intake Patient still has pain associated with eating and drinking, cannot tolerate solid diet, afebrile, leukocytosis improving, ICU delirium: Resolved Acute hypoxic respiratory failure: Required ICU stay Resolved Currently on room air Hypertension: Continue with Norvasc, losartan, Coreg Diabetes mellitus: Hemoglobin A1c 6 Blood glucose checked t.i.d. a.c. and HS Continue with sliding scale insulin Adjust dose as needed Code status: Full DVT prophylaxis: Heparin subQ Disposition: Pending improvement may discharge pt in 1-2 days DS: Summary Hospital Course Hospital Course: Patient had extensive stay in the hospital due to acute pancreatitis, cholecystitis, hematuria versus vaginal bleeding. Viridiana Vega is a 68 year old female with past medical history significant for hypertension, dyslipidemia here for new onset of epigastric pain. She came here after severe upper abdominal pain with nausea and vomiting, this started after having maltese fries (denies similar episode). Finally decided to come here because needed pain medications, blood work showed lipase of 40,000, hgb 15.8 (baseline 13), wbc 20k, ast 68, normal bili, lactic 2.2, creat 1.1. CT scan Moderate interstitial pulmonary edema. Hepatomegaly. Acute interstitial pancreatitis. Doppler ultrasound rule out thrombosis. She denies history of alcohol use. TG 368. Patient was admitted on January 31 for acute interstitial pancreatitis and cholelithiasis. Patient was transferred to the ICU due to respiratory distress and increase in WBC and received broad-spectrum antibiotic. General surgery was consulted but was unable to perform cholecystectomy due to severe pancreatitis. Patient's symptoms slowly resolved. Surgery team agrees to discharge the patient with OP f/U for Cholecystectomy. GI closely followed the patient and repeat CT scan noted developing fluid collection ? pseudocyst vs WOPN HIDA scan without active cholecystitis.Agrees patient going home, trying to eat more and comfortable, then they can see her in office in 2-3 weeks, consider to repeat imaging and if increasing size of more peripancreatic fluid collection then will refer to advance endoscopy at [facility] with Dr Lugo for EUS +/- drainage if needed.Advised to continue with creon for concern of steatorrhea During the course of hospitalization patient had which will bleeding versus hematuria, both Urology and Obstetrics were consulted. Pelvic ultrasound shows thickened endometrium.Tuckpointer Cleaner Caulker Plan is to perform a D&C hysteroscopy as an outpatient. CT urogram reviewed and is unremarkable, no etiology for hematuria. Renal ultrasound unremarkable. Urology plan for outpatient cystoscopy and cytology for complete hematuria workup Patient discharged with Flagyl and metronidazole for 10 days. Advised not to mask pain by taking pain meds. Given discharge instructions in detail. Status at Discharge Cognitive/behavioral status at discharge: Stable Time Spent with Patient Time attestation: Total time spent providing and/or coordinating discharge services: 45 minute Exam Narrative: GENERAL: Pleasant, in no acute distress. Well-nourished. - EYES: EOMI. Anicteric. - HENT: Moist mucous membranes. - LUNGS: Clear to auscultation bilaterally, no wheezing, rhonchi, or rales. - CARDIOVASCULAR: Regular rate and rhythm. No murmur. No JVD. - ABDOMEN: Soft, mid abdominal tender and non-distended. No palpable masses. - EXTREMITIES: No edema. Peripheral pulses 2+. Non-tender. - NEUROLOGIC: No focal neurological deficits. CN II-XII grossly intact. - PSYCHIATRIC: Awake, Alert and oriented x 3. Appropriate mood and affect. - SKIN: No rashes or lesions. Warm. - LYMPH: No cervical lymphadenopathy. Const: General: comfortable, no acute distress, well developed, alert, awake and average body habitus Nutritional Appearance: average body habitus Orientation/consciousness: patient oriented x3 Other: well-appearing HENMT: Head: normal to inspection, normocephalic and atraumatic Ears: hearing grossly normal bilaterally Face/Nose/Sinus: normal facial exam Face and sinus: normal facial exam Mouth: Yes moist mucous membranes Eyes: General: appearance normal, both eyes and all related structures Sclera: sclerae normal Pupils: Equal, round and reactive pupils present EOM: EOMs intact bilaterally Neck: Neck: full ROM, no lymphadenopathy, supple and no JVD Thyroid: thyroid normal Lymphatic: no lymphadenopathy noted Resp: Effort & Inspection: normal respiratory effort and able to speak in complete sentences Auscultation: clear to auscultation bilaterally Cardio: Jugular venous distension: no JVD Rate: regular rate Rhythm: regular rhythm Heart sounds: S1 normal heart sound present and S2 normal heart sound present GI: Inspection: normal to inspection Auscultation: normal bowel sounds : General: Yes deferred Skin: General skin exam: normal color Rashes: no rashes Wounds: no wounds Neuro: General: patient oriented x3 and CN's II-XI intact bilaterally Cranial nerves: Yes CN's II-XII intact bilaterally and Yes Equal, round and reactive pupils present Cognition (Neuro): normal cognition Speech: normal speech Gait exam (Neuro): Normal gait present Motor exam (neuro): 5/5 motor strength present throughout Extrem: General: normal to inspection, full ROM, no joint enlargement and no pedal edema Psych: Mental Status: mental status grossly normal DS: Data Data Completed and Pending Completed studies during hospitalization: Pending at discharge 02/15/24 10:25 Cytology [PTH] Routine Labs on day of discharge: Labs from last 24 hours 02/19/24 02/19/24 02/19/24 11:34 07:30 05:27 WBC 8.7 RBC 3.70 L Hgb 10.0 L Hct 31.4 L MCV 84.9 MCH 27.0 MCHC 31.8 L RDW 12.7 Plt Count 396 H MPV 10.0 Sodium 133 L Potassium 4.3 Chloride 99 Carbon Dioxide 27 Anion Gap 7 BUN 15 Creatinine 0.70 Estim Creat Clear Calc 67 Estimated GFR > 60 Glucose 104 POC Capillary Glucose 125 H 101 Calcium 8.5 Total Bilirubin 0.6 AST 29 ALT 23 Alkaline Phosphatase 114 Total Protein 7.0 Albumin 3.1 L 02/18/24 02/18/24 19:53 16:24 WBC RBC Hgb Hct MCV MCH MCHC RDW Plt Count MPV Sodium Potassium Chloride Carbon Dioxide Anion Gap BUN Creatinine Estim Creat Clear Calc Estimated GFR Glucose POC Capillary Glucose 125 H 102 Calcium Total Bilirubin AST ALT Alkaline Phosphatase Total Protein Albumin Discharge Plan Discharge Attending physician on discharge: Bubba Rodriguez Consulting providers: Sandra Batista; Aniceto Lopez; Henry Ramirez; Shefali Zaragoza Discharging Clinician: Bubba Rodriguez Anticipated Discharge Date/Time: 02/19/24 15:33 Patient Disposition: Home, Self-Care Activity: as tolerated Diet: as tolerated and low fat Discharge Instructions: Patient needs to visit GI in 2 weeks( repeat Abdomen CT imaging) Please visit Surgery Team for Cholecystectomy Take Levofloxacin 750 mg PO QD (02/19-02/28) Take Metronidazole 500 mg 3 times a day (02/19-02/28) Tuckpointer Cleaner Caulker Plan is to perform a D&C hysteroscopy as an outpatient Urology plan for outpatient cystoscopy and cytology for complete hematuria workup In the event of increase abdominal pain,nausea,vomiting,diarrhea please visit ER immediately Patient Instructions: Antibiotic Form, Removal of a Central Line, PICC, or Midline Catheter (DC) Stand Alone Forms: General Discharge Information Follow-up/Referrals: Alberto Degroot MD [Physician] - 3 Weeks James Barajas DO [Physician] - Call for Appointment Discharge Medications: New Creon 12,000-38,000 -60,000 unit Capsule,Delayed Release(Dr/Ec) 1 cap PO TIDWM Qty: 30 0RF metronidazole 500 mg Tablet 500 mg PO Q8HR Qty: 30 0RF levofloxacin 750 mg tablet 750 mg PO DAILY Qty: 10 0RF Continued fluticasone propionate 50 mcg/actuation spray,suspension 2 spray intranasal DAILY PRN (Reason: allergy symptoms) Qty: 16 2RF Rx Instructions: administer into each nostril cyclobenzaprine 10 mg tablet 10 mg PO TID PRN (Reason: muscle spasm) Qty: 30 0RF cholecalciferol (vitamin D3) 50 mcg (2,000 unit) capsule 50 mcg PO DAILY rosuvastatin 40 mg tablet 40 mg PO DAILY Qty: 90 1RF carvedilol 12.5 mg tablet 12.5 mg PO BID losartan-hydrochlorothiazide 100-25 mg tablet 1 tablet PO DAILY naproxen [Naprosyn] 500 mg tablet 500 mg PO BID PRN (Reason: pain) Qty: 15 0RF Date of admission: 02/01/24 19:52 Primary Care Provider: Gonzalez Cuenca Admitting Provider: Flora Evans V. Attending physician on admission: Flora Evans V. Condition: Stable
[2024-02-19 17:17] LABS: Glucose Point of Care 94 mg/dl (65-105)
[2024-02-19] MEDS: NEOMYCIN/POLYMYXIN/BACITRACIN OINTMENT PACKET 1 PACKET (18:21)
--- NOTE | 2024-02-19 19:32 | PC.NURSE ---
Pt discharged per private car. PICC line removed and site within normal limits. Pt assisted to car by staff.
== END 2024-02-19 19:30 | disposition home or self-care (01) | DRG 438 ==
LOC: ANHED 18:29 → ANH2MED 20:11 → ANHICU 02-03 18:06 → ANHIMU 02-07 18:30 → ANH3MEDSUR 02-09 12:45
PROVIDERS: Emergency Medicine; Hospitalist; Internal Medicine; Nurse Practitioner; Nurse Practitioner Family; Physician Assistant; Student in an Organized Health Care Education/Training Program; Admitting Provider Internal Medicine; Emergency Provider General Practice; PCP Internal Medicine; Visit Provider General Practice
DX: K85.10 Biliary acute pancreatitis without necrosis or infection (principal); J96.01 Acute respiratory failure with hypoxia; J91.8 Pleural effusion in other conditions classified elsewhere; R65.10 Systemic inflammatory response syndrome (SIRS) of non-infectious origin without acute organ dysfunction; J98.11 Atelectasis; K56.7 Ileus, unspecified; K90.9 Intestinal malabsorption, unspecified; E87.1 Hypo-osmolality and hyponatremia; K85.81 Other acute pancreatitis with uninfected necrosis; R41.0 Disorientation, unspecified; K80.20 Calculus of gallbladder without cholecystitis without obstruction; I10 Essential (primary) hypertension; E78.2 Mixed hyperlipidemia; Z96.641 Presence of right artificial hip joint; R73.9 Hyperglycemia, unspecified; D72.829 Elevated white blood cell count, unspecified; R73.03 Prediabetes; R31.0 Gross hematuria; E86.0 Dehydration; E55.9 Vitamin D deficiency, unspecified; M19.90 Unspecified osteoarthritis, unspecified site; J30.1 Allergic rhinitis due to pollen; E87.6 Hypokalemia; N95.0 Postmenopausal bleeding; M62.838 Other muscle spasm
CPT/HCPCS: 36415; 36569; 36600; 71045; 71046; 71275; 74174; 74176; 74177; 74178; 76705; 76775; 76856; 78226; 80048; 80053; 80061; 81001; 82140; 82565; 82805; 82948; 83036; 83605; 83690; 83735; 84100; 84145; 84484; 85018; 85025; 85027; 85055; 85610; 85730; 87040; 87086; 87493; 87641; 88108; 93005; 93979; 94002; 94003; 94640; 96365; 96375; 99285; A9270; A9537; J0360; J0613; J0696; J1120; J1171; J1200; J1630; J1644; J1741; J1836; J1940; J2003; J2060; J2185; J2405; J2470; J2543; J2997; J3480; J7030; J7040; J7050; J7120; J7121; Q9967

== ENCOUNTER 2024-04-23 08:02 | Outpatient (CLI) | payer MEDICARE, SELFPAY ==
[2024-04-23 08:41] LABS: Anion Gap -1 mmol/L (4-12); Blood Urea Nitrogen 9 mg/dL (7-17); Calcium 9.4 mg/dL (8.4-10.2); Carbon Dioxide 33 mmol/L (22-30); Chloride 107 mmol/L (98-107); Estimated Glomerular Filt Rate > 60; Glucose 107 mg/dL (65-110); Potassium 4.7 mmol/L (3.4-5.0); Sodium 139 mmol/L (137-145)
[2024-04-23 08:42] LABS: Alanine Aminotransferase 13 U/L (6-35); Albumin Level 4.1 g/dL (3.5-5.1); Alkaline Phosphatase 79 U/L (38-126); Amylase 46 U/L (30-110); Aspartate Amino Transferase 24 U/L (14-36); Bilirubin,Total 0.5 mg/dL (0.2-1.3); Lipase 50 U/L (23-300)
== END 2024-04-23 08:03 | disposition home or self-care (01) ==
PROVIDERS: Anesthesiology; PCP Internal Medicine; Visit Provider Surgery
DX: K85.10 Biliary acute pancreatitis without necrosis or infection (principal); I10 Essential (primary) hypertension; Z01.818 Encounter for other preprocedural examination
CPT/HCPCS: 36415; 80048; 80076; 82150; 83690

== ENCOUNTER 2024-04-26 00:15 | Day surgery (SDC) | payer MEDICARE, SELFPAY ==
--- NOTE | 2024-04-19 09:15 | PC.NURSE ---
Addendum entered by Beth Mariano RN 04/23/24 11:55: Reviewed pt instructions w her via phone, pt understands all and questions answered Original Note: Report to the Outpatient Waiting Room, entrance under the green pavilion located off [facility], at time _10 AM on date __04/26/24 . Planned Procedure Time: __1200 NOON .? Time changes happen often and if your time is changed the preop area will call you the afternoon before. - You and your visitor will be asked to self-screen and do not enter if you have any COVID symptoms. Please call surgeon if you need to reschedule. - A mask is optional within the hospital at this time. Patients may have clear liquids (water, carbonated beverages, clear teas, apple juice) until 3 hours prior to surgery( 9 AM) with a maximum of 20 ounces. - No food from midnight until time of surgery and no smoking. This includes no chewing gum, candy or mints. Take only the following medications with a SIP of water on the morning of surgery: _CARVEDILOL DO NOT STOP ANY OF YOUR OTHER PRESCRIPTION MEDICATIONS PRIOR TO SURGERY EXCEPT THE FOLLOWING Medications to discontinue per physician ___HOLD ALL VITAMINS AND SUPPLEMENTS 3 DAYS PRE OP Date to take last dose___04/22/24 Please no make-up, nail yakut, hairspray, perfume, deodorant, or body powder the day of surgery.? No jewelry (including any body piercings) or valuables the day of surgery, leave them at home.? Please take a shower or bath the night before, or the morning of, surgery with an antibacterial soap.? Wear comfortable, loose fitting clothing.? Children are encouraged to wear pajamas. - Jewelry must be removed prior to entering the operating room.? Rings and piercings that are not removed may be cut off. - The hospital will not accept responsibility for valuables.? - Please leave all valuables, including medications, at home the day of surgery. If you are going home after surgery, a licensed driver guide must drive you home.? - NO public transportation without another adult if you receive anesthesia. - We recommend that an adult stay with you for 24 hours following discharge. - We also recommend that you do not drive, make important decision, drink alcoholic beverages, or take any drugs that were not prescribed by your health care provider for at least 24 hours after your discharge time. Follow any additional instructions given to you from your surgeon. Telephone instructions given to _PATIENT and asked if any additional questions and then verbalized understanding. Patient advised to call surgeon office or pre surgery nurse liaison [phone] if any additional questions.
[2024-04-19 09:30] VITALS: BMI 25.6
[2024-04-26] VITALS (8 sets, daily range): BP systolic 117–180; BP diastolic 61–96; PULSE 53–79; RESP 14–20; TEMP 36.2–36.4; O2SAT 98–100
--- NOTE | ~2024-04-26 | XR_ITS ---
EXAMINATION: XR cholangiogram surg 1st inj DATE: 04/26/2024 12:58 INDICATION: Cholelithiasis. TECHNIQUE: 64 fluoroscopic images of the right upper quadrant were obtained during intraoperative cho langiography performed by the surgeon. I was not present in the operating room. Fluoroscopy exposure time was 11 seconds. COMPARISON: CT 02/15/2024 FINDINGS: There is a catheter in the cystic duct. The biliary tree is normal in caliber. No stones. C ontrast progresses to the duodenum. IMPRESSION: 1. Normal intraoperative cholangiogram. Reviewed, dictated and finalized at location A. [employer]
[2024-04-26] MEDS: BUPIVACAINE/EPINEPHRINE 0.5% 50 ML VIAL 30 ML INFILTRATE (10:42)
[2024-04-26] MEDS: ACETAMINOPHEN 500 MG TABLET 1000 MG PO (10:45)
[2024-04-26] MEDS: KETOROLAC 15 MG/ML VIAL (*BKC) IV PUSH (10:45)
[2024-04-26] MEDS: LACTATED RINGERS 1,000 ML 30 ML IV CONT ×2 (10:45→13:13)
--- NOTE | 2024-04-26 10:56 | P.PNAN_ITS ---
Anes - Initial Pre Proc Eval Procedure: Operation Date: 04/26/24 12:00 Proposed Procedures p Laparoscopic Cholecystectomy with Intraoperative Cholangiogram - James Barajas DO Date/Time: 04/26/24 10:56 Surgeon: James Barajas DO Pre Op Diagnosis: Gallstone Pancreatitis Patient Data Age: 69 Gender: F Height: 1.61 m Weight: 66.7 kg Allergies Allergy/AdvReac Type Severity Reaction Status Date / Time No Known Allergies Allergy Verified 04/19/24 09:11 Home Medications ?Medication ?Instructions ?Recorded ?Confirmed ?Type cholecalciferol (vitamin D3) 50 50 mcg PO DAILY 04/16/22 04/22/24 History mcg (2,000 unit) capsule rosuvastatin 40 mg tablet 40 mg PO DAILY #90 tabs 10/07/22 04/22/24 Rx cyclobenzaprine 10 mg tablet 10 mg PO TID PRN muscle spasm #30 02/03/23 04/22/24 Rx tabs fluticasone propionate 50 2 spray intranasal DAILY PRN 02/03/23 04/22/24 Rx mcg/actuation nasal allergy symptoms #16 grams spray,suspension naproxen 500 mg tablet (Naprosyn) 500 mg PO BID PRN pain #15 tabs 02/19/24 04/22/24 Rx losartan 100 See Rx Instructions .Route 03/10/24 04/22/24 Rx mg-hydrochlorothiazide 25 mg tablet .COMPLEX #90 tabs PROBIOTIC See Rx Instructions BYMOUTH 03/11/24 04/22/24 History .COMPLEX carvedilol 12.5 mg tablet See Rx Instructions .Route 03/24/24 04/22/24 Rx .COMPLEX #200 tabs Lactobacillus acidophilus 10 100 mmu cells PO DAILY 04/19/24 04/22/24 History billion cell capsule (Probiotic) Patient hx anesthesia problems: none Family hx anesthesia problems: none Results Review: All pre-operative results and documents have been reviewed as part of the pre- operative evaluation. [facility] Past Medical History Medical History (Updated 04/26/24 @ 10:57 by Alexandre Valentine DO) Atrial fibrillation Colon cancer screening BMI 25.0-25.9,adult Hypercholesterolemia Cholelithiasis Gallstone pancreatitis Vitamin D deficiency Pre-diabetes Hx of colonic polyps Benign essential hypertension Surgical History Surgical History History of hysteroscopy History of tubal ligation History of section Hx of parathyroidectomy History of total right hip replacement Family History Family History Father Hypertension Family history of diabetes mellitus in first degree relative Acute myocardial infarction Mother Hypertension Family history of heart disease in male family member before age 55 Sibling Family history of diabetes mellitus in first degree relative Other Diabetes mellitus Social History Social History Smoking status: Never smoker Second hand tobacco smoke exposure: No Alcohol intake: never Do You Feel Safe in your Home?: Yes Lack of Transportation: No Lack of Food: Never True Current Housing: I Have Housing Concerned About Future Housing: No Difficulty Paying Gas/Electric Bills: No Difficulty Paying for Meds: No Currently Unemployed: No Education: Associate Degree Difficulty w/ Childcare or Family Care: No Living arrangements: with family Gender identity (if verbalized by the patient): Female Spiritual care concerns: No Anes - Eval Final PreProcedure Day of Procedure 04/26/24 10:56 Patient weight: overweight Heart: regular rate and rhythm Lungs: clear to auscultation Airway: Mallampati scale class II Neurological: alert and oriented Last oral intake: >/= 8 hours ASA classification: III Emergent: no Anesthetic plan: proceed Anesthesia type and monitoring: general ETT and standard monitoring Results Review: All pre-operative results and documents have been reviewed as part of the pre-operative evaluation. Informed Consent: The patient's anesthetic plan and its attendant risks and benefits were discussed with the patient/family/POA. Questions were solicited and answers provided to the satisfaction of the patient/family/POA.
--- NOTE | 2024-04-26 11:35 | WPDHPUPDATE1 ---
History and Physical Update Update Date/Time: 04/26/24 11:35 History and Physical has been reviewed, including an updated exam of the patient. There are NO changes in the patient's condition. Risks, benefits, and alternatives have been discussed and questions answered. Patient agrees to proceed with procedure.
[2024-04-26] MEDS: ceFAZolin 2 GM/D5W 50 ML 2 GM/50 ML BAG IVPB (11:58)
--- NOTE | 2024-04-26 13:05 | W.PM.PROC2 ---
Procedure Note - Detailed Date of Procedure 04/26/24 Pre-op Diagnosis Gallstone Pancreatitis Post-op Diagnosis Same Procedure Performed Laparoscopic cholecystectomy with intraoperative cholangiogram Surgeon James Barajas DO Anesthesia General and Local (0.5% bupivacaine) Indications This is a 69-year-old woman who had a recent hospitalization for acute pancreatitis. She had a fairly prolonged recovery from the pancreatitis and had significant inflammation and necrosis involved with her pancreas. The pancreatitis was likely caused by cholelithiasis. After recovering from the pancreatitis, she followed up in the office and discussions were made with the patient about treatment options. Decision was made to proceed with laparoscopic cholecystectomy with cholangiography, possible open. Findings Laparoscopic cholecystectomy with cholangiography was performed. The gallbladder had a few pericholecystic adhesions down near the neck and cystic duct. The cystic duct appeared normal in size. No other significant abnormalities were noted. Intraoperative cholangiogram was obtained and the images were sent to Radiology for interpretation. No filling defects or common bile duct obstructions were identified. The gallbladder was removed and sent to the lab for pathology. Description of Procedure Procedure as well as risks, benefits, and alternatives were discussed with patient. Written consent was obtained and placed in chart prior to procedure. The patient was brought back to surgical suite. Patient was placed in supine position on operating table. Time-out was done to confirm patient and procedure. Patient was then intubated by the anesthesia department. Abdomen was prepped and draped in sterile fashion using chlorhexidine prep. 0.5% bupivacaine with epinephrine was infiltrated at each site of incision. An 11 millimeter vertical incision was made at the inferior portion of the umbilicus using a 15 blade scalpel. Blunt dissection was carried down to the linea alba. The linea alba was then incised using a 15 blade scalpel. The peritoneum was then bluntly entered. An 11 millimeter trocar was inserted and carbon dioxide insufflation was used to create a pneumoperitoneum. The camera was inserted and the abdomen was inspected. The patient was placed in reverse Trendelenberg position and rotated slightly to the left. A 5 millimeter incision was made in the epigastric region, and a 5 millimeter trocar was inserted under direct visualization. Two 5 millimeter incisions were made in the right upper quadrant, and two 5 millimeter trocars were inserted under direct visualization. The gallbladder was identified and grasped at the fundus and retracted superiorly. It was then grasped at the infundibulum retracted laterally. Careful dissection around the neck of the gallbladder was performed using blunt dissection with a [place] grasper and hook electrocautery. The cystic duct was identified, and a window was created behind it. The cystic artery was also identified and a window was created behind it. The critical view of safety was identified, visualizing the cystic duct running directly into the neck of the gallbladder, and the cystic artery running directly into the wall of the gallbladder. A 5 millimeter clip ticket chopper assembler was then used to place 2 clips proximally and 1 clip distally on the cystic artery. It was then transected using endoscopic scissors. The Perez clamp was then placed across the neck of the gallbladder and the Perez cholangiocatheter was advanced into the cystic duct. Catheter flushed with saline with ease. The patient was then flattened out in bed and fluoroscopy was used to obtain a cholangiogram with Omnipaque contrast. The images were sent to Radiology for interpretation. The patient was then placed back in reverse Trendelenburg position. The catheter was removed. A 5 mm Endoclip ticket chopper assembler was then used to place 2 clips proximally 1 clip distally on the cystic duct. It was then transected using endoscopic scissors. Once safely away from the stacy hepatitis, the gallbladder was dissected free from the liver bed using hook electrocautery. Hemostasis was achieved along the way. The gallbladder was removed completely and then removed through the umbilical port. The liver bed was then inspected. Hemostasis appeared adequate, and our clips appeared secure. The area was gently irrigated with sterile saline. No other abnormalities were seen. The patient was flattened out in bed, and 1 final inspection was made around the abdominal cavity. The ports were then removed under direct visualization, the camera was removed, and the pneumoperitoneum was released. The fascia of the umbilical incision was approximated using an 0 Vicryl [id number] suture. The skin of the incisions was approximated using 4-0 Monocryl subcuticular sutures. Exofin glue was applied on top. The patient was then awakened from anesthesia, extubated, and transferred to recovery. Estimated Blood Loss 5 Urine Output 300 Pathology Yes (Gallbladder) Complications No immediate complications Condition Stable Disposition Same day [facility] Billing Surgery - Charge Forward: Surgery Billing
--- NOTE | 2024-04-26 13:56 | SUR.PHASEI ---
Notified Dr. Valentine regarding patient's elevated BP. Stated patient is stable for discharge, but should taken home BP meds once discharged.
== END 2024-04-26 15:07 | disposition home or self-care (01) ==
PROVIDERS: PCP Internal Medicine; Visit Provider Surgery
PROC: 0FT44ZZ Resection of Gallbladder, Percutaneous Endoscopic Approach (ICD-10-PCS; CPT 47562; principal; 2024-04-26 12:00)
DX: K80.10 Calculus of gallbladder with chronic cholecystitis without obstruction (principal); K82.8 Other specified diseases of gallbladder; I10 Essential (primary) hypertension; E78.00 Pure hypercholesterolemia, unspecified; E55.9 Vitamin D deficiency, unspecified; I48.91 Unspecified atrial fibrillation; R73.03 Prediabetes; Z79.1 Long term (current) use of non-steroidal anti-inflammatories (NSAID); Z98.890 Other specified postprocedural states; Z98.51 Tubal ligation status; Z86.0100 Personal history of colon polyps, unspecified; Z87.19 Personal history of other diseases of the digestive system; Z82.49 Family history of ischemic heart disease and other diseases of the circulatory system
CPT/HCPCS: 47563; 74300; 88304; A9270; J0690; J1100; J1171; J1885; J2003; J2250; J2405; J2704; J3010; J7030; J7120; Q9966